=== PATIENT | female | born 1945 | race African-American/Black ===

== ENCOUNTER 2022-04-26 14:55 | Emergency (ER) | payer OTHER ==
--- OUTSIDE RECORDS SUMMARY | 2022-04-26 15:08 | XMS REPORT | Continuity of Care Document ---
:1945 Author Organization [facility] t Address [address] [place] [address] Care Team Providers Name Role Phone JOHAN RUDOLPH Primary Care Physician UnavailWILIAM Alcazar Attending Clinician Unavailable JANNET SANTIAGO Attending Clinician Unavailable ARAMIS JOSEPH Attending Clinician Unavailable ALEXSANDRA ROONEY Attending Clinician Unavailable LAB90 Attending Clinician Unavailable JENNIFER MCDONALD Attending Clinician Unavailable 1, OPTICAL COHERENCE TOMOGRAPHY Attending Clinician UnavailALEJO Meneses Attending Clinician Unavailable LAB47 Attending Clinician Unavailable TRED47 Attending Clinician Unavailable NIKO KOCH Attending Clinician Unavailable NEFTALY REA Attending Clinician Unavailable MD BITA Attending Clinician Unavailable BHUPENDRA JENKINS Attending Clinician Unavailable JOHAN RUDOLPH Attending Clinician Unavailable LAB53 Attending Clinician Unavailable MOHAN CHAN Attending Clinician Unavailable [id number] Attending Clinician Unavailable STACY PATEL Attending Clinician Unavailable DAYLIN TOTH Attending Clinician Unavailable ISABELLE ANDERSON Attending Clinician Unavailable AYDEN CHAVEZ Attending Clinician Unavailable COVID-PFIZER VACC, CLEAR GIMENEZ Attending Clinician Unavailnelida Rooney MD, Alexsandra Villafuerte Attending Clinician LAB39 Attending Clinician Unavailable Jannet Santiago OD Attending Clinician CAROL ANN DUKE Attending Clinician Unavailable Srikanth MAGAÑA, Carol Ann Pruett Attending Clinician [phone] Anderson_V Attending Clinician Unavailable JONNIE GARNER Attending Clinician Unavailable Fabi MAGAÑA, Jonnie Watson Attending Clinician [phone] HERNANDO LINARES Attending Clinician Unavailable Alejo Molina MD Attending Clinician Gregory MAGAÑA, Bhupendra Attending Clinician JOHNNY BACON Attending Clinician Unavailable COVID-PFIZER BOOSTER, CLEAR GIMENEZ Attending Clinician Unavail able [place], INJ Attending Clinician Unavailable LIVE MALIK Attending Clinician Unavailable VENKAT ADHIKARI Attending Clinician Unavailable WILIAM KAYE Attending Clinician Unavailable DEV LAYTON Attending Clinician Unavailable MICKIE MORENO Attending Clinician Unavailable KEVIN JACKSON Attending Clinician Unavailable GABBIE AMATO Attending Clinician Unavailable RHIANNON BELL Attending Clinician Unavailable MARLYN ORTIZ Attending Clinician Unavailable JEREMY BURNS Attending Clinician Unavailable HERNAN ANGELO Attending Clinician Unavailable WILIAM KAYE Admitting Clinician Unavailable Anderson_V Admitting Clinician Unavailable YESY SANDERSON Admitting Clinician Unavailable DARON BAEZA Admitting Clinician Unavailable LEFTY BEVERLY Admitting Clinician Unavailable Payers Payer Name Policy Type Policy Number Effective Date Expiration Date [place] DENGPLUS HMO ALL [id number] 2020 00:00:00 [place] H[place] 7 [id number] 2021 00:00:00 HUMANA [place] GOLD PLUS 7 [id number] 2022 42 OA 00:00:00 ZZZWELLCARE 15 [id number] 2021 MEDICARE HMO 00:00:00 WELLCARE TXP 7 [id number] 2021 CLASSIC NO PREMIUM 00:00:00 R2T KELSEYCARE MEDICARE [id number] 2021 ADV 00:00:00 Problems Condition Condition Condition Status Onset Resolution Last Treating Co mments Source Name Details Category Date Date Treatment Clinician Date Atheroscle Atheroscle Disease Active Martir phillips rosis of rosis of 6-14 [facility] aorta aorta 00:00: - 00 Externa l Arthritis Arthritis Disease Active [facility] Hypertensi Hypertensi Disease Active Martir phillips ve chronic ve chronic 5-10 [facility] kidney kidney 00:00: - disease disease 00 Externa l Arthritis Arthritis Disease Active [facility] left 2- [facility] Primary Primary Disease Active [facility] localized localized - [facility] osteoarthr osteoarthr 00:00: Hi dical osis, osis, 00 Center lower leg, lower leg, right right S/P knee S/P knee Disease [facility] replacemen replacemen -26 [facility] S/P knee S/P knee Disease [facility] replac[facility] replacemen 2-26 [facility] 00:00: Medical 00 [place] Stage 3a Stage 3a Disease Active Kelse y chronic chronic 2-19 [facility] kidney kidney 00:00: - disease disease 00 Externa l Severe Severe Disease Active [facility] obesity obesity 07-17ybold (BMI (BMI 00:00: - 35.0-39.9) 35.0-39.9) 00 Ex terna with with l comorbidit comorbidit y y CAD CAD Disease Active [facility] (coronary (coronary 07-17 Seyb old atheroscle atheroscle 00:00: - rotic rotic 00 Externa disease) disease) l Hypertensi Hypertensi Disease Active 2018-02 Martir phillips on on 04-06 [facility] 00:00: - 00 Externa l Left upper Left upper Disease Active 2018-[address] arm pain arm pain 02-21 [facility] Left arm Left arm Disease [facility] 2018-[facility] 02[facility] [place] Transamini Transamini Disease Active [facility] tis tis 9-16 [facility] 00:[facility] 00 [place] Abdominal Abdominal Disease Active [facility] pain pain 9-13 [facility] 00 [place] Precordial Precordial Disease Active [facility] chest pain chest pain 9-12 [facility] 00:00: Medical 00 [place] Chronic Chronic Disease Active [facility] venous venous - [facility] insufficie insufficie 00:00: - ncy ncy 00 Externa l History of History of Disease Active K elsey DVT of DVT of 10-21 [facility] lower lower 00:00: - extremity extremity 00 Exte rna l 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 [facility] myocardial myocardial 3-21 Se [facility] infarction infarction 00:00: - 00 Externa l Varicose Varicose Disease Active Kelse y veins of veins of 05-05 Seybol d both lower both lower 00:00: - extremitie extremitie 00 Ex terna s with s with l pain pain Moderate Moderate Disease [facility] dehydratio dehydratio 3-11 [facility] n n 00:00: Medical 00 [place] Abdominal Abdominal Disease Active [facility] cramping cramping 3-10 [facility] 00 [place] Acute Acute Disease Active [facility] infectious infectious 3-10 [facility] diarrhea diarrhea 00:00: Medica l 00 [place] Nausea Nausea Disease Active [facility] 3-10 [facility] 00 [place] Uncontroll Uncontroll Disease Active [facility] ed ed 3-10 [facility] hypertensi hypertensi 00:00: Me dical on on 00 [place] Chest Chest Disease Active [facility] pain, pain, 5-22 [facility] unspecifie unspecifie 00:00: Me dical d type d type 00 [place] Neuropathy Neuropathy Disease Active K elsey 4-27 [facility] 00:00: - 00 Externa l Acute pain Acute pain Disease Active [facility] of left of left 9-19 [facility] shoulder shoulder 00:00: Medica l 00 [place] History of History of Disease Active [facility] pulmonary pulmonary -19 [facility] embolism embolism 00:00: Medica l 00 [place] H/O H/O Disease Active [facility] protein C protein C 11-03 [facility] deficiency deficiency 00:00: Me dical 00 Center Coronary Coronary Disease [facility] artery artery 11-03[facility] disease disease 00:00: Medical involving involving 00 [facility] [place] coronary coronary artery of artery of [place] heart heart without without angina angina pectoris pectoris s/p PTCA s/p PTCA with PCI with PCI in 04/2016 in 04/2016 at [facility] Hypothyroi Hypothyroi Disease Active [facility] dism dism 11-03 [facility] History of History of Disease Active [facility] left left 11-03 [facility] rotator rotator 00:00: Medical cuff tear cuff tear 00 Cent er Essential Essential Disease Active [facility] hypertensi hypertensi 11-03 [facility] on on 00:00: Medical 00 Center Hyperlipid Hyperlipid Disease Active [facility] emia emia 11-03 [facility] CKD CKD Disease Active [facility] (chronic (chronic 11-03 [facility] kidney kidney 00:00: Medical disease) disease) 00 Center stage 2, stage 2, GFR 60-89 GFR 60-89 ml/min ml/min Hypertensi Hypertensi Disease Active [facility] ve urgency ve urgency 11-03 [facility] kes 00:00: Medical 00 Center Mixed Mixed Disease Active [facility]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 hyperlipid 04-21 Se [facility] emia emia 00:00: - 00 Externa l Prediabete Prediabete Disease Active K elsey s s 04-21 [facility] 00:00: - 00 Externa l Proteinuri Proteinuri Disease Active K elsey a a 3- [facility]bold 00:00: - 00 Externa l 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 [facility] depressive depressive 00:00: - disorder, disorder, 00 Exte rna in full in full l remission remission 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 3 [facility] filter filter 00:00: - 00 Externa l Cyst of Cyst of Disease Active [facility] left left 3- [facility] kidney kidney 00:00: - 00 Externa l Hydrosalpi Hydrosalpi Disease Active K alan nx nx 3-07 [facility] 00:00: - 00 Externa l Pelvic Pelvic Disease Active [facility] varices varices 3-07 [facility] 00:00: - 00 Externa l Chronic Chronic Disease Active [facility] daily daily 3-07 [facility] headache headache 00:00: - 00 Externa l Post-surgi Post-surgi Disease Active K alan nilda nilda 3-07 [facility] hypothyroi hypothyroi 00:00: - dism dism 00 Externa l Primary Primary Disease Active [facility] 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 Se [facility] glaucoma glaucoma 00:00: - of both of both 00 Externa eyes, eyes, l moderate moderate stage stage Lumbar Lumbar Disease Active [facility] degenerati degenerati 3-01 Se [facility] ve disc ve disc 00:00: - disease disease 00 Externa l Inflammato Inflammato Disease Active K alan ry ry 2-15 [facility] arthritis arthritis 00:00: - 00 Externa l Sacroiliit Sacroiliit Disease Active 2014-02 K kamalay is is 2-15 [facility]bold 00:00: - 00 Externa l 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 1-20 Se ybold 00:00: - 00 Externa l Allergies, Adverse Reactions, Alerts Allergy Allergy Status Severity Reaction(s) Onset Inactive Treating Comm ents Source Name Type Date Date Clinician tramadol DA Active [facility] 5[facility]03 Clear 00:00: Gimenez 00 [facility] meperidi DA Active [facility] ne 5-03 Clear 00:00: Gimenez 00 [facility] lactose DA Active [facility] 4-04 Clear 00:00: Gimenez 00 [facility] Lactose Drug Active Other (See GI issues [facility] Comments) 404 [facility] Center LACTOSE Allergy Active Med Other [facility] 4-04 00:00: 00 Lactose Drug Active Other GI issues [facility] Intolera 4-04 Seybold nce 00:00: - 00 Externa l codeine DA Active U 2017-0 [facility] 3-27 Clear 00:[facility] Meper[facility] Drug Active Shortness Of 2015-[address] [facility] Allergy Breath 03-15 [facility] MEPERIDI Allergy Active High Sob 2015-02 [facility] NE 03-15 00:00: 00 Demerol Propensi Active Shortness of 2015-02 K elsey ty to Breath 03-15 [facility] adverse 00:00: - reaction 00 Externa s l Pregabal Drug Active Nausea Only [facility] 03-12 [facility] 00:[facility] Medical 00 [place] PREGABAL Allergy Active Low Nausea [facility] IN 03-12 00:00: 00 Pregabal Drug Active Nausea Only Qasim sey in Intolera 03-12 [facility] nce 00:00: - 00 Externa l Lyrica Propensi Active Nausea Only Qasim sey ty to 03-12 [facility] adverse 00:00: - reaction 00 Externa s l Tramadol Propensi Active Nausea and Ke lsey ty to Vomiting 05-09 [facility] adverse 00:00: - reaction 00 Externa s l Tramadol Drug Active Nausea And [address] [facility] Vomiting, 04-27 [facility] Nausea Only 00:00: Medic al 00 Center TRAMADOL Allergy Active Med N\\T\\V [facility] 3-13 00:00: 00 Codeine Drug Active Nausea And Abdominal [facility] Allergy Vomiting, 1-20 pain [facility] Other (See 00:00: Medica l Comments) 00 Center CODEINE Allergy Active High N\\T\\V [facility] 1-20 00:00: 00 Codeine Propensi Active Other Dizziness Macrina ey ty to 1-20 , nausea, [facility]bold adverse 00:00: vomiting, - reaction 00 abdominal Exter na s to pain. l drug Codeine Propensi Active Other Dizziness Macrina ey ty to 1-20 , nausea, [facility]bold adverse 00:00: vomiting, - reaction 00 abdominal Exter na s to pain. l drug Social History Social Habit Start Date Stop Date Quantity Comments Source Exposure to Yes [facility]o cutler SARS-CoV-2 (event) Alcohol intake 2021-07-02 2021-07-[address] [facility] Tammy es 00:00:00 00:00:00 non-drinker of Medical Ce nter alcohol (finding) Tobacco use and 2014-04-27 2014-04-27 Never used [facility] exposure 00:00:00 00:00:00 [facility] Center Sex [birth year] At [birth year] [facility] 00:[facility] Smoking Status Start Date Stop Date Source Never smoked tobacco [facility]o Seyb old - External Medications Ordered Filled Start Stop Current Ordering Indication Dosage Frequency Signature Comments Components Source Medication Medication Date Date Medication? Clinician (SIG) Name Name Aspirin 81 2022-0 Yes 81mg Take 81 mg K elsey MG oral Tab 3-08 by mouth Seyb old 08:43: daily - 46 Externa l Acetaminoph 2022-0 Yes 650mg Q.[id number] Take 650 [facility]ielo en 650 MG 3-08 [id number] mg by Sey bold oral Tab CR 08:43: 3D mouth - 46 every 8 Externa hours as l needed for pain Amoxicillin 2022-0 202- Yes [id number] 1{tbl} Take 1 [facility] -Pot 3-08 03-16 tablet by Seybold Clavulanate 00:00: 04:59 mouth 2 - 500-125 MG 00 :00 times Externa oral Tablet daily for l 7 days Aspirin 81 2022-0 Yes 81mg Take 81 mg K elsey MG oral Tab 3-06 by mouth Seyb old 10:45: daily - 18 Externa l Acetaminoph 2022-0 Yes 650mg Q.[id number] Take 650 [facility]o en 650 MG 3-06 [id number] mg by Sey bold oral Tab CR 10:45: 3D mouth - 18 every 8 Externa hours as l needed for pain Timolol 2022-0 Yes [id number] 1 drop in [facility] Maleate 3-06 right eye Seybold (TIMOPTIC) 00:00: every - 0.5 % 00 morning Externa ophthalmic l Solution Timolol 2022-0 Yes [id number] 1 drop in [facility] Maleate 3-06 right eye Seybold (TIMOPTIC) 00:00: every - 0.5 % 00 morning Externa ophthalmic l Solution Rosuvastati 2022-0 Yes 40mg Take 1 Macrina ey n Calcium 3-02 tablet (40 Seyb old (Crestor) 00:00: mg total) - 40 MG oral 00 by mouth Exter na Tablet daily l Rosuvastati 2022-0 Yes 40mg Take 1 Macrina ey n Calcium 3-02 tablet (40 Seyb old (Crestor) 00:00: mg total) - 40 MG oral 00 by mouth Exter na Tablet daily l Aspirin 81 2022-0 Yes 81mg Take 81 mg K elsey MG oral Tab 2-01 by mouth Seyb old 11:03: daily - 52 Externa l Acetaminoph 2022-0 Yes 650mg Q.[id number] Take 650 [facility]ielo en 650 MG 2-01 [id number] mg by Sey bold oral Tab CR 11:03: 3D mouth - 52 every 8 Externa hours as l needed for pain Aspirin 81 2022-0 Yes 81mg Take 81 mg K elsey MG oral Tab 2-01 by mouth Seyb old 11:03: daily - 52 Externa l Acetaminoph 2022-0 Yes 650mg Q.[id number] Take 650 [facility]ielo en 650 MG 2-01 [id number] mg by Sey bold oral Tab CR 11:03: 3D mouth - 52 every 8 Externa hours as l needed for pain Sod 2022-0 Yes [id number] Instructio Ke lsey Picosulfate 2-01 ns Seybold -Mag Ox-Cit 00:00: provided - Acd 00 to Externa (Clenpiq) patient. l 10-3.5-12 Follow MG-GM instructio -GM/160ML ns oral provided Solution by provider. Methylpredn 2022- No [id number] 20mg [facility] isolone 03-17 [facility] Acetate 18:00: 17:58 - (Depo-Medro 00 :00 Externa l) 40 mg/ml l - Physician Administere d (J1030) Methylpredn 2022- No [id number] 20mg 20 mg, [facility] isolone 03-17 Physician Seybol d Acetate 18:00: 17:58 Administer - (Depo-Medro 00 :00 ed, ONCE, Ext malik l) 40 mg/ml 1 dose, On l - Physician Tue Administere 03/17/22 at d (J1030) 1200 Aspirin 81 2022-0 Yes 81mg Take 81 mg K elsey MG oral Tab 1-31 by mouth Seyb old 11:41: daily - 22 Externa l Acetaminoph 2022-0 Yes 650mg Q.[id number] Take 650 Cielo en 650 MG 1-31 [id number] mg by Sey bold oral Tab CR 11:41: 3D mouth - 22 every 8 Externa hours as l needed for pain Duloxetine 2022-0 Yes 20mg Take 1 Kelse y HCl 20 MG 1-15 capsule Seybold oral Cap DR 00:00: (20 mg - Particles 00 total) by Exter na mouth l daily NO DRIVING. NO ALCOHOL. NO OPERATING MACHINERY. Duloxetine 2022-0 Yes 20mg Take 1 Kelse y HCl 20 MG 1-15 capsule Seybold oral Cap DR 00:00: (20 mg - Particles 00 total) by Exter na mouth l daily NO DRIVING. NO ALCOHOL. NO OPERATING MACHINERY. Duloxetine 2022-0 Yes 20mg Take 1 Kelse y HCl 20 MG 1-15 capsule Seybold oral Cap DR 00:00: (20 mg - Particles 00 total) by Exter na mouth l daily NO DRIVING. NO ALCOHOL. NO OPERATING MACHINERY. Duloxetine 2022-0 Yes 20mg Take 1 Kelse y HCl 20 MG 1-15 capsule Seybold oral Cap DR 00:00: (20 mg - Particles 00 total) by Exter na mouth l daily NO DRIVING. NO ALCOHOL. NO OPERATING MACHINERY. Duloxetine 2022-0 Yes 20mg Take 1 Kelse y HCl 20 MG 1-15 capsule Seybold oral Cap DR 00:00: (20 mg - Particles 00 total) by Exter na mouth l daily NO DRIVING. NO ALCOHOL. NO OPERATING MACHINERY. 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 l Latanoprost 2023-0 Yes [id number] INSTILL 1 [facility] 0.005 % 1-13 DROP INTO Seybold ophthalmic 00:00: BOTH EYES - Solution 00 EVERY DAY 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 l Latanoprost 2022-0 Yes [id number] INSTILL 1 [facility] 0.005 % 1-13 DROP INTO Seybold ophthalmic 00:00: BOTH EYES - Solution 00 EVERY DAY 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 l Latanoprost 2022-0 Yes [id number] INSTILL 1 [facility] 0.005 % 1-13 DROP INTO Seybold ophthalmic 00:00: BOTH EYES - Solution 00 EVERY DAY 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 l Aspirin 81 2022-0 Yes 81mg Take 81 mg K elsey MG oral Tab 1-10 by mouth Seyb old 11:14: daily - 00 Externa l Acetaminoph 2022-0 Yes 650mg Q.[id number] Take 650 Cielo en 650 MG 1-10 [id number] mg by Sey bold oral Tab CR 11:14: 3D mouth - 00 every 8 Externa hours as l needed for pain Tramadol 2022-0 Yes [id number] 50mg Q.25D Take 1 K elsey HCl 50 MG 1-10 tablet (50 Seyb old oral Tablet 00:00: mg total) - 00 by mouth Externa every 6 l hours as needed for pain Tramadol 2022-0 Yes [id number] 50mg Q.25D Take 1 K elsey HCl 50 MG 1-10 tablet (50 Seyb old oral Tablet 00:00: mg total) - 00 by mouth Externa every 6 l hours as needed for pain Tramadol 2022-0 Yes [id number] 50mg Q.25D Take 1 K elsey HCl 50 MG 1-10 tablet (50 Seyb old oral Tablet 00:00: mg total) - 00 by mouth Externa every 6 l hours as needed for pain Tramadol 0 Yes [id number] 50mg Q.25D Take 1 K elsey HCl 50 MG 1-10 tablet (50 Seyb old oral Tablet 00:00: mg total) - 00 by mouth Externa every 6 l hours as needed for pain Tramadol 2022-0 Yes [id number] 50mg Q.25D Take 1 K elsey HCl 50 MG 1-10 tablet (50 Seyb old oral Tablet 00:00: mg total) - 00 by mouth Externa every 6 l hours as needed for pain Tramadol 0 Yes [id number] 50mg Q.25D Take 1 K elsey HCl 50 MG 1-10 tablet (50 Seyb old oral Tablet 00:00: mg total) - 00 by mouth Externa every 6 l hours as needed for pain Aspirin 81 2021-02 Yes 81mg Take 81 mg K elsey MG oral Tab 1-29 by mouth Seyb old 11:35: daily - 08 Externa l Acetaminoph 2021-02 Yes 650mg Q.[id number] Take 650 Cielo en 650 MG - [id number] mg by Sey bold oral Tab CR 11:35: 3D mouth - 08 every 8 Externa hours as l needed for pain Aspirin 81 2021-02 Yes 81mg Take 81 mg K elsey MG oral Tab 1-16 by mouth Seyb old 15:10: daily - 08 Externa l Acetaminoph 2021-02 Yes 650mg Q.[id number] Take 650 Cielo en 650 MG 16 [id number] mg by Sey bold oral Tab CR 15:10: 3D mouth - 08 every 8 Externa hours as l needed for pain Aspirin 2021-02 Yes 81mg Take 81 mg K elsey MG oral Tab 107 by mouth Seyb old 13:39: daily - 21 Externa l Acetaminoph 2021-02 Yes 650mg Q.[id number] Take 650 Cielo en 650 MG 07 [id number] mg by Sey bold oral Tab CR 13:39: 3D mouth - 21 every 8 Externa hours as l needed for pain Latanoprost 2021-02 Yes [id number] INSTILL 1 [facility] 0.005 % 0-04 DROP INTO Seybold ophthalmic 00:00: BOTH EYES - Solution 00 EVERY DAY 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 l Latanoprost 2021-02 Yes [id number] INSTILL 1 [facility]o 0.005 % 0-04 DROP INTO Seybold ophthalmic 00:00: BOTH EYES - Solution 00 EVERY DAY 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 l Latanoprost 2021-02 Yes [id number] INSTILL 1 [facility]o 0.005 % 0-04 DROP INTO Seybold ophthalmic 00:00: BOTH EYES - Solution 00 EVERY DAY 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 l Latanoprost 2021-02 Yes [id number] INSTILL 1 [facility] 0.005 % 0-04 DROP INTO Seybold ophthalmic 00:00: BOTH EYES - Solution 00 EVERY DAY 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 Atorvastati Yes TAKE 1 Macrina ey n Calcium 9-16 TABLET BY Seybo ld 40 MG oral 00:00: MOUTH - Tablet 00 EVERY DAY Externa l Atorvastati 0 Yes TAKE 1 Macrina ey n Calcium 9-16 TABLET BY Seybo ld 40 MG oral 00:00: MOUTH - Tablet 00 EVERY DAY Externa l Atorvastati 0 Yes TAKE 1 Macrina ey n Calcium 9-16 TABLET BY Seybo ld 40 MG oral 00:00: MOUTH - Tablet 00 EVERY DAY Externa l Atorvastati 2021-0 Yes TAKE 1 Macrina ey n Calcium 9-16 TABLET BY Seybo ld 40 MG oral 00:00: MOUTH - Tablet 00 EVERY DAY Externa l Atorvastati 2021-0 Yes TAKE 1 Macrina ey n Calcium 9-16 TABLET BY Seybo ld 40 MG oral 00:00: MOUTH - Tablet 00 EVERY DAY Externa l Atorvastati 0 Yes TAKE 1 Macrina ey n Calcium 9-16 TABLET BY Seybo ld 40 MG oral 00:00: MOUTH - Tablet 00 EVERY DAY Externa l Atorvastati 0 Yes TAKE 1 Macrina ey n Calcium 9-16 TABLET BY Seybo ld 40 MG oral 00:00: MOUTH - Tablet 00 EVERY DAY Externa l Atorvastati 2021-0 Yes TAKE 1 Macrina ey n Calcium 9-16 TABLET BY Seybo ld 40 MG oral 00:00: MOUTH - Tablet 00 EVERY DAY Externa l Duloxetine 0 Yes [facility]o HCl 20 MG 8-[address] 00:00: - Particles 00 Externa l Duloxetine 2021-0 Yes [facility] HCl 20 MG 8-24 Seybold oral Cap 00:00: - Particles 00 Externa l Duloxetine 2021-0 Yes [facility] HCl 20 MG 8-24 Seybold oral Cap 00:00: - Particles 00 Externa l Duloxetine 2021-0 Yes [facility] HCl 20 MG 8-24 Seybold oral Cap 00:00: - Particles 00 Externa l Duloxetine 2021-0 Yes [facility] HCl 20 MG 8-24 Seybold oral Cap 00:00: - Particles 00 Externa l Levothyroxi 2021-0 Yes TAKE 1 Macrina ey ne Sodium 7-28 TABLET BY Seybo ld 112 MCG 00:00: MOUTH - oral Tablet 00 EVERY DAY Ext malik l Levothyroxi 2021-0 Yes TAKE 1 Macrina ey ne Sodium 7-28 TABLET BY Seybo ld 112 MCG 00:00: MOUTH - oral Tablet 00 EVERY DAY Ext malik l Levothyroxi 2021-0 Yes TAKE 1 Macrina ey ne Sodium 7-28 TABLET BY Seybo ld 112 MCG 00:00: MOUTH - oral Tablet 00 EVERY DAY Ext malik l Levothyroxi 2021-0 Yes TAKE 1 Macrina ey ne Sodium 7-28 TABLET BY Seybo ld 112 MCG 00:00: MOUTH - oral Tablet 00 EVERY DAY Ext malik l Levothyroxi 2021-0 Yes TAKE 1 Macrina ey ne Sodium 7-28 TABLET BY Seybo ld 112 MCG 00:00: MOUTH - oral Tablet 00 EVERY DAY Ext malik l Levothyroxi 2021-0 Yes TAKE 1 Macrina ey ne Sodium 7-28 TABLET BY Seybo ld 112 MCG 00:00: MOUTH - oral Tablet 00 EVERY DAY Ext malik l Levothyroxi 2021-0 Yes TAKE 1 Macrina ey ne Sodium 7-28 TABLET BY Seybo ld 112 MCG 00:00: MOUTH - oral Tablet 00 EVERY DAY Ext malik l Levothyroxi 2021-0 Yes TAKE 1 Macrina ey ne Sodium 7-28 TABLET BY Seybo ld 112 MCG 00:00: MOUTH - oral Tablet 00 EVERY DAY Ext malik l Levothyroxi 2021-0 Yes TAKE 1 Macrina ey ne Sodium 7-28 TABLET BY Seybo ld 112 MCG 00:00: MOUTH - oral Tablet 00 EVERY DAY Ext malik l Levothyroxi Yes TAKE 1 Macrina ey ne Sodium 7-28 TABLET BY Seybo ld 112 MCG 00:00: MOUTH - oral Tablet 00 EVERY DAY Ext malik l Pseudoeph-B 2021- No [id number] 10mL Q.25D Take 10 mL Cielo romphen-DM 08-15 by mouth 4 Se ybold (Bromfed 00:00: 00:00 times - DM) 30-2-10 00 :00 daily as Exte rna MG/5ML oral needed l Syrup Methylpredn 2021- No [id number] 80mg Cielo isolone 07-22 9108 Seybold Acetate 17:30: 17:26 (Depo-Medro 00 :00 l) 80 mg/ml - Physician Administere d ([id number]) Methylpredn 2021- No [id number] 80mg 80 mg, Cieol isolone 07-22 9108 Physician Seybol d Acetate 17:30: 17:26 Administer (Depo-Medro 00 :00 ed, ONCE, l) 80 mg/ml On Tue - Physician 07/22/21 at Administere 1230, For d (J1040) 1 dose Aspirin 81 2021-0 Yes 81mg Take 81 mg K elsey MG oral Tab 607 by mouth Seyb old 10:28: daily 25 Acetaminoph 2021-0 Yes 650mg Q.[id number] Take 650 Cielo en 650 MG 6- [id number] mg by Sey bold oral Tab CR 10:28: 3D mouth 25 every 8 hours as needed for pain Gabapentin Yes 300mg Take 300 Ke lsey 300 MG oral 6-07 mg by Seybold Capsule 10:28: mouth in 25 the morning and 300 mg in the evening. Aspirin 81 2021-0 Yes 81mg Take 81 mg K elsey MG oral Tab 6-06 by mouth Seyb old 15:35: daily 39 Acetaminoph 2021-0 Yes 650mg [id number] Take 650 [place] en 650 MG 6-06 [id number] mg by Sey bold oral Tab CR 15:35: 3D mouth 39 every 8 hours as needed for pain Gabapentin 2021-0 Yes 300mg Take 300 Ke l[place] 300 MG oral 6-06 mg by Seybold Capsule 15:35: mouth in 39 the morning and 300 mg in the evening. Gabapentin Yes 300mg Take 300 Ke lsey 300 MG oral 6-02 mg by Seybold Capsule 11:33: mouth in 32 the morning and 300 mg in the evening. Aspirin 81 0 Yes 81mg Take 81 mg K elsey MG oral Tab 6-02 by mouth Seyb old 10:59: daily 36 Acetaminoph Yes 650mg Q.[id number] Take 650 [place] en 650 MG 6-02 [id number] mg by Sey bold oral Tab CR 10:59: 3D mouth 36 every 8 hours as needed for pain Furosemide Yes 40mg Take 1 K[facility] 40 MG oral 6-02 tablet (40 Sey bold Tablet 00:00: mg total) 00 by mouth daily Potassium Yes 20meq Take 1 [facility] Chloride 6-02 tablet (20 Seybo ld Maddison CR 20 00:00: mEq total) MEQ oral 00 by mouth Tab CR daily Furosemide Yes 40mg Take 1 Kelse y 40 MG oral 6-02 tablet (40 Sey bold Tablet 00:00: mg total) 00 by mouth daily Potassium Yes 20meq Take 1 [facility] Chloride 6-02 tablet (20 Seybo ld Maddison CR 20 00:00: mEq total) MEQ oral 00 by mouth Tab CR daily Furosemide Yes 40mg Take 1 Kelse y 40 MG oral 6-02 tablet (40 Sey bold Tablet 00:00: mg total) 00 by mouth daily Potassium 0 Yes 20meq Take 1 [facility] Chloride 6-02 tablet (20 Seybo ld Maddison CR 20 00:00: mEq total) MEQ oral 00 by mouth Tab CR daily Furosemide Yes 40mg Take 1 Kelse y 40 MG oral 6-02 tablet (40 Sey bold Tablet 00:00: mg total) - 00 by mouth Externa daily l Potassium Yes 20meq Take 1 [facility] Chloride 6-02 tablet (20 Seybo ld Maddison CR 20 00:00: mEq total) - MEQ oral 00 by mouth Externa Tab CR daily l Furosemide 2022-0 Yes 40mg Take 1 Kelse [facility] 40 MG oral 6-02 tablet (40 Sey bold Tablet 00:00: mg total) - 00 by mouth Externa daily l Potassium 2-0 Yes 20meq Take 1 [facility] Chloride 6-02 tablet (20 Seybo ld Maddison CR 20 00:00: mEq total) - MEQ oral 00 by mouth Externa Tab CR daily l Furosemide 2-0 Yes 40mg Take 1 Kelse [facility] 40 MG oral 6-02 tablet (40 Sey bold Tablet 00:00: mg total) - 00 by mouth Externa daily l Potassium 2-0 Yes 20meq Take 1 [facility] Chloride 6-02 tablet (20 Seybo ld [place] CR 20 00:00: mEq total) - MEQ oral 00 by mouth Externa Tab CR daily l Furosemide 2021-0 Yes 40mg Take 1 Kelse [facility] 40 MG oral 6-02 tablet (40 Sey bold Tablet 00:00: mg total) - 00 by mouth Externa daily l Potassium 2-0 Yes 20meq Take 1 [facility] Chloride 6-02 tablet (20 Seybo ld [place] CR 20 00:00: mEq total) - MEQ oral 00 by mouth Externa Tab CR daily l Furosemide 2-0 Yes 40mg Take 1 Kelse [facility] 40 MG oral 6-02 tablet (40 Sey bold Tablet 00:00: mg total) - 00 by mouth Externa daily l Potassium 2-0 Yes 20meq Take 1 [facility] Chloride 6-02 tablet (20 Seybo ld [place] CR 20 00:00: mEq total) - MEQ oral 00 by mouth Externa Tab CR daily l Furosemide 2-0 Yes 40mg Take 1 Kelse [facility] 40 MG oral 6-02 tablet (40 Sey bold Tablet 00:00: mg total) - 00 by mouth Externa daily l Potassium 2022-0 Yes 20meq Take 1 [facility] Chloride 6-02 tablet (20 Seybo ld [place] CR 20 00:00: mEq total) - MEQ oral 00 by mouth Externa Tab CR daily l Furosemide 2-0 Yes 40mg Take 1 Kelse [facility] 40 MG oral 6-02 tablet (40 Sey bold Tablet 00:00: mg total) - 00 by mouth Externa daily l Potassium 2022-0 Yes 20meq Take 1 [facility] Chloride 6-02 tablet (20 Seybo ld [place] CR 20 00:00: mEq total) - MEQ oral 00 by mouth Externa Tab CR daily l Furosemide 2021-0 Yes 40mg Take 1 K[facility] 40 MG oral 6-02 tablet (40 Sey bold Tablet 00:00: mg total) - 00 by mouth Externa daily l Potassium 2021-0 Yes 20meq Take 1 [facility] Chloride 6-02 tablet (20 Seybo ld [place] CR 20 00:00: mEq total) - MEQ oral 00 by mouth Externa Tab CR daily l Furosemide 2021-0 Yes 40mg Take 1 K[facility] 40 MG oral 6-02 tablet (40 Sey bold Tablet 00:00: mg total) - 00 by mouth Externa daily l Potassium 2021-0 Yes 20meq Take 1 [facility] Chloride 6-02 tablet (20 Seybo ld [place] CR 20 00:00: mEq total) - MEQ oral 00 by mouth Externa Tab CR daily l Furosemide 2021-0 Yes 40mg Take 1 Kelse [facility] 40 MG oral 6-02 tablet (40 Sey bold Tablet 00:00: mg total) - 00 by mouth Externa daily l Potassium 2021-0 Yes 20meq Take 1 [facility] Chloride 6-02 tablet (20 Seybo ld [place] CR 20 00:00: mEq total) - MEQ oral 00 by mouth Externa Tab CR daily l Lisinopril 2021-0 Yes [id number] TAKE 1 K elsey 40 MG oral 5-23 TABLET BY Seyb old Tablet 00:00: MOUTH 00 EVERY DAY Lisinopril 2022-0 Yes [id number] TAKE 1 K elsey 40 MG oral 5-23 TABLET BY Seyb old Tablet 00:00: MOUTH 00 EVERY DAY Lisinopril 2022-0 Yes [id number] TAKE 1 K elsey 40 MG oral 5-23 TABLET BY Seyb old Tablet 00:00: MOUTH 00 EVERY DAY Lisinopril 2-0 Yes [id number] TAKE 1 K elsey 40 MG oral 5-23 TABLET BY Seyb old Tablet 00:00: MOUTH - 00 EVERY DAY Externa l Lisinopril 2021-0 Yes [id number] TAKE 1 K elsey 40 MG oral 5-23 TABLET BY Seyb old Tablet 00:00: MOUTH - 00 EVERY DAY Externa l Lisinopril 2022-0 Yes [id number] TAKE 1 K elsey 40 MG oral 5-23 TABLET BY Seyb old Tablet 00:00: MOUTH - 00 EVERY DAY Externa l Lisinopril 0 Yes [id number] TAKE 1 K elsey 40 MG oral 5-23 TABLET BY Seyb old Tablet 00:00: MOUTH - 00 EVERY DAY Externa l Lisinopril 0 Yes [id number] TAKE 1 K elsey 40 MG oral 5-23 TABLET BY Seyb old Tablet 00:00: MOUTH - 00 EVERY DAY Externa l Lisinopril 0 Yes [id number] TAKE 1 K elsey 40 MG oral 5-23 TABLET BY Seyb old Tablet 00:00: MOUTH - 00 EVERY DAY Externa l Lisinopril 0 Yes [id number] TAKE 1 K elsey 40 MG oral 5-23 TABLET BY Seyb old Tablet 00:00: MOUTH - 00 EVERY DAY Externa l Lisinopril 0 Yes [id number] TAKE 1 K elsey 40 MG oral 5-23 TABLET BY Seyb old Tablet 00:00: MOUTH - 00 EVERY DAY Externa l Lisinopril 0 Yes [id number] TAKE 1 K elsey 40 MG oral 5-23 TABLET BY Seyb old Tablet 00:00: MOUTH - 00 EVERY DAY Externa l Lisinopril 0 Yes [id number] TAKE 1 K elsey 40 MG oral 5-23 TABLET BY Seyb old Tablet 00:00: MOUTH - 00 EVERY DAY Externa l aspirin 81 0 Yes 81mg QD Take [address] MG chewable 5-18 by mouth Luke s tablet 19:20: daily. Medical 27 [facility] atorvastati Yes 40mg QD Take [address] [facility] (LIPITOR) 5-18 by mouth Luke s 40 MG 19:20: daily. Medical tablet 27 Center carvediloL Yes 3.125mg Take 3.[address] [facility] (COREG) 5-18 mg [facility] 3.125 MG 19:20: mouth 2 Medica l tablet 27 (two) Center times daily with breakfast and dinner. clopidogreL Yes 75mg QD Take [address] [facility] (PLAVIX) 75 5-18 by mouth Luke s mg tablet 19:20: daily. Medica l 27 Center enoxaparin Yes QD Inject [facility] (Lovenox[facility] 5-18 subcutaneo Luke s 150 mg/mL 19:20: usly Medical injection 27 daily. Center gabapentin Yes 300mg Q.[id number] Take [address] [facility] (NEURONTIN) 5-18 [id number] mg by L ukes 300 MG 19:20: 3D mouth 3 Medical capsule 27 (three) Center times daily. HYDROcodone Yes 1{tbl} Take [address] [facility] [address] [facility] -acetaminop 5-18 tablet by Tammy barrios (NORCO 19:20: mouth Medica l 10-325) 27 every 6 Center 10-325 mg (six) per tablet hours as needed for Pain. latanoprost Yes 1[drp] QD [address] [facility] [address] [facility] (XALATAN) 5-18 nightly. [facility] 0.005 % 19:20: Medical ophthalmic 27 Center solution naloxone Yes Inject as [facility] 0.4 mg/0.4 5-18 directed. Luke s mL AtIn 19:20: Medical 27 Center potassium Yes 20meq QD Take [address] [facility] chloride 5-18 mEq by [facility] (KLOR-CON) 19:20: mouth Medica l 20 mEq 27 daily. Center packet timoloL Yes 1[drp] Q.5D [address] [facility] (BETIMOL) 5-18 (two) [facility] 0.5 % 19:20: times Medical ophthalmic 27 daily. Center solution ondansetron Yes 4mg Take [address] [facility] (ZOFRAN) 4 5-18 by mouth [facility] MG tablet 19:20: as needed Med ical 27 for Center Nausea. latanoprost Yes 1[drp] QD [address] [facility] [address] [facility] (XALATAN) 5-18 nightly. [facility] 0.005 % 19:20: Medical ophthalmic 27 Center solution naloxone Yes Inject as [facility] 0.4 mg/0.4 5-18 directed. Luke s mL AtIn 19:20: Medical 27 Center potassium 2021-0 Yes 20meq QD Take [address] [facility] chloride 5-18 mEq by [facility] (KLOR-CON) 19:20: mouth Medica l 20 mEq 27 daily. Center packet timoloL Yes 1[drp] Q.5D [address] [facility] (BETIMOL) 5-18 (two) [facility] 0.5 % 19:20: times Medical ophthalmic 27 daily. Center solution ondansetron Yes 4mg Take [address] (ZOFRAN) 4 5-18 by mouth [facility] MG tablet 19:20: as needed Med ical 27 for Center Nausea. aspirin 81 Yes 81mg QD Take [address] MG chewable 5-18 by mouth Luke s tablet 19:20: daily. Medical 27 Center atorvastati Yes 40mg QD Take [address] [facility] (LIPITOR) 5-18 by mouth Luke s 40 MG 19:20: daily. Medical tablet 27 Center carvediloL Yes 3.125mg Take 3.[address] [facility] (COREG) 5-18 mg by [facility] 3.125 MG 19:20: mouth 2 Medica l tablet 27 (two) Center times daily with breakfast and dinner. clopidogreL Yes 75mg QD Take [address] [facility] (PLAVIX) 75 5-18 by mouth Luke s mg tablet 19:20: daily. Medica l 27 Center enoxaparin Yes QD Inject [facility] (Lovenox[facility] 5-18 subcutaneo [facility] 150 mg/mL 19:20: usly Medical injection 27 daily. Center gabapentin Yes 300mg Q.[id number] Take [address] [facility] (NEURONTIN) 5-18 [id number] mg by L ukes 300 MG 19:20: 3D mouth 3 Medical capsule 27 (three) Center times daily. HYDROcodone Yes 1{tbl} Take [address] -acetaminop 5-18 tablet by Tammy barrios (NORCO 19:20: mouth Medica l 10-325) 27 every 6 Center 10-325 mg (six) per tablet hours as needed for Pain. latanoprost Yes 1[drp] QD [address] [facility] [address] [facility] (XALATAN) 5-18 nightly. [facility] 0.005 % 19:20: Medical ophthalmic 27 Center solution naloxone Yes Inject as [facility] 0.4 mg/0.4 5-18 directed. Luke s mL AtIn 19:20: Medical 27 Center potassium Yes 20meq QD Take [address] [facility] chloride 5-18 mEq by [facility] (KLOR-CON) 19:20: mouth Medica l 20 mEq 27 daily. [place] packet timoloL Yes 1[drp] Q.5D [address] [facility] (BETIMOL) 5-18 (two) [facility] 0.5 % 19:20: times Medical ophthalmic 27 daily. [place] solution ondansetron Yes 4mg Take [address] (ZOFRAN) 4 5-18 by mouth [facility] MG tablet 19:20: as needed Med ical 27 for Center Nausea. aspirin 81 Yes 81mg QD Take [address] MG chewable 5-18 by mouth Luke s tablet 19:20: daily. Medical 27 [place] atorvastati Yes 40mg QD Take [address] [facility] (LIPITOR) 5-18 by mouth Luke s 40 MG 19:20: daily. Medical tablet 27 [place] carvediloL Yes 3.125mg Take 3.[address] [facility] [address] (COREG) 5-18 mg by [facility] 3.125 MG 19:20: mouth 2 Medica l tablet 27 (two) Center times daily with breakfast and dinner. clopidogreL Yes 75mg QD Take [address] [facility] (PLAVIX) 75 5-18 by mouth Luke s mg tablet 19:20: daily. Medica l 27 [place] enoxaparin Yes QD Inject [facility] (Lovenox) 5-18 subcutaneo Luke s 150 mg/mL 19:20: usly Medical injection 27 daily. [place] gabapentin Yes 300mg Q.[id number] Take [address] [facility] [address] (NEURONTIN) 5-18 [id number] mg by L ukes 300 MG 19:20: 3D mouth 3 Medical capsule 27 (three) Center times daily. HYDROcodone Yes 1{tbl} Take [address] -acetaminop 5-18 tablet by Tammy barrios (NORCO 19:20: mouth Medica l 10-325) 27 every 6 Center 10-325 mg (six) per tablet hours as needed for Pain. ipratropium 2022- No 2{spray [address] [facility] (ATROVENT) 5-18 05-18 } by Nasal Luke s 21 mcg 00:00: 23:59 route Medical (0.03 %) 00 :00 every 12 Center 0.03% nasal (twelve) spray hours. albuterol 2022- No 2{puff} Inhale [address] [facility] HFA 5-18 05-18 puffs by [facility] (VENTOLIN 00:00: 23:59 mouth via Me dical HFA) 90 00 :00 inhaler Center mcg/actuati every 4 on inhaler (four) hours as needed for Wheezing. ipratropium 2022- No 2{spray [address] [facility] (ATROVENT) 5-18 05-18 } by Nasal Luke s 21 mcg 00:00: 23:59 route Medical (0.03 %) 00 :00 every 12 Center 0.03% nasal (twelve) spray hours. albuterol 2022- No 2{puff} Inhale [address] [facility] HFA 5-18 05-18 puffs by [facility] (VENTOLIN 00:00: 23:59 mouth via Me dical HFA) 90 00 :00 inhaler Center mcg/actuati every 4 on inhaler (four) hours as needed for Wheezing. ipratropium 2022- No 2{spray [address] [facility] (ATROVENT) 5-18 05-18 } by Nasal Luke s 21 mcg 00:00: 23:59 route Medical (0.03 %) 00 :00 every 12 Center 0.03% nasal (twelve) spray hours. albuterol 2022- No 2{puff} Inhale [address] [facility] HFA 5-18 05-18 puffs by [facility] (VENTOLIN 00:00: 23:59 mouth via Me dical HFA) 90 00 :00 inhaler Center mcg/actuati every 4 on inhaler (four) hours as needed for Wheezing. 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 benzonatate 2022-0 2022- No 100mg Take [address] [facility] [address] [facility] (TESSALON) 5-18 05-25 capsule [facility] 100 MG 00:00: 23:59 (100 mg Medical capsule 00 :00 total) by Center mouth 3 (three) times daily as needed for Cough for up to 7 days. benzonatate 2021-0 2022- No 100mg Take [address] [facility] [address] [facility] (TESSALON) 5-18 05-25 capsule [facility] 100 MG 00:00: 23:59 (100 mg Medical capsule 00 :00 total) by Center mouth 3 (three) times daily as needed for Cough for up to 7 days. baclofen 2021-0 2022- No 10mg Take [address] [facility] [address] [facility] (LIORESAL) 4-17 04-17 by mouth Luke s 20 MG 17:15: 00:00 as needed. Medic al tablet 59 :00 Center baclofen 2021-0 2021- No 10mg Take [address] [facility] [address] [facility] (LIORESAL) 4-17 04-17 by mouth Luke s 20 MG 17:15: 00:00 as needed. Medic al tablet 59 :00 Center baclofen 2-0 2022- No 10mg Take [address] [facility] [address] [facility] (LIORESAL) 4-17 04-17 by mouth Luke s 20 MG 17:15: 00:00 as needed. Medic al tablet 59 :00 Center baclofen 2-0 2022- No 10mg Q.[id number] Take [address] [facility] (LIORESAL) 4-17 -22 [id number] tablet (10 [facility] 10 MG 00:00: 23:59 3D mg total) Medica l tablet 00 :00 by mouth 3 Center (three) times daily for 5 days. baclofen 2-0 2022- No 10mg Q.[id number] Take [address] [facility] (LIORESAL) 4-17 04-22 [id number] tablet (10 [facility] 10 MG 00:00: 23:59 3D mg total) Medica l tablet 00 :00 by mouth 3 Center (three) times daily for 5 days. baclofen 2022-0 2022- No 10mg Q.[id number] Take [address] [facility] (LIORESAL) 4-17 - [id number] tablet (10 [facility] 10 MG 00:00: 23:59 3D mg total) Medica l tablet 00 :00 by mouth 3 Center (three) times daily for 5 days. Clopidogrel 2022-0 Yes 75mg Take 1 [facility] ey Bisulfate 4-13 tablet (75 Seyb old 75 MG oral 00:00: mg total) Tablet 00 by mouth daily Clopidogrel 2022-0 Yes 75mg Take 1 [facility] ey Bisulfate 4-13 tablet (75 Seyb old 75 MG oral 00:00: mg total) Tablet 00 by mouth daily Clopidogrel 2022-0 Yes 75mg Take 1 [facility] ey Bisulfate 4-13 tablet (75 Seyb old 75 MG oral 00:00: mg total) Tablet 00 by mouth daily Clopidogrel 2022-0 Yes 75mg Take 1 [facility] ey Bisulfate 4-13 tablet (75 Seyb old 75 MG oral 00:00: mg total) - Tablet 00 by mouth Externa daily l Clopidogrel 2022-0 Yes 75mg Take 1 [facility] ey Bisulfate 4-13 tablet (75 Seyb old 75 MG oral 00:00: mg total) - Tablet 00 by mouth Externa daily l Clopidogrel 2022-0 Yes 75mg Take 1 [facility]rina ey Bisulfate 4-13 tablet (75 Seyb old 75 MG oral 00:00: mg total) - Tablet 00 by mouth Externa daily l Clopidogrel 2022-0 Yes 75mg Take 1 [facility] ey Bisulfate 4-13 tablet (75 Seyb old 75 MG oral 00:00: mg total) - Tablet 00 by mouth Externa daily l Clopidogrel 2022-0 Yes 75mg Take 1 [facility]rina ey Bisulfate 4-13 tablet (75 Seyb old 75 MG oral 00:00: mg total) - Tablet 00 by mouth Externa daily l Clopidogrel 2022-0 Yes 75mg Take 1 [facility] ey Bisulfate 4-13 tablet (75 Seyb old 75 MG oral 00:00: mg total) - Tablet 00 by mouth Externa daily l Clopidogrel 2022-0 Yes 75mg Take 1 [facility] ey Bisulfate 4-13 tablet (75 Seyb old 75 MG oral 00:00: mg total) - Tablet 00 by mouth Externa daily l Clopidogrel 0 Yes 75mg Take 1 [facility] ey Bisulfate 4-13 tablet (75 Seyb old 75 MG oral 00:00: mg total) - Tablet 00 by mouth Externa daily l Clopidogrel 2021-0 Yes 75mg Take 1 [facility]rina ey Bisulfate 4-13 tablet (75 Seyb old 75 MG oral 00:00: mg total) - Tablet 00 by mouth Externa daily l Clopidogrel 0 Yes 75mg Take 1 [facility] ey Bisulfate 4-13 tablet (75 Seyb old 75 MG oral 00:00: mg total) - Tablet 00 by mouth Externa daily l DULoxetine Yes [facility]KE 1 [facility]CYMBALTA[facility] 3-31 CAPSULE [facility] 20 MG 00:00: (20 MG Medical capsule 00 TOTAL) BY Center MOUTH DAILY NO DRIVING. NO ALCOHOL. NO OPERATING MACHINERY. DULoxetine Yes TAKE 1 [facility] (CYMBALTA) 3-31 CAPSULE [facility] 20 MG 00:00: (20 MG Medical capsule 00 TOTAL) BY Center MOUTH DAILY NO DRIVING. NO ALCOHOL. NO OPERATING MACHINERY. DULoxetine Yes TAKE 1 [facility] (CYMBALTA) 3-31 CAPSULE [facility] 20 MG 00:00: (20 MG Medical capsule 00 TOTAL) BY Center MOUTH DAILY NO DRIVING. NO ALCOHOL. NO OPERATING MACHINERY. Latanoprost Yes [id number] 1[drp] Place 1 [place] 0.005 % 3-31 drop into [facility] ophthalmic 00:00: both eyes Solution 00 nightly Latanoprost Yes [id number] 1[drp] Place 1 [place] 0.005 % 3-31 drop into [facility] ophthalmic 00:00: both eyes Solution 00 nightly Latanoprost Yes [id number] 1[drp] Place 1 [place] 0.005 % 3-31 drop into Sey[facility] ophthalmic 00:00: both eyes Solution 00 nightly Latanoprost Yes [id number] 1[drp] Place 1 [place] 0.005 % 3-31 drop into Seybold ophthalmic 00:00: both eyes - Solution 00 nightly Externa l Aspirin 81 0 Yes 81mg Take 81 mg K elsey MG oral Tab 2-18 by mouth Seyb old 13:50: daily 24 Acetaminoph 2021-0 Yes 650mg Q8H Take 650 K elsey en (Tylenol 2-18 mg by Seybold 8 Hour 13:50: mouth Arthritis 24 every 8 Pain) 650 hours as MG oral Tab needed for CR pain Clopidogrel 0 Yes 75mg TAKE 1 [facility]rina ey Bisulfate 2-17 TABLET (75 Seyb old 75 MG oral 00:00: MG TOTAL) Tablet 00 BY MOUTH DAILY NEEDS APPOINTMEN T FOR ADDITIONAL REFILLS Duloxetine Yes 20mg Take 1 Kelse y HCl 2-01 capsule Seybold (Cymbalta) 00:00: (20 mg 20 MG oral 00 total) by Cap DR mouth Particles daily No driving. No alcohol. No operating machinery. Duloxetine 0 Yes 20mg Take 1 [facility] HCl 2-01 capsule Seybold (Cymbalta) 00:00: (20 mg 20 MG oral 00 total) by Cap DR mouth Particles daily No driving. No alcohol. No operating machinery. Duloxetine 2021-0 2021- No 20mg Take 1 Macrina ey HCl 2-01 06-02 capsule Seybold (Cymbalta) 00:00: 00:00 (20 mg 20 MG oral 00 :00 total) by Cap DR mouth Particles daily No driving. No alcohol. No operating machinery. Aspirin 81 2021-0 Yes 81mg Take 81 mg K elsey MG oral Tab 1-17 by mouth Seyb old 10:08: daily 50 Acetaminoph 2021-0 Yes 650mg Q8H Take 650 K elsey en (Tylenol 1-17 mg by Seybold 8 Hour 10:08: mouth Arthritis 50 every 8 Pain) 650 hours as MG oral Tab needed for CR pain Aspirin 81 2021-0 Yes 81mg Take 81 mg K elsey MG oral Tab 1-03 by mouth Seyb old 09:13: daily 02 Acetaminoph 2021-0 Yes 650mg Q8H Take 650 K elsey en (Tylenol 1-03 mg by Seybold 8 Hour 09:13: mouth Arthritis 02 every 8 Pain) 650 hours as MG oral Tab needed for CR pain Duloxetine 2021-0 Yes 20mg Take 1 K[facility] HCl 1-03 capsule Seybold (Cymbalta) 00:00: (20 mg 20 MG oral 00 total) by Cap DR mouth Particles daily No driving. No alcohol. No operating machinery. Duloxetine 2021- No 20mg Take 1 Macrina ey HCl -03 02-28 capsule Seybold (Cymbalta) 00:00: 00:00 (20 mg 20 MG oral 00 :00 total) by Cap DR mouth Particles daily No driving. No alcohol. No operating machinery. Topiramate 2020-02- No START 1 Qasim sey 25 MG oral 2-15 -03 TAB ORALLY Se ybold Tablet 00:00: 00:00 DAILY X 3 00 :00 DAYS,1 TAB EVERY 12 HOURS X 3 DAYS,THEN 2 TAB EVERY 12 HOURS Aspirin 81 2020-02 Yes 81mg Take 81 mg K elsey MG oral Tab 1-05 by mouth Seyb old 11:04: daily 35 Acetaminoph 2020-02 Yes 650mg Q8H Take 650 K elsey en (Tylenol 1-05 mg by Seybold 8 Hour 11:04: mouth Arthritis 35 every 8 Pain) 650 hours as MG oral Tab needed for CR pain Aspirin 81 2020-02 Yes 81mg Take 81 mg K elsey MG oral Tab 0-25 by mouth Seyb old 16:11: daily 08 Acetaminoph 2020-02 Yes 650mg Q8H Take 650 K elsey en (Tylenol 0-25 mg by Seybold 8 Hour 16:11: mouth Arthritis 08 every 8 Pain) 650 hours as MG oral Tab needed for CR pain Ciprofloxac 2020-02- No [id number] 250mg Take 1 [place] in HCl 250 0-25 12-17 tablet Seybol d MG oral 00:00: 04:59 (250 mg Tablet 00 :00 total) by mouth 2 times daily for 7 days Levothyroxi 2020-02 Yes TAKE 1 Macrina ey ne Sodium 0-24 TABLET BY Seybo ld 112 MCG 00:00: MOUTH oral Tablet 00 EVERY DAY Levothyroxi 2020-02 Yes TAKE 1 Macrina ey ne Sodium 0-24 TABLET BY Seybo ld 112 MCG 00:00: MOUTH oral Tablet 00 EVERY DAY Levothyroxi 2020-02 Yes TAKE 1 Macrina ey ne Sodium 0-24 TABLET BY Seybo ld 112 MCG 00:00: MOUTH oral Tablet 00 EVERY DAY Levothyroxi 2020-02 Yes TAKE 1 Macrina ey ne Sodium 0-24 TABLET BY Seybo ld 112 MCG 00:00: MOUTH oral Tablet 00 EVERY DAY Levothyroxi 2020-02 Yes TAKE 1 Macrina ey ne Sodium 0-24 TABLET BY Seybo ld 112 MCG 00:00: MOUTH oral Tablet 00 EVERY DAY Levothyroxi 2020-02 Yes TAKE 1 Macrina ey ne Sodium 0-24 TABLET BY Seybo ld 112 MCG 00:00: MOUTH oral Tablet 00 EVERY DAY Levothyroxi 2020-02 Yes TAKE 1 Macrina ey ne Sodium 0-24 TABLET BY Seybo ld 112 MCG 00:00: MOUTH oral Tablet 00 EVERY DAY Levothyroxi 2020-02 Yes TAKE 1 Macrina ey ne Sodium 0-24 TABLET BY Seybo ld 112 MCG 00:00: MOUTH oral Tablet 00 EVERY DAY Aspirin 81 2020-02 Yes 81mg Take 81 mg K elsey MG oral Tab 0-18 by mouth Seyb old 10:55: daily 25 Acetaminoph 2020-02 Yes 650mg Q8H Take 650 K elsey en (Tylenol 0-18 mg by Seybold 8 Hour 10:55: mouth Arthritis 25 every 8 Pain) 650 hours as MG oral Tab needed for CR pain Topiramate 2020-02 Yes START 1 Macrina ey 25 MG oral 0-13 TAB ORALLY Sey bold Tablet 00:00: DAILY X 3 00 DAYS,1 TAB EVERY 12 HRS X 3 DAYS,THEN 2 TAB EVERY 12 HOURS Topiramate 2020-02 Yes START 1 Macrina ey 25 MG oral 0-13 TAB ORALLY Sey bold Tablet 00:00: DAILY X 3 00 DAYS,1 TAB EVERY 12 HRS X 3 DAYS,THEN 2 TAB EVERY 12 HOURS Topiramate 2020-02 Yes START 1 Macrina ey 25 MG oral 0-13 TAB ORALLY Sey bold Tablet 00:00: DAILY X 3 00 DAYS,1 TAB EVERY 12 HRS X 3 DAYS,THEN 2 TAB EVERY 12 HOURS Levothyroxi Yes TAKE 1 Macrina ey ne Sodium 9-20 TABLET BY Seybo ld 112 MCG 00:00: MOUTH oral Tablet 00 EVERY DAY Enoxaparin Yes INJECT [facility] (LOVENOX) 9-20 135MG OUT Seybo ld 150 MG/ML 00:00: OF 150MG subcutaneou 00 INTO THE s Solution SKIN DAILY. DISCARD THE REMAINDER Atorvastati Yes TAKE 1 Macrina ey n Calcium 9-20 TABLET BY Seybo ld 40 MG oral 00:00: MOUTH Tablet 00 EVERY DAY Enoxaparin 0 Yes INJECT [facility] (LOVENOX) 9-20 135MG OUT Seybo ld 150 MG/ML 00:00: OF 150MG subcutaneou 00 INTO THE s Solution SKIN DAILY. DISCARD THE REMAINDER Atorvastati Yes TAKE 1 Macrina ey n Calcium 9-20 TABLET BY Seybo ld 40 MG oral 00:00: MOUTH Tablet 00 EVERY DAY Enoxaparin Yes INJECT [facility] (LOVENOX) 9-20 135MG OUT Seybo ld 150 MG/ML 00:00: OF 150MG subcutaneou 00 INTO THE s Solution SKIN DAILY. DISCARD THE REMAINDER Atorvastati Yes TAKE 1 Macrina ey n Calcium 9-20 TABLET BY Seybo ld 40 MG oral 00:00: MOUTH Tablet 00 EVERY DAY Enoxaparin 0 Yes INJECT [facility] (LOVENOX) 9-20 135MG OUT Seybo ld 150 MG/ML 00:00: OF 150MG subcutaneou 00 INTO THE s Solution SKIN DAILY. DISCARD THE REMAINDER Atorvastati Yes TAKE 1 Macrina ey n Calcium 9-20 TABLET BY Seybo ld 40 MG oral 00:00: MOUTH Tablet 00 EVERY DAY Enoxaparin 0 Yes INJECT [facility] (LOVENOX) 9-20 135MG OUT Seybo ld 150 MG/ML 00:00: OF 150MG subcutaneou 00 INTO THE s Solution SKIN DAILY. DISCARD THE REMAINDER Atorvastati Yes TAKE 1 Macrina ey n Calcium 9-20 TABLET BY Seybo ld 40 MG oral 00:00: MOUTH Tablet 00 EVERY DAY Enoxaparin 2020-0 Yes INJECT [facility] (LOVENOX) 9-20 135MG OUT Seybo ld 150 MG/ML 00:00: OF 150MG subcutaneou 00 INTO THE s Solution SKIN DAILY. DISCARD THE REMAINDER Atorvastati Yes TAKE 1 Macrina ey n Calcium 9-20 TABLET BY Seybo ld 40 MG oral 00:00: MOUTH Tablet 00 EVERY DAY Enoxaparin Yes INJECT [facility] (LOVENOX) 9-20 135MG OUT Seybo ld 150 MG/ML 00:00: OF 150MG subcutaneou 00 INTO THE s Solution SKIN DAILY. DISCARD THE REMAINDER Atorvastati Yes TAKE 1 Macrina ey n Calcium 9-20 TABLET BY Seybo ld 40 MG oral 00:00: MOUTH Tablet 00 EVERY DAY Enoxaparin Yes INJECT Kelse y (LOVENOX) 9-20 135MG OUT Seybo ld 150 MG/ML 00:00: OF 150MG subcutaneou 00 INTO THE s Solution SKIN DAILY. DISCARD THE REMAINDER Atorvastati Yes TAKE 1 Macrina ey n Calcium 9-20 TABLET BY Seybo ld 40 MG oral 00:00: MOUTH Tablet 00 EVERY DAY Enoxaparin Yes INJECT Kelse y (LOVENOX) 9-20 135MG OUT Seybo ld 150 MG/ML 00:00: OF 150MG subcutaneou 00 INTO THE s Solution SKIN DAILY. DISCARD THE REMAINDER Atorvastati Yes TAKE 1 Macrina ey n Calcium 9-20 TABLET BY Seybo ld 40 MG oral 00:00: MOUTH Tablet 00 EVERY DAY Enoxaparin Yes INJECT Kelse y (LOVENOX) 9-20 135MG OUT Seybo ld 150 MG/ML 00:00: OF 150MG - subcutaneou 00 INTO THE Exte rna s Solution SKIN l DAILY. DISCARD THE REMAINDER Enoxaparin Yes INJECT Kelse y (LOVENOX) 9-20 135MG OUT Seybo ld 150 MG/ML 00:00: OF 150MG - subcutaneou 00 INTO THE Exte rna s Solution SKIN l DAILY. DISCARD THE REMAINDER Enoxaparin Yes INJECT Kelse y (LOVENOX) 9-20 135MG OUT Seybo ld 150 MG/ML 00:00: OF 150MG - subcutaneou 00 INTO THE Exte rna s Solution SKIN l DAILY. DISCARD THE REMAINDER Enoxaparin Yes INJECT Kelse y (LOVENOX) 9-20 135MG OUT Seybo ld 150 MG/ML 00:00: OF 150MG - subcutaneou 00 INTO THE Exte rna s Solution SKIN l DAILY. DISCARD THE REMAINDER Enoxaparin Yes INJECT Kelse y (LOVENOX) 9-20 135MG OUT Seybo ld 150 MG/ML 00:00: OF 150MG - subcutaneou 00 INTO THE Exte rna s Solution SKIN l DAILY. DISCARD THE REMAINDER Enoxaparin Yes INJECT Kelse y (LOVENOX) 9-20 135MG OUT Seybo ld 150 MG/ML 00:00: OF 150MG - subcutaneou 00 INTO THE Exte rna s Solution SKIN l DAILY. DISCARD THE REMAINDER Enoxaparin Yes INJECT Kelse y (LOVENOX) 9-20 135MG OUT Seybo ld 150 MG/ML 00:00: OF 150MG - subcutaneou 00 INTO THE Exte rna s Solution SKIN l DAILY. DISCARD THE REMAINDER Enoxaparin Yes INJECT Kelse y (LOVENOX) 9-20 135MG OUT Seybo ld 150 MG/ML 00:00: OF 150MG - subcutaneou 00 INTO THE Exte rna s Solution SKIN l DAILY. DISCARD THE REMAINDER Enoxaparin Yes INJECT Kelse y (LOVENOX) 9-20 135MG OUT Seybo ld 150 MG/ML 00:00: OF 150MG - subcutaneou 00 INTO THE Exte rna s Solution SKIN l DAILY. DISCARD THE REMAINDER Enoxaparin Yes INJECT Kelse y (LOVENOX) 9-20 135MG OUT Seybo ld 150 MG/ML 00:00: OF 150MG - subcutaneou 00 INTO THE Exte rna s Solution SKIN l DAILY. DISCARD THE REMAINDER Ondansetron Yes 4mg Q8H Take 1 Macrina ey HCl 4 MG 9-15 tablet (4 Seybol d oral Tablet 00:00: mg total) 00 by mouth every 8 hours as needed for nausea Ondansetron Yes 4mg Q8H Take 1 Macrina ey HCl 4 MG 9-15 tablet (4 Seybol d oral Tablet 00:00: mg total) 00 by mouth every 8 hours as needed for nausea Ondansetron 2021-0 Yes 4mg Q8H Take 1 Macrina ey HCl 4 MG 9-15 tablet (4 Seybol d oral Tablet 00:00: mg total) 00 by mouth every 8 hours as needed for nausea Ondansetron 2021-0 Yes 4mg Q8H Take 1 Macrina ey HCl 4 MG 9-15 tablet (4 Seybol d oral Tablet 00:00: mg total) 00 by mouth every 8 hours as needed for nausea Ondansetron 2021-0 Yes 4mg Q8H Take 1 Macrina ey HCl 4 MG 9-15 tablet (4 Seybol d oral Tablet 00:00: mg total) 00 by mouth every 8 hours as needed for nausea Ondansetron 2021-0 Yes 4mg Q8H Take 1 Macrina ey HCl 4 MG 9-15 tablet (4 Seybol d oral Tablet 00:00: mg total) 00 by mouth every 8 hours as needed for nausea Ondansetron 2021-0 Yes 4mg [id number] Take 1 Cielo HCl 4 MG 9-15 [id number] tablet (4 Seybold oral Tablet 00:00: 3D mg total) 00 by mouth every 8 hours as needed for nausea Ondansetron 2021-0 Yes 4mg Q.[id number] Take 1 Cielo HCl 4 MG 9-15 [id number] tablet (4 Seybold oral Tablet 00:00: 3D mg total) 00 by mouth every 8 hours as needed for nausea Ondansetron 2021-0 Yes 4mg Q.[id number] Take 1 Cielo HCl 4 MG 9-15 [id number] tablet (4 Seybold oral Tablet 00:00: 3D mg total) 00 by mouth every 8 hours as needed for nausea Ondansetron 2021-0 Yes 4mg Q.[id number] Take 1 Cielo HCl 4 MG 9-15 [id number] tablet (4 Seybold oral Tablet 00:00: 3D mg total) - 00 by mouth Externa every 8 l hours as needed for nausea Ondansetron 2021-0 Yes 4mg Q.[id number] Take 1 Cielo HCl 4 MG 9-15 [id number] tablet (4 Seybold oral Tablet 00:00: 3D mg total) - 00 by mouth Externa every 8 l hours as needed for nausea Ondansetron 2021-0 Yes 4mg Q.[id number] Take 1 Cielo HCl 4 MG 9-15 [id number] tablet (4 Seybold oral Tablet 00:00: 3D mg total) - 00 by mouth Externa every 8 l hours as needed for nausea Ondansetron 0 Yes 4mg Q.[id number] Take 1 Cielo HCl 4 MG 9-15 [id number] tablet (4 Seybold oral Tablet 00:00: 3D mg total) - 00 by mouth Externa every 8 l hours as needed for nausea Ondansetron 0 Yes 4mg Q.[id number] Take 1 Cielo HCl 4 MG 9-15 [id number] tablet (4 Seybold oral Tablet 00:00: 3D mg total) - 00 by mouth Externa every 8 l hours as needed for nausea Ondansetron 0 Yes 4mg Q.[id number] Take 1 Cielo HCl 4 MG 9-15 [id number] tablet (4 Seybold oral Tablet 00:00: 3D mg total) - 00 by mouth Externa every 8 l hours as needed for nausea Ondansetron 0 Yes 4mg Q.[id number] Take 1 [facility]ielo HCl 4 MG 9-15 [id number] tablet (4 Seybold oral Tablet 00:00: 3D mg total) - 00 by mouth Externa every 8 l hours as needed for nausea Ondansetron 0 Yes 4mg Q.[id number] Take 1 [facility]o HCl 4 MG 9-15 [id number] tablet (4 Seybold oral Tablet 00:00: 3D mg total) - 00 by mouth Externa every 8 l hours as needed for nausea Ondansetron 0 Yes 4mg Q.[id number] Take 1 [facility] HCl 4 MG 9-15 [id number] tablet (4 Seybold oral Tablet 00:00: 3D mg total) - 00 by mouth Externa every 8 l hours as needed for nausea Ondansetron 0 Yes 4mg Q.[id number] Take 1 [facility]ielo HCl 4 MG 9-15 [id number] tablet (4 Seybold oral Tablet 00:00: 3D mg total) - 00 by mouth Externa every 8 l hours as needed for nausea Baclofen 20 Yes TAKE HALF K elsey MG oral 10-21 A TABLET Seybold Tablet 00:00: BY MOUTH 3 00 TIMES DAILY Baclofen 20 2020-0 Yes TAKE HALF K elsey MG oral - A TABLET Seybold Tablet 00:00: BY MOUTH 3 00 TIMES DAILY Baclofen 20 2020-0 Yes TAKE HALF K elsey MG oral 9- A TABLET Seybold Tablet 00:00: BY MOUTH 3 00 TIMES DAILY Baclofen 20 2020-0 Yes TAKE HALF K elsey MG oral 10-21 A TABLET Seybold Tablet 00:00: BY MOUTH 3 00 TIMES DAILY Baclofen 20 2020-0 2- No TAKE HALF Cielo MG oral 10-2117 A TABLET Seybold Tablet 00:00: 00:00 BY MOUTH 3 00 :00 TIMES DAILY Clopidogrel 2020-0 Yes 75mg Take 1 Macrina ey Bisulfate 8-19 tablet (75 Seyb old 75 MG oral 00:00: mg total) Tablet 00 by mouth daily NEEDS APPOINTMEN T FOR ADDITIONAL REFILLS Clopidogrel 2020-0 Yes 75mg Take 1 Macrina ey Bisulfate 8-19 tablet (75 Seyb old 75 MG oral 00:00: mg total) Tablet 00 by mouth daily NEEDS APPOINTMEN T FOR ADDITIONAL REFILLS Clopidogrel 2020-0 Yes 75mg Take 1 Macrina ey Bisulfate 8-19 tablet (75 Seyb old 75 MG oral 00:00: mg total) Tablet 00 by mouth daily NEEDS APPOINTMEN T FOR ADDITIONAL REFILLS Clopidogrel 2020-0 Yes 75mg Take 1 Macrina ey Bisulfate 8-19 tablet (75 Seyb old 75 MG oral 00:00: mg total) Tablet 00 by mouth daily NEEDS APPOINTMEN T FOR ADDITIONAL REFILLS Clopidogrel 2020-0 Yes 75mg Take 1 Macrina ey Bisulfate 8-19 tablet (75 Seyb old 75 MG oral 00:00: mg total) Tablet 00 by mouth daily NEEDS APPOINTMEN T FOR ADDITIONAL REFILLS Lisinopril 2020-0 Yes [id number] TAKE 1 K elsey 40 MG oral 8-09 TABLET BY Seyb old Tablet 00:00: MOUTH 00 EVERY DAY Lisinopril 2020-0 Yes [id number] TAKE 1 K elsey 40 MG oral 8-09 TABLET BY Seyb old Tablet 00:00: MOUTH 00 EVERY DAY Lisinopril 202-0 Yes [id number] TAKE 1 K elsey 40 MG oral 8-09 TABLET BY Seyb old Tablet 00:00: MOUTH 00 EVERY DAY Lisinopril 2020-0 Yes [id number] TAKE 1 K elsey 40 MG oral 8-09 TABLET BY Seyb old Tablet 00:00: MOUTH 00 EVERY DAY Lisinopril 2020-0 Yes [id number] TAKE 1 K elsey 40 MG oral 8-09 TABLET BY Seyb old Tablet 00:00: MOUTH 00 EVERY DAY Lisinopril 2020-0 Yes [id number] TAKE 1 K elsey 40 MG oral 8-09 TABLET BY Seyb old Tablet 00:00: MOUTH 00 EVERY DAY Timolol 2020-[id number] 1 Qasim sey Maleate 7-30 (ONE) DROP Seybol d (TIMOPTIC) 00:00: INTO THE 0.5 % 00 RIGHT EYE ophthalmic EVERY Solution MORNING Latanoprost 2020-0 Yes [id number] INSTILL 1 [facility] 0.005 % 7-30 DROP INTO Seybold ophthalmic 00:00: BOTH EYES Solution 00 EVERY DAY AT NIGHT Timolol 2020-[id number] 1 Qasim sey Maleate 7-30 (ONE) DROP Seybol d (TIMOPTIC) 00:00: INTO THE 0.5 % 00 RIGHT EYE ophthalmic EVERY Solution MORNING Latanoprost 2020-0 Yes [id number] INSTILL 1 [facility] 0.005 % 7-30 DROP INTO Seybold ophthalmic 00:00: BOTH EYES Solution 00 EVERY DAY AT NIGHT Timolol 2020-[id number] 1 Qasim sey Maleate 7-30 (ONE) DROP Seybol d (TIMOPTIC) 00:00: INTO THE 0.5 % 00 RIGHT EYE ophthalmic EVERY Solution MORNING Latanoprost 2020-0 Yes [id number] INSTILL 1 [facility] 0.005 % 7-30 DROP INTO Seybold ophthalmic 00:00: BOTH EYES Solution 00 EVERY DAY AT NIGHT Timolol 2020-[id number] 1 Qasim sey Maleate 7-30 (ONE) DROP Seybol d (TIMOPTIC) 00:00: INTO THE 0.5 % 00 RIGHT EYE ophthalmic EVERY Solution MORNING Latanoprost 2020-0 Yes [id number] INSTILL 1 [facility] 0.005 % 7-30 DROP INTO Seybold ophthalmic 00:00: BOTH EYES Solution 00 EVERY DAY AT NIGHT Timolol 2020-[id number] 1 Qasim sey Maleate 7-30 (ONE) DROP Seybol d (TIMOPTIC) 00:00: INTO THE 0.5 % 00 RIGHT EYE ophthalmic EVERY Solution MORNING Latanoprost 0 Yes [id number] INSTILL 1 Cielo 0.005 % 7-30 DROP INTO Seybold ophthalmic 00:00: BOTH EYES Solution 00 EVERY DAY AT NIGHT Timolol 2020-[id number] 1 Qasim sey Maleate 7-30 (ONE) DROP Seybol d (TIMOPTIC) 00:00: INTO THE 0.5 % 00 RIGHT EYE ophthalmic EVERY Solution MORNING Timolol 2020-[id number] 1 Qasim sey Maleate 7-30 (ONE) DROP Seybol d (TIMOPTIC) 00:00: INTO THE 0.5 % 00 RIGHT EYE ophthalmic EVERY Solution MORNING Timolol 2020-[id number] 1 Qasim sey Maleate 7-30 (ONE) DROP Seybol d (TIMOPTIC) 00:00: INTO THE 0.5 % 00 RIGHT EYE ophthalmic EVERY Solution MORNING Timolol 2020-[id number] 1 Qasim sey Maleate 7-30 (ONE) DROP Seybol d (TIMOPTIC) 00:00: INTO THE - 0.5 % 00 RIGHT EYE Externa ophthalmic EVERY l Solution MORNING Timolol 2020-[id number] 1 Qasim sey Maleate 7-30 (ONE) DROP Seybol d (TIMOPTIC) 00:00: INTO THE - 0.5 % 00 RIGHT EYE Externa ophthalmic EVERY l Solution MORNING Timolol 2020-[id number] 1 Qasim sey Maleate 7-30 (ONE) DROP Seybol d (TIMOPTIC) 00:00: INTO THE - 0.5 % 00 RIGHT EYE Externa ophthalmic EVERY l Solution MORNING Timolol 2020-[id number] 1 Qasim sey Maleate 7-30 (ONE) DROP Seybol d (TIMOPTIC) 00:00: INTO THE - 0.5 % 00 RIGHT EYE Externa ophthalmic EVERY l Solution MORNING Timolol 2020-[id number] 1 Qasim sey Maleate 7-30 (ONE) DROP Seybol d (TIMOPTIC) 00:00: INTO THE - 0.5 % 00 RIGHT EYE Externa ophthalmic EVERY l Solution MORNING Timolol 2020-[id number] 1 Qasim sey Maleate 7-30 (ONE) DROP Seybol d (TIMOPTIC) 00:00: INTO THE - 0.5 % 00 RIGHT EYE Externa ophthalmic EVERY l Solution MORNING Timolol 2020-[id number] 1 Qasim sey Maleate 7-30 (ONE) DROP Seybol d (TIMOPTIC) 00:00: INTO THE - 0.5 % 00 RIGHT EYE Externa ophthalmic EVERY l Solution MORNING Timolol 2020-[id number] 1 Qasim sey Maleate 7-30 (ONE) DROP Seybol d (TIMOPTIC) 00:00: INTO THE - 0.5 % 00 RIGHT EYE Externa ophthalmic EVERY l Solution MORNING Timolol 2020-[id number] 1 Qasim sey Maleate 7-30 (ONE) DROP Seybol d (TIMOPTIC) 00:00: INTO THE 0.5 % 00 RIGHT EYE ophthalmic EVERY Solution MORNING Latanoprost 0 Yes [id number] INSTILL 1 Cielo 0.005 % 7-30 DROP INTO Seybold ophthalmic 00:00: BOTH EYES Solution 00 EVERY DAY AT NIGHT Timolol 2020-0 2023- No [id number] PLACE 1 Ke lsey Maleate 7-30 03-06 (ONE) DROP Seybo ld (TIMOPTIC) 00:00: 00:00 INTO THE - 0.5 % 00 :00 RIGHT EYE Externa ophthalmic EVERY l Solution MORNING HYDROcodone 0 Yes 1{tbl} Q8H Take 1 Ke lsey -Acetaminop 7-28 tablet by Janell barrios (Appear) 00:00: mouth 10-325 MG 00 every 8 oral Tablet hours as needed Driving Precaution s / No alcohol / No operating machinery HYDROcodone 2020-0 Yes 1{tbl} Q8H Take 1 Ke lsey -Acetaminop 7-28 tablet by Janell barrios (Appear) 00:00: mouth 10-325 MG 00 every 8 oral Tablet hours as needed Driving Precaution s / No alcohol / No operating machinery HYDROcodone 2020-0 Yes 1{tbl} Q8H Take 1 Ke lsey -Acetaminop 7-28 tablet by Janell barrios (Appear) 00:00: mouth 10-325 MG 00 every 8 oral Tablet hours as needed Driving Precaution s / No alcohol / No operating machinery HYDROcodone 0 Yes 1{tbl} Q8H Take 1 Ke lsey -Acetaminop 7-28 tablet by deny barrios (Appear) 00:00: mouth 10-325 MG 00 every 8 oral Tablet hours as needed Driving Precaution s / No alcohol / No operating machinery HYDROcodone 2020-0 2- No 1{tbl} Q8H Take 1 K elsey -Acetaminop 7-28 01-17 tablet by Se rollins sophie (Appear) 00:00: 00:00 mouth 10-325 MG 00 :00 every 8 oral Tablet hours as needed Driving Precaution s / No alcohol / No operating machinery furosemide Yes 40mg Take [address] (LASIX) 40 5-14 [facility] tablet 09:36: as needed. Hi dical 09 [place] levothyroxi Yes 112ug Take [address] ne 5-14 mcg by [facility] (SYNTHROID, 09:36: mouth Medic al LEVOTHROID) 09 [facility] 112 MCG morning on tablet an empty stomach. lisinopriL Yes 40mg QD Take [address] (PRINIVIL,Z 5-14 by mouth [facility] ESTRIL) 40 09:36: daily. Medic al MG tablet 09 Center levothyroxi Yes 112ug Take [address] ne 5-14 mcg [facility] (SYNTHROID, 09:36: mouth Medic al LEVOTHROID) 09 Every Center 112 MCG morning on tablet an empty stomach. lisinopriL Yes 40mg QD Take [address] (PRINIVIL,Z 5-14 by mouth [facility] ESTRIL) 40 09:36: daily. Medic al MG tablet 09 Center furosemide Yes 40mg Take [address] (LASIX) 40 5-14 [facility] tablet 09:36: as needed. Me dical 09 [facility] levothyroxi Yes 112ug Take [address] ne 5-14 mcg by [facility] (SYNTHROID, 09:36: mouth Medic al LEVOTHROID) 09 Every Center 112 MCG morning on tablet an empty stomach. lisinopriL Yes 40mg QD Take [address] (PRINIVIL,Z 5-14 by mouth [facility] ESTRIL) 40 09:36: daily. Medic al MG tablet 09 [place] furosemide 2020-0 Yes 40mg Take [address] (LASIX) 40 5-14 [facility] tablet 09:36: as needed. Me dical 09 [place] Gabapentin 2020-0 Yes [id number] 300mg Take 1 Cielo 300 MG oral 2-09 capsule Seybo ld Cap 00:00: (300 mg 00 total) by mouth 3 times daily Gabapentin 2020-0 Yes [id number] 300mg Take 1 C[facility] 300 MG oral 2-09 capsule Seybo ld Cap 00:00: (300 mg 00 total) by mouth 3 times daily Gabapentin 2020-0 Yes [id number] 300mg Take 1 Cielo 300 MG oral 2-09 capsule Seybo ld Cap 00:00: (300 mg 00 total) by mouth 3 times daily Gabapentin 2020-0 Yes [id number] 300mg Take 1 Cielo 300 MG oral 2-09 capsule Seybo ld Cap 00:00: (300 mg 00 total) by mouth 3 times daily Gabapentin 2020-0 2022- No [id number] 300mg Take 1 Cielo 300 MG oral 2-09 -17 capsule Seyb old Cap 00:00: 00:00 (300 mg 00 :00 total) by mouth 3 times daily Carvedilol 2020-0 Yes 3.125mg TAKE 1 Ke lsey 3.125 MG 8-12 (ONE) Seybold oral Tab 00:00: TABLET BY 00 MOUTH 2 TIMES DAILY (WITH MEALS) Carvedilol 2020-0 Yes 3.125mg TAKE 1 Ke lsey 3.125 MG 8-12 (ONE) Seybold oral Tab 00:00: TABLET BY 00 MOUTH 2 TIMES DAILY (WITH MEALS) Carvedilol 2020-0 Yes 3.125mg TAKE 1 Ke lsey 3.125 MG 8-12 (ONE) Seybold oral Tab 00:00: TABLET BY 00 MOUTH 2 TIMES DAILY (WITH MEALS) Carvedilol 2020-0 Yes 3.125mg TAKE 1 Ke lsey 3.125 MG 8-12 (ONE) Seybold oral Tab 00:00: TABLET BY 00 MOUTH 2 TIMES DAILY (WITH MEALS) Carvedilol 2020-0 Yes 3.125mg TAKE 1 Ke lsey 3.125 MG 8-12 (ONE) Seybold oral Tab 00:00: TABLET BY 00 MOUTH 2 TIMES DAILY (WITH MEALS) Carvedilol 2020-0 Yes 3.125mg TAKE 1 Ke lsey 3.125 MG 8-12 (ONE) Seybold oral Tab 00:00: TABLET BY 00 MOUTH 2 TIMES DAILY (WITH MEALS) Carvedilol 2020-0 Yes 3.125mg TAKE 1 Ke lsey 3.125 MG 8-12 (ONE) Seybold oral Tab 00:00: TABLET BY 00 MOUTH 2 TIMES DAILY (WITH MEALS) Carvedilol 2020-0 Yes 3.125mg TAKE 1 Ke lsey 3.125 MG 8-12 (ONE) Seybold oral Tab 00:00: TABLET BY 00 MOUTH 2 TIMES DAILY (WITH MEALS) Carvedilol 2020-0 Yes 3.125mg TAKE 1 Ke lsey 3.125 MG 8-12 (ONE) Seybold oral Tab 00:00: TABLET BY - 00 MOUTH 2 Externa TIMES l DAILY (WITH MEALS) Carvedilol 2020-0 Yes 3.125mg TAKE 1 Ke lsey 3.125 MG 8-12 (ONE) Seybold oral Tab 00:00: TABLET BY - 00 MOUTH 2 Externa TIMES l DAILY (WITH MEALS) Carvedilol 2020-0 Yes 3.125mg TAKE 1 Ke lsey 3.125 MG 8-12 (ONE) Seybold oral Tab 00:00: TABLET BY - 00 MOUTH 2 Externa TIMES l DAILY (WITH MEALS) Carvedilol 2020-0 Yes 3.125mg TAKE 1 Ke lsey 3.125 MG 8-12 (ONE) Seybold oral Tab 00:00: TABLET BY - 00 MOUTH 2 Externa TIMES l DAILY (WITH MEALS) Carvedilol 2020-0 Yes 3.125mg TAKE 1 Ke lsey 3.125 MG 8-12 (ONE) Seybold oral Tab 00:00: TABLET BY - 00 MOUTH 2 Externa TIMES l DAILY (WITH MEALS) Carvedilol 2020-0 Yes 3.125mg TAKE 1 Ke lsey 3.125 MG 8-12 (ONE) Seybold oral Tab 00:00: TABLET BY - 00 MOUTH 2 Externa TIMES l DAILY (WITH MEALS) Carvedilol 2020-0 Yes 3.125mg TAKE 1 Ke lsey 3.125 MG 8-12 (ONE) Seybold oral Tab 00:00: TABLET BY - 00 MOUTH 2 Externa TIMES l DAILY (WITH MEALS) Carvedilol 2020-0 Yes 3.125mg TAKE 1 Ke lsey 3.125 MG 8-12 (ONE) Seybold oral Tab 00:00: TABLET BY - 00 MOUTH 2 Externa TIMES l DAILY (WITH MEALS) Carvedilol 2020-0 Yes 3.125mg TAKE 1 Ke lsey 3.125 MG 8-12 (ONE) Seybold oral Tab 00:00: TABLET BY - 00 MOUTH 2 Externa TIMES l DAILY (WITH MEALS) Carvedilol 2020-0 Yes 3.125mg TAKE 1 Ke lsey 3.125 MG 8-12 (ONE) Seybold oral Tab 00:00: TABLET BY 00 MOUTH 2 TIMES DAILY (WITH MEALS) Carvedilol 2020-0 Yes 3.125mg TAKE 1 Ke lsey 3.125 MG 8-12 (ONE) Seybold oral Tab 00:00: TABLET BY - 00 MOUTH 2 Externa TIMES l DAILY (WITH MEALS) Naloxone 2020-0 Yes 1{appli Inject 1 Ke lsey HCl 2 7-27 cator} applicator Seybol d MG/0.4ML 00:00: as injection 00 directed Solution as needed Auto-inject or Naloxone 2020-0 Yes 1{appli Inject 1 Ke lsey HCl 2 7-27 cator} applicator Seybol d MG/0.4ML 00:00: as injection 00 directed Solution as needed Auto-inject or Naloxone 2020-0 Yes 1{appli Inject 1 Ke lsey HCl 2 7-27 cator} applicator Seybol d MG/0.4ML 00:00: as injection 00 directed Solution as needed Auto-inject or Naloxone 2020-0 Yes 1{appli Inject 1 Ke lsey HCl 2 7-27 cator} applicator Seybol d MG/0.4ML 00:00: as injection 00 directed Solution as needed Auto-inject or Naloxone 2020-0 Yes 1{appli Inject 1 Ke lsey HCl 2 7-27 cator} applicator Seybol d MG/0.4ML 00:00: as injection 00 directed Solution as needed Auto-inject or Naloxone 2020-0 Yes 1{appli Inject 1 Ke lsey HCl 2 7-27 cator} applicator Seybol d MG/0.4ML 00:00: as injection 00 directed Solution as needed Auto-inject or Naloxone 2020-0 Yes 1{appli Inject 1 Ke lsey HCl 2 7-27 cator} applicator Seybol d MG/0.4ML 00:00: as injection 00 directed Solution as needed Auto-inject or Naloxone 2020-0 Yes 1{appli Inject 1 Ke lsey HCl 2 7-27 cator} applicator Seybol d MG/0.4ML 00:00: as injection 00 directed Solution as needed Auto-inject or Naloxone 2019-0 Yes 1{appli Inject 1 Ke lsey HCl 2 7-27 cator} applicator Seybol d MG/0.4ML 00:00: as injection 00 directed Solution as needed Auto-inject or Naloxone 2019-0 2021- No 1{appli Inject 1 K elsey HCl 2 7-27 09-23 cator} applicator Seybo ld MG/0.4ML 00:00: 00:00 as - injection 00 :00 directed 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 l Auto-inject or Furosemide Yes TAKE 1 Kelse y 40 MG oral 4-27 TABLET BY Seyb old Tab 00:00: MOUTH 00 EVERY DAY Furosemide 2020-0 Yes TAKE 1 Kelse y 40 MG oral 4-27 TABLET BY Seyb old Tab 00:00: MOUTH 00 EVERY DAY Furosemide 2020-0 Yes TAKE 1 Kelse y 40 MG oral 4-27 TABLET BY Seyb old Tab 00:00: MOUTH 00 EVERY DAY Furosemide 2020-0 Yes TAKE 1 Kelse y 40 MG oral 4-27 TABLET BY Seyb old Tab 00:00: MOUTH 00 EVERY DAY Furosemide 2020-0 Yes TAKE 1 Kelse y 40 MG oral 4-27 TABLET BY Seyb old Tab 00:00: MOUTH 00 EVERY DAY Furosemide 2020-0 Yes TAKE 1 Kelse y 40 MG oral 4-27 TABLET BY Seyb old Tab 00:00: MOUTH 00 EVERY DAY Furosemide 2019-0 2021- No TAKE 1 Macrina ey 40 MG oral 4-27 06- TABLET BY Janell garg Tab 00:00: 00:00 MOUTH 00 :00 EVERY DAY Potassium 2018- Yes TAKE 1 [facility] Chloride 8-28 TABLET Damian Gustafsons CR 20 00:00: EVERY DAY MEQ oral 00 Tab CR Potassium 2018- Yes TAKE 1 [facility] Chloride 8-28 TABLET Seybold Maddison CR 20 00:00: EVERY DAY MEQ oral 00 Tab CR Potassium 2019-0 Yes TAKE 1 [facility] Chloride 8-28 TABLET Seybold Maddison CR 20 00:00: EVERY DAY MEQ oral 00 Tab CR Potassium 2019-0 Yes TAKE 1 [facility] Chloride 8-28 TABLET Seybold Maddison CR 20 00:00: EVERY DAY MEQ oral 00 Tab CR Potassium 2019-0 Yes TAKE 1 [facility] Chloride 8-28 TABLET Seybold Maddison CR 20 00:00: EVERY DAY MEQ oral 00 Tab CR Potassium 2019-0 Yes TAKE 1 [facility] Chloride 8-28 TABLET Seybold Maddison CR 20 00:00: EVERY DAY MEQ oral 00 Tab CR Potassium 2018-2021- No TAKE 1 Kelse y Chloride 8-28 06-02 TABLET Seybold Maddison CR 20 00:00: 00:00 EVERY DAY MEQ oral 00 :00 Tab CR Immunizations Ordered Immunization Filled Immunization Date Status Commen ts Source Name Name Influenza Virus 2022-01-02 Completed [facility] Se [facility]bold Vaccine, 00:00:00 - External Quadrivalent, High Dose, Age 65 And Up Influenza Virus 2022-01-02 Completed [facility] Se [facility]bold Vaccine, 00:00:00 - External Quadrivalent, High Dose, Age 65 And Up Influenza Virus 2022-01-02 Completed [facility] Se [facility]bold Vaccine, 00:00:00 - External Quadrivalent, High Dose, Age 65 And Up Influenza Virus 2022-01-02 Completed [facility] Se ybold Vaccine, 00:00:00 - External Quadrivalent, High Dose, Age 65 And Up Influenza Virus 2022-01-02 Completed [facility] Se ybold Vaccine, 00:00:00 - External Quadrivalent, High Dose, Age 65 And Up Influenza Virus 2022-01-02 Completed [facility] Se [facility]bold Vaccine, 00:00:00 - External Quadrivalent, High Dose, Age 65 And Up Influenza Virus 2022-01-02 Completed [facility] Se [facility]bold Vaccine, 00:00:00 - External Quadrivalent, High Dose, Age 65 And Up COVID-19 VACCINE 2021-09-15 Completed Cielo S [facility] [employer] 12+ ([place] cap) 00:00:00 - E xternal COVID-19 VACCINE 2021-09-15 Completed Cielo S [employer] [employer] 12+ ([place] cap) 00:00:00 - E xternal COVID-19 VACCINE 2021-09-15 Completed Cielo S eybold PFIZER 12+ ([place] cap) 00:00:00 - E xternal COVID-19 VACCINE 2021-09-15 Completed C[facility] S eybold PFIZER 12+ ([place] cap) 00:00:00 - E xternal COVID-19 VACCINE 2021-09-15 Completed [facility] S eybold PFIZER 12+ ([place] cap) 00:00:00 - E xternal COVID-19 VACCINE 2021-09-15 Completed Cielo S eybold PFIZER 12+ ([place] cap) 00:00:00 - E xternal COVID-19 VACCINE 2021-09-15 Completed C[facility]o S eybold PFIZER 12+ ([place] cap) 00:00:00 - E xternal COVID-19 VACCINE 2021-09-15 Completed C[facility]o S eybold PFIZER 12+ ([place] cap) 00:00:00 - E xternal COVID-19 VACCINE 2021-09-15 Completed C[facility]o S eybold PFIZER 12+ ([place] cap) 00:00:00 - E xternal COVID-19 VACCINE 2021-09-15 Completed C[facility] S eybold PFIZER 12+ ([place] cap) 00:00:00 - E xternal COMIRNATY TS COMIRNATY TS 2021-09-15 Completed 00:00:00 Covid-19 Vaccine 2021-01-15 Completed Cielo S eybold (Pf[employer]), Mrna-lnp, 00:00:00 Elie Protein, Pf, 30mcg/0.3ml,IM Covid-19 Vaccine 2021-01-15 Completed Cielo S eybold (Pf[employer]), Mrna-lnp, 00:00:00 Elie Protein, Pf, 30mcg/0.3ml,IM Covid-19 Vaccine 2021-01-15 Completed C[facility]o S eybold (Pf[employer]), Mrna-lnp, 00:00:00 Elie Protein, Pf, 30mcg/0.3ml,IM Covid-19 Vaccine 2021-01-15 Completed Cielo S eybold (Pf[employer]), Mrna-lnp, 00:00:00 Elie Protein, Pf, 30mcg/0.3ml,IM Covid-19 Vaccine 2021-01-15 Completed Cielo S eybold ([facility]), Mrna-lnp, 00:00:00 Elie Protein, Pf, 30mcg/0.3ml,IM Covid-19 Vaccine 2021-01-15 Completed Cielo S eybold ([facility]), Mrna-lnp, 00:00:00 Elie Protein, Pf, 30mcg/0.3ml,IM Covid-19 Vaccine 2021-01-15 Completed Cielo S eybold ([facility]), Mrna-lnp, 00:00:00 - Ext ernal Elie Protein, Pf, 30mcg/0.3ml,IM Covid-19 Vaccine 2021-01-15 Completed Cielo S eybold ([facility]), Mrna-lnp, 00:00:00 - Ext ernal Elie Protein, Pf, 30mcg/0.3ml,IM Covid-19 Vaccine 2021-01-15 Completed Cielo S eybold ([facility]), Mrna-lnp, 00:00:00 - Ext ernal Elie Protein, Pf, 30mcg/0.3ml,IM Covid-19 Vaccine 2021-01-15 Completed Cielo S eybold ([facility]), Mrna-lnp, 00:00:00 - Ext ernal Elie Protein, Pf, 30mcg/0.3ml,IM Covid-19 Vaccine 2021-01-15 Completed Cielo S eybold ([facility]), Mrna-lnp, 00:00:00 - Ext ernal Elie Protein, Pf, 30mcg/0.3ml,IM Covid-19 Vaccine 2021-01-15 Completed Cielo S eybold ([facility]), Mrna-lnp, 00:00:00 - Ext ernal Elie [employer], Pf, 30mcg/0.3ml,IM Covid-19 Vaccine 2021-01-15 Completed Cielo S eybold ([facility]), Mrna-lnp, 00:00:00 - Ext ernal Elie [employer], Pf, 30mcg/0.3ml,IM Covid-19 Vaccine 2021-01-15 Completed Cielo S eybold ([facility]), Mrna-lnp, 00:00:00 - Ext ernal Elie Protein, Pf, 30mcg/0.3ml,IM Covid-19 Vaccine 2021-01-15 Completed Cielo Palomo aracelybold ([facility]), Mrna-lnp, 00:00:00 - Ext ernal Elie Protein, Pf, 30mcg/0.3ml,IM Covid-19 Vaccine 2021-01-15 Completed Cielo Dewey jessicabold (ProQuo), Mrna-lnp, 00:00:00 - Ext ernal Elie Protein, Pf, 30mcg/0.3ml,IM Pfizer COVID-19 Pfizer COVID-19 2021-01-15 Completed Vaccine Vaccine 00:00:00 Influenza Virus 2020-12-18 Completed Cielo Se ybold Vaccine, 00:00:00 Quadrivalent, High Dose, Age 65 And Up Influenza Virus 2020-12-18 Completed Cielo Se ybold Vaccine, 00:00:00 Quadrivalent, High Dose, Age 65 And Up Influenza Virus 2020-12-18 Completed Cielo Se ybold Vaccine, 00:00:00 Quadrivalent, High Dose, Age 65 And Up Influenza Virus 2020-12-18 Completed Cielo Se ybold Vaccine, 00:00:00 Quadrivalent, High Dose, Age 65 And Up Influenza Virus 2020-12-18 Completed Cielo Se ybold Vaccine, 00:00:00 Quadrivalent, High Dose, Age 65 And Up Influenza Virus 2020-12-18 Completed Cielo Se ybold Vaccine, 00:00:00 Quadrivalent, High Dose, Age 65 And Up Influenza Virus 2020-12-18 Completed Cielo Se ybold Vaccine, 00:00:00 Quadrivalent, High Dose, Age 65 And Up Influenza Virus 2020-12-18 Completed Cielo Se ybold Vaccine, 00:00:00 - External Quadrivalent, High Dose, Age 65 And Up Influenza Virus 2020-12-18 Completed Cielo Se ybold Vaccine, 00:00:00 - External Quadrivalent, High Dose, Age 65 And Up Influenza Virus 2020-12-18 Completed Cielo Se ybold Vaccine, 00:00:00 - External Quadrivalent, High Dose, Age 65 And Up Influenza Virus 2020-12-18 Completed Cielo Se ybold Vaccine, 00:00:00 - External Quadrivalent, High Dose, Age 65 And Up Influenza Virus 2020-12-18 Completed Cielo Se ybold Vaccine, 00:00:00 - External Quadrivalent, High Dose, Age 65 And Up Influenza Virus 2020-12-18 Completed Cielo Se ybold Vaccine, 00:00:00 - External Quadrivalent, High Dose, Age 65 And Up Influenza Virus 2020-12-18 Completed Cielo Se ybold Vaccine, 00:00:00 - External Quadrivalent, High Dose, Age 65 And Up Influenza Virus 2020-12-18 Completed Cielo Se ybold Vaccine, 00:00:00 - External Quadrivalent, High Dose, Age 65 And Up Influenza Virus 2020-12-18 Completed Cielo Se ybold Vaccine, 00:00:00 - External Quadrivalent, High Dose, Age 65 And Up Influenza Virus 2020-12-18 Completed Cielo Se ybold Vaccine, 00:00:00 - External Quadrivalent, High Dose, Age 65 And Up Covid-19 Vaccine 2020-07-02 Completed Cielo S eybold (ProQuo), Mrna-lnp, 00:00:00 Elie Protein, Pf, 30mcg/0.3ml,IM Covid-19 Vaccine 2020-07-02 Completed Cielo S eybold (Pfizer), Mrna-lnp, 00:00:00 Elie Protein, Pf, 30mcg/0.3ml,IM Covid-19 Vaccine 2020-07-02 Completed Cielo S eybold (Pfizer), Mrna-lnp, 00:00:00 Elie Protein, Pf, 30mcg/0.3ml,IM Covid-19 Vaccine 2020-07-02 Completed Cielo S eybold (Pfizer), Mrna-lnp, 00:00:00 Elie Protein, Pf, 30mcg/0.3ml,IM Covid-19 Vaccine 2020-07-02 Completed Cielo S eybold (Pfizer), Mrna-lnp, 00:00:00 Elie Protein, Pf, 30mcg/0.3ml,IM Covid-19 Vaccine 2020-07-02 Completed Cielo S eybold (Pfizer), Mrna-lnp, 00:00:00 Elie Protein, Pf, 30mcg/0.3ml,IM Covid-19 Vaccine 2020-07-02 Completed Cielo S eybold (Pfizer), Mrna-lnp, 00:00:00 Elie Protein, Pf, 30mcg/0.3ml,IM Covid-19 Vaccine 2020-07-02 Completed Cielo Palomo eybold ([facility]), Mrna-lnp, 00:00:00 Elie Protein, Pf, 30mcg/0.3ml,IM Covid-19 Vaccine 2020-07-02 Completed Cielo S eybold ([facility]), Mrna-lnp, 00:00:00 Elie Protein, Pf, 30mcg/0.3ml,IM Covid-19 Vaccine 2020-07-02 Completed Cielo S eybold ([facility]), Mrna-lnp, 00:00:00 - Ext ernal Elie Protein, Pf, 30mcg/0.3ml,IM Covid-19 Vaccine 2020-07-02 Completed Cielo Palomo eybold ([facility]), Mrna-lnp, 00:00:00 - Ext ernal Elie Protein, Pf, 30mcg/0.3ml,IM Covid-19 Vaccine 2020-07-02 Completed Cielo S eybold ([facility]), Mrna-lnp, 00:00:00 - Ext ernal Elie Protein, Pf, 30mcg/0.3ml,IM Covid-19 Vaccine 2020-07-02 Completed Cielo S eybold ([facility]), Mrna-lnp, 00:00:00 - Ext ernal Elie Protein, Pf, 30mcg/0.3ml,IM Covid-19 Vaccine 2020-07-02 Completed Cielo S eybold ([facility]), Mrna-lnp, 00:00:00 - Ext ernal Elie Protein, Pf, 30mcg/0.3ml,IM Covid-19 Vaccine 2020-07-02 Completed Cielo S eybold ([facility]), Mrna-lnp, 00:00:00 - Ext ernal Elie Protein, Pf, 30mcg/0.3ml,IM Covid-19 Vaccine 2020-07-02 Completed Cielo S eybold ([facility]), Mrna-lnp, 00:00:00 - Ext ernal Elie Protein, Pf, 30mcg/0.3ml,IM Covid-19 Vaccine 2020-07-02 Completed Cielo S eybold ([facility]), Mrna-lnp, 00:00:00 - Ext ernal Elie Protein, Pf, 30mcg/0.3ml,IM Covid-19 Vaccine 2020-07-02 Completed Cielo S eybold (ProQuo), Mrna-lnp, 00:00:00 - Ext ernal Elie Protein, Pf, 30mcg/0.3ml,IM Covid-19 Vaccine 2020-07-02 Completed Cielo S eybold (Pfizer), Mrna-lnp, 00:00:00 - Ext ernal Elie Protein, Pf, 30mcg/0.3ml,IM Pfizer COVID-19 Pfizer COVID-19 2020-07-02 Completed Vaccine Vaccine 00:00:00 Covid-19 Vaccine 2020-06-06 Completed Cielo S eybold (ProQuo), Mrna-lnp, 00:00:00 Elie Protein, Pf, 30mcg/0.3ml,IM Covid-19 Vaccine 2020-06-06 Completed Cielo S eybold (ProQuo), Mrna-lnp, 00:00:00 Elie Protein, Pf, 30mcg/0.3ml,IM Covid-19 Vaccine 2020-06-06 Completed Cielo S eybold (ProQuo), Mrna-lnp, 00:00:00 Elie Protein, Pf, 30mcg/0.3ml,IM Covid-19 Vaccine 2020-06-06 Completed Cielo S eybold (Pfizer), Mrna-lnp, 00:00:00 Elie Protein, Pf, 30mcg/0.3ml,IM Covid-19 Vaccine 2020-06-06 Completed Cielo S eybold (Pfizer), Mrna-lnp, 00:00:00 Elie Protein, Pf, 30mcg/0.3ml,IM Covid-19 Vaccine 2020-06-06 Completed Cielo S eybold (Pfizer), Mrna-lnp, 00:00:00 Elie Protein, Pf, 30mcg/0.3ml,IM Covid-19 Vaccine 2020-06-06 Completed Cielo S eybold (Pfizer), Mrna-lnp, 00:00:00 Elie Protein, Pf, 30mcg/0.3ml,IM Covid-19 Vaccine 2020-06-06 Completed Cielo S eybold (Pfizer), Mrna-lnp, 00:00:00 Elie Protein, Pf, 30mcg/0.3ml,IM Covid-19 Vaccine 2020-06-06 Completed Cielo S eybold (Pfizer), Mrna-lnp, 00:00:00 Elie Protein, Pf, 30mcg/0.3ml,IM Covid-19 Vaccine 2020-06-06 Completed Cielo S eybold (Pfizer), Mrna-lnp, 00:00:00 - Ext ernal Elie Protein, Pf, 30mcg/0.3ml,IM Covid-19 Vaccine 2020-06-06 Completed Cielo S eybold (Pfizer), Mrna-lnp, 00:00:00 - Ext ernal Elie Protein, Pf, 30mcg/0.3ml,IM Covid-19 Vaccine 2020-06-06 Completed Cielo S eybold ([facility]), Mrna-lnp, 00:00:00 - Ext ernal Elie Protein, Pf, 30mcg/0.3ml,IM Covid-19 Vaccine 2020-06-06 Completed Cielo Palomo eybold ([facility]), Mrna-lnp, 00:00:00 - Ext ernal Elie Protein, Pf, 30mcg/0.3ml,IM Covid-19 Vaccine 2020-06-06 Completed Cielo S eybold ([facility]), Mrna-lnp, 00:00:00 - Ext ernal Elie Protein, Pf, 30mcg/0.3ml,IM Covid-19 Vaccine 2020-06-06 Completed Cielo S eybold ([facility]), Mrna-lnp, 00:00:00 - Ext ernal Elie Protein, Pf, 30mcg/0.3ml,IM Covid-19 Vaccine 2020-06-06 Completed Cielo S eybold ([facility]), Mrna-lnp, 00:00:00 - Ext ernal Elie Protein, Pf, 30mcg/0.3ml,IM Covid-19 Vaccine 2020-06-06 Completed Cielo S eybold ([facility]), Mrna-lnp, 00:00:00 - Ext ernal Elie Protein, Pf, 30mcg/0.3ml,IM Covid-19 Vaccine 2020-06-06 Completed Cielo S eybold (Pfizer), Mrna-lnp, 00:00:00 - Ext ernal Elie Protein, Pf, 30mcg/0.3ml,IM Covid-19 Vaccine 2020-06-06 Completed Cielo thomas (ProQuo), Mrna-lnp, 00:00:00 - Ext ernal Elie Protein, Pf, 30mcg/0.3ml,IM Pfizer COVID-19 Pfizer COVID-19 2020-06-06 Completed Vaccine Vaccine 00:00:00 Influenza Virus 2019-10-16 Completed Cielo Se ybold Vaccine, 00:00:00 Quadrivalent, High Dose, Age 65 And Up Influenza Virus 2019-10-16 Completed Cielo Se ybold Vaccine, 00:00:00 Quadrivalent, High Dose, Age 65 And Up Influenza Virus 2019-10-16 Completed Cielo Se ybold Vaccine, 00:00:00 Quadrivalent, High Dose, Age 65 And Up Influenza Virus 2019-10-16 Completed Cielo Se ybold Vaccine, 00:00:00 Quadrivalent, High Dose, Age 65 And Up Influenza Virus 2019-10-16 Completed Cielo Se ybold Vaccine, 00:00:00 Quadrivalent, High Dose, Age 65 And Up Influenza Virus 2019-10-16 Completed Cielo Se ybold Vaccine, 00:00:00 Quadrivalent, High Dose, Age 65 And Up Influenza Virus 2019-10-16 Completed Cielo Se ybold Vaccine, 00:00:00 Quadrivalent, High Dose, Age 65 And Up Influenza Virus 2019-10-16 Completed Cielo Se ybold Vaccine, 00:00:00 Quadrivalent, High Dose, Age 65 And Up Influenza Virus 2019-10-16 Completed Cielo Se ybold Vaccine, 00:00:00 Quadrivalent, High Dose, Age 65 And Up Influenza Virus 2019-10-16 Completed Cielo Se ybold Vaccine, 00:00:00 - External Quadrivalent, High Dose, Age 65 And Up Influenza Virus 2019-10-16 Completed Cielo Se ybold Vaccine, 00:00:00 - External Quadrivalent, High Dose, Age 65 And Up Influenza Virus 2019-10-16 Completed Cielo Se ybold Vaccine, 00:00:00 - External Quadrivalent, High Dose, Age 65 And Up Influenza Virus 2019-10-16 Completed Cielo Se ybold Vaccine, 00:00:00 - External Quadrivalent, High Dose, Age 65 And Up Influenza Virus 2019-10-16 Completed Cielo Se ybold Vaccine, 00:00:00 - External Quadrivalent, High Dose, Age 65 And Up Influenza Virus 2019-10-16 Completed Cielo Se ybold Vaccine, 00:00:00 - External Quadrivalent, High Dose, Age 65 And Up Influenza Virus 2019-10-16 Completed Cielo Se ybold Vaccine, 00:00:00 - External Quadrivalent, High Dose, Age 65 And Up Influenza Virus 2019-10-16 Completed Cielo Se ybold Vaccine, 00:00:00 - External Quadrivalent, High Dose, Age 65 And Up Influenza Virus 2019-10-16 Completed Cielo Se ybold Vaccine, 00:00:00 - External Quadrivalent, High Dose, Age 65 And Up Influenza Virus 2019-10-16 Completed Cielo Se ybold Vaccine, 00:00:00 - External Quadrivalent, High Dose, Age 65 And Up Influenza Virus 2018-12-06 Completed Cielo Se ybold Vaccine, High Dose, 00:00:00 Age 65 And Up Shingles IM 2018-12-06 Completed Cielo Seybol d (Shingrix) 00:00:00 Influenza Virus 2018-12-06 Completed Cielo Se ybold Vaccine, High Dose, 00:00:00 Age 65 And Up Shingles IM 2018-12-06 Completed Cielo Seybol d (Shingrix) 00:00:00 Influenza Virus 2018-12-06 Completed Cielo Se ybold Vaccine, High Dose, 00:00:00 Age 65 And Up Shingles IM 2018-12-06 Completed Cielo Seybol d (Shingrix) 00:00:00 Influenza Virus 2018-12-06 Completed Cielo Se ybold Vaccine, High Dose, 00:00:00 Age 65 And Up Shingles IM 2018-12-06 Completed Cielo Seybol d (Shingrix) 00:00:00 Influenza Virus 2018-12-06 Completed Cielo Se ybold Vaccine, High Dose, 00:00:00 Age 65 And Up Shingles IM 2018-12-06 Completed Cielo Seybol d (Shingrix) 00:00:00 Influenza Virus 2018-12-06 Completed Cielo Se ybold Vaccine, High Dose, 00:00:00 Age 65 And Up Shingles IM 2018-12-06 Completed Cielo Seybol d (Shingrix) 00:00:00 Influenza Virus 2018-12-06 Completed Cielo Se ybold Vaccine, High Dose, 00:00:00 Age 65 And Up Shingles IM 2018-12-06 Completed Cielo Seybol d (Shingrix) 00:00:00 Influenza Virus 2018-12-06 Completed Cielo Se ybold Vaccine, High Dose, 00:00:00 Age 65 And Up Shingles IM 2018-12-06 Completed Cielo Seybol d (Shingrix) 00:00:00 Influenza Virus 2018-12-06 Completed Cielo Se ybold Vaccine, High Dose, 00:00:00 Age 65 And Up Shingles IM 2018-12-06 Completed Cielo Seybol d (Shingrix) 00:00:00 Influenza Virus 2018-12-06 Completed Cielo Se ybold Vaccine, High Dose, 00:00:00 - Ext ernal Age 65 And Up Shingles IM 2018-12-06 Completed Cielo Seybol d (Shingrix) 00:00:00 - External Influenza Virus 2018-12-06 Completed Cielo Se ybold Vaccine, High Dose, 00:00:00 - Ext ernal Age 65 And Up Shingles IM 2018-12-06 Completed Cielo Seybol d (Shingrix) 00:00:00 - External Influenza Virus 2018-12-06 Completed Cielo Se ybold Vaccine, High Dose, 00:00:00 - Ext ernal Age 65 And Up Shingles IM 2018-12-06 Completed Cielo Seybol d (Shingrix) 00:00:00 - External Influenza Virus 2018-12-06 Completed Cielo Se ybold Vaccine, High Dose, 00:00:00 - Ext ernal Age 65 And Up Shingles IM 2018-12-06 Completed Cielo Seybol d (Shingrix) 00:00:00 - External Influenza Virus 2018-12-06 Completed Cielo Se ybold Vaccine, High Dose, 00:00:00 - Ext ernal Age 65 And Up Shingles IM 2018-12-06 Completed Cielo Seybol d (Shingrix) 00:00:00 - External Influenza Virus 2018-12-06 Completed Cielo Se ybold Vaccine, High Dose, 00:00:00 - Ext ernal Age 65 And Up Shingles IM 2018-12-06 Completed Cielo Seybol d (Shingrix) 00:00:00 - External Influenza Virus 2018-12-06 Completed Cielo ybold Vaccine, High Dose, 00:00:00 - Ext ernal Age 65 And Up Shingles IM 2018-12-06 Completed Cielo Seybol d (Shingrix) 00:00:00 - External Influenza Virus 2018-12-06 Completed Cielo Se ybold Vaccine, High Dose, 00:00:00 - Ext ernal Age 65 And Up Shingles IM 2018-12-06 Completed Cielo Seybol d (Shingrix) 00:00:00 - External Influenza Virus 2018-12-06 Completed Cielo ybold Vaccine, High Dose, 00:00:00 - Ext ernal Age 65 And Up Shingles IM 2018-12-06 Completed Cielo Seybol d (Shingrix) 00:00:00 - External Influenza Virus 2018-12-06 Completed Cielo Se ybold Vaccine, High Dose, 00:00:00 - Ext ernal Age 65 And Up Shingles IM 2018-12-06 Completed Cielo Seybol d (Shingrix) 00:00:00 - External Shingles IM 2018-08-02 Completed Cielo Seybol d (Shingrix) 00:00:00 Shingles IM 2018-08-02 Completed Cielo Seybol d (Shingrix) 00:00:00 Shingles IM 2018-08-02 Completed Cielo Seybol d (Shingrix) 00:00:00 Shingles IM 2018-08-02 Completed Cielo Seybol d (Shingrix) 00:00:00 Shingles IM 2018-08-02 Completed Cielo Seybol d (Shingrix) 00:00:00 Shingles IM 2018-08-02 Completed Cielo Seybol d (Shingrix) 00:00:00 Shingles IM 2018-08-02 Completed Cielo Seybol d (Shingrix) 00:00:00 Shingles IM 2018-08-02 Completed Cielo Seybol d (Shingrix) 00:00:00 Shingles IM 2018-08-02 Completed Cielo Seybol d (Shingrix) 00:00:00 Shingles IM 2018-08-02 Completed Cielo Seybol d (Shingrix) 00:00:00 - External Shingles IM 2018-08-02 Completed Cielo Seybol d (Shingrix) 00:00:00 - External Shingles IM 2018-08-02 Completed Cielo Seybol d (Shingrix) 00:00:00 - External Shingles IM 2018-08-02 Completed Cielo Seybol d (Shingrix) 00:00:00 - External Shingles IM 2018-08-02 Completed Cielo Seybol d (Shingrix) 00:00:00 - External Shingles IM 2018-08-02 Completed Cielo Seybol d (Shingrix) 00:00:00 - External Shingles IM 2018-08-02 Completed Cielo Seybol d (Shingrix) 00:00:00 - External Shingles IM 2018-08-02 Completed Cielo Seybol d (Shingrix) 00:00:00 - External Shingles IM 2018-08-02 Completed Cielo Seybol d (Shingrix) 00:00:00 - External Shingles IM 2018-08-02 Completed Cielo Seybol d (Shingrix) 00:00:00 - External Pneumococcal Vaccine, 2018-05-05 Completed Qasim sey Seybold Polysaccharide 00:00:00 Influenza Virus 2018-05-05 Completed Cielo Se ybold Vaccine, High Dose, 00:00:00 Age 65 And Up Pneumococcal Vaccine, 2018-05-05 Completed Qasim sey Seybold Polysaccharide 00:00:00 Influenza Virus 2018-05-05 Completed Cielo Se ybold Vaccine, High Dose, 00:00:00 Age 65 And Up Pneumococcal Vaccine, 2018-05-05 Completed Qasim sey Seybold Polysaccharide 00:00:00 Influenza Virus 2018-05-05 Completed Cielo Se ybold Vaccine, High Dose, 00:00:00 Age 65 And Up Pneumococcal Vaccine, 2018-05-05 Completed Qasim sey Seybold Polysaccharide 00:00:00 Influenza Virus 2018-05-05 Completed Cielo Se ybold Vaccine, High Dose, 00:00:00 Age 65 And Up Pneumococcal Vaccine, 2018-05-05 Completed Qasim sey Seybold Polysaccharide 00:00:00 Influenza Virus 2018-05-05 Completed Cielo Se ybold Vaccine, High Dose, 00:00:00 Age 65 And Up Pneumococcal Vaccine, 2018-05-05 Completed Qasim sey Seybold Polysaccharide 00:00:00 Influenza Virus 2018-05-05 Completed Cielo Se ybold Vaccine, High Dose, 00:00:00 Age 65 And Up Pneumococcal Vaccine, 2018-05-05 Completed Qasim sey Seybold Polysaccharide 00:00:00 Influenza Virus 2018-05-05 Completed Cielo Se ybold Vaccine, High Dose, 00:00:00 Age 65 And Up Pneumococcal Vaccine, 2018-05-05 Completed Qasim sey Seybold Polysaccharide 00:00:00 Influenza Virus 2018-05-05 Completed Cielo Se ybold Vaccine, High Dose, 00:00:00 Age 65 And Up Pneumococcal Vaccine, 2018-05-05 Completed Qasim sey Seybold Polysaccharide 00:00:00 Influenza Virus 2018-05-05 Completed Cielo Se ybold Vaccine, High Dose, 00:00:00 Age 65 And Up Pneumococcal Vaccine, 2018-05-05 Completed Qasim sey Seybold Polysaccharide 00:00:00 - External Influenza Virus 2018-05-05 Completed Cielo Se ybold Vaccine, High Dose, 00:00:00 - Ext ernal Age 65 And Up Pneumococcal Vaccine, 2018-05-05 Completed Qasim sey Seybold Polysaccharide 00:00:00 - External Influenza Virus 2018-05-05 Completed Cielo Se ybold Vaccine, High Dose, 00:00:00 - Ext ernal Age 65 And Up Pneumococcal Vaccine, 2018-05-05 Completed Qasim sey Seybold Polysaccharide 00:00:00 - External Influenza Virus 2018-05-05 Completed Cielo Se ybold Vaccine, High Dose, 00:00:00 - Ext ernal Age 65 And Up Pneumococcal Vaccine, 2018-05-05 Completed Qasim sey Seybold Polysaccharide 00:00:00 - External Influenza Virus 2018-05-05 Completed Cielo Se ybold Vaccine, High Dose, 00:00:00 - Ext ernal Age 65 And Up Pneumococcal Vaccine, 2018-05-05 Completed Qasim sey Seybold Polysaccharide 00:00:00 - External Influenza Virus 2018-05-05 Completed Cileo Se ybold Vaccine, High Dose, 00:00:00 - Ext ernal Age 65 And Up Pneumococcal Vaccine, 2018-05-05 Completed Qasim sey Seybold Polysaccharide 00:00:00 - External Influenza Virus 2018-05-05 Completed Cielo Se ybold Vaccine, High Dose, 00:00:00 - Ext ernal Age 65 And Up Pneumococcal Vaccine, 2018-05-05 Completed Qasim sey Seybold Polysaccharide 00:00:00 - External Influenza Virus 2018-05-05 Completed Cielo Se ybold Vaccine, High Dose, 00:00:00 - Ext ernal Age 65 And Up Pneumococcal Vaccine, 2018-05-05 Completed Qasim sey Seybold Polysaccharide 00:00:00 - External Influenza Virus 2018-05-05 Completed Cielo Se ybold Vaccine, High Dose, 00:00:00 - Ext ernal Age 65 And Up Pneumococcal Vaccine, 2018-05-05 Completed Qasim sey Seybold Polysaccharide 00:00:00 - External Influenza Virus 2018-05-05 Completed Cielo Se ybold Vaccine, High Dose, 00:00:00 - Ext ernal Age 65 And Up Pneumococcal Vaccine, 2018-05-05 Completed Qasim sey Seybold Polysaccharide 00:00:00 - External Influenza Virus 2018-05-05 Completed Cielo Se ybold Vaccine, High Dose, 00:00:00 - Ext ernal Age 65 And Up Td- Tetanus & 2015-11-19 Completed Cielo Seyb old Diphtheria Vaccine 00:00:00 (age 7+ years) Tdap- (Boostrix, 2015-11-19 Completed Cielo S eybold Adacel) 00:00:00 Td- Tetanus & 2015-11-19 Completed Cielo Seyb old Diphtheria Vaccine 00:00:00 (age 7+ years) Tdap- (Boostrix, 2015-11-19 Completed Cielo S eybold Adacel) 00:00:00 Td- Tetanus & 2015-11-19 Completed Cielo Seyb old Diphtheria Vaccine 00:00:00 (age 7+ years) Tdap- (Boostrix, 2015-11-19 Completed Cielo S eybold Adacel) 00:00:00 Td- Tetanus & 2015-11-19 Completed Cielo Seyb old Diphtheria Vaccine 00:00:00 (age 7+ years) Tdap- (Boostrix, 2015-11-19 Completed Cielo S eybold Adacel) 00:00:00 Td- Tetanus & 2015-11-19 Completed Cielo Seyb old Diphtheria Vaccine 00:00:00 (age 7+ years) Tdap- (Boostrix, 2015-11-19 Completed Cielo S eybold Adacel) 00:00:00 Td- Tetanus & 2015-11-19 Completed Cielo Seyb old Diphtheria Vaccine 00:00:00 (age 7+ years) Tdap- (Boostrix, 2015-11-19 Completed Cielo S eybold Adacel) 00:00:00 Td- Tetanus & 2015-11-19 Completed Cielo Seyb old Diphtheria Vaccine 00:00:00 (age 7+ years) Tdap- (Boostrix, 2015-11-19 Completed Cielo S eybold Adacel) 00:00:00 Td- Tetanus & 2015-11-19 Completed Cielo Seyb old Diphtheria Vaccine 00:00:00 (age 7+ years) Tdap- (Boostrix, 2015-11-19 Completed Cielo S eybold Adacel) 00:00:00 Td- Tetanus & 2015-11-19 Completed Cielo Seyb old Diphtheria Vaccine 00:00:00 (age 7+ years) Tdap- (Boostrix, 2015-11-19 Completed Cielo S eybold Adacel) 00:00:00 Td- Tetanus & 2015-11-19 Completed Cielo Herrera old Diphtheria Vaccine 00:00:00 - Exte rnal (age 7+ years) Tdap- (Boostrix, 2015-11-19 Completed Cielo S eybold Adacel) 00:00:00 - External Td- Tetanus & 2015-11-19 Completed Cielo Se old Diphtheria Vaccine 00:00:00 - Exte rnal (age 7+ years) Tdap- (Boostrix, 2015-11-19 Completed Cielo S eybold Adacel) 00:00:00 - External Td- Tetanus & 2015-11-19 Completed Cielo yb old Diphtheria Vaccine 00:00:00 - Exte rnal (age 7+ years) Tdap- (Boostrix, 2015-11-19 Completed Cielo S eybold Adacel) 00:00:00 - External Td- Tetanus & 2015-11-19 Completed Cielo Seyb old Diphtheria Vaccine 00:00:00 - Exte rnal (age 7+ years) Tdap- (Boostrix, 2015-11-19 Completed Cielo S eybold Adacel) 00:00:00 - External Td- Tetanus & 2015-11-19 Completed Cielo Seyb old Diphtheria Vaccine 00:00:00 - Exte rnal (age 7+ years) Tdap- (Boostrix, 2015-11-19 Completed Cielo Palomo eybold Adacel) 00:00:00 - External Td- Tetanus & 2015-11-19 Completed Cielo Seyb old Diphtheria Vaccine 00:00:00 - Exte rnal (age 7+ years) Tdap- (Boostrix, 2015-11-19 Completed Cielo Palomo eybold Adacel) 00:00:00 - External Td- Tetanus & 2015-11-19 Completed Cielo Seyb old Diphtheria Vaccine 00:00:00 - Exte rnal (age 7+ years) Tdap- (Boostrix, 2015-11-19 Completed Cielo Palomo eybold Adacel) 00:00:00 - External Td- Tetanus & 2015-11-19 Completed Cielo yb old Diphtheria Vaccine 00:00:00 - Exte rnal (age 7+ years) Tdap- (Boostrix, 2015-11-19 Completed Cielo Palomo eybold Adacel) 00:00:00 - External Td- Tetanus & 2015-11-19 Completed Cielo yb old Diphtheria Vaccine 00:00:00 - Exte rnal (age 7+ years) Tdap- (Boostrix, 2015-11-19 Completed Cielo Palomo eybold Adacel) 00:00:00 - External Td- Tetanus & 2015-11-19 Completed Cielo yb old Diphtheria Vaccine 00:00:00 - Exte rnal (age 7+ years) Tdap- (Boostrix, 2015-11-19 Completed Cielo Palomo eybold Adacel) 00:00:00 - External Tdap 2015-11-[address] [facility] 2015-11-[address] [facility] T[facility] 2015-11-[address] [facility] Pneumococcal Vaccine, 2015-04-03 Completed Qasim sey Seybold Conjugate 13 00:00:00 Pneumococcal Vaccine, 2015-04-03 Completed Qasim sey Seybold Conjugate 13 00:00:00 Pneumococcal Vaccine, 2015-04-03 Completed Qasim sey Seybold Conjugate 13 00:00:00 Pneumococcal Vaccine, 2015-04-03 Completed Qasim sey Seybold Conjugate 13 00:00:00 Pneumococcal Vaccine, 2015-04-03 Completed Qasim sey Seybold Conjugate 13 00:00:00 Pneumococcal Vaccine, 2015-04-03 Completed Qasim sey Seybold Conjugate 13 00:00:00 Pneumococcal Vaccine, 2015-04-03 Completed Qasim sey Seybold Conjugate 13 00:00:00 Pneumococcal Vaccine, 2015-04-03 Completed [facility] Conjug[facility] 13 00:00:00 Pneumococcal Vaccine, 2015-04-03 Completed [facility] Conjug[facility] 13 00:00:00 Pneumococcal Vaccine, 2015-04-03 Completed [facility] Conjug[facility] 13 00:00:00 - External Pneumococcal Vaccine, 2015-04-03 Completed [facility] Conjug[facility] 13 00:00:00 - External Pneumococcal Vaccine, 2015-04-03 Completed [facility]jug[facility] 13 00:00:00 - External Pneumococcal Vaccine, 2015-04-03 Completed [facility] 13 00:00:00 - External Pneumococcal Vaccine, 2015-04-03 Completed [facility]jug[facility] 13 00:00:00 - External Pneumococcal Vaccine, 2015-04-03 Completed [facility] Conjug[facility] 13 00:00:00 - External Pneumococcal Vaccine, 2015-04-03 Completed [facility] 13 00:00:00 - External Pneumococcal Vaccine, 2015-04-03 Completed [facility] 13 00:00:00 - External Pneumococcal Vaccine, 2015-04-03 Completed [facility] 13 00:00:00 - External Pneumococcal Vaccine, 2015-04-03 Completed [facility]jug[facility] 13 00:00:00 - External Pneumococcal 2015-04-[address] [facility] Pneumococcal 2015-04-[address] [facility]jugate (Prevnar) 00:[facility] Pneumococcal 2015-04-[address] [facility]jugate (Prevnar) 00:[facility] Influenza Virus 2014-11-22 Completed [facility] Vacc[facility], High Dose, 00:00:00 Age 65 And Up Influenza Virus 2014-11-22 Completed [facility] Vacc[facility], High Dose, 00:00:00 Age 65 And Up Influenza Virus 2014-11-22 Completed [facility] Vacc[facility], High Dose, 00:00:00 Age 65 And Up Influenza Virus 2014-11-22 Completed [facility] Vacc[facility], High Dose, 00:00:00 Age 65 And Up Influenza Virus 2014-11-22 Completed [facility] Vacc[facility], High Dose, 00:00:00 Age 65 And Up Influenza Virus 2014-11-22 Completed [facility] Vacc[facility], High Dose, 00:00:00 Age 65 And Up Influenza Virus 2014-11-22 Completed [facility] Vacc[facility], High Dose, 00:00:00 Age 65 And Up Influenza Virus 2014-11-22 Completed [facility] Vacc[facility], High Dose, 00:00:00 Age 65 And Up Influenza Virus 2014-11-22 Completed Cielo Se ybold Vaccine, High Dose, 00:00:00 Age 65 And Up Influenza Virus 2014-11-22 Completed Cielo Se ybold Vaccine, High Dose, 00:00:00 - Ext ernal Age 65 And Up Influenza Virus 2014-11-22 Completed Cielo Se ybold Vaccine, High Dose, 00:00:00 - Ext ernal Age 65 And Up Influenza Virus 2014-11-22 Completed Cielo Se ybold Vaccine, High Dose, 00:00:00 - Ext ernal Age 65 And Up Influenza Virus 2014-11-22 Completed Cielo Se ybold Vaccine, High Dose, 00:00:00 - Ext ernal Age 65 And Up Influenza Virus 2014-11-22 Completed Cielo Se ybold Vaccine, High Dose, 00:00:00 - Ext ernal Age 65 And Up Influenza Virus 2014-11-22 Completed Cielo Se ybold Vaccine, High Dose, 00:00:00 - Ext ernal Age 65 And Up Influenza Virus 2014-11-22 Completed Cielo Se ybold Vaccine, High Dose, 00:00:00 - Ext ernal Age 65 And Up Influenza Virus 2014-11-22 Completed Cielo Se ybold Vaccine, High Dose, 00:00:00 - Ext ernal Age 65 And Up Influenza Virus 2014-11-22 Completed Cielo Se ybold Vaccine, High Dose, 00:00:00 - Ext ernal Age 65 And Up Influenza Virus 2014-11-22 Completed Cielo Se ybold Vaccine, High Dose, 00:00:00 - Ext ernal Age 65 And Up Influenza Virus 2013-11-15 Completed Cielo Se ybold Vaccine, High Dose, 00:00:00 Age 65 And Up Influenza Virus 2013-11-15 Completed Cielo Se ybold Vaccine, High Dose, 00:00:00 Age 65 And Up Influenza Virus 2013-11-15 Completed Cielo Se ybold Vaccine, High Dose, 00:00:00 Age 65 And Up Influenza Virus 2013-11-15 Completed Cielo Se ybold Vaccine, High Dose, 00:00:00 Age 65 And Up Influenza Virus 2013-11-15 Completed Cielo Se ybold Vaccine, High Dose, 00:00:00 Age 65 And Up Influenza Virus 2013-11-15 Completed Cielo Se ybold Vaccine, High Dose, 00:00:00 Age 65 And Up Influenza Virus 2013-11-15 Completed Cielo Se ybold Vaccine, High Dose, 00:00:00 Age 65 And Up Influenza Virus 2013-11-15 Completed Cielo Se ybold Vaccine, High Dose, 00:00:00 Age 65 And Up Influenza Virus 2013-11-15 Completed Cielo Se ybold Vaccine, High Dose, 00:00:00 Age 65 And Up Influenza Virus 2013-11-15 Completed Cielo Se ybold Vaccine, High Dose, 00:00:00 - Ext ernal Age 65 And Up Influenza Virus 2013-11-15 Completed Cielo Se ybold Vaccine, High Dose, 00:00:00 - Ext ernal Age 65 And Up Influenza Virus 2013-11-15 Completed Cielo Se ybold Vaccine, High Dose, 00:00:00 - Ext ernal Age 65 And Up Influenza Virus 2013-11-15 Completed Cielo Se ybold Vaccine, High Dose, 00:00:00 - Ext ernal Age 65 And Up Influenza Virus 2013-11-15 Completed Cielo Se ybold Vaccine, High Dose, 00:00:00 - Ext ernal Age 65 And Up Influenza Virus 2013-11-15 Completed Cielo Se ybold Vaccine, High Dose, 00:00:00 - Ext ernal Age 65 And Up Influenza Virus 2013-11-15 Completed Cielo Se ybold Vaccine, High Dose, 00:00:00 - Ext ernal Age 65 And Up Influenza Virus 2013-11-15 Completed Cielo Se ybold Vaccine, High Dose, 00:00:00 - Ext ernal Age 65 And Up Influenza Virus 2013-11-15 Completed Cielo Se ybold Vaccine, High Dose, 00:00:00 - Ext ernal Age 65 And Up Influenza Virus 2013-11-15 Completed Cielo Se ybold Vaccine, High Dose, 00:00:00 - Ext ernal Age 65 And Up Pneumococcal Vaccine, 2012-11-15 Completed Qasim sey Seybold Polysaccharide 00:00:00 Shingles SQ 2012-11-15 Completed Cielo Seybol d (Zostavax) 00:00:00 Pneumococcal Vaccine, 2012-11-15 Completed Qasim sey Seybold Polysaccharide 00:00:00 Shingles SQ 2012-11-15 Completed Cielo Seybol d (Zostavax) 00:00:00 Pneumococcal Vaccine, 2012-11-15 Completed Qasim sey Seybold Polysaccharide 00:00:00 Shingles SQ 2012-11-15 Completed Cielo Seybol d (Zostavax) 00:00:00 Pneumococcal Vaccine, 2012-11-15 Completed Qasim sey Seybold Polysaccharide 00:00:00 Shingles SQ 2012-11-15 Completed Cielo Seybol d (Zostavax) 00:00:00 Pneumococcal Vaccine, 2012-11-15 Completed Qasim sey Seybold Polysaccharide 00:00:00 Shingles SQ 2012-11-15 Completed Cielo Seybol d (Zostavax) 00:00:00 Pneumococcal Vaccine, 2012-11-15 Completed Qasim sey Seybold Polysaccharide 00:00:00 Shingles SQ 2012-11-15 Completed Cielo Seybol d (Zostavax) 00:00:00 Pneumococcal Vaccine, 2012-11-15 Completed Qasim sey Seybold Polysaccharide 00:00:00 Shingles SQ 2012-11-15 Completed Cielo Seybol d (Zostavax) 00:00:00 Pneumococcal Vaccine, 2012-11-15 Completed Qasim sey Seybold Polysaccharide 00:00:00 Shingles SQ 2012-11-15 Completed Cielo Seybol d (Zostavax) 00:00:00 Pneumococcal Vaccine, 2012-11-15 Completed Qasim sey Seybold Polysaccharide 00:00:00 Shingles SQ 2012-11-15 Completed Cielo Seybol d (Zostavax) 00:00:00 Pneumococcal Vaccine, 2012-11-15 Completed Qasim sey Seybold Polysaccharide 00:00:00 - External Shingles SQ 2012-11-15 Completed Cielo Seybol d (Zostavax) 00:00:00 - External Pneumococcal Vaccine, 2012-11-15 Completed Qasim sey Seybold Polysaccharide 00:00:00 - External Shingles SQ 2012-11-15 Completed Cielo Seybol d (Zostavax) 00:00:00 - External Pneumococcal Vaccine, 2012-11-15 Completed Qasim sey Seybold Polysaccharide 00:00:00 - External Shingles SQ 2012-11-15 Completed Cielo Seybol d (Zostavax) 00:00:00 - External Pneumococcal Vaccine, 2012-11-15 Completed Qasim sey Seybold Polysaccharide 00:00:00 - External Shingles SQ 2012-11-15 Completed Cielo Seybol d (Zostavax) 00:00:00 - External Pneumococcal Vaccine, 2012-11-15 Completed Qasim sey Seybold Polysaccharide 00:00:00 - External Shingles SQ 2012-11-15 Completed Cielo Seybol d (Zostavax) 00:00:00 - External Pneumococcal Vaccine, 2012-11-15 Completed Qasim sey Seybold Polysaccharide 00:00:00 - External Shingles SQ 2012-11-15 Completed Cielo Seybol d (Zostavax) 00:00:00 - External Pneumococcal Vaccine, 2012-11-15 Completed Qasim sey Seybold Polysaccharide 00:00:00 - External Shingles SQ 2012-11-15 Completed Cielo Seybol d (Zostavax) 00:00:00 - External Pneumococcal Vaccine, 2012-11-15 Completed Qasim sey Seybold Polysaccharide 00:00:00 - External Shingles SQ 2012-11-15 Completed Cielo Seybol d (Zostavax) 00:00:00 - External Pneumococcal Vaccine, 2012-11-15 Completed Qasim sey Seybold Polysaccharide 00:00:00 - External Shingles SQ 2012-11-15 Completed Cielo Seybol d (Zostavax) 00:00:00 - External Pneumococcal Vaccine, 2012-11-15 Completed Qasim sey Seybold Polysaccharide 00:00:00 - External Shingles SQ 2012-11-15 Completed Cielo Seybol d (Zostavax) 00:00:00 - External Pneumococcal 2012-11-[address] [facility] Polysaccharide 00:00:00 Medical Ce nter (Pneumovax) SHINGLES VARICELLA 2012-11-[address] [facility] (ZOSTAVAX) ZOSTER 00:00:00 [facility] Pneumococcal 2012-11-[address] [facility] Polysaccharide 00:00:00 Medical Ce nter (Pneumovax) SHINGLES VARICELLA 2012-11-[address] [facility] (ZOSTAVAX) ZOSTER 00:00:00 [facility] Pneumococcal 2012-11-[address] [facility] Polysaccharide 00:00:00 Medical Ce nter (Pneumovax) SHINGLES VARICELLA 2012-11-[address] [facility] (ZOSTAVAX) ZOSTER 00:00:00 [facility] Vital Signs Vital Name Observation Time Observation Value Comments Source HEIGHT 2020-06-28 06:40:00 152.4 cm WEIGHT 2020-06-28 06:40:00 89.2 kg HEIGHT 2020-06-25 12:11:00 152.4 cm WEIGHT 2020-06-25 12:11:00 83.915 kg HEIGHT 2020-04-12 06:50:00 152.4 cm WEIGHT 2020-04-12 06:50:00 91.2 kg HEIGHT 2020-04-11 08:19:00 152.4 cm WEIGHT 2020-04-11 08:19:00 88.451 kg Systolic blood 2022-04-22 14:45:00 138 mm[Hg] Cielo Salgado - pressure External Diastolic blood 2022-04-22 14:45:00 76 mm[Hg] Chance Salgado - pressure External Body weight 2022-04-22 14:40:00 88.905 kg Cielo thomas - External BMI 2022-04-22 14:40:00 38.28 kg/m2 Cielo thomas - External Heart rate 2022-04-22 14:40:00 78 /min Cielo thomas - External Body temperature 2022-04-22 14:40:00 35.78 Caitie Macrina Salgado - External Respiratory rate 2022-04-22 14:40:00 15 /min Macrina ey Seybold - External Body height 2022-04-22 14:40:00 152.4 cm Cielo S eybold - External Systolic blood 2022-03-18 16:59:00 191 mm[Hg] Cielo Seybold - pressure External Diastolic blood 2022-03-18 16:59:00 63 mm[Hg] Kelse y Seybold - pressure External Heart rate 2022-03-18 16:59:00 70 /min Cielo S eybold - External Body temperature 2022-03-18 16:59:00 36.56 Caitie Macrina ey Seybold - External Respiratory rate 2022-03-18 16:59:00 16 /min Macrina ey Seybold - External Body height 2022-03-18 16:59:00 152.4 cm Cielo S eybold - External Body weight 2022-03-18 16:59:00 87.091 kg Cielo S eybold - External BMI 2022-03-18 16:59:00 37.50 kg/m2 Cielo S eybold - External Body weight 2022-03-17 17:40:00 87.091 kg Cielo S eybold - External BMI 2022-03-17 17:40:00 35.12 kg/m2 Cielo S eybold - External Systolic blood 2022-02-24 17:12:00 165 mm[Hg] Cielo Seybold - pressure External Diastolic blood 2022-02-24 17:12:00 97 mm[Hg] Chance y Seybold - pressure External Heart rate 2022-02-24 17:12:00 71 /min Cielo S eybold - External Body temperature 2022-02-24 17:12:00 36.89 Caitie Macrina ey Seybold - External Respiratory rate 2022-02-24 17:12:00 17 /min Macrina ey Seybold - External Body height 2022-02-24 17:12:00 157.5 cm Cielo S eybold - External Body weight 2022-02-24 17:12:00 87.091 kg Cielo S eybold - External BMI 2022-02-24 17:12:00 35.12 kg/m2 Cielo S eybold - External Oxygen saturation in 2022-02-24 17:12:00 98 /min Cielo Seybold - Arterial blood by External Pulse oximetry Systolic blood 2022-01-13 17:37:00 163 mm[Hg] Cielo Seybold - pressure External Diastolic blood 2022-01-13 17:37:00 96 mm[Hg] Qasimse y Seybold - pressure External Heart rate 2022-01-13 17:37:00 68 /min Cielo S eybold - External Body temperature 2022-01-13 17:36:00 37.06 Caitie Macrina ey Seybold - External Respiratory rate 2022-01-13 17:36:00 16 /min Macrina ey Seybold - External Body height 2022-01-13 17:36:00 157.5 cm Cielo S eybold - External Body weight 2022-01-13 17:36:00 86.183 kg Cielo S eybold - External BMI 2022-01-13 17:36:00 34.75 kg/m2 Cielo S eybold - External Oxygen saturation in 2022-01-13 17:36:00 97 /min Cielo Narcisotami - Arterial blood by External Pulse oximetry Body height 2021-12-31 21:09:00 157.5 cm Cielo S eybold - External Body weight 2021-12-31 21:09:00 86.546 kg Cielo S eybold - External BMI 2021-12-31 21:09:00 34.90 kg/m2 Cielo S eybold - External Body height 2021-12-22 19:36:00 157.5 cm Cielo S eybold - External Body weight 2021-12-22 19:36:00 87.091 kg Cielo S eybold - External BMI 2021-12-22 19:36:00 35.12 kg/m2 Cielo S eybold - External Systolic blood 2021-11-07 18:15:00 142 mm[Hg] Cielo Seybold - pressure External Diastolic blood 2021-11-07 18:15:00 70 mm[Hg] Qasimse y Seybold - pressure External Heart rate 2021-11-07 18:15:00 76 /min Cielo S eybold - External Respiratory rate 2021-11-07 18:15:00 18 /min Macrina ey Seybold - External Body height 2021-11-07 18:15:00 152.4 cm Cielo Palomo eybold - External Body weight 2021-11-07 18:15:00 87.091 kg Cielo S eybold - External BMI 2021-11-07 18:15:00 37.50 kg/m2 Cielo S eybold - External Body height 2021-07-22 15:27:00 152.4 cm Cielo S eybold Body weight 2021-07-22 15:27:00 87.091 kg Cielo S eybold BMI 2021-07-22 15:27:00 37.50 kg/m2 Cielo S eybold Systolic blood 2021-07-17 15:54:00 146 mm[Hg] Cielo Seybold pressure Diastolic blood 2021-07-17 15:54:00 77 mm[Hg] Kelse y Seybold pressure Heart rate 2021-07-17 15:54:00 76 /min Cielo S eybold Body temperature 2021-07-17 15:54:00 37 Caitie Macrina ey Seybold Respiratory rate 2021-07-17 15:54:00 17 /min Macrina ey Seybold Body height 2021-07-17 15:54:00 152.4 cm Cielo S eybold Body weight 2021-07-17 15:54:00 87.091 kg Cileo Palomo eybold BMI 2021-07-17 15:54:00 37.50 kg/m2 Cielo Palomo eybold WEIGHT 2021-07-02 19:14:00 86.183 kg WEIGHT 2021-07-02 19:14:00 86.183 kg WEIGHT 2021-07-02 19:14:00 86.183 kg WEIGHT 2021-06-01 14:07:00 83.915 kg WEIGHT 2021-06-01 14:07:00 83.915 kg WEIGHT 2021-06-01 14:07:00 83.915 kg Systolic blood 2021-04-04 19:49:00 158 mm[Hg] Cielo Seybold pressure Diastolic blood 2021-04-04 19:49:00 86 mm[Hg] Kelse y Seybold pressure Heart rate 2021-04-04 19:49:00 76 /min Cielo S eybold Body temperature 2021-04-04 19:49:00 36.44 Caitie Macrina ey Seybold Respiratory rate 2021-04-04 19:49:00 16 /min Macrina ey Seybold Body height 2021-04-04 19:49:00 154.9 cm Cielo Palomo eybold Systolic blood 2020-12-09 21:07:00 164 mm[Hg] Cielo Seybold pressure Diastolic blood 2020-12-09 21:07:00 70 mm[Hg] Kelse y Seybold pressure Heart rate 2020-12-09 21:07:00 84 /min Cielo Palomo eybold Body temperature 2020-12-09 21:07:00 36.33 Caitie Macrina ey Seybold Respiratory rate 2020-12-09 21:07:00 24 /min Macrina jessica Seybold Body height 2020-12-09 21:07:00 152.4 cm Cielo Palomo eybold Body weight 2020-12-09 21:07:00 87.091 kg Cielo jessicabold BMI 2020-12-09 21:07:00 37.50 kg/m2 Cielo Palomo eybold HEIGHT 2020-04-12 06:50:00 152.4 cm WEIGHT 2020-04-12 06:50:00 91.2 kg HEIGHT 2020-04-11 08:19:00 152.4 cm WEIGHT 2020-04-11 08:19:00 88.451 kg HEIGHT 2020-03-21 19:39:00 152.4 cm WEIGHT 2020-03-21 19:32:00 90.493 kg HEIGHT 2019-11-10 00:00:00 152.4 cm WEIGHT 2019-11-10 00:00:00 86.183 kg HEIGHT 2019-07-12 00:00:00 152.4 cm WEIGHT 2019-07-12 00:00:00 86.183 kg HEIGHT 2019-07-12 00:00:00 152.4 cm WEIGHT 2019-07-12 00:00:00 86.183 kg Systolic blood 2021-07-02 21:00:00 158 mm[Hg] [facility] Diastolic blood 2021-07-02 21:00:00 86 mm[Hg] [facility] Heart rate 2021-07-02 21:00:00 90 /min [facility] Respiratory rate 2021-07-02 21:00:00 19 /min [facility] Oxygen saturation in 2021-07-02 21:00:00 99 /min [facility] Arterial blood by Medical Ce nter Pulse oximetry Body temperature 2021-07-02 19:14:00 37.22 Caitie [facility] Body weight 2021-07-02 19:14:00 86.183 kg [facility] BMI 2021-07-02 19:14:00 37.11 kg/m2 [facility] Procedures Procedure Date / Time Performed Performing Clinician Sourc e URINALYSIS NONAUTO W/O 2022-04-22 14:55:17 Jennifer Mcdonald i Cielo Salgado - SCOPE External FOOT RIGHT 2022-03-17 20:17:36 Neftaly Rea - External SARS-COV2/RT-PCR ([facility] 2021-07-02 21:05:00 [facility] REF LAB[facility]) [facility] XR CHEST 2 VIEWS 2021-07-02 20:14:00 [facility] RAPID INFLUENZA A&B 2021-07-02 20:04:00 [facility] SCREEN [facility] CT BRAIN WITHOUT IV 2021-06-01 15:17:00 Jonnie Garner [facility] CONTRAST Center CT SPINE CERVICAL 2021-06-01 15:17:00 Jonnie Garner [facility] WITHOUT IV CONTRAST Center Plan of Care Planned Activity Planned Date Details Comments Source Future Scheduled 2025-11-18 DTAP/TDAP/TD VACCINES [facility] Test 00:00:00 (2 - Td or Tdap) [code Medic al Center = DTAP/TDAP/TD VACCINES (2 - Td or Tdap)] Future Scheduled 2025-11-18 DTAP/TDAP/TD VACCINES [facility] Test 00:00:00 (2 - Td or Tdap) [code Medic al Center = DTAP/TDAP/TD VACCINES (2 - Td or Tdap)] Future Scheduled 2025-11-18 DTAP/TDAP/TD VACCINES [facility] Test 00:00:00 (2 - Td or Tdap) [code Medic al Center = DTAP/TDAP/TD VACCINES (2 - Td or Tdap)] Future Scheduled 2024-05-25 Screening for malignant [facility] Test 00:00:00 neoplasm of colon Medical Ce nter (procedure) [code = 326549611] Future Scheduled 2024-05-25 Screening for malignant [facility] Test 00:00:00 neoplasm of colon Medical Ce nter (procedure) [code = 046029550] Future Scheduled 2024-05-25 Screening for malignant [facility] Test 00:00:00 neoplasm of colon Medical Ce nter (procedure) [code = 232135541] Future Scheduled 2024-05-25 Screening for malignant [facility] Test 00:00:00 neoplasm of colon Medical Ce nter (procedure) [code = 924667106] Future Scheduled 2024-05-25 Screening for malignant [facility] Test 00:00:00 neoplasm of colon Medical Ce nter (procedure) [code = 296627413] Future Scheduled 2024-05-25 Screening for malignant [facility] Test 00:00:00 neoplasm of colon Medical Ce nter (procedure) [code = 754112617] Future Scheduled 2022-07-[address] [facility] Test 00:00:00 Counseling and Medical Cente r Screening (12+) [code = Tobacco Cessation Counseling and Screening (12+)] Future Scheduled 2022-02-[address] [facility] Test 00:00:00 (12+) [code = Medical Center DEPRESSION SCREENING (12+)] Future Scheduled 2022-02-15 FALLS RISK SCREENING [facility] Test 00:00:00 [code = FALLS RISK Medical C enter SCREENING] Future Scheduled 2021-10-16 INFLUENZA VACCINE (#1) [facility] Test 00:00:00 [code = INFLUENZA Medical Ce nter VACCINE (#1)] Future Scheduled 2021-10-16 INFLUENZA VACCINE (#1) [facility] Test 00:00:00 [code = INFLUENZA Medical Ce nter VACCINE (#1)] Future Scheduled 2021-10-16 INFLUENZA VACCINE (#1) [facility] Test 00:00:00 [code = INFLUENZA Medical Ce nter VACCINE (#1)] Future Scheduled 2021-05-16 COVID-19 VACCINE (4 - [facility] Test 00:00:00 Booster for Pfizer Medical C enter series) [code = COVID-19 VACCINE (4 - Booster for Pfizer series)] Future Scheduled 2021-05-16 COVID-19 VACCINE (4 - [facility] Test 00:00:00 Booster for Pfizer Medical C enter series) [code = COVID-19 VACCINE (4 - Booster for Pfizer series)] Future Scheduled 2021-05-16 COVID-19 VACCINE (4 - [facility] Test 00:00:00 Booster for Pfizer Medical C enter series) [code = COVID-19 VACCINE (4 - Booster for Pfizer series)] Future Scheduled 2021-02-[address] [facility] Test 00:00:00 WELLNESS (YEAR 2 or Medical Center FIRST YEAR if no IPPE) [code = MEDICARE ANNUAL WELLNESS (YEAR 2 or FIRST YEAR if no IPPE)] Future Scheduled 2021-02-[address] [facility] Test 00:00:00 WELLNESS (YEAR 2 or Medical Center FIRST YEAR if no IPPE) [code = MEDICARE ANNUAL WELLNESS (YEAR 2 or FIRST YEAR if no IPPE)] Future Scheduled 2021-02-[address] [facility] 00:00:00 WELLNESS (YEAR 2 or Medical Center FIRST YEAR if no IPPE) [code = MEDICARE ANNUAL WELLNESS (YEAR 2 or FIRST YEAR if no IPPE)] Future Scheduled 2021-02-[address] [facility] Test 00:00:00 (12+) [code = Medical Center DEPRESSION SCREENING (12+)] Future Scheduled 2021-02-15 FALLS RISK SCREENING [facility] Test 00:00:00 [code = FALLS RISK Medical C enter SCREENING] Future Scheduled 2021-02-[address] [facility] Test 00:00:00 (12+) [code = Medical Center DEPRESSION SCREENING (12+)] Future Scheduled 2021-02-15 FALLS RISK SCREENING [facility] Test 00:00:00 [code = FALLS RISK Medical C enter SCREENING] Future Scheduled 2020-07-06 Screening for malignant [facility] Test 00:00:00 neoplasm of breast Medical C enter (procedure) [code = 104162277] Future Scheduled 2020-07-06 Screening for malignant [facility] Test 00:00:00 neoplasm of breast Medical C enter (procedure) [code = 285770228] Future Scheduled 2020-07-06 Screening for malignant [facility] Test 00:00:00 neoplasm of breast Medical C enter (procedure) [code = 743882560] Future Scheduled 2013-01-10 SHINGLES VACCINES ([address] [facility] Test 00:00[facility]00 [facility] Future Scheduled 2013-01-10 SHINGLES VACCINES ([address] [facility] Test 00:00:00 3) [facility] Future Scheduled 2013-01-10 SHINGLES VACCINES ([address] [facility] Test 00:00:00 3) [facility] Future Scheduled 1965-12-01 HEPATITIS C SCREENING [facility] 00:00:00 [code = HEPATITIS C Medical Center SCREENING] Future Scheduled 1965-12-01 HEPATITIS C SCREENING [facility] 00:00:00 [code = HEPATITIS C Medical Center SCREENING] Future Scheduled 1965-12-01 HEPATITIS C SCREENING [facility] 00:00:00 [code = HEPATITIS C Medical Center SCREENING] Future Scheduled 1947 CT Colonography (combo) [facility] Test 00:00:00 [code = CT Colonography [facility] (combo)] Future Scheduled 1947 DXA SCAN [code = DXA [facility] Test 00:00:00 SCAN] [facility] Future Scheduled 1947 Screening for malignant [facility] Test 00:00:00 neoplasm of colon Medical Ce nter (procedure) [code = 132337544] Future Scheduled 1947 Screening for malignant [facility] Test 00:00:00 neoplasm of colon Medical Ce nter (procedure) [code = 829954185] Future Scheduled 1947 Sigmoidoscopy [code = [facility] 00:[facility] Sigmoidoscopy] [facility] Future Scheduled 1947 CT Colonography (combo) [facility] Test 00:00:00 [code = CT Colonography [facility] (combo)] Future Scheduled 1947 DXA SCAN [code = DXA [facility] Test 00:00:00 SCAN] [facility] Future Scheduled 1947 Screening for malignant [facility] Test 00:00:00 neoplasm of colon Medical Ce nter (procedure) [code = 151116629] Future Scheduled 1947 Screening for malignant [facility] Test 00:00:00 neoplasm of colon Medical Ce nter (procedure) [code = 131026765] Future Scheduled 1947 Sigmoidoscopy [code = [facility] 00:[facility] Sigmoidoscopy] Medical Cente r Future Scheduled 1947 CT Colonography (combo) [facility] Test 00:00:00 [code = CT Colonography [facility] (combo)] Future Scheduled 1947 DXA SCAN [code = DXA [facility] Test 00:00:00 SCAN] [facility] Future Scheduled 1947 Screening for malignant [facility] Test 00:00:00 neoplasm of colon Medical Ce nter (procedure) [code = 330583598] Future Scheduled 1947 Screening for malignant [facility] Test 00:00:00 neoplasm of colon Medical Ce nter (procedure) [code = 337844629] Future Scheduled 1947 Sigmoidoscopy [code = [facility] S[facility]oscopy] [facility] Encounters Start End Encounter Admission Attending Care Care Encounter Source Date/Time Date/Time Type Type Clinicians Facility Department ID 2020-11-23 Outpatient MEHEUX, [facility] Surgery [id number] SLE 19:03:22 [place] 2020-11-23 Outpatient METESFAYEUX, [facility] Surgery [id number] SLE 01:18:08 [place] 2022-10-21 2022-10-21 Outpatient CIELO SANTIAGO [id number] Cielo 11:40:00 11:40:00 JANNET cutler 2022-09-22 2022-09-22 Outpatient CIELO JOSEPH [id number] C[place]o 13:30:00 13:30:00 ARAMIS cutler 2022-04-27 2022-04-27 Outpatient QUKATELYN CIELO MCCORD [id number] Cielo 13:45:00 13:45:00 FIRAS Seybol d 2022-04-22 2022-04-22 Outpatient LAB90 CIELO MCCORD [id number] Cielo 09:25:00 09:25:00 Seybol d 2022-04-22 2022-04-22 Outpatient CIELO MCDONALD [id number] Cielo 08:30:00 08:30:00 JENNIFER Seybol d 2022-04-20 2022-04-20 Outpatient CIELO MCDONALD [id number] Cielo 13:45:00 13:45:00 JENNIFER Seybol d 2022-04-20 2022-04-20 Outpatient 1, OPTICAL CIELO MCCORD [id number] Cielo 11:35:00 11:35:00 Seybol d 2022-04-20 2022-04-20 Outpatient CIELO SANTIAGO [id number] Cielo 11:00:00 11:00:00 JANNET Seybol d 2022-04-15 2022-04-15 Outpatient JAKECIELO ROBERTSON [id number] Cielo 00:00:00 00:00:00 ARAMIS Seybol d 2022-04-15 2022-04-15 Outpatient CIELO MCCORD [id number] Cielo 00:00:00 00:00:00 Seybol d 2022-04-14 2022-04-14 Outpatient CIELO VIRGEN [id number] Cielo 00:00:00 00:00:00 ALEJO Seybol d 2022-04-09 2022-04-09 Outpatient LAB47 CIELO MCCORD [id number] Cielo 15:25:00 15:25:00 Seybol d 2022-04-08 2022-04-08 Outpatient TRED47 CIELO MCCORD [id number] Cielo 15:00:00 15:00:00 Seybol d 2022-04-08 2022-04-08 Outpatient CIELO VIRGEN [id number] [place] 13:25:00 13:25:00 ALEJO Seybol d 2022-04-07 2022-04-07 Outpatient CIELO VIRGEN [id number] [place] 00:00:00 00:00:00 ALEJO Seybol d 2022-03-25 2022-03-25 Outpatient GYENING, CIELO MCCORD [id number] [place] 13:45:00 13:45:00 NIKO Seybo ld 2022-03-18 2022-03-18 Outpatient JAKECIELO [id number] [place] 11:45:00 11:45:00 ARAMIS Seybol d 2022-03-18 2022-03-18 Outpatient SUMA, CIELO MCCORD [id number] [place] 00:00:00 00:00:00 NEFTALY Seybol d 2022-03-18 2022-03-18 Outpatient JAKECIELO [id number] [place] 00:00:00 00:00:00 ARAMIS Seybol d 2022-03-17 2022-03-17 Outpatient CIELO MCCORD [id number] [place] 13:45:00 13:45:00 Seybol d 2022-03-17 2022-03-17 Outpatient SUMA, CIELO MCCORD [id number] [place] 11:00:00 11:00:00 NEFTALY Seybol d 2022-03-17 2022-03-17 Outpatient SUMA, CIELO MCCORD [id number] [place] 10:10:00 10:10:00 NEFTALY Seybol d 2022-03-06 2022-03-06 Outpatient GYENING, CIELO MCCORD [id number] [place] 09:00:00 09:00:00 NIKO Seybo ld 2022-03-05 2022-03-05 Outpatient MYKELSEYONL CIELO MCCORD [id number] [place] 00:00:00 00:00:00 MD OLE Seybol d 2022-03-04 2022-03-04 Outpatient JAKECIELO [id number] [place] 11:30:00 11:30:00 ARAMIS Seybol d 2022-03-04 2022-03-04 Outpatient CIELO MCCORD [id number] [place] 00:00:00 00:00:00 Seybol d 2022-03-01 2022-03-01 Outpatient CIELO JENKINS [id number] [place] 00:00:00 00:00:00 AHMED Seybol d 2022-02-27 2022-02-27 Outpatient CIELO SANTIAGO [id number] [place] 14:40:00 14:40:00 JANNET Seybol d 2022-02-27 2022-02-27 Outpatient CIELO RUDOLPH [id number] [place] 00:00:00 00:00:00 JOHAN Seyb old 2022-02-24 2022-02-24 Outpatient LAB53 CIELO MCCORD [id number] [place] 11:50:00 11:50:00 Seybol d 2022-02-24 2022-02-24 Outpatient QUCIELO ZEPEDA [id number] [place] 11:00:00 11:00:00 FIRAS Seybol d 2022-02-19 2022-02-19 Outpatient CHANCIELO RICH [id number] [place] 14:00:00 14:00:00 CHRISTOPHJENNIFER Herrera ybold 2022-02-18 2022-02-18 Outpatient QUDDCIELO RICH [id number] [place] 13:30:00 13:30:00 FIRAS Seybol d 2022-02-18 2022-02-18 Outpatient QUCIELO ZEPEDA [id number] [place] 11:15:00 11:15:00 FIRAS Seybol d 2022-02-12 2022-02-12 Outpatient QUCIELO ZEPEDA [id number] [place] 00:00:00 00:00:00 FIRAS Seybol d 2022-02-04 2022-02-04 Outpatient CIELO SANTIAGO [id number] [place] 13:40:00 13:40:00 JANNET Seybol d 2022-01-13 2022-01-13 Outpatient RHX17-VCT CIELO MCCORD [id number] [place] 12:00:00 12:00:00 Seybol d 2022-01-13 2022-01-13 Outpatient QUCIELO ZEPEDA [id number] [place] 11:30:00 11:30:00 FIRAS Seybol d 2022-01-05 2022-01-05 Outpatient CIELO MCCORD [id number] [place] 11:00:00 11:00:00 Seybol d 2022-01-02 2022-01-02 Outpatient STACY PATEL CIELO MCCORD [id number] [place] 11:15:00 11:15:00 Seybol d 2021-12-31 2021-12-31 Outpatient CIELO TOTH [id number] [place] 15:10:00 15:10:00 BALAGURU Seybo ld 2021-12-22 2021-12-22 Outpatient CIELO ANDERSON [id number] [place] 13:30:00 13:30:00 ISABELLE Seybol d 2021-12-22 2021-12-22 Outpatient CIELO SANTIAGO [id number] [place] 13:00:00 13:00:00 JANNET Seybol d 2021-12-19 2021-12-19 Outpatient CIELO ANDERSON [id number] [place] 13:30:00 13:30:00 ISABELLE Seybol d 2021-12-16 2021-12-16 Outpatient CIELO MCCORD [id number] [place] 16:15:00 16:15:00 Seybol d 2021-12-16 2021-12-16 Outpatient CIELO TOTH [id number] [place] 16:10:00 16:10:00 BALAGURU Seybo ld 2021-12-16 2021-12-16 Outpatient CIELO MCCORD [id number] [place] 16:10:00 16:10:00 Seybol d 2021-12-16 2021-12-16 Outpatient CIELO TOTH [id number] [place] 15:10:00 15:10:00 BALAGURU Seybo ld 2021-12-16 2021-12-16 Outpatient ZAK MCCORD [id number] [place] 00:00:00 00:00:00 MD OLE Seybol d 2021-12-16 2021-12-16 Outpatient CIELO TOTH [id number] [place] 00:00:00 00:00:00 BALAGURU Seybo ld 2021-11-27 2021-11-27 Outpatient GYENING, CIELO MCCORD [id number] [place] 11:45:00 11:45:00 NIKOANDREINA Stuarto ld 2021-11-07 2021-11-07 Outpatient MONICA CIELO MCCORD [id number] [place] 11:00:00 11:00:00 ISABELLE Seybol d 2021-10-31 2021-10-31 Outpatient CIELO CHAVEZ [id number] [place] 14:00:00 14:00:00 AYDEN Seybol d 2021-10-28 2021-10-28 Outpatient CIELO CHAVEZ [id number] [place] 00:00:00 00:00:00 AYDEN Seybol d 2021-09-18 2021-09-18 Outpatient CIELO VIRGEN [id number] [place] 13:40:00 13:40:00 ALEJO Seybol d 2021-09-15 2021-09-15 Outpatient COVID-PFIZE CIELO MCCORD [id number] [place] 14:45:00 14:45:00 R VACC, Seybol d CLEAR 2021-09-15 2021-09-15 Outpatient COVID-PFIZE CIELO MCCORD [id number] [place] 10:45:00 10:45:00 R VACC, Seybol d CLEAR 2021-09-15 2021-09-15 Outpatient GCCOVIDV GCCOVIDV [id number] GCCOVID 00:00:00 00:00:00 V 2021-08-27 2021-08-27 Outpatient GREGORYCIELO [id number] [place] 09:30:00 09:30:00 AHMED Seybol d 2021-08-15 2021-08-15 Office MANJINDER Rooney [id number] [place] 15:45:00 16:00:00 Visit Alexsandra GIMENEZ 350.1.13.13 Seybold 1.2.7.2.686 [id number] 2021-08-15 2021-08-15 Outpatient COVID-PFIZE CIELO MCCORD [id number] [place] 10:45:00 10:45:00 R VACC, Seybol d CLEAR 2021-08-07 2021-08-07 Outpatient PARAM CIELO MCCORD [id number] [place] 10:25:00 10:25:00 ALEJO Seybol d 2021-07-22 2021-07-22 Office MANJINDER REA 1.2.840.114 [id number] [place] 09:50:00 09:50:00 Visit NEFTALY GIMENEZ 350.1.13.13 Se ybold 1.2.7.2.686 [id number] 2021-07-22 2021-07-22 Outpatient CIELO MCCORD [id number] [place] 09:30:00 09:30:00 Seybol d 2021-07-21 2021-07-21 Outpatient LAB39 CIELO MCCORD [id number] [place] 16:10:00 16:10:00 Seybol d 2021-07-21 2021-07-21 Office DAMIÁN Santiago 1.2.840.114 [id number] [place] 15:20:00 15:40:00 Visit [facility] 350.1.13.13 Se ybold 1.2.7.2.686 [id number] 2021-07-21 2021-07-21 Outpatient CIELO REA [id number] [place] 00:00:00 00:00:00 NEFTALY Seybol d 2021-07-17 2021-07-17 Outpatient LAB47 CIELO MCCORD [id number] [place] 11:50:00 11:50:00 Seybol d 2021-07-17 2021-07-17 Office AUBRIE Rooney 1.2.840.114 [id number] [place] 10:45:00 11:30:00 Visit Alexsandra Villafuerte 350.1.13.13 Seybold 1.2.7.2.686 [id number] 2021-07-17 2021-07-17 Outpatient CIELO RUDOLPH [id number] [place] 10:15:00 10:15:00 JOHAN Seyb old 2021-07-17 2021-07-17 Outpatient CIELO RUDOLPH [id number] [place] 10:15:00 10:15:00 JOHAN Seyb old 2021-07-02 2021-07-02 Emergency ER SRIKANTH, [facility] [id number] [facility] 19:12:00 21:07:00 CAROL ANN 2021-07-02 2021-07-02 Emergency Srikanth, [facility] [id number] [facility] 19:12:00 21:07:00 [facility] 2021-07-02 2021-07-02 Emergency ER Srikanth, [facility] [id number] [facility] 19:12:00 21:07:00 [facility] 2021-07-02 2021-07-02 Travel [facility] [id number] [facility] 00:[facility] 00:00:00 [facility] 2021-07-02 2021-07-02 Travel [facility] [id number] [facility] 00:[facility] 00:00:00 [facility] 2021-06-25 2021-06-25 Outpatient Anderson_V VFP VFP [id number] [place] 12:46:00 12:46:00 [id number] Family Pract[facility] e 2021-06-20 2021-06-20 Outpatient CIELO SANTIAGO [id number] [place] 14:00:00 14:00:00 JANNET Seybol d 2021-06-02 2021-06-02 Outpatient CIELO MCCORD [id number] [place] 15:45:00 15:45:00 Seybol d 2021-06-02 2021-06-02 Outpatient CIELO MCCORD [id number] [place] 14:45:00 14:45:00 Seybol d 2021-06-02 2021-06-02 Outpatient CIELO MCCORD [id number] [place] 14:15:00 14:15:00 Seybol d 2021-06-02 2021-06-02 Outpatient CIELO MCCORD [id number] [place] 13:15:00 13:15:00 Seybol d 2021-06-01 2021-06-01 Emergency ER PATERNINA, [facility] [id number] [facility] 14:00:00 17:15:00 JONNIE 2021-06-01 2021-06-01 [facility] [id number] [facility] 14:00:00 17:15:00 [facility] 2021-06-01 2021-06-01 [facility] [id number] [facility] 14:00:00 17:15:00 [facility] 2021-06-01 2021-06-01 Travel [facility] [id number] [facility] 00:[facility] 00:00:00 [facility] 2021-06-01 2021-06-01 Travel [facility] [id number] [facility] 00:[facility]:00 [facility] 2021-05-28 2021-05-28 Outpatient CIELO ROONEY [id number] [place] 15:00:00 15:00:00 FIRAS Seybol d 2021-05-20 2021-05-20 Outpatient CIELO MCCORD [id number] [place] 13:00:00 13:00:00 Seybol d 2021-05-08 2021-05-08 Outpatient VASU7 CIELO MCCORD [id number] [place] 15:45:00 15:45:00 Seybol d 2021-05-08 2021-05-08 Outpatient CIELO VIRGEN [id number] [place] 13:55:00 13:55:00 ALEJO Seybol d 2021-05-08 2021-05-08 Outpatient CIELO RUDOLPH [id number] [place] 00:00:00 00:00:00 JOHAN Seyb old 2021-04-27 2021-04-27 Outpatient CIELO LINARES [id number] [place] 00:00:00 00:00:00 HERNANDO Seybol d 2021-04-04 2021-04-04 Office AUBRIE Molina [id number] [place] 13:30:00 13:45:00 Visit Alejo 350.1.13.13 Se ybold 1.2.7.2.686 [id number] 2021-04-03 2021-04-03 Outpatient CIELO VIRGEN [id number] [place] 00:00:00 00:00:00 ALEJO Seybol d 2021-04-02 2021-04-02 Outpatient MILAGROS CIELO MCCORD [id number] [place] 00:00:00 00:00:00 HERNANDO Seybol d 2021-03-03 2021-03-03 Office DAMIÁN Jenkins [id number] [id number] [place] 09:30:00 09:45:00 Visit [facility] 350.1.13.13 Se ybold 1.2.7.2.686 [id number] 2021-02-18 2021-02-18 Outpatient JONAHSPENSERMICHA CIELO MCCORD [id number] [place] 00:00:00 00:00:00 AHMED Seybol d 2021-02-17 2021-02-17 Office DAMIÁN JENKINS [id number] [place] 09:00:00 09:00:00 Visit [facility] 350.1.13.13 Se ybold 1.2.7.2.686 [id number] 2021-02-10 2021-02-10 Outpatient CIELO JENKINS [id number] [place] 00:00:00 00:00:00 AHMED Seybol d 2021-01-30 2021-01-30 Outpatient CIELO JENKINS [id number] [place] 10:00:00 10:00:00 AHMED Seybol d 2021-01-30 2021-01-30 Outpatient CIELO MCCORD [id number] [place] 08:35:00 08:35:00 Seybol d 2021-01-30 2021-01-30 Outpatient CIELO BACON [id number] [place] 00:00:00 00:00:00 LOWANNA Seybol d 2021-01-29 2021-01-29 Outpatient CIELO JENKINS [id number] [place] 00:00:00 00:00:00 AHMED Seybol d 2021-01-29 2021-01-29 Outpatient CIELO JENKINS [id number] [place] 00:00:00 00:00:00 AHMED Seybol d 2021-01-15 2021-01-15 Outpatient COVID-PFIZE CIELO MCCORD [id number] [place] 10:30:00 10:30:00 R BOOSTER, Sey bold CLEAR 2021-01-15 2021-01-15 Outpatient GCCOVIDV GCCOVIDV [id number] [facility] 00:00:00 00:00:00 V 2021-01-08 2021-01-08 Outpatient COVID-PFIZE CIELO MCCORD [id number] [place] 11:30:00 11:30:00 R BOOSTER, Sey bold CLEAR 2021-01-03 2021-01-03 Outpatient COVID-PFIZE CIELO MCCORD [id number] [place] 11:30:00 11:30:00 R BOOSTER, Sey bold CLEAR 2021-01-03 2021-01-03 Outpatient CIELO JENKINS [id number] [place] 00:00:00 00:00:00 AHMED Seybol d 2021-01-03 2021-01-03 Outpatient CIELO MCCORD [id number] [place] 00:00:00 00:00:00 Seybol d 2020-12-31 2020-12-31 Outpatient CIELO RUDOLPH [id number] [place] 00:00:00 00:00:00 JOHAN Seyb old 2020-12-30 2020-12-30 Outpatient CIELO JENKINS [id number] [place] 00:00:00 00:00:00 AHMED Seybol d 2020-12-26 2020-12-26 Outpatient LAB53 CIELO MCCORD [id number] [place] 15:20:00 15:20:00 Seybol d 2020-12-26 2020-12-26 Outpatient CIELO RUDOLPH [id number] [place] 00:00:00 00:00:00 JOHAN Seyb old 2020-12-24 2020-12-24 Outpatient CIELO ROONEY [id number] [place] 00:00:00 00:00:00 FIRAS Seybol d 2020-12-23 2020-12-23 Outpatient CIELO ROONEY [id number] [place] 00:00:00 00:00:00 FIRAS Seybol d 2020-12-20 2020-12-20 Outpatient 1, OPTICAL CIELO MCCORD [id number] [place] 11:45:00 11:45:00 Seybol d 2020-12-20 2020-12-20 Office DAMIÁN Santiago [id number] [id number] [place] 10:56:03 11:16:03 Visit [facility] 350.1.13.13 [facility] 1.2.7.2.686 [id number] 2020-12-18 2020-12-18 Outpatient CIELO PEÑA [id number] [place] 12:30:00 12:30:00 INJ Seybol d 2020-12-18 2020-12-18 Outpatient CIELO MCCORD [id number] [place] 10:15:00 10:15:00 Seybol d 2020-12-18 2020-12-18 Outpatient CIELO PEÑA [id number] [place] 08:00:00 08:00:00 INJ Seybol d 2020-12-16 2020-12-16 Outpatient COVID-PFIZE CIELO MCCORD [id number] [place] 11:00:00 11:00:00 R BOOSTER, Sey bold CLEAR 2020-12-14 2020-12-14 Outpatient LAB53 CIELO MCCORD [id number] [place] 13:40:00 13:40:00 Seybol d 2020-12-12 2020-12-12 Outpatient CIELO ROONEY [id number] [place] 00:00:00 00:00:00 FIRAS Seybol d 2020-12-10 2020-12-10 Outpatient COVID-PFIZE CIELO MCCORD [id number] [place] 10:40:00 10:40:00 R BOOSTER, Sey bold CLEAR 2020-12-09 2020-12-09 Outpatient LAB47 CIELO MCCORD [id number] [place] 16:45:00 16:45:00 Seybol d 2020-12-09 2020-12-09 Office AUBRIE Rooney 1.2.840.114 [id number] [place] 16:00:53 16:15:53 Visit [facility] 350.1.13.13 Seybold 1.2.7.2.686 [id number] 2020-12-09 2020-12-09 Outpatient NEVINCIELO [id number] [place] 15:30:00 15:30:00 FIRAS Seybol d 2020-12-06 2020-12-06 Outpatient CIELO JENKINS [id number] [place] 00:00:00 00:00:00 AHMED Seybol d 2020 2020 Office Eufemiamicha DAMIÁN 1.2.902.000 [id number] [place] 10:42:45 10:57:45 Visit [facility] 350.1.13.13 Se ybold 1.2.7.2.686 [id number] 2020-11-22 2020-11-22 Outpatient CIELO JENKINS [id number] [place] 00:00:00 00:00:00 AHMED Seybol d 2020-11-21 2020-11-21 Outpatient CIELO RUDOLPH [id number] [place] 00:00:00 00:00:00 JOHAN Seyb old 2020-11-11 2020-11-11 Outpatient CIELO RUDOLPH [id number] [place] 00:00:00 00:00:00 JOHAN Seyb old 2020-10-29 2020-10-29 Outpatient CIELO LINARES [id number] [place] 00:00:00 00:00:00 HERNANDO Seybol d 2020-10-14 2020-10-14 Outpatient CIELO MCCORD [id number] [place] 11:35:00 11:35:00 Seybol d 2020-10-14 2020-10-14 Outpatient CIELO JENKINS [id number] [place] 11:00:00 11:00:00 AHMED Seybol d 2020-10-11 2020-10-11 Outpatient CIEOL JENKINS [id number] [place] 00:00:00 00:00:00 AHMED Seybol d 2020-10-10 2020-10-10 Outpatient CIELO MCCORD [id number] [place] 14:40:00 14:40:00 Seybol d 2020-10-10 2020-10-10 Outpatient LAB53 CIELO MCCORD [id number] [place] 14:05:00 14:05:00 Seybol d 2020-10-08 2020-10-08 Outpatient CIELO RUDOLPH [id number] [place] 14:30:00 14:30:00 JOHAN Seyb old 2020-10-08 2020-10-08 Outpatient CIELO JENKINS [id number] [place] 10:30:00 10:30:00 AHMED Seybol d 2020-10-04 2020-10-04 Outpatient CIELO MALIK [id number] [place] 00:00:00 00:00:00 LIVE Seyb old 2020-10-01 2020-10-01 Outpatient CIELO MCCORD [id number] [place] 13:30:00 13:30:00 Seybol d 2020-09-30 2020-09-30 Outpatient LAB39 CIELO MCCORD [id number] [place] 14:55:00 14:55:00 Seybol d 2020-09-30 2020-09-30 Outpatient CIELO MCCORD [id number] [place] 14:05:00 14:05:00 Seybol d 2020-09-30 2020-09-30 Outpatient CIELO MALIK [id number] [place] 13:00:00 13:00:00 LIVE Seyb old 2020-09-20 2020-09-20 Outpatient VENKAT ADHIKARI [id number] [place] 11:30:00 11:30:00 Seybol d 2020-09-19 2020-09-19 Outpatient CIELO RUDOLPH [id number] [place] 00:00:00 00:00:00 JOHAN Seyb old 2020-09-18 2020-09-18 Outpatient CIELO RUDOLPH [id number] [place] 00:00:00 00:00:00 JOHAN Seyb old 2020-09-18 2020-09-18 Outpatient CIELO URDOLPH [id number] [place] 00:00:00 00:00:00 JOHAN Seyb old 2020-09-18 2020-09-18 Outpatient RONNI CIELO MCCORD [id number] [place] 00:00:00 00:00:00 JOHAN Seyb old 2020-09-12 2020-09-12 Outpatient CIELO MCCORD [id number] [place] 13:25:00 13:25:00 Seybol d 2020-09-12 2020-09-12 Outpatient CIELO KAYE [id number] [place] 13:20:00 13:20:00 WILIAM Seybol d 2020-09-11 2020-09-11 Outpatient CIELO RUDOLPH [id number] [place] 00:00:00 00:00:00 JOHAN Seyb old 2020-09-11 2020-09-11 Outpatient CIELO KAYE [id number] [place] 00:00:00 00:00:00 WILIAM Seybol d 2020-09-10 2020-09-10 Outpatient LAB39 CIELO MCCORD [id number] [place] 13:00:00 13:00:00 Seybol d 2020-09-10 2020-09-10 Outpatient CIELO JENKINS [id number] [place] 10:30:00 10:30:00 AHMED Seybol d 2020-08-22 2020-08-22 Outpatient CIELO KAYE [id number] [place] 00:00:00 00:00:00 WILIAM Seybol d 2020-08-22 2020-08-22 Outpatient CIELO KAYE [id number] [place] 00:00:00 00:00:00 WILIAM Seybol d 2020-07-02 2020-07-02 Outpatient GCCOVIDV GCCOVIDV [id number] [facility] 00:00:00 00:00:00 V 2020-06-25 2020-06-25 Outpatient EL [facility] [id number] [facility] 00:00:00 00:00:00 2020-06-06 2020-06-06 Outpatient GCCOVIDV GCCOVIDV [id number] [facility] 00:00:00 00:00:00 V 2020-04-11 2020-04-11 Outpatient EL [facility] [id number] [facility] 00:00:00 00:00:00 2020-04-11 2020-04-11 Outpatient [facility] [id number] [facility] 00:00:00 00:00:00 2020-03-21 2020-03-21 Emergency ER [facility] Emergency [id number] SLE 19:28:00 19:28:00 2019-11-10 2019-11-10 Emergency ER [facility] Emergency [id number] SLE 13:18:00 13:18:00 2019-07-12 2019-07-12 Emergency ER [facility] Emergency [id number] SLE 23:11:00 23:11:00 Results Test Description Test Time Test Comments Results Result Comments Source URINALYSIS NONAUTO W/O SCOPE 2022-04-22 14:56:00 Test Item Value Reference Range Interpretation Comme nts UD KETONES (test code = NEG 5-160 430407) UD GLUCOSE (test code = NEG 100-2000 645448) UD PROTEIN (test code = 2000 mg/dL Trace - 2,000 477602) UD LEUKOCYTES (test code = NEG Trace - Large @ 2 636606) min. UD NITRITE (test code = NEG Neg. - Pos. @ 60 708801) sec. UD UROBILINOGEN (test code = 0.2 mg/dL 0.2-8 374261) UD PH (test code = 981570) 5.0 See_Comment [Automated message] The system which ge nerated this result tra nsmitted reference range : 5.0 - 8.5 @ 60 sec.. The reference range was not used to interpr et this result as normal/abnormal . UD BLOOD (test code = MODERATE Neg. - Large @ 60 004939) sec. UD SPECIFIC GRAVITY (test 1.010 See_Comment [ Automated message] The code = 235485) system which generated this result tra nsmitted reference range : 1.000 - 1.030 @ 45 sec. . The reference range was not used to interpr et this result as normal/abnormal . UD BILIRUBIN (test code = NEG Neg. - Large @ 45 940865) sec. Lab Interpretation (test Abnormal code = 49300-0) [facility] Agrawal-CoV2/RT-PCR (Symptomatic ONLY)2021-07-03 00:34:25 Test Item Value Reference Interpretation Comments Range SARS-COV2/RT-PCR Negative Negative The SARS-Co V-2 (test code = target nucleic 25938-5) acids are not detected in thi s specimen. Negat jeferson results do not preclude SARS-C oV-2 infection and should not be u sed as the sole bas is for patient management decisions. Nega tive results must be combined with clinical observations, patient history , and epidemiolog ical information. A false negative result may occu r if a specimen is improperly collected, transported or handled. This S ARS CoV-2 test is a rapid, real-brooks e RT-PCR test intended for th e qualitative detection of nucleic acid fr om SARS-CoV-2 in a nasopharyngeal swab specimen collec alfredo from individual s suspected of COVID-19 by the ir healthcare provider. MATHEUS (test code = This test has been MATHEUS) authorized by FDA under an EUA for use by authorized laboratories. This test is only authorized for the duration of the declaration that circumstances exist justifying the authorization of emergency use of in vitro diagnostic tests for detection and/or diagnosis of COVID-19 under Section 564(b)(1) of the Federal Food, Drug and Cosmetic Act, 21 U.S.C. 360bbb-3(b)(1), unless the authorization is terminated or revoked sooner. Fact Sheet for Healthcare Providers: https://www.[employer]/Documents/Xp ert%20Xpress%20SAR S%20CoV-2/Fact%20S heets/302-3802%20S ARS-COV-2%20HEALTH CARE%20PROVIDERS%2 0FACT%20SHEET.pdf Fact Sheet for Healthcare Patients: https://www.[employer]/Documents/Xp ert%20Xpress%20SAR S%20CoV-2/Fact%20S heets/302-3801%20S ARS-COV-2%20PATIEN T%20FACT%20SHEET.p df Lab Interpretation Normal (test code = 52547-8) [facility]21-[facility]03 00:34:25 Test Item Value Reference Interpretation Comments Range SARS-COV2/RT-PCR Negative Negative The SARS-Co V-2 (test code = target nucleic 61491-0) acids are not detected in thi s specimen. Negat jeferson results do not preclude SARS-C oV-2 infection and should not be u sed as the sole bas is for patient management decisions. Nega tive results must be combined with clinical observations, patient history , and epidemiolog ical information. A false negative result may occu r if a specimen is improperly collected, transported or handled. This S ARS CoV-2 test is a rapid, real-brooks e RT-PCR test intended for e qualitative detection of nucleic acid fr om SARS-CoV-2 in a nasopharyngeal swab specimen colle alfredo from individual s suspected of COVID-19 by the ir healthcare provider. MATHEUS (test code = This test has been MATHEUS) authorized by FDA under an EUA for use by authorized laboratories. This test is only authorized for the duration of the declaration that circumstances exist justifying the authorization of emergency use of in vitro diagnostic tests for detection and/or diagnosis of COVID-19 under Section 564(b)(1) of the Federal Food, Drug and Cosmetic Act, 21 U.S.C. 360bbb-3(b)(1), unless the authorization is terminated or revoked sooner. Fact Sheet for Healthcare Providers: https://www.[employer]/Documents/Xp ert%20Xpress%20SAR S%20CoV-2/Fact%20S heets/302-3802%20S ARS-COV-2%20HEALTH CARE%20PROVIDERS%2 0FACT%20SHEET.pdf Fact Sheet for Healthcare Patients: https://www.[employer]/Documents/Xp ert%20Xpress%20SAR S%20CoV-2/Fact%20S heets/302-3801%20S ARS-COV-2%20PATIEN T%20FACT%20SHEET.p df Lab Interpretation Normal (test code = 13780-9) [facility]2021-07-03 00:34:25 Test Item Value Reference Interpretation Comments Range SARS-COV2/RT-PCR Negative Negative The SARS-Co V-2 (test code = target nucleic 56973-7) acids are not detected in thi s specimen. Negat jeferson results do not preclude SARS-C oV-2 infection and should not be u sed as the sole bas is for patient management decisions. Nega tive results must be combined with clinical observations, patient history , and epidemiolog ical information. A false negative result may occu r if a specimen is improperly collected, transported or handled. This S ARS CoV-2 test is a rapid, real-brooks e RT-PCR test intended for th e qualitative detection of nucleic acid fr om SARS-CoV-2 in a nasopharyngeal swab specimen colle alfredo from individual s suspected of COVID-19 by the ir healthcare provider. MATHEUS (test code = This test has been MATHEUS) authorized by FDA under an EUA for use by authorized laboratories. This test is only authorized for the duration of the declaration that circumstances exist justifying the authorization of emergency use of in vitro diagnostic tests for detection and/or diagnosis of COVID-19 under Section 564(b)(1) of the Federal Food, Drug and Cosmetic Act, 21 U.S.C. 360bbb-3(b)(1), unless the authorization is terminated or revoked sooner. Fact Sheet for Healthcare Providers: https://www.[employer]/Documents/Xp ert%20Xpress%20SAR S%20CoV-2/Fact%20S heets/302-3802%20S ARS-COV-2%20HEALTH CARE%20PROVIDERS%2 0FACT%20SHEET.pdf Fact Sheet for Healthcare Patients: https://www.[employer]/Documents/Xp ert%20Xpress%20SAR S%20CoV-2/Fact%20S heets/302-3801%20S ARS-COV-2%20PATIEN T%20FACT%20SHEET.p df Lab Interpretation Normal (test code = 13286-3) [facility]2021-07-03 00:34:25 Test Item Value Reference Range Interpretation Comments SARS-COV2/RT-PCR Negative Negative The SARS-Co V-2 target (test code = nucleic acids a re not [id number]) detected in thi s specimen. Negative result s do not preclude SARS-C oV-2 infection and s hould not be used as the noa e basis for patient managem ent decisions. Nega tive results must be combine d with clinical observ ations, patient history , and epidemiological information. A false negativ e result may occur if a spec imen is improperly mahogany ected, transported or handled. This SARS CoV-2 test is a rapid, real-time RT-PC R test intended for th e qualitative detection of nu cleic acid from SARS-CoV-2 in a nasopharyngeal swab specimen collected from individuals suspected of CO VID-19 by their healthcar e provider. This test has been authorized by FDA under an EUA for use by authorized laboratories. This test is only authorized for the duration of the declaration that circumstances exist justifying the authorization of emergency use of in vitro diagnostic tests for detection and/or diagnosis of COVID-19 under Section 564(b)(1) of the Federal Food, Drug and Cosmetic Act, 21 U.S.C. 360bbb-3(b)(1), unless the authorization is terminated or revoked sooner. Fact Sheet for Healthcare Providers: https://www.[employer] m/Documents/Xpert%20Xpress%20SARS%20CoV-2/Fact%20Sheets/302-3802%98OLEC-LCA-5%20 HEALTHCARE%20PROVIDERS%20FACT%20SHEET.pdf Fact Sheet for Healthcare Patients: https://www.[employer]/Documents/Xpert%20Xp ress%20SARS%20CoV-2/Fact%20Sheets/302-3801%00QFOB-CXW-0%20PATIENT%20FACT%20SHEET .pdfRapid Influenza A&B [id number] 20:40:13 Test Item Value Reference Range Interpretation Comments Rapid Influenza A Negative Negative, \\DENISSE PATRIA DEL Antigen (test code = Inconclusive [id number] CPL-3\\ 77325-8) Rapid influenza B Negative Negative, Antigen (test code = Inconclusive 65431-2) Lab Interpretation Normal (test code = 49908-0) [facility] [facility] Influenza A&B [id number] 20:40:13 Test Item Value Reference Range Interpretation Comments Rapid Influenza A Negative Negative, \\DENISSE PATRIA DEL Antigen (test code = Inconclusive [id number] CPL-3\\ 78098-3) Rapid influenza B Negative Negative, Antigen (test code = Inconclusive 11509-6) Lab Interpretation Normal (test code = 73157-1) [place] [facility] Influenza A&B [id number] 20:40:13 Test Item Value Reference Range Interpretation Comments Rapid Influenza A Negative Negative, \\DENISSE PATRIA DEL Antigen (test code = Inconclusive VB02254 CPL-3\\ 94149-8) Rapid influenza B Negative Negative, Antigen (test code = Inconclusive 34052-1) Lab Interpretation Normal (test code = 80148-6) [facility] INFLUENZA A&B [id number] 20:40:13 Test Item Value Reference Range Interpretation Comments RAPID INFLUENZA A AG Negative Negative, Inconclusive \\DENISSE QUIDEL (BEAKER) (test code RD29866 CPL-3\\ = 1622) RAPID INFLUENZA B AG Negative Negative, Inconclusive (BEAKER) (test code = 1623) RAD, CHEST, 2 [id number] 20:14:00Reason for exam:->URIwith feverReason for exam:->Cough and feverShould this be performed at the bedside?->No [facility] : 1945 Sex: FFINAL REPORT EXAM: RAD, CHEST, 2 VIEWS INDICATION: Upper respiratory infection, cough and fever. COMPARISON: Prior x-rays of the chest including most recent on March 21, 2020. FINDINGS: TUBES and LINES: None. LUNGS: Lungs are well inflated. No pulmonary edema. No pneumonia. PLEURA: No pneumothorax. No pleural effusion. HEART AND MEDIASTINUM: Cardiomediastinal silhouette is unr emarkable. Atherosclerotic calcifications of the aortic arch. BONES AND SOFT TISSUES: No acute osseous lesion. Soft tissues are unremarkable. IMPRESSION: No acute thoracic abnormality. Signed: Ryley Agee MDReport Verified Date/Time: 07/02/2021 20:14:38 Reading Location: [address] Consult ReadingRoom CT, SPINE, CERVICAL, WO [id number] 15:26:00CT pain for 3 days. Radiated to rt arm, tingling fingers. Elevated BP; on Lovenox.Unlisted Reason for Exam - Click Yes and Enter Reason Below->YesUnlisted Reason for Exam->Neck pain for 3 days. Radiated to rt arm, tingling fingers. Elevated BP; on Lovenox [facility] SERNA : 1945 Sex: FFINAL REPORT CT Cervical spine CLINICAL HISTORY: Unlisted Reason for ExamNeckpain for 3 days. Radiated to rt arm, tingling fingers. Elevated BP; on Lovenox TECHNIQUE: Contiguousaxial images of the cervical spine with coronal and sagittal reformations to assess the alignment. This exam was performed according to the departmental dose optimization program which includes automated exposure control, adjustment of the mA and/or kV according to the patient size, and/or use of an iterative reconstruction technique. COMPARISON: None FINDINGS: The vertebral body heights are preserved without fracture or dislocation. There is no prevertebral soft tissue swelling. There is straightening of the cervical curvature with grade 1 anterolisthesis of C3-C4 and C4-C5. Allowing for the lack of intrathecal contrast, there is no critical appearing central canal stenosis. There is a 3.3 cm lipomatous lesion in the right neck abutting the parotid tail at the angle of the mandible. There are scattered subcentimeter lymph nodes in the neck. The visualized lung apices are clear. IMPRESSION: No cervical fracture or dislocation. Signed: Victor Hugo Mayen MDReport Verified Date/Time: 06/01/2021 15:26:31 , BRAIN, WITHOUT [id number] 15:23:00Unlisted Reason for Exam - Click Yes and Enter Reason Below->No [facility] SERNA : 1945 Sex: FFINAL REPORT CT Head without contrast CLINICAL HISTORY: Headache, acute, normal neuro exam TECHNIQUE: Contiguous axial CT images through the head without contrast. This exam was performed according to the departmental dose optimization program which includes automated exposure control, adjustment of the mA and/or kV according to the patient size, and/or use of an iterative recon struction technique. COMPARISON: 12/20/2018 FINDINGS: There is no CT evidence of acute infarct or intracranial hemorrhage. 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 There is mild periventricular and subcortical white matter hypodensity which is nonspecific but compatible with chronic microvascular ischemic disease. There is mild atherosclerotic calcification of the intracranial circulation. There is mild generalized sulcal prominence without hydrocephalus, midline shift, or apparent mass effect. There are no extra-axial fluid collections. The skull is intact. The visualized paranasal sinuses are well-aerated. IMPRESSION: No CT evidence of acute infarct, hemorrhage, or hydrocephalus. 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 Signed: Victor Hugo Mayen MDReport Verified Date/Time: 06/01/2021 15:23:22 BASI METABOLIC [id number] 05:40:00 Test Item Value Reference Range Interpretation Comments SODIUM (BEAKER) 136 meq/L 136-145 (test code = 381) POTASSIUM (BEAKER) 4.2 meq/L 3.5-5.1 (test code = 379) CHLORIDE (BEAKER) 105 meq/L 98-107 (test code = 382) CO2 (BEAKER) (test 25 meq/L 22-29 code = 355) BLOOD UREA NITROGEN 24 mg/dL 7-21 H (BEAKER) (test code = 354) CREATININE (BEAKER) 1.42 mg/dL 0.57-1.25 H (test code = 358) GLUCOSE RANDOM 123 mg/dL 70-105 H (BEAKER) (test code = 652) CALCIUM (BEAKER) 8.2 mg/dL 8.4-10.2 L (test code = 697) EGFR (BEAKER) (test 44 mL/min/1.73 ESTIMA ALFREDO GFR IS code = 1092) sq m NOT ACCURATE CREATININE CLEARANCE IN PREDICTING GLOMERULAR FILTRATION RATE . ESTIMATED GFR I S NOT APPLICABLE FOR DIALYSIS PATIEN TS. HEMOGLOBIN AND [id number] 05:11:00 Test Item Value Reference Range Interpretation Comments HEMOGLOBIN (BEAKER) (test code = 12.2 GM/DL 11.2-15.7 410) HEMATOCRIT (BEAKER) (test code = 38.1 % 34.1-44.9 411) RAD, KNEE, 1 OR 2 VIEWS, [id number] 11:12:00AP and LateralReason for exam:- >post opC[facility]: [facility]ERT[facility] SERNA : 1945 Sex: FFINAL REPORT EXAMINATION: RAD, KNEE, 1 OR 2 VIEWS, RIGHT INDICATION: Postop evaluation COMPARISON: None DISCUSSION: Status post total knee arthroplasty without evidence of acute hardware failure. Associated postsurgical changes in the surrounding soft tissues including joint effusion with intra- articular air. No fracture or acute osseous abnormality. No joint malalignment or dislocation.Scattered vascular calcifications IMPRESSION: Status post total knee arthroplasty without evidence of acute hardware complication. Associated postsurgical changes in the surrounding soft tissues. Signed: Khanh Colon MDReport Verified Date/Time: 04/12/2020 11:12:15 Reading Location: [facility] Reading Room [address] [place] [address] RAD, CHEST, 1 VIEW, NON [id number] 20:41:00Reason for exam:->SHOULDER PAINReason for exam:->NECK PAINShould this be performed at the bedside?->Yes [facility] SERNA : 1945 Sex: FFINAL REPORT History: Shoulder pain, neck pain. Comparison: 07/13/2019 Findings: A single view of the chest is submitted. The cardiac silhouette is within normal limits for size. There is atherosclerotic calcification of the aorta. There is no focal consolidation, pneumothorax, large pleural effusion or evidence of overt pulmonary edema. There is no acute bony abnormality. Impres ivette: No acute abnormality. Signed: Colton Fuller Verified Date/Time: 03/21/2020 20:41:21 CT, CHEST WITH IV CONTRAST- PE TEST [id number] 07:46:00FINAL REPORT TECHNIQUE: CT scan of the chest WITH intravenous contrast. Dose modulation, iterative reconstruction, and/or weight-based adjustment of the mA/kV was utilized to reduce the radiation dose to as low as reasonably achievable. INDICATION: PE suspected, high pretest prob.COMPARISON: None. FINDINGS: LINES/TUBES: None. PULMONARY ARTERIES: Proximal to the bifurcation of the main pulmonary artery, the main pulmonary artery is 3 cm in diameter. 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 LUNGS AND AIRWAYS: The lungs and airways are normal without focal abnormality. PLEURA: The pleural spaces are clear. HEART AND MEDIASTINUM: Prior thyroidectomy. No significant mediastinal, hilar, or axillary lymphadenopathy. The heart and pericardium are within normal limits. There is likely a stent inthe left anterior setting coronary artery. Mild coronary arterial calcification. SOFT TISSUES AND BONES: Moderately due to disc changes of the lower thoracic and partially visualized lumbar spine. There is an old, healed sternal body fracture. UPPER ABDOMEN: Small, sliding hernia. IMPRESSION: 1.No acute pulmonary embolism. 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 2.No acute intrathoracic abnormality. Signed: Carolina Engel MDRanjaliort Verified Date/Time: 07/13/2019 07:46:25 Reading Location: [facility] Diagnostic Imaging Reading Room - [place] [address] TROPONIN [id number] 06:20:00 Test Item Value Reference Range Interpretation Comments TROPONIN I (BEAKER) (test code = 397) < ng/mL 0.00-0.03 Troponin I (TnI) levels must be interpreted in the context of the presenting symptoms and the clinical findings. Elevated TnI levels indicate myocardial damage, but are not specific for ischemic heart disease. Elevated TnI levels are seen in patients with other cardiac conditions (including myocarditis and congestive heart failure), and slight TnI elevations occur in patients with other conditions, including sepsis, renal failure, acidosis, acute neurological disease, and persistent tachyarrhythmia.Agric[employer] C[employer] Manager ID - VALENTIN MB-TYPE NATRIURETIC FACTOR (BNP)2019-07-13 02:36:00 Test Item Value Reference Range Interpretation Comments B-TYPE NATRIURETIC PEPTIDE (BEAKER) < pg/mL 0-100 (test code = 700) Agricultural C[employer] Farm Manager ID - VALENTIN MTROPONIN [id number] 02:30:00 Test Item Value Reference Range Interpretation Comments TROPONIN I (BEAKER) (test code = 397) < ng/mL 0.00-0.03 Troponin I (TnI) levels must be interpreted in the context of the presenting symptoms and the clinical findings. Elevated TnI levels indicate myocardial damage, but are not specific for ischemic heart disease. Elevated TnI levels are seen in patients with other cardiac conditions (including myocarditis and congestive heart failure), and slight TnI elevations occur in patients with other conditions, including sepsis, renal failure, acidosis, acute neurological disease, and persistent tachyarrhythmia.Agricultural Crop Farm Manager ID - VALENTIN MPT/[id number] 02:26:00 Test Item Value Reference Range Interpretation Comments PROTIME (BEAKER) (test code = 13.9 seconds 11.9-14.2 759) INR (BEAKER) (test code = 370) 1.1 <=5.9 PARTIAL THROMBOPLASTIN TIME 38.3 seconds 22.5-36.0 H (BEAKER) (test code = 760) Effective 07/13/2018: PT Reference Range ChangeNew: 11.9-14.2 Previous: 11.7- 14.7RECOMMENDED COUMADIN/WARFARIN INR THERAPY RANGESSTANDARD DOSE: 2.0-3.0 Includes: PROPHYLAXIS for venous thrombosis, systemic embolization; TREATMENT for venous thrombosis and/or pulmonary embolus.HIGH RISK: Target INR is 2.5-3.5 for patients wiht mechanical heart valves.BASIC METABOLIC [id number] 02:22:00 Test Item Value Reference Range Interpretation Comments SODIUM (BEAKER) 141 meq/L 136-145 (test code = 381) POTASSIUM (BEAKER) 4.1 meq/L 3.5-5.1 Specimen slightly (test code = 379) hemolyzed CHLORIDE (BEAKER) 109 meq/L 98-107 H (test code = 382) CO2 (BEAKER) (test 24 meq/L 22-29 code = 355) BLOOD UREA NITROGEN 28 mg/dL 7-21 H (BEAKER) (test code = 354) CREATININE (BEAKER) 1.03 mg/dL 0.57-1.25 Specimen slightly (test code = 358) hemolyzed GLUCOSE RANDOM 129 mg/dL 70-105 H (BEAKER) (test code = 652) CALCIUM (BEAKER) 9.4 mg/dL 8.4-10.2 (test code = 697) EGFR (BEAKER) (test 64 mL/min/1.73 ESTIMA ALFREDO GFR IS code = 1092) sq m NOT ACCURATE CREATININE CLEARANCE IN PREDICTING GLOMERULAR FILTRATION RATE . ESTIMATED GFR I S NOT APPLICABLE FOR DIALYSIS PATIEN TS. Agricultural Crop Farm Manager ID - VALENTIN MCBC W/PLT COUNT & AUTO [id number] 02:07:00 Test Item Value Reference Range Interpretation Comments WHITE BLOOD CELL COUNT (BEAKER) 9.2 K/ L 3.5-10.5 (test code = 775) RED BLOOD CELL COUNT (BEAKER) 4.10 M/ L 3.93-5.22 (test code = 761) HEMOGLOBIN (BEAKER) (test code = 12.8 GM/DL 11.2-15.7 410) HEMATOCRIT (BEAKER) (test code = 39.9 % 34.1-44.9 411) MEAN CORPUSCULAR VOLUME (BEAKER) 97.3 fL 79.4-94.8 H (test code = 753) MEAN CORPUSCULAR HEMOGLOBIN 31.2 pg 25.6-32.2 (BEAKER) (test code = 751) MEAN CORPUSCULAR HEMOGLOBIN CONC 32.1 GM/DL 32.2-35.5 L (BEAKER) (test code = 752) RED CELL DISTRIBUTION WIDTH 14.6 % 11.7-14.4 H (BEAKER) (test code = 412) PLATELET COUNT (BEAKER) (test 350 K/CU MM 150-450 code = 756) MEAN PLATELET VOLUME (BEAKER) 9.7 fL 9.4-12.3 (test code = 754) NUCLEATED RED BLOOD CELLS 0 /100 WBC 0-0 (BEAKER) (test code = 413) NEUTROPHILS RELATIVE PERCENT 52 % (BEAKER) (test code = 429) LYMPHOCYTES RELATIVE PERCENT 39 % (BEAKER) (test code = 430) MONOCYTES RELATIVE PERCENT 7 % (BEAKER) (test code = 431) EOSINOPHILS RELATIVE PERCENT 2 % (BEAKER) (test code = 432) BASOPHILS RELATIVE PERCENT 1 % (BEAKER) (test code = 437) NEUTROPHILS ABSOLUTE COUNT 4.73 K/ L 1.56-6.13 (BEAKER) (test code = 670) LYMPHOCYTES ABSOLUTE COUNT 3.57 K/ L 1.18-3.74 (BEAKER) (test code = 414) MONOCYTES ABSOLUTE COUNT (BEAKER) 0.66 K/ L 0.24-0.36 H (test code = 415) EOSINOPHILS ABSOLUTE COUNT 0.14 K/ L 0.04-0.36 (BEAKER) (test code = 416) BASOPHILS ABSOLUTE COUNT (BEAKER) 0.05 K/ L 0.01-0.08 (test code = 417) IMMATURE GRANULOCYTES-RELATIVE 1 % 0-1 PERCENT (BEAKER) (test code = 2801) RAD, CHEST, 2 [id number] 01:06:00Reason for exam:->CHEST PAINFINAL REPORT Exam: Chest x-ray, PA and lateral views Clinical History: Chest pain. Comparison: Chest radiograph 10/27/2018. Technique: Frontal and lateral views of the chest were obtained. Findings: The heart is normal size. The aorta is tortuous and atherosclerotic. There is no focal pulmonary consolidation, pleural effusion or pneumothorax. There is no pulmonary edema. There is a mild thoracic scoliosis. There are degenerative changes of the visualized spine. There is an infrarenal IVC filter. Impression: No focal pulmonary consolidation or pneumothorax. Signed: Nella Fry MDReport Verified Date/Time: 07/13/2019 01:06:27 PROTHROMBIN TIME/[id number] 20:07:00 Test Item Value Reference Range Interpretation Comments PROTIME (BEAKER) (test code = 10.4 seconds 9.8-12.0 759) INR (BEAKER) (test code = 370) 0.9 <=5.9 RECOMMENDED COUMADIN/WARFARIN INR THERAPY RANGESSTANDARD DOSE: 2.0 - 3.0 Includes: PROPHYLAXIS for venous thrombosis, systemic embolization; TREATMENT for venous thrombosis and/or pulmonary embolus.HIGH RISK: Target INR is 2.5-3.5 for patients with mechanical heart valves.CBC W/PLT COUNT & AUTO [id number] 19:58:00 Test Item Value Reference Range Interpretation Comments WHITE BLOOD CELL COUNT (BEAKER) 11.1 K/ L 4.0-10.0 H (test code = 775) RED BLOOD CELL COUNT (BEAKER) 4.02 M/ L 4.00-5.00 (test code = 761) HEMOGLOBIN (BEAKER) (test code = 12.9 GM/DL 12.0-15.0 410) HEMATOCRIT (BEAKER) (test code = 38.4 % 36.0-45.0 411) MEAN CORPUSCULAR VOLUME (BEAKER) 95.6 fL 82.0-99.0 (test code = 753) MEAN CORPUSCULAR HEMOGLOBIN 32.1 pg 27.0-33.0 (BEAKER) (test code = 751) MEAN CORPUSCULAR HEMOGLOBIN CONC 33.6 GM/DL 32.0-36.0 (BEAKER) (test code = 752) RED CELL DISTRIBUTION WIDTH 13.9 % 10.3-14.2 (BEAKER) (test code = 412) PLATELET COUNT (BEAKER) (test 304 K/CU MM 150-430 code = 756) MEAN PLATELET VOLUME (BEAKER) 7.6 fL 6.5-10.5 (test code = 754) NEUTROPHILS RELATIVE PERCENT 67 % (BEAKER) (test code = 429) LYMPHOCYTES RELATIVE PERCENT 25 % (BEAKER) (test code = 430) MONOCYTES RELATIVE PERCENT 5 % (BEAKER) (test code = 431) EOSINOPHILS RELATIVE PERCENT 2 % (BEAKER) (test code = 432) BASOPHILS RELATIVE PERCENT 1 % (BEAKER) (test code = 437) NEUTROPHILS ABSOLUTE COUNT 7.42 K/ L 1.80-8.00 (BEAKER) (test code = 670) LYMPHOCYTES ABSOLUTE COUNT 2.78 K/ L 1.48-4.50 (BEAKER) (test code = 414) MONOCYTES ABSOLUTE COUNT (BEAKER) 0.58 K/ L 0.00-1.30 (test code = 415) EOSINOPHILS ABSOLUTE COUNT 0.22 K/ L 0.00-0.50 (BEAKER) (test code = 416) BASOPHILS ABSOLUTE COUNT (BEAKER) 0.07 K/ L 0.00-0.20 (test code = 417) CT, BRAIN, WITHOUT [id number] 17:59:00FINAL REPORT CT, BRAIN, WITHOUT CONTRAST CLINICAL INDICATION: Headache, acute, normal neuro exam COMPARISON: July 17, 2015 TECHNIQUE: Noncontrast axial CT imaging of the brain and skull. DOSE REDUCTION: Dose modulation, iterative reconstruction, and/or weight-based adjustment of the mA/kV was utilized to reduce the radiation dose to as low as reasonably achievable. FINDINGS:No intracranial hemorrhage, midline shift or mass effect. Midline structures are normally developed. Mild c hronic microvascular ischemic changes of the periventricular and subcortical white matter are present. No hydrocephalus. Orbits are within normal limits. No obstructive paranasal sinus disease. IMPRESSION: No acute intracranial findings If there is persistent clinical concern for intracranial pathology, MR examination is recommended for further characterization. 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 PYLORI BY WARTHIN-STARRY STAINSigning Pathologist Direct Phone Line: [phone] signed by Patrick Lawson MD on 11/04/2018 at 5:34 [id number], [id number]: upper endoscopy, FNA with ultrasound, EGD, EUS with FNA, upper endoscopy, biopsyPre and postop diagnosis: colon, abnormal imaging, elevated LFTsBiopsy, gastric, gastric bx The specimen is received in formalin labeled with the patient's name, accession number and "bi opsy, gastric, gastric bx" and consists of two pieces of españa-brown, irregular, mucosal-covered tissue measuring 0.6 x 0.2 x 0.1 cm and 0.3 x 0.2 x 0.2 cm and 0.3 x 0.2 x 0.2 cm. The specimen is submitted in toto following filtration in cassette A1. SS/plPerformed.The interpretation of this case included the use of immunohistochemistry or special stains.warthin-starryControl Slides Examined: In-house known positive controls were evaluated along with the test tissue. These control slides run alongsideof the patients sample show appropriate staining. Internal positive and negative controls when available are evaluated Immunohistochemistry technical testing was performed at [facility], Pathology Laboratory where it was developed and its performance characteristics were determined. It has not been cleared or approved by the U.S. Food and Drug Administration. The FDA has determined that such clearance or approval is not necessary. The test is used for clinical purposes. It should not be regarded as investigational or for research. This laboratory is certified under the Clinical Laboratory Improvement Amendments of 1988 (CLIA-88) as qualified to perform high complexity clinical laboratory testing.HEPATIC FUNCTION [id number] 05:22:00 Test Item Value Reference Range Interpretation Comments TOTAL PROTEIN (BEAKER) (test code = 5.6 gm/dL 6.0-8.3 L 770) ALBUMIN (BEAKER) (test code = 1145) 3.4 g/dL 3.5-5.0 L BILIRUBIN TOTAL (BEAKER) (test code 0.2 mg/dL 0.2-1.2 = 377) BILIRUBIN DIRECT (BEAKER) (test 0.1 mg/dL 0.1-0.5 code = 706) ALKALINE PHOSPHATASE (BEAKER) (test 73 U/L 40-150 code = 346) AST (SGOT) (BEAKER) (test code = 29 U/L 5-34 353) ALT (SGPT) (BEAKER) (test code = 65 U/L 6-55 H 347) HEPATIC FUNCTION [id number] 06:16:00 Test Item Value Reference Range Interpretation Comments TOTAL PROTEIN (BEAKER) (test code = 5.4 gm/dL 6.0-8.3 L 770) ALBUMIN (BEAKER) (test code = 1145) 3.5 g/dL 3.5-5.0 BILIRUBIN TOTAL (BEAKER) (test code 0.3 mg/dL 0.2-1.2 = 377) BILIRUBIN DIRECT (BEAKER) (test 0.1 mg/dL 0.1-0.5 code = 706) ALKALINE PHOSPHATASE (BEAKER) (test 70 U/L 40-150 code = 346) AST (SGOT) (BEAKER) (test code = 18 U/L 5-34 353) ALT (SGPT) (BEAKER) (test code = 58 U/L 6-55 H 347) [id number] 10:33:00 Test Item Value Reference Range Interpretation Comments LIPASE (BEAKER) (test code = 749) 240 U/L 8-78 H BASIC METABOLIC [id number] 10:33:00 Test Item Value Reference Range Interpretation Comments SODIUM (BEAKER) 139 meq/L 136-145 (test code = 381) POTASSIUM (BEAKER) 4.3 meq/L 3.5-5.1 (test code = 379) CHLORIDE (BEAKER) 109 meq/L 98-107 H (test code = 382) CO2 (BEAKER) (test 24 meq/L 22-29 code = 355) BLOOD UREA NITROGEN 11 mg/dL 7-21 (BEAKER) (test code = 354) CREATININE (BEAKER) 1.04 mg/dL 0.57-1.25 (test code = 358) GLUCOSE RANDOM 104 mg/dL 70-105 (BEAKER) (test code = 652) CALCIUM (BEAKER) 8.6 mg/dL 8.4-10.2 (test code = 697) EGFR (BEAKER) (test 63 mL/min/1.73 ESTIMA ALFREDO GFR IS code = 1092) sq m NOT ACCURATE CREATININE CLEARANCE IN PREDICTING GLOMERULAR FILTRATION RATE . ESTIMATED GFR I S NOT APPLICABLE FOR DIALYSIS PATIEN TS. HEPATIC FUNCTION [id number] 10:33:00 Test Item Value Reference Range Interpretation Comments TOTAL PROTEIN (BEAKER) (test code = 5.8 gm/dL 6.0-8.3 L 770) ALBUMIN (BEAKER) (test code = 1145) 3.7 g/dL 3.5-5.0 BILIRUBIN TOTAL (BEAKER) (test code 0.4 mg/dL 0.2-1.2 = 377) BILIRUBIN DIRECT (BEAKER) (test 0.2 mg/dL 0.1-0.5 code = 706) ALKALINE PHOSPHATASE (BEAKER) (test 78 U/L 40-150 code = 346) AST (SGOT) (BEAKER) (test code = 18 U/L 5-34 353) ALT (SGPT) (BEAKER) (test code = 76 U/L 6-55 H 347) HEPATIC FUNCTION [id number] 05:49:00 Test Item Value Reference Range Interpretation Comments TOTAL PROTEIN (BEAKER) (test code = 5.4 gm/dL 6.0-8.3 L 770) ALBUMIN (BEAKER) (test code = 1145) 3.5 g/dL 3.5-5.0 BILIRUBIN TOTAL (BEAKER) (test code 0.5 mg/dL 0.2-1.2 = 377) BILIRUBIN DIRECT (BEAKER) (test 0.2 mg/dL 0.1-0.5 code = 706) ALKALINE PHOSPHATASE (BEAKER) (test 81 U/L 40-150 code = 346) AST (SGOT) (BEAKER) (test code = 48 U/L 5-34 H 353) ALT (SGPT) (BEAKER) (test code = 119 U/L 6-55 H 347) [id number] 17:11:00 Test Item Value Reference Range Interpretation Comments AMYLASE (BEAKER) (test code = 349) 83 U/L 25-125 LIPID [id number] 09:55:00 Test Item Value Reference Range Interpretation Comments TRIGLYCERIDES (BEAKER) (test code = 154 mg/dL 540) CHOLESTEROL (BEAKER) (test code = 147 mg/dL 631) HDL CHOLESTEROL (BEAKER) (test code 42 mg/dL = 976) LDL CHOLESTEROL CALCULATED (BEAKER) 74 mg/dL (test code = 633) Triglyceride Reference Range: Low Risk <150 Borderline 150-199 High Risk 200- 499 Very High Risk >=500Cholesterol Reference Range: Low Risk <200 Borderline 200-239 High Risk >240HDL Cholesterol Reference Range: Low Risk >=60 High Risk <40LDL Cholesterol Reference Range: Optimal <100 Near Optimal 100-129 Borderline 130-159 High 160-189 Very High >=190LIPASE 2018-10-30 07:35:00 Test Item Value Reference Range Interpretation Comments LIPASE (BEAKER) (test code = 749) 253 U/L 8-78 H COMPREHENSIVE METABOLIC [id number] 07:35:00 Test Item Value Reference Range Interpretation Comments TOTAL PROTEIN 5.9 gm/dL 6.0-8.3 L (BEAKER) (test code = 770) ALBUMIN (BEAKER) 3.8 g/dL 3.5-5.0 (test code = 1145) ALKALINE PHOSPHATASE 78 U/L 40-150 (BEAKER) (test code = 346) BILIRUBIN TOTAL 0.4 mg/dL 0.2-1.2 (BEAKER) (test code = 377) SODIUM (BEAKER) (test 135 meq/L 136-145 L code = 381) POTASSIUM (BEAKER) 4.3 meq/L 3.5-5.1 (test code = 379) CHLORIDE (BEAKER) 104 meq/L 98-107 (test code = 382) CO2 (BEAKER) (test 23 meq/L 22-29 code = 355) BLOOD UREA NITROGEN 16 mg/dL 7-21 (BEAKER) (test code = 354) CREATININE (BEAKER) 1.05 mg/dL 0.57-1.25 (test code = 358) GLUCOSE RANDOM 98 mg/dL 70-105 (BEAKER) (test code = 652) CALCIUM (BEAKER) 8.4 mg/dL 8.4-10.2 (test code = 697) AST (SGOT) (BEAKER) 51 U/L 5-34 H (test code = 353) ALT (SGPT) (BEAKER) 116 U/L 6-55 H (test code = 347) EGFR (BEAKER) (test 63 mL/min/1.73 ESTIMA ALFREDO GFR IS code = 1092) sq m NOT ACCURATE CREATININE CLEARANCE IN PREDICTING GLOMERULAR FILTRATION RATE . ESTIMATED GFR I S NOT APPLICABLE FOR DIALYSIS PATIEN TS. HEPATIC FUNCTION [id number] 07:35:00 Test Item Value Reference Range Interpretation Comments TOTAL PROTEIN (BEAKER) (test code = 5.9 gm/dL 6.0-8.3 L 770) ALBUMIN (BEAKER) (test code = 1145) 3.8 g/dL 3.5-5.0 BILIRUBIN TOTAL (BEAKER) (test code 0.4 mg/dL 0.2-1.2 = 377) BILIRUBIN DIRECT (BEAKER) (test 0.2 mg/dL 0.1-0.5 code = 706) ALKALINE PHOSPHATASE (BEAKER) (test 78 U/L 40-150 code = 346) AST (SGOT) (BEAKER) (test code = 51 U/L 5-34 H 353) ALT (SGPT) (BEAKER) (test code = 116 U/L 6-55 H 347) CBC W/PLT COUNT & AUTO [id number] 06:01:00 Test Item Value Reference Range Interpretation Comments WHITE BLOOD CELL COUNT (BEAKER) 6.6 K/ L 3.5-10.5 (test code = 775) RED BLOOD CELL COUNT (BEAKER) 3.90 M/ L 3.93-5.22 L (test code = 761) HEMOGLOBIN (BEAKER) (test code = 12.1 GM/DL 11.2-15.7 410) HEMATOCRIT (BEAKER) (test code = 37.8 % 34.1-44.9 411) MEAN CORPUSCULAR VOLUME (BEAKER) 96.9 fL 79.4-94.8 H (test code = 753) MEAN CORPUSCULAR HEMOGLOBIN 31.0 pg 25.6-32.2 (BEAKER) (test code = 751) MEAN CORPUSCULAR HEMOGLOBIN CONC 32.0 GM/DL 32.2-35.5 L (BEAKER) (test code = 752) RED CELL DISTRIBUTION WIDTH 13.5 % 11.7-14.4 (BEAKER) (test code = 412) PLATELET COUNT (BEAKER) (test 224 K/CU MM 150-450 code = 756) MEAN PLATELET VOLUME (BEAKER) 10.8 fL 9.4-12.3 (test code = 754) NUCLEATED RED BLOOD CELLS 0 /100 WBC 0-0 (BEAKER) (test code = 413) NEUTROPHILS RELATIVE PERCENT 34 % (BEAKER) (test code = 429) LYMPHOCYTES RELATIVE PERCENT 56 % (BEAKER) (test code = 430) MONOCYTES RELATIVE PERCENT 7 % (BEAKER) (test code = 431) EOSINOPHILS RELATIVE PERCENT 2 % (BEAKER) (test code = 432) BASOPHILS RELATIVE PERCENT 1 % (BEAKER) (test code = 437) NEUTROPHILS ABSOLUTE COUNT 2.28 K/ L 1.56-6.13 (BEAKER) (test code = 670) LYMPHOCYTES ABSOLUTE COUNT 3.67 K/ L 1.18-3.74 (BEAKER) (test code = 414) MONOCYTES ABSOLUTE COUNT (BEAKER) 0.45 K/ L 0.24-0.36 H (test code = 415) EOSINOPHILS ABSOLUTE COUNT 0.15 K/ L 0.04-0.36 (BEAKER) (test code = 416) BASOPHILS ABSOLUTE COUNT (BEAKER) 0.05 K/ L 0.01-0.08 (test code = 417) IMMATURE GRANULOCYTES-RELATIVE 0 % 0-1 PERCENT (BEAKER) (test code = 2801) HEPATIC FUNCTION [id number] 05:07:00 Test Item Value Reference Range Interpretation Comments TOTAL PROTEIN (BEAKER) (test code = 5.9 gm/dL 6.0-8.3 L 770) ALBUMIN (BEAKER) (test code = 1145) 3.7 g/dL 3.5-5.0 BILIRUBIN TOTAL (BEAKER) (test code 0.3 mg/dL 0.2-1.2 = 377) BILIRUBIN DIRECT (BEAKER) (test 0.2 mg/dL 0.1-0.5 code = 706) ALKALINE PHOSPHATASE (BEAKER) (test 81 U/L 40-150 code = 346) AST (SGOT) (BEAKER) (test code = 60 U/L 5-34 H 353) ALT (SGPT) (BEAKER) (test code = 113 U/L 6-55 H 347) MR, ABDOMEN, [id number] 17:01:00FINAL REPORT TECHNIQUE: Abdomen MR and MRCP WITHOUT intravenous contrast. 3-D volume reconstructions were obtained to evaluate the biliary ductal system. INDICATION: Biliary obstruc tion suspected. COMPARISON: CT abdomen and pelvis from 10/27/2018, 09/21/2017. FINDINGS: ABSENCE OF INTRAVENOUS CONTRAST DECREASES SENSITIVITY FOR DETECTION OF FOCAL LESIONS AND VASCULAR PATHOLOGY. LOWER THORAX: Bibasilar atelectasis. LIVER: No hepatic signal abnormality. No focal hepatic lesions. BILIARY: The gallbladder is absent. Mild anterior and extrahepatic biliary ductal dilatation. The the common bile duct measures 1.2 cm. The common bile duct does taper normally without focal stricture, filling defects or obstructive mass lesion. SPLEEN: No splenomegaly. PANCREAS: No focal masses or ductal dilatation. ADRENALS: No adrenal nodules. KIDNEYS/URETERS: No hydronephrosis or solid mass lesions. A few T2 hyperintense lesion along the peripheral of the kidneys likely represent simple cysts. PERITONEUM/RETROPERITONEUM: No free fluid. LYMPH NODES: No lymphadenopathy. VESSELS: Circumaortic left renal vein. An IVC filter below the renal veins. GI TRACT: No distention or wall thickening. BONES AND SOFT TISSUES: Unremarkable. IMPRESSION:Mild intra and extrahepatic bile duct dilatation without focal stricture, obstructive mass lesion or filling defects. Findings represent reservoir effect from cholecystectomy. Signed: Diallo Tejada MDReport Verified Date/Time: 10/28/2018 17:01:33 [facility] [address] [facility] [id number] 13:05:00 Test Item Value Reference Range Interpretation Comments LIPASE (BEAKER) (test code = 749) > U/L 8-78 H HEPATIC FUNCTION [id number] 13:00:00 Test Item Value Reference Range Interpretation Comments TOTAL PROTEIN (BEAKER) (test code = 6.3 gm/dL 6.0-8.3 770) ALBUMIN (BEAKER) (test code = 1145) 4.0 g/dL 3.5-5.0 BILIRUBIN TOTAL (BEAKER) (test code 0.4 mg/dL 0.2-1.2 = 377) BILIRUBIN DIRECT (BEAKER) (test 0.2 mg/dL 0.1-0.5 code = 706) ALKALINE PHOSPHATASE (BEAKER) (test 87 U/L 40-150 code = 346) AST (SGOT) (BEAKER) (test code = 210 U/L 5-34 H 353) ALT (SGPT) (BEAKER) (test code = 148 U/L 6-55 H 347) COMPREHENSIVE METABOLIC [id number] 06:39:00 Test Item Value Reference Range Interpretation Comments TOTAL PROTEIN 6.2 gm/dL 6.0-8.3 (BEAKER) (test code = 770) ALBUMIN (BEAKER) 3.9 g/dL 3.5-5.0 (test code = 1145) ALKALINE PHOSPHATASE 91 U/L 40-150 (BEAKER) (test code = 346) BILIRUBIN TOTAL 0.4 mg/dL 0.2-1.2 (BEAKER) (test code = 377) SODIUM (BEAKER) (test 141 meq/L 136-145 code = 381) POTASSIUM (BEAKER) 4.7 meq/L 3.5-5.1 (test code = 379) CHLORIDE (BEAKER) 107 meq/L 98-107 (test code = 382) CO2 (BEAKER) (test 25 meq/L 22-29 code = 355) BLOOD UREA NITROGEN 32 mg/dL 7-21 H (BEAKER) (test code = 354) CREATININE (BEAKER) 1.28 mg/dL 0.57-1.25 H (test code = 358) GLUCOSE RANDOM 173 mg/dL 70-105 H (BEAKER) (test code = 652) CALCIUM (BEAKER) 9.1 mg/dL 8.4-10.2 (test code = 697) AST (SGOT) (BEAKER) 225 U/L 5-34 H (test code = 353) ALT (SGPT) (BEAKER) 156 U/L 6-55 H (test code = 347) EGFR (BEAKER) (test 50 mL/min/1.73 ESTIMA ALFREDO GFR IS code = 1092) sq m NOT ACCURATE CREATININE CLEARANCE IN PREDICTING GLOMERULAR FILTRATION RATE . ESTIMATED GFR I S NOT APPLICABLE FOR DIALYSIS PATIEN TS. TROPONIN [id number] 06:26:00 Test Item Value Reference Range Interpretation Comments TROPONIN I (BEAKER) (test code = 397) < ng/mL 0.00-0.03 Troponin I (TnI) levels must be interpreted in the context of the presenting symptoms and the clinical findings. Elevated TnI levels indicate myocardial damage, but are not specific for ischemic heart disease. Elevated TnI levels are seen in patients with other cardiac conditions (including myocarditis and congestive heart failure), and slight TnI elevations occur in patients with other conditions, including sepsis, renal failure, acidosis, acute neurological disease, and persistent tachyarrhythmia.CBC W/PLT COUNT & AUTO DIFFERENTIAL 2018-10-28 06:02:00 Test Item Value Reference Range Interpretation Comments WHITE BLOOD CELL COUNT (BEAKER) 9.8 K/ L 3.5-10.5 (test code = 775) RED BLOOD CELL COUNT (BEAKER) 4.11 M/ L 3.93-5.22 (test code = 761) HEMOGLOBIN (BEAKER) (test code = 12.8 GM/DL 11.2-15.7 410) HEMATOCRIT (BEAKER) (test code = 39.9 % 34.1-44.9 411) MEAN CORPUSCULAR VOLUME (BEAKER) 97.1 fL 79.4-94.8 H (test code = 753) MEAN CORPUSCULAR HEMOGLOBIN 31.1 pg 25.6-32.2 (BEAKER) (test code = 751) MEAN CORPUSCULAR HEMOGLOBIN CONC 32.1 GM/DL 32.2-35.5 L (BEAKER) (test code = 752) RED CELL DISTRIBUTION WIDTH 13.6 % 11.7-14.4 (BEAKER) (test code = 412) PLATELET COUNT (BEAKER) (test 256 K/CU MM 150-450 code = 756) MEAN PLATELET VOLUME (BEAKER) 10.0 fL 9.4-12.3 (test code = 754) NUCLEATED RED BLOOD CELLS 0 /100 WBC 0-0 (BEAKER) (test code = 413) NEUTROPHILS RELATIVE PERCENT 75 % (BEAKER) (test code = 429) LYMPHOCYTES RELATIVE PERCENT 20 % (BEAKER) (test code = 430) MONOCYTES RELATIVE PERCENT 4 % (BEAKER) (test code = 431) EOSINOPHILS RELATIVE PERCENT 0 % (BEAKER) (test code = 432) BASOPHILS RELATIVE PERCENT 0 % (BEAKER) (test code = 437) NEUTROPHILS ABSOLUTE COUNT 7.38 K/ L 1.56-6.13 H (BEAKER) (test code = 670) LYMPHOCYTES ABSOLUTE COUNT 1.95 K/ L 1.18-3.74 (BEAKER) (test code = 414) MONOCYTES ABSOLUTE COUNT (BEAKER) 0.38 K/ L 0.24-0.36 H (test code = 415) EOSINOPHILS ABSOLUTE COUNT 0.04 K/ L 0.04-0.36 (BEAKER) (test code = 416) BASOPHILS ABSOLUTE COUNT (BEAKER) 0.04 K/ L 0.01-0.08 (test code = 417) IMMATURE GRANULOCYTES-RELATIVE 0 % 0-1 PERCENT (BEAKER) (test code = 2801) TROPONIN [id number] 01:14:00 Test Item Value Reference Range Interpretation Comments TROPONIN I SAILAJA) (test code = 397) < ng/mL 0.00-0.03 Troponin I (TnI) levels must be interpreted in the context of the presenting symptoms and the clinical findings. Elevated TnI levels indicate myocardial damage, but are not specific for ischemic heart disease. Elevated TnI levels are seen in patients with other cardiac conditions (including myocarditis and congestive heart failure), and slight TnI elevations occur in patients with other conditions, including sepsis, renal failure, acidosis, acute neurological disease, and persistent tachyarrhythmia.CT, [id number] 20:50:00FINAL REPORT TECHNIQUE: CT of the abdomen and pelvis WITH intravenous contrast and WITHOUT oral contrast. Dose modulation, iterative reconstruction, and/or weight-based adjustment of the mA/kV was utilized to reduce the radiation dose to as low as reasonably achievable. INDICATION: Abdominal distensionNausea/vomitingAbdominal pain, acute, nonlocalized. COMPARISON: CT from 04/24/2018. FINDINGS: LOWER THORAX: Mild left basilar subsegmental atelectasis. HEPATOBILIARY: No focal hepatic lesions. Prior cholecystectomy. Mild intrahepatic ductal dilation.SPLEEN: No splenomegaly.PANCREAS: No focal masses or ductal dilatation. ADRENALS: No adrenal nodules.KIDNEYS/URETERS: No hydronephrosis, stones, or masses. Bilateral renal scarring.PELVIC ORGANS/BLADDER: Prior hysterectomy. PERITONEUM/ RETROPERITONEUM: No free air or fluid.LYMPH NODES: No lymphadenopathy.VESSELS: Inferior vena cava filter has its tip at the entrance of the superior renal veins. Retroaortic left renal vein. Prominent collateral vasculature over the pelvis. A left ovarian cyst measures 3.6 cm GI TRACT: No distention or wall thickening. There is more fluid in the distal small bowel and usually expected. BONES AND SOFTTISSUES: Degenerative changes of both sacral iliac joints. Exaggerated lumbar lordosis. Mild degenerative disc changes of the lumbar spine. Moderate degenerative disc changes of the lower thoracic spine. IMPRESSION: 1.There is more fluid in the distal small bowel vein usually expected. This is most consistent with a diarrheal illness such as gastroenteritis. 2.The mild intrahepatic hepatic ductal dilation is likely due to reservoir phenomenon from a prior cholecystectomy. If the patient does not have an obstructive pattern of liver function test, no further imaging is necessary. 3.A left ovarian cyst measures 3.6 cm. Since this patient is postmenopausal, a prompt follow-up ultrasound is recommended. Signed: Carolina Engel Verified Date/Time: 10/27/2018 20:50:09 Reading Location: [facility] [id number] Reading Room RAD, CHEST, 2 [id number] 20:32:00Reason for exam:->BACK PAINFINAL REPORT INDICATION: BACK PAIN COMPARISON: November 18, 2017 TECHNIQUE: Frontal and lateral views of the chest. FINDINGS: Lungs and pleura: Clear lungs. No effusion.Heart and mediastinum: Normal heart size. Unremarkable mediastinal contours.Osseous structures: No acute abnormality.Additional findings: None. IMPRESSION: Diffuse osteopenia limits evaluation of the thoracic spine.Within these limitations, no obvious displaced fracture is identified. If there is significant concern for recent thoracic trauma recommend dedicated CT thoracic spine. Signed: Mickie Allen MDReportVerified Date/Time: 10/27/2018 20:32:00 Reading Location: [facility] [id number] Neuro Reading Room URINALYSIS W/ REFLEX URINE [id number] 20:13:00 Test Item Value Reference Range Interpretation Comments COLOR (BEAKER) (test code = Yellow 470) CLARITY (BEAKER) (test code = Slightly Hazy 469) SPECIFIC GRAVITY UA (BEAKER) 1.020 1.001-1.035 (test code = 468) PH UA (BEAKER) (test code = 5.5 5.0-8.0 467) PROTEIN UA (BEAKER) (test code 100 mg/dL Negative A = 464) GLUCOSE UA (BEAKER) (test code Negative Negative = 365) KETONES UA (BEAKER) (test code Negative Negative = 371) BILIRUBIN UA (BEAKER) (test Negative Negative code = 462) BLOOD UA (BEAKER) (test code = Negative Negative 461) NITRITE UA (BEAKER) (test code Negative Negative = 465) LEUKOCYTE ESTERASE UA (BEAKER) Negative Negative (test code = 466) UROBILINOGEN UA (BEAKER) (test 0.2 mg/dL 0.2-1.0 code = 463) BACTERIA (BEAKER) (test code = Occasional 517) MUCUS (BEAKER) (test code = Occasional 1574) RBC UA-MANUAL (BEAKER) (test <5 /HPF code = 1659) WBC UA-MANUAL (BEAKER) (test <5 /HPF code = 1661) SQUAMOUS EPITHELIAL MANUAL <5 /HPF (BEAKER) (test code = 1663) SOURCE(BEAKER) (test code = 2795) RAPID TROPONIN [id number] 19:46:00 Test Item Value Reference Range Interpretation Comments RAPID TROPONIN I (BEAKER) (test code < ng/mL <0.05 = 1483) BASIC METABOLIC [id number] 19:45:00 Test Item Value Reference Range Interpretation Comments SODIUM (BEAKER) 138 meq/L 135-148 (test code = 381) POTASSIUM (BEAKER) 4.5 meq/L 3.6-5.5 (test code = 379) CHLORIDE (BEAKER) 105 meq/L 98-106 (test code = 382) CO2 (BEAKER) (test 29 meq/L 24-32 code = 355) BLOOD UREA NITROGEN 30 mg/dL 10-26 H (BEAKER) (test code = 354) CREATININE (BEAKER) 1.23 mg/dL 0.50-1.20 H (test code = 358) GLUCOSE RANDOM 92 mg/dL 70-110 (BEAKER) (test code = 652) CALCIUM (BEAKER) 9.4 mg/dL 8.5-10.5 (test code = 697) EGFR (BEAKER) (test 52 mL/min/1.73 ESTIMA ALFREDO GFR IS code = 1092) sq m NOT ACCURATE CREATININE CLEARANCE IN PREDICTING GLOMERULAR FILTRATION RATE . ESTIMATED GFR I S NOT APPLICABLE FOR DIALYSIS PATIEN TS. HEPATIC FUNCTION [id number] 19:45:00 Test Item Value Reference Range Interpretation Comments TOTAL PROTEIN (BEAKER) (test code = 6.6 gm/dL 6.0-8.5 770) ALBUMIN (BEAKER) (test code = 1145) 4.2 g/dL 3.5-5.0 BILIRUBIN TOTAL (BEAKER) (test code 0.3 mg/dL 0.1-1.2 = 377) BILIRUBIN DIRECT (BEAKER) (test 0.0 mg/dL 0.0-0.4 code = 706) ALKALINE PHOSPHATASE (BEAKER) (test 62 U/L 30-115 code = 346) AST (SGOT) (BEAKER) (test code = 24 U/L 5-40 353) ALT (SGPT) (BEAKER) (test code = 35 U/L 5-50 347) [id number] 19:45:00 Test Item Value Reference Range Interpretation Comments LIPASE (BEAKER) (test code = 749) 382 U/L 40-240 H LACTIC ACID, [id number] 19:45:00 Test Item Value Reference Range Interpretation Comments LACTATE BLOOD VENOUS (2) (BEAKER) 1.2 mmol/L 0.5-2.2 (test code = 2872) BLOOD GAS, [id number] 19:37:00 Test Item Value Reference Range Interpretation Comments PH VENOUS (BEAKER) (test code = 7.33 7.32-7.42 701) PCO2 VENOUS (BEAKER) (test code = 60 mm Hg 41-51 H 755) PO2 VENOUS (BEAKER) (test code = 28 mm Hg 25-40 702) O2 SATURATION VENOUS (BEAKER) 47.6 % 40.0-70.0 (test code = 703) HCO3 VENOUS (BEAKER) (test code = 31 mmol/L 21-29 H 705) BASE EXCESS VENOUS (BEAKER) (test 3.2 mmol/L -2.0-3.0 H code = 704) PATIENT TEMPERATURE (BEAKER) (test 37.0 code = 1818) FIO2 (BEAKER) (test code = 1819) 21 CBC W/PLT COUNT & AUTO [id number] 19:30:00 Test Item Value Reference Range Interpretation Comments WHITE BLOOD CELL COUNT (BEAKER) 7.8 K/ L 4.0-10.0 (test code = 775) RED BLOOD CELL COUNT (BEAKER) 4.47 M/ L 4.00-5.00 (test code = 761) HEMOGLOBIN (BEAKER) (test code = 14.0 GM/DL 12.0-15.0 410) HEMATOCRIT (BEAKER) (test code = 42.8 % 36.0-45.0 411) MEAN CORPUSCULAR VOLUME (BEAKER) 95.6 fL 82.0-99.0 (test code = 753) MEAN CORPUSCULAR HEMOGLOBIN 31.4 pg 27.0-33.0 (BEAKER) (test code = 751) MEAN CORPUSCULAR HEMOGLOBIN CONC 32.8 GM/DL 32.0-36.0 (BEAKER) (test code = 752) RED CELL DISTRIBUTION WIDTH 14.3 % 10.3-14.2 H (BEAKER) (test code = 412) PLATELET COUNT (BEAKER) (test 293 K/CU MM 150-430 code = 756) MEAN PLATELET VOLUME (BEAKER) 7.6 fL 6.5-10.5 (test code = 754) NEUTROPHILS RELATIVE PERCENT 50 % (BEAKER) (test code = 429) LYMPHOCYTES RELATIVE PERCENT 41 % (BEAKER) (test code = 430) MONOCYTES RELATIVE PERCENT 6 % (BEAKER) (test code = 431) EOSINOPHILS RELATIVE PERCENT 3 % (BEAKER) (test code = 432) BASOPHILS RELATIVE PERCENT 1 % (BEAKER) (test code = 437) NEUTROPHILS ABSOLUTE COUNT 3.88 K/ L 1.80-8.00 (BEAKER) (test code = 670) LYMPHOCYTES ABSOLUTE COUNT 3.23 K/ L 1.48-4.50 (BEAKER) (test code = 414) MONOCYTES ABSOLUTE COUNT (BEAKER) 0.44 K/ L 0.00-1.30 (test code = 415) EOSINOPHILS ABSOLUTE COUNT 0.23 K/ L 0.00-0.50 (BEAKER) (test code = 416) BASOPHILS ABSOLUTE COUNT (BEAKER) 0.05 K/ L 0.00-0.20 (test code = 417) - DUP VEIN [id number] 10:14:00 Name: KAREEMJUAN ALBERTO MARK [facility] : 1945 Age/S: 72 / F [address] [place] [address] Unit #: [id number] Loc: [facility] [place] [address] Phys: Jaki Muir MD Acct: [id number] Dis Date: S tatus: ADM IN PHONE #: [phone] Exam Date: 06/19/2018 0949 FAX #: [phone] Reason: elevated d dimer hx of DVT EXAMS: CPT CODE: [id number] DUP VEIN TANMAY [id number] PROCEDURE: BILATERAL LOWER EXTREMITY VENOUS ULTRASOUND INDICATION: Chest pain and shortness of breath COMPARISON: 05/27/2016 TECHNIQUE: Sonographic evaluation of the bilateral lower extremity veins was performed using high resolution B-mode, pulse and color Doppler imaging. FINDINGS: RIGHT: There is incomplete compression of the right femoral and popliteal veins. Right common femoral vein shows normal compression. Right posterior tibial vein is patent. The saphenofemoral junction is unremarkable. LEFT: There is incomplete compression of the left femoral and popliteal veins. The left common femoral vein shows normal compression. Left posterior tibial vein is patent. The saphenofemoral junction is unremarkable. IMPRESSION: 1. No acute deep venous thrombosis. 2. 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 SL: [id number] at 1014 Reported and signed by:Jesse Smith M.D. CC: Jaki Muir MD Technologist: Melany Asif RDMS(A)(OB) Trnnvb Date/Time: 06/19/2018 (1014) [email or web address] Orig Print D/T: S: 06/19/2018 (1017) Probe: PAGE 1 Signed ReportBASIC METABOLIC [id number] 08:12:00 Test Item Value Reference Range Interpretation Comments SODIUM (test code = NA) 141 mEq/L 134-147 N POTASSIUM (test code = 4.5 mEq/L 3.4-5.0 N K) CHLORIDE (test code = 109 mEq/L 100-108 H CL) CARBON DIOXIDE (test 22 mEq/L 21-33 N code = CO2) ANION GAP (test code = 15 0-20 N GAP) GLUCOSE (test code = 178 mg/dL 70-110 H GLU) BLOOD UREA NITROGEN 26 mg/dL 7-18 H (test code = BUN) GLOMERULAR FILTRATION 59.4 70-80 L Units of measure = RATE (test code = GFR) ml/mi n/1.73 m2 CREATININE (test code = 1.1 mg/dL 0.6-1.3 N CREAT) CALCIUM (test code = 8.7 mg/dL 8.0-10.5 N CA) CBC W/AUTO [id number] 07:05:00 Test Item Value Reference Range Interpretation Comments WHITE BLOOD CELL (test code = 14.23 x10 3/uL 4.5-11.0 H WBC) RED BLOOD CELL (test code = 4.12 x10 6/uL 3.54-5.02 N RBC) HEMOGLOBIN (test code = HGB) 12.7 g/dL 11.0-15.0 N HEMATOCRIT (test code = HCT) 40.1 % 33.0-45.0 N MEAN CELL VOLUME (test code = 97.3 fL 81.0-99.0 N MCV) MEAN CELL HGB (test code = 30.8 pg 27.0-33.0 N MCH) MEAN CELL HGB CONCETRATION 31.7 g/dL 33.0-37.0 L (test code = MCHC) RED CELL DISTRIBUTION WIDTH CV 14.4 % 11.5-14.5 N (test code = RDW) RED CELL DISTRIBUTION WIDTH SD 51.8 fL 37.0-54.0 N (test code = RDW-SD) PLATELET COUNT (test code = 337 x10 3/uL 150-400 N PLT) MEAN PLATELET VOLUME (test 10.5 fL 7.0-9.0 H code = MPV) NEUTROPHIL % (test code = NT%) 76.3 % 56.0-77.0 N IMMATURE GRANULOCYTE % (test 2.3 % 0.0-2.0 H code = IG%) LYMPHOCYTE % (test code = LY%) 16.1 % 14.0-32.0 N MONOCYTE % (test code = MO%) 4.9 % 4.8-9.0 N EOSINOPHIL % (test code = EO%) 0.0 % 0.3-3.7 L BASOPHIL % (test code = BA%) 0.4 % 0.0-2.0 N NUCLEATED RBC % (test code = 0.0 % 0-0 N NRBC%) NEUTROPHIL # (test code = NT#) 10.86 x10 3/uL 2.0-7.6 H IMMATURE GRANULOCYTE # (test 0.33 x10 3/uL 0.00-0.03 H code = IG#) LYMPHOCYTE # (test code = LY#) 2.29 x10 3/uL 1.0-3.8 N MONOCYTE # (test code = MO#) 0.70 x10 3/uL 0.1-0.8 N EOSINOPHIL # (test code = EO#) 0.00 x10 3/uL 0.0-0.2 N BASOPHIL # (test code = BA#) 0.05 x10 3/uL 0.0-0.2 N NUCLEATED RBC # (test code = 0.00 x10 3/uL 0.0-0.1 N NRBC#) MANUAL DIFF REQUIRED (test NO code = MDIFF) COMPREHENSIVE METABOLIC [id number] 09:43:00 Test Item Value Reference Range Interpretation Comments SODIUM (test code = NA) 139 mEq/L 134-147 N POTASSIUM (test code = 4.2 mEq/L 3.4-5.0 N K) CHLORIDE (test code = 105 mEq/L 100-108 N CL) CARBON DIOXIDE (test 21 mEq/L 21-33 N code = CO2) ANION GAP (test code = 17 0-20 N GAP) GLUCOSE (test code = 234 mg/dL 70-110 H GLU) BLOOD UREA NITROGEN 15 mg/dL 7-18 N (test code = BUN) GLOMERULAR FILTRATION 53.7 70-80 L Units of measure = RATE (test code = GFR) ml/mi n/1.73 m2 CREATININE (test code = 1.2 mg/dL 0.6-1.3 N CREAT) TOTAL PROTEIN (test 6.8 g/dL 6.4-8.2 N code = PROT) ALBUMIN (test code = 3.20 g/dL 3.4-5.0 L ALB) CALCIUM (test code = 8.4 mg/dL 8.0-10.5 N CA) BILIRUBIN TOTAL (test 0.30 mg/dL 0.0-1.0 N code = BILT) SGOT/AST (test code = 12 IUnit/L 15-37 L AST) SGPT/ALT (test code = 33 IUnit/L 15-65 N ALT) ALKALINE PHOSPHATASE 93 IUnit/L 20-125 N TOTAL (test code = ALKP) [id number] 09:43:00 Test Item Value Reference Range Interpretation Comments LIPASE (test code = LIP) 110 IUnit/L 73-393 CBC W/AUTO [id number] 09:19:00 Test Item Value Reference Range Interpretation Comments WHITE BLOOD CELL (test code = 11.61 x10 3/uL 4.5-11.0 H WBC) RED BLOOD CELL (test code = 4.27 x10 6/uL 3.54-5.02 N RBC) HEMOGLOBIN (test code = HGB) 13.1 g/dL 11.0-15.0 N HEMATOCRIT (test code = HCT) 40.8 % 33.0-45.0 N MEAN CELL VOLUME (test code = 95.6 fL 81.0-99.0 N MCV) MEAN CELL HGB (test code = 30.7 pg 27.0-33.0 N MCH) MEAN CELL HGB CONCETRATION 32.1 g/dL 33.0-37.0 L (test code = MCHC) RED CELL DISTRIBUTION WIDTH CV 14.3 % 11.5-14.5 N (test code = RDW) RED CELL DISTRIBUTION WIDTH SD 50.0 fL 37.0-54.0 N (test code = RDW-SD) PLATELET COUNT (test code = 314 x10 3/uL 150-400 N PLT) MEAN PLATELET VOLUME (test 10.0 fL 7.0-9.0 H code = MPV) NEUTROPHIL % (test code = NT%) 77.9 % 56.0-77.0 H IMMATURE GRANULOCYTE % (test 1.5 % 0.0-2.0 N code = IG%) LYMPHOCYTE % (test code = LY%) 18.7 % 14.0-32.0 N MONOCYTE % (test code = MO%) 1.6 % 4.8-9.0 L EOSINOPHIL % (test code = EO%) 0.0 % 0.3-3.7 L BASOPHIL % (test code = BA%) 0.3 % 0.0-2.0 N NUCLEATED RBC % (test code = 0.0 % 0-0 N NRBC%) NEUTROPHIL # (test code = NT#) 9.05 x10 3/uL 2.0-7.6 H IMMATURE GRANULOCYTE # (test 0.17 x10 3/uL 0.00-0.03 H code = IG#) LYMPHOCYTE # (test code = LY#) 2.17 x10 3/uL 1.0-3.8 N MONOCYTE # (test code = MO#) 0.19 x10 3/uL 0.1-0.8 N EOSINOPHIL # (test code = EO#) 0.00 x10 3/uL 0.0-0.2 N BASOPHIL # (test code = BA#) 0.03 x10 3/uL 0.0-0.2 N NUCLEATED RBC # (test code = 0.00 x10 3/uL 0.0-0.1 N NRBC#) MANUAL DIFF REQUIRED (test NO code = MDIFF) [id number] 20:26:00 Test Item Value Reference Range Interpretation Comments TROPONIN-I < 0.015 ng/mL 0.000-0.045 N Negative: <= 0 .045 Positive: (test code = >= 0.046 Correl ation with TROPI) serial results, other cardiac markers andclinical findings is nec essary to determine the clinicalsignifi cance of this result. Results using different metho dologies should not be c omparedto one another as hernan titative results may alex y by method. - PULM VENT PERF [id number] 15:51:00 FAX: [place] Tim DO [phone] [place]: St: ADM Name: JUAN ALBERTO SERNA [facility] : 1945 Age/S: 72/F [address] [place] [address] Unit #: [id number] Loc: [place] [address] Phys: Chapincito Castillo DO Acct: [id number] Dis Date: Status: ADM IN PHONE #: [phone] Exam Date: 06/17/2018 1531 FAX #: [phone] Reason: elevated d-dimer hypoxia EXAMS: CPT CODE: [id number] PULM VENT PERF IMAG [id number] MEDICINE V/Q SCAN 06/17/2018 AT 1459 HOURS. CLINICAL HISTORY: Hypoxia. Elevated d-dimer. Coughfor 2 weeks. Chest pain. RADIOPHARMACEUTICAL: 10 mCi of 133 Xenon gas for ventilation and 5 mCi of 99 M Technetium MAA intravenously for perfusion. No reported injection complication. COMPARISON STUDIES: Chest one view from earlier today at 0643 hours. FINDINGS: Ventilation images reveal essentially homogeneous distribution of radiotracer throughout the lung parenchyma in the initial breath-hold andequilibrium phases. Delayed washout images reveal homogeneous washout without areas of radiotracer trapping. The patient was unable to elevate the arms resulting in superimposition in the lateral planar views. Perfusion images otherwise reveal no evidence of matched or mismatched ventilation / perfusion defects. IMPRESSION: 1. Normal V/Q scan. SL: TRChristopherH at 1551 Reported and signed by: Karsten Reyes M.D. CC: Chapincito Castillo DO Technologist: Anna Marie Branch [facility]; ... Trnscrd Date/Time/By: 06/17/2018 (9074) : By: [email or web address] Orig Print D/T: S: 06/17/2018 (8044) PAGE 1 Signed ReportB-TYPE NATRIURETIC [id number] 13:07:00 Test Item Value Reference Range Interpretation Comments B-TYPE NATRIURETIC PEPTIDE (test 80.2 PG/ML 0-100 N code = BNP) [id number] 12:59:00 Test Item Value Reference Range Interpretation Comments D-DIMER (test 972 ng/mlFEU <=500 HH THROMBOSIS AN D/OR PULMONARY code = EMBOLISM AND TH E CLINICAL DDIMER) CUT- OFF VALUE FOR EXCLUSION (500 ng/mL FEU) OF THESE CONDITIONSIS VA LIDATED BY THE MANUFACTURE R OF THE METHOD. A NEGAT JEFERSON D-DIMER RESULT WHEN COM BINED WITH A CLINICALASSESSM ENT OF LOW PRETEST PROBABI LITY HAS BEEN SHOWN TO HAVEA HIGH NEGATIVE PREDICTIVE VALU E OF DVT OR PE. D-DIMER EMANUEL UES >500 ng/mL FEU ARE N OT DIAGNOSTIC FOR DVT, PEor D IC WITHOUT OTHER CONFIRMAT ORY TESTS AND APPROPRIATECLIN ICAL EUALUATIONS. - CT ABD PELVIS W/O [id number] 09:07:00 Name: JUAN ALBERTO SERNA [facility] : 1945 Age/S: 72 / F [address] [place] [address] Unit #: [id number] Loc: MONSE Burris [address] Phys: Chapincito Castillo DO Acct: [id number] Dis Date: Status: REG ER PHONE #: [phone] Exam Date: 06/17/2018841 FAX #: [phone] Reason: vomiting lipase over 2K EXAMS: CPT CODE: [id number] CT ABD PELVIS W/O CONT 45191 PROCEDURE: CT ABDOMEN AND PELVIS WITHOUT CONTRAST INDICATION: Vomiting. Elevated lipase. COMPARISON: Portions of CTA chest December 2015 TECHNIQUE: Helical imaging was performed diaphragm through the symphysis with multiplanar reconstructions. IV CONTRAST: None. GI CONTRAST: None CT imaging performed at this location utilizes radiation dose optimization techniques which include one or more of the following: -Automated exposure control -Adjustment of the mA and/or kV according to patient size -Use of iterative reconstruction technique CT Radiation Dose DLP 624.69 mGy-cm LIMITATIONS: Evaluation of abdominal viscera and vascular structures may be limited by the lack of intravenous contrast. FINDINGS: LOWER CHEST: The lung bases are clear. Coronary arterial calcifications. LIVER: Normal. GALLBLADDER: Not visualized. No biliary dilatation. SPLEEN: Normal. PANCREAS: Unremarkable within limitations of this noncontrast exam. No peripancreatic edema or fluid collection. ADRENALS: Normal. KIDNEYS: Focal cortical scarring lower pole left k idney. The kidneys are otherwise unremarkable. No urinary calculi or hydronephrosis. BOWEL: Small sliding-type hiatal hernia. Stomach is otherwise unremarkable. The unopacified small bowel and colon are unremarkable. Moderate volume of fecal material throughout the colon. No CT evidence for appendicitis. PERITONEUM: No free intraperitoneal fluid or air. PAGE 1 Signed Report (CONTINUED) Name: JUAN ALBERTO SERNA [facility] : 1945 Age/S: 72 / F [address] [place] [address] Unit #: [id number] Loc: MONSE Burris [address] Phys: Chapincito Castillo DO Acct: [id number] Dis Date: Status: REG ER PHONE #: [phone] Exam Date: 06/17/2018841 FAX #: [phone] Reason: vomiting lipase over 2K EXAMS:CPT CODE: [id number] CT ABD PELVIS W/O CONT 58601 (Continued) RETROPERITONEUM: No adenopathy. Atherosclerosis abdominal aorta and branch vessels. No aneurysm. IVC filter. PELVIS: No pelvic mass. The urinary bladder is normal. MUSCULOSKELETAL: Degenerative changes lumbar spine. No acute skeletal abnormality. IMPRESSION: 1. No acute abnormality demonstrated to account for the patient's symptoms. Negative for bowel obstruction. 2. Atherosclerosis. Coronary arterial calcifications. SL: [id number] El ectronically Signed by Chelsea Garcia on 06/17/2018 at 0907 Reported and signed by: Ritesh Garcia M.D. CC: Chapincito Castillo DO Technologist:Miri Gasca RT(R)(CT) CTDI: DLP: Trnscb Date/Time: 06/17/2018 (906) Darlene Orig Print D/T: S: 06/17/2018 (909) CTDI: DLP: PAGE 2 Signed [id number] 08:33:00 Test Item Value Reference Range Interpretation Comments ALCOHOL (test code < 0.003 G/dL <0.003 Ethyl Alc ohol = ALC) Interpretation: 0.100 gm/dL - Legally Intoxicated 0.300-0.400 gm/ dL - Severely Intoxi cated >0.400 gm/dL - Potentially LethalResults a re for Medical purpose s only, and not for Leg al orEmployment ev aluation purposes. ADD ONCBC W/AUTO [id number] 08:20:00 Test Item Value Reference Range Interpretation Comments WHITE BLOOD CELL (test code = 12.09 x10 3/uL 4.5-11.0 H WBC) RED BLOOD CELL (test code = 4.22 x10 6/uL 3.54-5.02 N RBC) HEMOGLOBIN (test code = HGB) 12.9 g/dL 11.0-15.0 N HEMATOCRIT (test code = HCT) 39.9 % 33.0-45.0 N MEAN CELL VOLUME (test code = 94.5 fL 81.0-99.0 N MCV) MEAN CELL HGB (test code = 30.6 pg 27.0-33.0 N MCH) MEAN CELL HGB CONCETRATION 32.3 g/dL 33.0-37.0 L (test code = MCHC) RED CELL DISTRIBUTION WIDTH CV 13.8 % 11.5-14.5 N (test code = RDW) RED CELL DISTRIBUTION WIDTH SD 48.8 fL 37.0-54.0 N (test code = RDW-SD) PLATELET COUNT (test code = 323 x10 3/uL 150-400 N PLT) MEAN PLATELET VOLUME (test 10.5 fL 7.0-9.0 H code = MPV) NEUTROPHIL % (test code = NT%) 55.0 % 56.0-77.0 L IMMATURE GRANULOCYTE % (test 0.6 % 0.0-2.0 N code = IG%) LYMPHOCYTE % (test code = LY%) 32.5 % 14.0-32.0 H MONOCYTE % (test code = MO%) 10.0 % 4.8-9.0 H EOSINOPHIL % (test code = EO%) 1.5 % 0.3-3.7 N BASOPHIL % (test code = BA%) 0.4 % 0.0-2.0 N NUCLEATED RBC % (test code = 0.0 % 0-0 N NRBC%) NEUTROPHIL # (test code = NT#) 6.65 x10 3/uL 2.0-7.6 N IMMATURE GRANULOCYTE # (test 0.07 x10 3/uL 0.00-0.03 H code = IG#) LYMPHOCYTE # (test code = LY#) 3.93 x10 3/uL 1.0-3.8 H MONOCYTE # (test code = MO#) 1.21 x10 3/uL 0.1-0.8 H EOSINOPHIL # (test code = EO#) 0.18 x10 3/uL 0.0-0.2 N BASOPHIL # (test code = BA#) 0.05 x10 3/uL 0.0-0.2 N NUCLEATED RBC # (test code = 0.00 x10 3/uL 0.0-0.1 N NRBC#) MANUAL DIFF REQUIRED (test NO code = MDIFF) URINALYSIS [id number] 08:06:00 Test Item Value Reference Range Interpretation Comments UA COLOR (test code = COLU) STRAW YEL/STRAW UA APPEARANCE (test code = CLEAR CLEAR APPU) UA GLUCOSE DIPSTICK (test code NEGATIVE NEGATIVE = DGLUU) UA BILIRUBIN DIPSTICK (test NEGATIVE NEGATIVE code = BILU) UA KETONE DIPSTICK (test code NEGATIVE NEGATIVE = KETU) UA SPECIFIC GRAVITY (test code 1.008 1.005-1.030 N = SGU) UA BLOOD DIPSTICK (test code = NEGATIVE NEGATIVE MARQUIS) UA PH DIPSTICK (test code = 6.0 5.0-7.0 N LEO) UA PROTEIN DIPSTICK (test code 2+ NEGATIVE A = PROU) UA UROBILINIOGEN DIPSTICK 0.2 mg/dL 0.2-1.0 (test code = URO) UA NITRITE DIPSTICK (test code NEGATIVE NEGATIVE = MAYCOL) UA LEUKOCYTE ESTERASE DIPSTICK NEGATIVE NEGATIVE (test code = LEUU) UA WBC (test code = WBCU) 0-3 WBC/HPF 0-3 UA RBC (test code = RBCU) 0-3 RBC/HPF 0-3 UA BACTERIA (test code = BACU) NONE SEEN /HPF NONE SEEN UA SQUAMOUS CELLS (test code = 0-5 /HPF NONE SEEN SQU) COMPREHENSIVE METABOLIC [id number] 08:05:00 Test Item Value Reference Range Interpretation Comments SODIUM (test code = NA) 143 mEq/L 134-147 N POTASSIUM (test code = 4.0 mEq/L 3.4-5.0 N K) CHLORIDE (test code = 110 mEq/L 100-108 H CL) CARBON DIOXIDE (test 25 mEq/L 21-33 N code = CO2) ANION GAP (test code = 12 0-20 N GAP) GLUCOSE (test code = 106 mg/dL 70-110 N GLU) BLOOD UREA NITROGEN 20 mg/dL 7-18 H (test code = BUN) GLOMERULAR FILTRATION 53.7 70-80 L Units of measure = RATE (test code = GFR) ml/mi n/1.73 m2 CREATININE (test code = 1.2 mg/dL 0.6-1.3 N CREAT) TOTAL PROTEIN (test 6.7 g/dL 6.4-8.2 N code = PROT) ALBUMIN (test code = 3.40 g/dL 3.4-5.0 N ALB) CALCIUM (test code = 8.8 mg/dL 8.0-10.5 N CA) BILIRUBIN TOTAL (test 0.30 mg/dL 0.0-1.0 N code = BILT) SGOT/AST (test code = 12 IUnit/L 15-37 L AST) SGPT/ALT (test code = 38 IUnit/L 15-65 N ALT) ALKALINE PHOSPHATASE 85 IUnit/L 20-125 N TOTAL (test code = ALKP) [id number] 08:05:00 Test Item Value Reference Range Interpretation Comments LIPASE (test code = LIP) 2595 IUnit/L 73-393 H [id number] 08:05:00 Test Item Value Reference Range Interpretation Comments TROPONIN-I < 0.015 ng/mL 0.000-0.045 N Negative: <= 0 .045 Positive: (test code = >= 0.046 Correl ation with TROPI) serial results, other cardiac markers andclinical findings is nec essary to determine the clinicalsignifi cance of this result. Results using different metho dologies should not be c omparedto one another as hernan titative results may alex y by method. - XR CHEST 1 [id number] 06:53:00 FAX: Chapincito Tim DO [phone] [place]: St: REG Name: JUAN ALBERTO SERNA [facility] : 1945 Age/S: 72/F [address] [place] [address] Unit #: [id number] Loc: [place] [address] Phys: Chapincito Castillo DOAcct: [id number] Dis Date: Status: REG ER PHONE #: [phone] Exam Date: 06/17/2018 0651 FAX #: [phone] Reason: fever EXAMS: CPT CODE: [id number] XR CHEST 1 V 98702 Chest, single view dated 06/17/2018. HISTORY: Fever. Flulike symptoms. Comparison is made to a prior study dated 05/22/2016. The heart is normal in size. The cardiomediastinal shadow is stable. The lungs appear clear. The pulmonaryvasculature is normal in caliber. No acute pleural space abnormalities are detected. IMPRESSION: 1. No radiographic evidence of acute cardiopulmonary disease. SL: 131 at 0653 Reported and signed by: Rory Hamilton M.D. CC: Chapincito Castillo DO Technologist: RT Nazario(Enrique) Trnscrd Date/Time/By: 06/17/2018 (652) : By: ReneeDMVipul Orig Print D/T: S: 06/17/2018 (0656) PAGE 1 Signed ReportCT, ABDOMEN 2018-04-24 18:26:00FINAL REPORT CT of the abdomen and pelvis, with contrast. History: Abdominal pain. Comparison: 11/18/2017. Technique: Multidetector CT scanning of the abdomen and pelvis was performed from the level of the lung bases to the inferior pubic ramus with intravenous non-ionic contrast media and oral contrast media. This examination was performed in accordance with a departmental dose optimization program which includes automated exposure control, adjustment of the mA and/or kV according to patient size, and use of iterative reconstruction techniques. Discussion: Imaged lung bases areunremarkable. Solid abdominal unremarkable. Gallbladder contracted or absent. Mild prominence of thecommon duct without intrahepatic biliary ductal dilatation. Abdominal aorta normal caliber. Portal vein patent. IVC filter present. Large and small bowel unremarkable. Appendix not visualized but thereis no ancillary evidence for appendicitis. Urinary bladder unremarkable. No adnexal lesions. Uterus absent. No adenopathy. No ascites. No worrisome skeletal findings. IMPRESSION:No acute findings. Signed: Eliana Rodriguez MDReport Verified Date/Time: 04/24/2018 18:26:34 Reading Location: [facility] [address] [place] [address] Reading Room URINALYSIS W/ REFLEX URINE [id number] 18:10:00 Test Item Value Reference Range Interpretation Comments COLOR (BEAKER) (test Yellow code = 470) CLARITY (BEAKER) (test Slightly Cloudy code = 469) SPECIFIC GRAVITY UA 1.023 1.001-1.035 REFRACTO METER. (BEAKER) (test code = 468) PH UA (BEAKER) (test 5.5 5.0-8.0 code = 467) PROTEIN UA (BEAKER) 100 mg/dL Negative A (test code = 464) GLUCOSE UA (BEAKER) Negative Negative (test code = 365) KETONES UA (BEAKER) Negative Negative (test code = 371) BILIRUBIN UA (BEAKER) Negative Negative (test code = 462) BLOOD UA (BEAKER) (test Trace Negative A code = 461) NITRITE UA (BEAKER) Negative Negative (test code = 465) LEUKOCYTE ESTERASE UA Negative Negative (BEAKER) (test code = 466) UROBILINOGEN UA 0.2 mg/dL 0.2-1.0 (BEAKER) (test code = 463) BACTERIA (BEAKER) (test Moderate code = 517) RBC UA-MANUAL (BEAKER) 5-10 /HPF (test code = 1659) WBC UA-MANUAL (BEAKER) <5 /HPF (test code = 1661) SQUAMOUS EPITHELIAL 5-10 /HPF MANUAL (BEAKER) (test code = 1663) SOURCE(BEAKER) (test code = 2795) BASIC METABOLIC [id number] 17:55:00 Test Item Value Reference Range Interpretation Comments SODIUM (BEAKER) 140 meq/L 135-148 (test code = 381) POTASSIUM (BEAKER) 5.2 meq/L 3.6-5.5 SLIGHTLY HEMOLYZED (test code = 379) SPECIMEN. CHLORIDE (BEAKER) 110 meq/L 98-106 H (test code = 382) CO2 (BEAKER) (test 23 meq/L 24-32 L code = 355) BLOOD UREA NITROGEN 31 mg/dL 10-26 H (BEAKER) (test code = 354) CREATININE (BEAKER) 0.97 mg/dL 0.50-1.20 (test code = 358) GLUCOSE RANDOM 140 mg/dL 70-110 H (BEAKER) (test code = 652) CALCIUM (BEAKER) 8.9 mg/dL 8.5-10.5 (test code = 697) EGFR (BEAKER) (test 69 mL/min/1.73 ESTIMA ALFREDO GFR IS code = 1092) sq m NOT ACCURATE CREATININE CLEARANCE IN PREDICTING GLOMERULAR FILTRATION RATE . ESTIMATED GFR I S NOT APPLICABLE FOR DIALYSIS PATIEN TS. HEPATIC FUNCTION [id number] 17:50:00 Test Item Value Reference Range Interpretation Comments TOTAL PROTEIN (BEAKER) (test code = 6.8 gm/dL 6.0-8.5 770) ALBUMIN (BEAKER) (test code = 1145) 4.4 g/dL 3.5-5.0 BILIRUBIN TOTAL (BEAKER) (test code 0.4 mg/dL 0.1-1.2 = 377) BILIRUBIN DIRECT (BEAKER) (test 0.1 mg/dL 0.0-0.4 code = 706) ALKALINE PHOSPHATASE (BEAKER) (test 51 U/L 30-115 code = 346) AST (SGOT) (BEAKER) (test code = 27 U/L 5-40 353) ALT (SGPT) (BEAKER) (test code = 44 U/L 5-50 347) [id number] 17:50:00 Test Item Value Reference Range Interpretation Comments LIPASE (BEAKER) (test code = 749) 200 U/L 40-240 CBC W/PLT COUNT & AUTO [id number] 17:44:00 Test Item Value Reference Range Interpretation Comments WHITE BLOOD CELL COUNT (BEAKER) 11.5 K/ L 4.0-10.0 H (test code = 775) RED BLOOD CELL COUNT (BEAKER) 4.31 M/ L 4.00-5.00 (test code = 761) HEMOGLOBIN (BEAKER) (test code = 13.3 GM/DL 12.0-15.0 410) HEMATOCRIT (BEAKER) (test code = 40.1 % 36.0-45.0 411) MEAN CORPUSCULAR VOLUME (BEAKER) 93.0 fL 82.0-99.0 (test code = 753) MEAN CORPUSCULAR HEMOGLOBIN 30.8 pg 27.0-33.0 (BEAKER) (test code = 751) MEAN CORPUSCULAR HEMOGLOBIN CONC 33.1 GM/DL 32.0-36.0 (BEAKER) (test code = 752) RED CELL DISTRIBUTION WIDTH 12.8 % 10.3-14.2 (BEAKER) (test code = 412) PLATELET COUNT (BEAKER) (test 322 K/CU MM 150-430 code = 756) MEAN PLATELET VOLUME (BEAKER) 8.1 fL 6.5-10.5 (test code = 754) NEUTROPHILS RELATIVE PERCENT 70 % (BEAKER) (test code = 429) LYMPHOCYTES RELATIVE PERCENT 22 % (BEAKER) (test code = 430) MONOCYTES RELATIVE PERCENT 7 % (BEAKER) (test code = 431) EOSINOPHILS RELATIVE PERCENT 1 % (BEAKER) (test code = 432) BASOPHILS RELATIVE PERCENT 1 % (BEAKER) (test code = 437) NEUTROPHILS ABSOLUTE COUNT 8.01 K/ L 1.80-8.00 H (BEAKER) (test code = 670) LYMPHOCYTES ABSOLUTE COUNT 2.55 K/ L 1.48-4.50 (BEAKER) (test code = 414) MONOCYTES ABSOLUTE COUNT (BEAKER) 0.76 K/ L 0.00-1.30 (test code = 415) EOSINOPHILS ABSOLUTE COUNT 0.10 K/ L 0.00-0.50 (BEAKER) (test code = 416) BASOPHILS ABSOLUTE COUNT (BEAKER) 0.08 K/ L 0.00-0.20 (test code = 417) CT, [id number] 19:18:00FINAL REPORT CT, ABDOMEN \\T\\ PELVIS, WITHOUT IV CONTRAST INDICATION: Abdominal pain, unspecified COMPARISON: September 21, 2017 TECHNIQUE: CT of the abdomen and pelvis WITHOUT intravenous contrast. DOSE REDUCTION: Dose modulation, iterative reconstruction, and/or weight-based adjustment of the mA/kV was utilized to reduce the radiation dose to as low as reasonably achievable. FINDINGS:NOTE: Absence of intravenous contrast decreases sensitivity for focal lesions and vascular pathology. Lower thorax: Unremarkable Liver: No parenchymal abnormality.Gallbladder and biliary tree: No ductal dilation or stones.Pancreas: No acute findings.Spleen: No acute findingsAdrenal Glands: No acute findings.Kidneys and ureters: No hydronephrosis or nephrolithiasis.Bladder and reproductive organs: Unremarkable urinary bladder. Prior hysterectomy. Stomach and Duodenum: No significant findings.Small and large intestine: Normal calibers.Appendix: The appendix is not identified. No pericecal inflammatory changes are present. Major vascular structures: Normal aortic caliber. Stable positioning of IVC filter.Peritoneum and retroperitoneum: No free air, fluid or adenopathy. Skeleton: No acute bony abnormality.Additional findings: Superficial soft tissue edema and subcutaneous gas over the abdomen suggesting recent injection. IMPRESSION: Limited noncontrast evaluation revealing no acute abnormality in the abdomen or pelvis to explain abdominal pain. Signed: JR Gonzalez Robert MDReport Verified Date/Time: 11/18/2017 19:18:36 Reading Location: [address] Reading Room RAD, CHEST, 1 VIEW, NON [id number] 17:49:00Reason for exam:->ABDOMINAL PAINShould this be performed at the bedside?->YesFINAL REPORT Chest one view. Clinical history: ABDOMINAL PAIN Comparison: July 06, 2017 Discussion: A frontal chest is provided. Cardiomediastinal contours are unchanged. There is no cristina pulmonary edema, consolidation, pneumothorax, or significant pleural effusion. No acute bony abnormality. Signed: Paul Amaya Verified Date/Time: 11/18/2017 17:49:19 Reading Location: [address] Consult Reading Room RAD, ABDOMEN/KUB, 1 VIEW [id number] 17:47:00Reason for exam:->ABDOMINAL PAINReason for exam:->abdominal distensionReason for exam:->BACK PAINShould this be performed at the bedside?->YesFINAL REPORT Abdomen one view Comparison: None. Reason for exam: ABDOMINAL PAINa bdominal distensionBACK PAIN Findings: Moderate amount of fecal content is noted in the colon, correlate clinically for constipation. Bowel gas pattern is nonobstructive, nonspecific. No clear evidenceof free air on this single frontal projection. An IVC filter is present. Osseous structures demonstrate degenerative changes. Signed: Paul Amaya Verified Date/Time: 11/18/2017 17:47:51 Reading Location: [facility] C013 Consult Reading Room LACTIC ACID, VENOUS, WHOLE [id number] 17:21:00 Test Item Value Reference Range Interpretation Comments LACTATE BLOOD VENOUS (2) (BEAKER) 1.3 mmol/L 0.5-2.2 (test code = 2872) Effective 06/19/2015: Units/Reference Range ChangeNew: 0.5-2.2 mmol/L Previous: 5- 18 mg/dLHEPATIC FUNCTION [id number] 16:16:00 Test Item Value Reference Range Interpretation Comments TOTAL PROTEIN (BEAKER) (test code = 6.8 gm/dL 6.0-8.5 770) ALBUMIN (BEAKER) (test code = 1145) 3.9 g/dL 3.5-5.0 BILIRUBIN TOTAL (BEAKER) (test code 0.1 mg/dL 0.1-1.2 = 377) BILIRUBIN DIRECT (BEAKER) (test 0.0 mg/dL 0.0-0.4 code = 706) ALKALINE PHOSPHATASE (BEAKER) (test 88 U/L 30-115 code = 346) AST (SGOT) (BEAKER) (test code = 26 U/L 5-40 353) ALT (SGPT) (BEAKER) (test code = 44 U/L 5-50 347) BASIC METABOLIC [id number] 16:15:00 Test Item Value Reference Range Interpretation Comments SODIUM (BEAKER) 143 meq/L 135-148 (test code = 381) POTASSIUM (BEAKER) 4.3 meq/L 3.6-5.5 (test code = 379) CHLORIDE (BEAKER) 105 meq/L 98-106 (test code = 382) CO2 (BEAKER) (test 26 meq/L 24-32 code = 355) BLOOD UREA NITROGEN 27 mg/dL 10-26 H (BEAKER) (test code = 354) CREATININE (BEAKER) 1.05 mg/dL 0.50-1.20 (test code = 358) GLUCOSE RANDOM 148 mg/dL 70-110 H (BEAKER) (test code = 652) CALCIUM (BEAKER) 9.7 mg/dL 8.5-10.5 (test code = 697) EGFR (BEAKER) (test 63 mL/min/1.73 ESTIMA ALFREDO GFR IS code = 1092) sq m NOT ACCURATE CREATININE CLEARANCE IN PREDICTING GLOMERULAR FILTRATION RATE . ESTIMATED GFR I S NOT APPLICABLE FOR DIALYSIS PATIEN TS. CBC W/PLT COUNT & AUTO [id number] 16:09:00 Test Item Value Reference Range Interpretation Comments WHITE BLOOD CELL COUNT (BEAKER) 8.8 K/ L 4.0-10.0 (test code = 775) RED BLOOD CELL COUNT (BEAKER) 4.22 M/ L 4.00-5.00 (test code = 761) HEMOGLOBIN (BEAKER) (test code = 13.0 GM/DL 12.0-15.0 410) HEMATOCRIT (BEAKER) (test code = 39.7 % 36.0-45.0 411) MEAN CORPUSCULAR VOLUME (BEAKER) 94.0 fL 82.0-99.0 (test code = 753) MEAN CORPUSCULAR HEMOGLOBIN 30.9 pg 27.0-33.0 (BEAKER) (test code = 751) MEAN CORPUSCULAR HEMOGLOBIN CONC 32.8 GM/DL 32.0-36.0 (BEAKER) (test code = 752) RED CELL DISTRIBUTION WIDTH 13.2 % 10.3-14.2 (BEAKER) (test code = 412) PLATELET COUNT (BEAKER) (test 314 K/CU MM 150-430 code = 756) MEAN PLATELET VOLUME (BEAKER) 7.4 fL 6.5-10.5 (test code = 754) NEUTROPHILS RELATIVE PERCENT 54 % (BEAKER) (test code = 429) LYMPHOCYTES RELATIVE PERCENT 34 % (BEAKER) (test code = 430) MONOCYTES RELATIVE PERCENT 8 % (BEAKER) (test code = 431) EOSINOPHILS RELATIVE PERCENT 2 % (BEAKER) (test code = 432) BASOPHILS RELATIVE PERCENT 1 % (BEAKER) (test code = 437) NEUTROPHILS ABSOLUTE COUNT 4.73 K/ L 1.80-8.00 (BEAKER) (test code = 670) LYMPHOCYTES ABSOLUTE COUNT 3.02 K/ L 1.48-4.50 (BEAKER) (test code = 414) MONOCYTES ABSOLUTE COUNT (BEAKER) 0.73 K/ L 0.00-1.30 (test code = 415) EOSINOPHILS ABSOLUTE COUNT 0.21 K/ L 0.00-0.50 (BEAKER) (test code = 416) BASOPHILS ABSOLUTE COUNT (BEAKER) 0.10 K/ L 0.00-0.20 (test code = 417) URINALYSIS W/ REFLEX URINE [id number] 16:01:00 Test Item Value Reference Range Interpretation Comments COLOR (BEAKER) (test code = Yellow 470) CLARITY (BEAKER) (test code = Clear 469) SPECIFIC GRAVITY UA (BEAKER) 1.015 1.001-1.035 (test code = 468) PH UA (BEAKER) (test code = 7.0 5.0-8.0 467) PROTEIN UA (BEAKER) (test code 100 mg/dL Negative A = 464) GLUCOSE UA (BEAKER) (test code Negative Negative = 365) KETONES UA (BEAKER) (test code Negative Negative = 371) BILIRUBIN UA (BEAKER) (test Negative Negative code = 462) BLOOD UA (BEAKER) (test code = Negative Negative 461) NITRITE UA (BEAKER) (test code Negative Negative = 465) LEUKOCYTE ESTERASE UA (BEAKER) Negative Negative (test code = 466) UROBILINOGEN UA (BEAKER) (test 0.2 mg/dL 0.2-1.0 code = 463) BACTERIA (BEAKER) (test code = Few 517) RBC UA-MANUAL (BEAKER) (test <5 /HPF code = 1659) WBC UA-MANUAL (BEAKER) (test None Seen /HPF code = 1661) SQUAMOUS EPITHELIAL MANUAL <5 /HPF (BEAKER) (test code = 1663) SOURCE(BEAKER) (test code = 2795) CT, [id number] 00:16:00FINAL REPORT CT, ABDOMEN \\T\\ PELVIS, WITHOUT IV CONTRAST INDICATION: "bilateralflank pain" COMPARISON: None TECHNIQUE: Post contrast axially oriented images were obtained from the diaphragms through the pelvis. Coronal and sagittal reformats were provided. DOSE REDUCTION: Dose modulation, iterative reconstruction, and/or weight-based adjustment of the mA/kV was utilized to reduce the radiation dose to as low as reasonably achievable. FINDINGS: Lung bases are grossly clear. No acute abnormality of the solid abdominal viscera.No nephrolithiasis or hydronephrosis. No acute abnormality of the hollow abdominal viscera.Appendix not definitively visualized although there is no significant right lower quadrant inflammatory change. Fused SI joints. Mineralization of the disc annulus.Findings likely reflect ankylosing spondylitis. IMPRESSION:No acute abnormality in the abdomen or pelvis. Signed: Crista Lara MDReport Verified Date/Time: 09/22/2017 00:16:30 Reading Location: [facility] C0[facility] Transitional Reading Room URINALYSIS W/ REFLEX URINE [id number] 23:33:00 Test Item Value Reference Range Interpretation Comments COLOR (BEAKER) (test code = Yellow 470) CLARITY (BEAKER) (test code = Slightly Hazy 469) SPECIFIC GRAVITY UA (BEAKER) 1.020 1.001-1.035 (test code = 468) PH UA (BEAKER) (test code = 5.5 5.0-8.0 467) PROTEIN UA (BEAKER) (test code 100 mg/dL Negative A = 464) GLUCOSE UA (BEAKER) (test code Negative Negative = 365) KETONES UA (BEAKER) (test code Negative Negative = 371) BILIRUBIN UA (BEAKER) (test Negative Negative code = 462) BLOOD UA (BEAKER) (test code = Negative Negative 461) NITRITE UA (BEAKER) (test code Negative Negative = 465) LEUKOCYTE ESTERASE UA (BEAKER) Negative Negative (test code = 466) UROBILINOGEN UA (BEAKER) (test 0.2 mg/dL 0.2-1.0 code = 463) BACTERIA (BEAKER) (test code = Occasional 517) MUCUS (BEAKER) (test code = Few 1574) RBC UA-MANUAL (BEAKER) (test <5 /HPF code = 1659) WBC UA-MANUAL (BEAKER) (test <5 /HPF code = 1661) SQUAMOUS EPITHELIAL MANUAL 5-10 /HPF (BEAKER) (test code = 1663) GRANULAR CASTS MANUAL (BEAKER) 0-5 /LPF (test code = 1669) SOURCE(BEAKER) (test code = 7600) PET, CARDIAC PERFUSION MULTIPLE STUDIES, REST AND [id number] 15:31:00 Reason for exam:->Atypcial chest pain, history of LAD stent 2017FINAL REPORT PROCEDURE: Rest/Stress MYOCARDIAL PERFUSION PET with regadenoson\\XA9\\ CPT CODE: 28460 INDICATION: Atypical chest pain, history of prior stent, evaluate acute chest pain/discomfort HISTORY: Cardiac risk factors: Hypertension, hyperlipidemia. Other cardiovascular history: coronary artery disease with LAD stent in 2017. Recent cardiac symptoms: Chest pain. Current cardiovascular-related medications: Aspirin, atorvastatin, carvedilol, Plavix, lisinopril, Coumadin, Lasix. PROTOCOL: Limited low-dose CT imaging was performed for attenuation correction. 35.9 mCi of Rb-82 chloride was injected iv at rest, and gated PET (positron emission tomography) images were obtained. Subsequently, 35.7 mCi of Rb-82 chloride was injected iv at expected peak pharmacologic effect, and gated PET images were obtained. PRELIMINARY STRESS TEST DATA FROM NONINVASIVE CARDIOLOGY: Pharmacologicstress was by 10-second iv infusion of 0.4 mg of regadenoson. Radiotracer was injected 30 seconds after start of stress. Heart rate was 57 beats/min at rest and 88 beats/min (58% of MPHR) at tracer injection. BP was 126/54 mmHg at rest and 132/46 mmHg at tracer injection. Stress was stopped for predetermined endpoint. The patient experienced headache, dyspnea; treatment was not required. Preliminary ECG evaluation revealed sinus bradycardia at rest and less than [address] segment depression with stress. (Final ECG interpretation and other stress and monitoring data are reported separately by Cardiology.) IMAGING FINDINGS: Study quality is good. Images obtained after rest and stress injections show normal LV activity. LV and RV volumes appear normal. Gated images obtained at rest and with stress show normal LV wall motion and thickening. LVEF at rest is greater than 70%. LVEF at stress is greater than 70%. IMPRESSION: 1. Normal cardiac study. 2. Appropriate pharmacologic stress. 3. Normal myocardial perfusion. 4. Normal resting LV function. No deterioration of function is noted with pharmacologicstress. 5. Normal extracardiac tracer distribution. There are bilateral isolated, small breast calcifications seen of undetermined clinical significance. 6. No previous [facility] study for comparison. NONINVASIVE RISK STRATIFICATION: The above findings are considered low risk (<1% annual mortality rate) based on the following criterion:- Normal or small myocardial perfusion defect at rest or with stress(JACC. 2012;59(9):857- 81.) Signed: Luiz Orozcoepmary Verified Date/Time: 07/08/2017 15:31:46 Re ading Location: [id number] Reading Room [id number] 03:38:00 Test Item Value Reference Range Interpretation Comments PARTIAL THROMBOPLASTIN TIME 92.0 seconds 22.5-36.0 H (BEAKER) (test code = 760) [id number] 02:13:00 Test Item Value Reference Range Interpretation Comments PHOSPHORUS (BEAKER) (test code = 4.0 mg/dL 2.3-4.7 604) [id number] 02:13:00 Test Item Value Reference Range Interpretation Comments MAGNESIUM (BEAKER) (test code = 1.8 mg/dL 1.6-2.6 627) BASIC METABOLIC [id number] 02:13:00 Test Item Value Reference Range Interpretation Comments SODIUM (BEAKER) 142 meq/L 136-145 (test code = 381) POTASSIUM (BEAKER) 4.0 meq/L 3.5-5.1 (test code = 379) CHLORIDE (BEAKER) 108 meq/L 98-107 H (test code = 382) CO2 (BEAKER) (test 24 meq/L 22-29 code = 355) BLOOD UREA NITROGEN 28 mg/dL 7-21 H (BEAKER) (test code = 354) CREATININE (BEAKER) 1.04 mg/dL 0.57-1.25 (test code = 358) GLUCOSE RANDOM 121 mg/dL 70-105 H (BEAKER) (test code = 652) CALCIUM (BEAKER) 8.8 mg/dL 8.4-10.2 (test code = 697) EGFR (BEAKER) (test 64 mL/min/1.73 ESTIMA ALFREDO GFR IS code = 1092) sq m NOT ACCURATE CREATININE CLEARANCE IN PREDICTING GLOMERULAR FILTRATION RATE . ESTIMATED GFR I S NOT APPLICABLE FOR DIALYSIS PATIEN TS. [id number] 01:53:00 Test Item Value Reference Range Interpretation Comments PARTIAL THROMBOPLASTIN TIME 159.5 seconds 22.5-36.0 HH (BEAKER) (test code = 760) PROTHROMBIN [id number] 01:36:00 Test Item Value Reference Range Interpretation Comments PROTIME (BEAKER) (test code = 22.2 seconds 11.7-14.7 H 759) INR (BEAKER) (test code = 370) 2.0 <=5.9 RECOMMENDED COUMADIN/WARFARIN INR THERAPY RANGESSTANDARD DOSE: 2.0 - 3.0 Includes: PROPHYLAXIS for venous thrombosis, systemic embolization; TREATMENT for venous thrombosis and/or pulmonary embolus.HIGH RISK: Target INR is 2.5-3.5 for patients with mechanical heart valves.CBC W/PLT COUNT & AUTO [id number] 01:09:00 Test Item Value Reference Range Interpretation Comments WHITE BLOOD CELL COUNT (BEAKER) 8.1 K/ L 3.5-10.5 (test code = 775) RED BLOOD CELL COUNT (BEAKER) 3.54 M/ L 3.93-5.22 L (test code = 761) HEMOGLOBIN (BEAKER) (test code = 10.9 GM/DL 11.2-15.7 L 410) HEMATOCRIT (BEAKER) (test code = 33.2 % 34.1-44.9 L 411) MEAN CORPUSCULAR VOLUME (BEAKER) 93.8 fL 79.4-94.8 (test code = 753) MEAN CORPUSCULAR HEMOGLOBIN 30.8 pg 25.6-32.2 (BEAKER) (test code = 751) MEAN CORPUSCULAR HEMOGLOBIN CONC 32.8 GM/DL 32.2-35.5 (BEAKER) (test code = 752) RED CELL DISTRIBUTION WIDTH 14.7 % 11.7-14.4 H (BEAKER) (test code = 412) PLATELET COUNT (BEAKER) (test 247 K/CU MM 150-450 code = 756) MEAN PLATELET VOLUME (BEAKER) 9.7 fL 9.4-12.3 (test code = 754) NUCLEATED RED BLOOD CELLS 0 /100 WBC 0-0 (BEAKER) (test code = 413) NEUTROPHILS RELATIVE PERCENT 53 % (BEAKER) (test code = 429) LYMPHOCYTES RELATIVE PERCENT 37 % (BEAKER) (test code = 430) MONOCYTES RELATIVE PERCENT 6 % (BEAKER) (test code = 431) EOSINOPHILS RELATIVE PERCENT 3 % (BEAKER) (test code = 432) BASOPHILS RELATIVE PERCENT 1 % (BEAKER) (test code = 437) NEUTROPHILS ABSOLUTE COUNT 4.25 K/ L 1.56-6.13 (BEAKER) (test code = 670) LYMPHOCYTES ABSOLUTE COUNT 3.01 K/ L 1.18-3.74 (BEAKER) (test code = 414) MONOCYTES ABSOLUTE COUNT (BEAKER) 0.52 K/ L 0.24-0.36 H (test code = 415) EOSINOPHILS ABSOLUTE COUNT 0.22 K/ L 0.04-0.36 (BEAKER) (test code = 416) BASOPHILS ABSOLUTE COUNT (BEAKER) 0.04 K/ L 0.01-0.08 (test code = 417) IMMATURE GRANULOCYTES-RELATIVE 0 % 0-1 PERCENT (BEAKER) (test code = 2801) [id number] 18:27:00 Test Item Value Reference Range Interpretation Comments PARTIAL THROMBOPLASTIN TIME 88.5 seconds 22.5-36.0 H (BEAKER) (test code = 760) [id number] 11:14:00 Test Item Value Reference Range Interpretation Comments PARTIAL THROMBOPLASTIN TIME 39.4 seconds 22.5-36.0 H (BEAKER) (test code = 760) [id number] 09:06:00 Test Item Value Reference Range Interpretation Comments PARTIAL THROMBOPLASTIN TIME 142.4 seconds 22.5-36.0 H (BEAKER) (test code = 760) [id number] 02:29:00 Test Item Value Reference Range Interpretation Comments PARTIAL THROMBOPLASTIN TIME 102.4 seconds 22.5-36.0 H (BEAKER) (test code = 760) [id number] 01:31:00 Test Item Value Reference Range Interpretation Comments PARTIAL THROMBOPLASTIN TIME 190.5 seconds 22.5-36.0 HH (BEAKER) (test code = 760) TROPONIN [id number] 01:30:00 Test Item Value Reference Range Interpretation Comments TROPONIN I (BEAKER) (test code = 397) < ng/mL 0.00-0.03 Troponin I (TnI) levels must be interpreted in the context of the presenting symptoms and the clinical findings. Elevated TnI levels indicate myocardial damage, but are not specific for ischemic heart disease. Elevated TnI levels are seen in patients with other cardiac conditions (including myocarditis and congestive heart failure), and slight TnI elevations occur in patients with other conditions, including sepsis, renal failure, acidosis, acute neurological disease, and persistent tachyarrhythmia.[id number] 01:28:00 Test Item Value Reference Range Interpretation Comments PHOSPHORUS (BEAKER) (test code = 4.1 mg/dL 2.3-4.7 604) [id number] 01:28:00 Test Item Value Reference Range Interpretation Comments MAGNESIUM (BEAKER) (test code = 2.0 mg/dL 1.6-2.6 627) BASIC METABOLIC [id number] 01:28:00 Test Item Value Reference Range Interpretation Comments SODIUM (BEAKER) 141 meq/L 136-145 (test code = 381) POTASSIUM (BEAKER) 3.3 meq/L 3.5-5.1 L (test code = 379) CHLORIDE (BEAKER) 106 meq/L 98-107 (test code = 382) CO2 (BEAKER) (test 26 meq/L 22-29 code = 355) BLOOD UREA NITROGEN 29 mg/dL 7-21 H (BEAKER) (test code = 354) CREATININE (BEAKER) 1.42 mg/dL 0.57-1.25 H (test code = 358) GLUCOSE RANDOM 117 mg/dL 70-105 H (BEAKER) (test code = 652) CALCIUM (BEAKER) 9.1 mg/dL 8.4-10.2 (test code = 697) EGFR (BEAKER) (test 44 mL/min/1.73 ESTIMA ALFREDO GFR IS code = 1092) sq m NOT ACCURATE CREATININE CLEARANCE IN PREDICTING GLOMERULAR FILTRATION RATE . ESTIMATED GFR I S NOT APPLICABLE FOR DIALYSIS PATIEN TS. PROTHROMBIN [id number] 01:04:00 Test Item Value Reference Range Interpretation Comments PROTIME (BEAKER) (test code = 21.3 seconds 11.7-14.7 H 759) INR (BEAKER) (test code = 370) 1.8 <=5.9 RECOMMENDED COUMADIN/WARFARIN INR THERAPY RANGESSTANDARD DOSE: 2.0 - 3.0 Includes: PROPHYLAXIS for venous thrombosis, systemic embolization; TREATMENT for venous thrombosis and/or pulmonary embolus.HIGH RISK: Target INR is 2.5-3.5 for patients with mechanical heart valves.CBC W/PLT COUNT & AUTO [id number] 00:58:00 Test Item Value Reference Range Interpretation Comments WHITE BLOOD CELL COUNT (BEAKER) 8.9 K/ L 3.5-10.5 (test code = 775) RED BLOOD CELL COUNT (BEAKER) 3.73 M/ L 3.93-5.22 L (test code = 761) HEMOGLOBIN (BEAKER) (test code = 11.4 GM/DL 11.2-15.7 410) HEMATOCRIT (BEAKER) (test code = 34.3 % 34.1-44.9 411) MEAN CORPUSCULAR VOLUME (BEAKER) 92.0 fL 79.4-94.8 (test code = 753) MEAN CORPUSCULAR HEMOGLOBIN 30.6 pg 25.6-32.2 (BEAKER) (test code = 751) MEAN CORPUSCULAR HEMOGLOBIN CONC 33.2 GM/DL 32.2-35.5 (BEAKER) (test code = 752) RED CELL DISTRIBUTION WIDTH 14.6 % 11.7-14.4 H (BEAKER) (test code = 412) PLATELET COUNT (BEAKER) (test 265 K/CU MM 150-450 code = 756) MEAN PLATELET VOLUME (BEAKER) 10.1 fL 9.4-12.3 (test code = 754) NUCLEATED RED BLOOD CELLS 0 /100 WBC 0-0 (BEAKER) (test code = 413) NEUTROPHILS RELATIVE PERCENT 52 % (BEAKER) (test code = 429) LYMPHOCYTES RELATIVE PERCENT 36 % (BEAKER) (test code = 430) MONOCYTES RELATIVE PERCENT 8 % (BEAKER) (test code = 431) EOSINOPHILS RELATIVE PERCENT 3 % (BEAKER) (test code = 432) BASOPHILS RELATIVE PERCENT 0 % (BEAKER) (test code = 437) NEUTROPHILS ABSOLUTE COUNT 4.65 K/ L 1.56-6.13 (BEAKER) (test code = 670) LYMPHOCYTES ABSOLUTE COUNT 3.24 K/ L 1.18-3.74 (BEAKER) (test code = 414) MONOCYTES ABSOLUTE COUNT (BEAKER) 0.71 K/ L 0.24-0.36 H (test code = 415) EOSINOPHILS ABSOLUTE COUNT 0.23 K/ L 0.04-0.36 (BEAKER) (test code = 416) BASOPHILS ABSOLUTE COUNT (BEAKER) 0.04 K/ L 0.01-0.08 (test code = 417) IMMATURE GRANULOCYTES-RELATIVE 0 % 0-1 PERCENT (BEAKER) (test code = 2801) [id number] 23:46:00 Test Item Value Reference Range Interpretation Comments PARTIAL THROMBOPLASTIN TIME > seconds 22.5-36.0 HH (BEAKER) (test code = 760) [id number] 21:55:00 Test Item Value Reference Range Interpretation Comments PARTIAL THROMBOPLASTIN TIME > seconds 22.5-36.0 HH (KUSUM) (test code = 760) TROPONIN [id number] 18:55:00 Test Item Value Reference Range Interpretation Comments TROPONIN I (KUSUM) (test code = 397) < ng/mL 0.00-0.03 Troponin I (TnI) levels must be interpreted in the context of the presenting symptoms and the clinical findings. Elevated TnI levels indicate myocardial damage, but are not specific for ischemic heart disease. Elevated TnI levels are seen in patients with other cardiac conditions (including myocarditis and congestive heart failure), and slight TnI elevations occur in patients with other conditions, including sepsis, renal failure, acidosis, acute neurological disease, and persistent tachyarrhythmia.[id number] 14:58:00 Test Item Value Reference Range Interpretation Comments PARTIAL THROMBOPLASTIN TIME 25.6 seconds 25.8-34.5 L (KUSUM) (test code = 760) CT, CHEST WITH IV CONTRAST- PE TEST [id number] 14:37:00FINAL REPORT INDICATION: 71-year-old female with acute chest pain and shortnessof breath. COMPARISON:Chest radiograph July 06, 2017Chest CT PE protocol July 13, 2012 TECHNIQUE: Chest CT exam WITH intravenous contrast, PE protocol. The exam was performed according to our department dose-optimization protocol, which includes automated exposure control, adjustments of mA and kV according to patient size. Iterative reconstructions are also sometimes employed. FINDINGS:No pulmonary embolism is demonstrated. Evaluation of the pulmonary arteries is adequate to the segmental level. Mainpulmonary artery is normal in caliber. No dissection of the thoracic aorta is demonstrated. The ascending thoracic aorta is not well evaluated because of cardiac motion artifact. Mild calcified plaque of the aortic arch and descending thoracic aorta noted. Heart is normal in size and there is no pericardial effusion. No pneumonia, pulmonary edema, pneumothorax, or pleural effusion is demonstrated. Central airways are clear. No mediastinal or hilar lymphadenopathy. Small hiatal hernia noted. Esophagus otherwise unremarkable. No suspicious osseous lesion demonstrated. IMPRESSION: No pulmonary embolism or other explanation for the patient's acute chest pain and shortness of breath. Signed: Diallo Tejada MDReport Verified Date/Time: 07/06/2017 14:37:03 Reading Location: [address] Body Reading Room D TROPONIN [id number] 12:21:00 Test Item Value Reference Range Interpretation Comments RAPID TROPONIN I (BEAKER) (test code < ng/mL <0.05 = 1483) RAPID [id number] 12:21:00 Test Item Value Reference Range Interpretation Comments RAPID CKMB (BEAKER) (test code = 1.1 ng/mL 0.0-4.3 1482) B-TYPE NATRIURETIC FACTOR (BNP)2017-07-06 12:21:00 Test Item Value Reference Range Interpretation Comments B-TYPE NATRIURETIC PEPTIDE (BEAKER) 26 pg/mL 0-100 (test code = 700) RAD, CHEST, 2 [id number] 12:14:00Reason for exam:->CHEST PAINShould this be performed at the bedside?->NoFINAL REPORT Chest two views INDICATION: Chest pain COMPARISON: 01/12/2017 IMPRESSION: There are coarsened interstitial markings. There is no focal consolidation, vascular congestion, pleural effusion, or pneumothorax. Heart size is at the upper limit of normal. The aorta remains mildly ectatic/tortuous. Mild spine curvature, degenerative spine changes, and an IVC filter are present. Signed: Vasquez Koenig [facility] Verified Date/Time: 07/06/2017 12:14:05 Reading Location: [facility] Radiology Reading Room COMPREHENSIVE METABOLIC [id number] 12:12:00 Test Item Value Reference Range Interpretation Comments TOTAL PROTEIN 6.5 gm/dL 6.0-8.5 (BEAKER) (test code = 770) ALBUMIN (BEAKER) 3.9 g/dL 3.5-5.0 (test code = 1145) ALKALINE PHOSPHATASE 69 U/L 30-115 (BEAKER) (test code = 346) BILIRUBIN TOTAL 0.5 mg/dL 0.1-1.2 (BEAKER) (test code = 377) SODIUM (BEAKER) (test 141 meq/L 135-148 code = 381) POTASSIUM (BEAKER) 4.1 meq/L 3.6-5.5 (test code = 379) CHLORIDE (BEAKER) 105 meq/L 98-106 (test code = 382) CO2 (BEAKER) (test 25 meq/L 24-32 code = 355) BLOOD UREA NITROGEN 29 mg/dL 10-26 H (BEAKER) (test code = 354) CREATININE (BEAKER) 1.17 mg/dL 0.50-1.20 (test code = 358) GLUCOSE RANDOM 99 mg/dL 70-110 (BEAKER) (test code = 652) CALCIUM (BEAKER) 9.1 mg/dL 8.5-10.5 (test code = 697) AST (SGOT) (BEAKER) 21 U/L 5-40 (test code = 353) ALT (SGPT) (BEAKER) 35 U/L 5-50 (test code = 347) EGFR (BEAKER) (test 56 mL/min/1.73 ESTIMA ALFREDO GFR IS code = 1092) sq m NOT ACCURATE CREATININE CLEARANCE IN PREDICTING GLOMERULAR FILTRATION RATE . ESTIMATED GFR I S NOT APPLICABLE FOR DIALYSIS PATIEN TS. PROTHROMBIN [id number] 12:11:00 Test Item Value Reference Range Interpretation Comments PROTIME (BEAKER) (test code = 17.8 seconds 9.8-12.0 H 759) INR (BEAKER) (test code = 370) 1.6 <=5.9 RECOMMENDED COUMADIN/WARFARIN INR THERAPY RANGESSTANDARD DOSE: 2.0 - 3.0 Includes: PROPHYLAXIS for venous thrombosis, systemic embolization; TREATMENT for venous thrombosis and/or pulmonary embolus.HIGH RISK: Target INR is 2.5-3.5 for patients with mechanical heart valves.CBC W/PLT COUNT & AUTO [id number] 12:06:00 Test Item Value Reference Range Interpretation Comments WHITE BLOOD CELL COUNT 8.1 10e3/i? L 4.0-10.0 (BEAKER) (test code = 775) RED BLOOD CELL COUNT (BEAKER) 4.06 10e6/i? L 4.00-5.00 (test code = 761) HEMOGLOBIN (BEAKER) (test code 12.5 g/dL 12.0-15.0 = 410) HEMATOCRIT (BEAKER) (test code 38.0 % 36.0-45.0 = 411) MEAN CORPUSCULAR VOLUME 93.8 fL 82.0-99.0 (BEAKER) (test code = 753) MEAN CORPUSCULAR HEMOGLOBIN 30.7 pg 27.0-33.0 (BEAKER) (test code = 751) MEAN CORPUSCULAR HEMOGLOBIN 32.7 g/dL 32.0-36.0 CONC (BEAKER) (test code = 752) RED CELL DISTRIBUTION WIDTH 13.3 % 10.3-14.2 (BEAKER) (test code = 412) PLATELET COUNT (BEAKER) (test 300 10e3/i? L 150-430 code = 756) MEAN PLATELET VOLUME (BEAKER) 7.6 fL 6.5-10.5 (test code = 754) NEUTROPHILS RELATIVE PERCENT 59 % (BEAKER) (test code = 429) LYMPHOCYTES RELATIVE PERCENT 31 % (BEAKER) (test code = 430) MONOCYTES RELATIVE PERCENT 7 % (BEAKER) (test code = 431) EOSINOPHILS RELATIVE PERCENT 3 % (BEAKER) (test code = 432) BASOPHILS RELATIVE PERCENT 1 % (BEAKER) (test code = 437) NEUTROPHILS ABSOLUTE COUNT 4.79 10e3/i? L 1.80-8.00 (BEAKER) (test code = 670) LYMPHOCYTES ABSOLUTE COUNT 2.50 10e3/i? L 1.48-4.50 (BEAKER) (test code = 414) MONOCYTES ABSOLUTE COUNT 0.56 10e3/i? L 0.00-1.30 (BEAKER) (test code = 415) EOSINOPHILS ABSOLUTE COUNT 0.22 10e3/i? L 0.00-0.50 (BEAKER) (test code = 416) BASOPHILS ABSOLUTE COUNT 0.07 10e3/i? L 0.00-0.20 (BEAKER) (test code = 417) BASIC METABOLIC [id number] 09:01:00 Test Item Value Reference Range Interpretation Comments SODIUM (BEAKER) 139 meq/L 136-145 (test code = 381) POTASSIUM (BEAKER) 3.8 meq/L 3.5-5.1 Specimen slightly (test code = 379) hemolyzed CHLORIDE (BEAKER) 106 meq/L 98-107 (test code = 382) CO2 (BEAKER) (test 19 meq/L 22-29 L code = 355) BLOOD UREA NITROGEN 28 mg/dL 7-21 H (BEAKER) (test code = 354) CREATININE (BEAKER) 0.99 mg/dL 0.57-1.25 Specimen slightly (test code = 358) hemolyzed GLUCOSE RANDOM 111 mg/dL 70-105 H (BEAKER) (test code = 652) CALCIUM (BEAKER) 9.6 mg/dL 8.4-10.2 (test code = 697) EGFR (BEAKER) (test 67 mL/min/1.73 ESTIMA ALFREDO GFR IS code = 1092) sq m NOT ACCURATE CREATININE CLEARANCE IN PREDICTING GLOMERULAR FILTRATION RATE . ESTIMATED GFR I S NOT APPLICABLE FOR DIALYSIS PATIEN TS. [id number] 07:12:00 Test Item Value Reference Range Interpretation Comments PROTIME (BEAKER) (test code = 28.1 seconds 11.7-14.7 H 759) INR (BEAKER) (test code = 370) 2.6 <=5.9 PARTIAL THROMBOPLASTIN TIME 33.3 seconds 22.5-36.0 (BEAKER) (test code = 760) RECOMMENDED COUMADIN/WARFARIN INR THERAPY RANGESSTANDARD DOSE: 2.0 - 3.0 Includes: PROPHYLAXIS for venous thrombosis, systemic embolization; TREATMENT for venous thrombosis and/or pulmonary embolus.HIGH RISK: Target INR is 2.5-3.5 for patients with mechanical heart valves.CBC W/PLT COUNT & AUTO [id number] 07:06:00 Test Item Value Reference Range Interpretation Comments WHITE BLOOD CELL COUNT (BEAKER) 7.5 K/ L 3.5-10.5 (test code = 775) RED BLOOD CELL COUNT (BEAKER) 4.24 M/ L 3.93-5.22 (test code = 761) HEMOGLOBIN (BEAKER) (test code = 12.9 GM/DL 11.2-15.7 410) HEMATOCRIT (BEAKER) (test code = 39.5 % 34.1-44.9 411) MEAN CORPUSCULAR VOLUME (BEAKER) 93.2 fL 79.4-94.8 (test code = 753) MEAN CORPUSCULAR HEMOGLOBIN 30.4 pg 25.6-32.2 (BEAKER) (test code = 751) MEAN CORPUSCULAR HEMOGLOBIN CONC 32.7 GM/DL 32.2-35.5 (BEAKER) (test code = 752) RED CELL DISTRIBUTION WIDTH 14.3 % 11.7-14.4 (BEAKER) (test code = 412) PLATELET COUNT (BEAKER) (test 278 K/CU MM 150-450 code = 756) MEAN PLATELET VOLUME (BEAKER) 10.1 fL 9.4-12.3 (test code = 754) NUCLEATED RED BLOOD CELLS 0 /100 WBC 0-0 (BEAKER) (test code = 413) NEUTROPHILS RELATIVE PERCENT 57 % (BEAKER) (test code = 429) LYMPHOCYTES RELATIVE PERCENT 32 % (BEAKER) (test code = 430) MONOCYTES RELATIVE PERCENT 8 % (BEAKER) (test code = 431) EOSINOPHILS RELATIVE PERCENT 2 % (BEAKER) (test code = 432) BASOPHILS RELATIVE PERCENT 1 % (BEAKER) (test code = 437) NEUTROPHILS ABSOLUTE COUNT 4.27 K/ L 1.56-6.13 (BEAKER) (test code = 670) LYMPHOCYTES ABSOLUTE COUNT 2.42 K/ L 1.18-3.74 (BEAKER) (test code = 414) MONOCYTES ABSOLUTE COUNT (BEAKER) 0.59 K/ L 0.24-0.36 H (test code = 415) EOSINOPHILS ABSOLUTE COUNT 0.15 K/ L 0.04-0.36 (BEAKER) (test code = 416) BASOPHILS ABSOLUTE COUNT (BEAKER) 0.04 K/ L 0.01-0.08 (test code = 417) IMMATURE GRANULOCYTES-RELATIVE 0 % 0-1 PERCENT (BEAKER) (test code = 2801) PROTHROMBIN [id number] 16:19:00 Test Item Value Reference Range Interpretation Comments PROTIME (BEAKER) (test code = 49.0 seconds 9.8-12.0 H 759) INR (BEAKER) (test code = 370) 4.4 <=5.9 RECOMMENDED COUMADIN/WARFARIN INR THERAPY RANGESSTANDARD DOSE: 2.0 - 3.0 Includes: PROPHYLAXIS for venous thrombosis, systemic embolization; TREATMENT for venous thrombosis and/or pulmonary embolus.HIGH RISK: Target INR is 2.5-3.5 for patients with mechanical heart valves.CBC W/PLT COUNT & AUTO [id number] 15:52:00 Test Item Value Reference Range Interpretation Comments WHITE BLOOD CELL COUNT (BEAKER) 9.1 10e3/ L 4.0-10.0 (test code = 775) RED BLOOD CELL COUNT (BEAKER) 4.41 10e6/ L 4.00-5.00 (test code = 761) HEMOGLOBIN (BEAKER) (test code = 13.1 g/dL 12.0-15.0 410) HEMATOCRIT (BEAKER) (test code = 39.7 % 36.0-45.0 411) MEAN CORPUSCULAR VOLUME (BEAKER) 90.0 fL 82.0-99.0 (test code = 753) MEAN CORPUSCULAR HEMOGLOBIN 29.8 pg 27.0-33.0 (BEAKER) (test code = 751) MEAN CORPUSCULAR HEMOGLOBIN CONC 33.1 g/dL 32.0-36.0 (BEAKER) (test code = 752) RED CELL DISTRIBUTION WIDTH 13.3 % 10.3-14.2 (BEAKER) (test code = 412) PLATELET COUNT (BEAKER) (test 389 10e3/ L 150-430 code = 756) MEAN PLATELET VOLUME (BEAKER) 7.3 fL 6.5-10.5 (test code = 754) NEUTROPHILS RELATIVE PERCENT 61 % (BEAKER) (test code = 429) LYMPHOCYTES RELATIVE PERCENT 29 % (BEAKER) (test code = 430) MONOCYTES RELATIVE PERCENT 8 % (BEAKER) (test code = 431) EOSINOPHILS RELATIVE PERCENT 2 % (BEAKER) (test code = 432) BASOPHILS RELATIVE PERCENT 1 % (BEAKER) (test code = 437) NEUTROPHILS ABSOLUTE COUNT 5.53 10e3/ L 1.80-8.00 (BEAKER) (test code = 670) LYMPHOCYTES ABSOLUTE COUNT 2.61 10e3/ L 1.48-4.50 (BEAKER) (test code = 414) MONOCYTES ABSOLUTE COUNT 0.77 10e3/ L 0.00-1.30 (BEAKER) (test code = 415) EOSINOPHILS ABSOLUTE COUNT 0.17 10e3/ L 0.00-0.50 (BEAKER) (test code = 416) BASOPHILS ABSOLUTE COUNT 0.05 10e3/ L 0.00-0.20 (BEAKER) (test code = 417) RAD, CHEST, 2 [id number] 15:37:00Reason for exam:->COUGHShould this be performed at the bedside?->NoFINAL REPORT TECHNIQUE: Frontal and lateral chest radiographs dated 01/12/2017.CLINICAL HISTORY: Cough COMPARISON STUDY: Chest radiograph dated 01/04/2017 FINDINGS: Lungs are clear. No pleural effusion or pneumothorax. Cardiomediastinal silhouette is normal in size. No pulmonary edema. Degenerative changes are seen in the spine. No fracture. IMPRESSION: Clear lungs. Signed: Kishan Duque MDReport Verified Date/Time: 01/12/2017 15:37:24 Reading Location: [facility] Radiology Reading Room RAD, CHEST, 2 [id number] 12:59:00Reason for exam:->COUGHShould this be performed at the bedside?->NoFINAL REPORT Chest 3 views 01/04/2017 12:59 PM CLINICAL HISTORY: COUGH COMPARISON: 11/02/2016 FINDINGS: The lungs are clear. Cardiomediastinal contours are within normal limits. Thecentral pulmonary vasculature is not engorged. The visualized skeleton is intact. IMPRESSION: No acute radiographic abnormalities. Signed: Stefan Lorenz MDReport Verified Date/Time: 01/04/2017 12:59:56 Reading Location: [address] Consult Reading Room CT, EXTREMITY, UPPER, WITHOUT CONTRAST, [id number] 14:57:00FINAL REPORT CT of the left shoulder History: Bone pain, shoulder Comparisons: None Technique: CT of the left shoulder was performed without contrast. Axial images were generated as were multiplanar reformatted images in the coronal and sagittal planes. This exam was performed according to our departmental dose optimization program which includes automated exposure control, adjustment of the mA and/or kV according to patient size and/or use of iterative reconstructive technique.Findings: There is no fracture or traumatic malalignment of the left shoulder. There is mild glenohumeral and acromioclavicular joint osteoarthritis with marginal osteophytes. There is no bony erosion or osteonecrosis. No full-thickness rotator cuff tendon tear is detected. There is no tendon retraction or muscle atrophy. There is no fluid collection or hematoma. There is no significant joint effusion. Limited visualization of the left lung demonstrate mild atelectasis. IMPRESSION:1. No fracture or subluxation visualized in the left shoulder.2. 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 Signed: Jorge Saunders Verified Date/Time: 11/03/2016 14:57:06 Reading Location: [address] Ortho Consult Reading Room TROPONIN [id number] 11:21:00 Test Item Value Reference Range Interpretation Comments TROPONIN I (BEAKER) (test code = 397) < ng/mL 0.00-0.03 Troponin I (TnI) levels must be interpreted in the context of the presenting symptoms and the clinical findings. Elevated TnI levels indicate myocardial damage, but are not specific for ischemic heart disease. Elevated TnI levels are seen in patients with other cardiac conditions (including myocarditis and congestive heart failure), and slight TnI elevations occur in patients with other conditions, including sepsis, renal failure, acidosis, acute neurological disease, and persistent tachyarrhythmia.CREATINE KINASE (CK), TOTAL AND MB 2016-11-03 11:19:00 Test Item Value Reference Range Interpretation Comments CREATINE KINASE TOTAL (BEAKER) 65 U/L 29-200 (test code = 380) CREATINE KINASE-MB (BEAKER) (test 0.6 ng/mL 0.0-6.6 code = 750) CREATINE KINASE-MB INDEX (BEAKER) 0.9 % (test code = 395) CK-MB Reference Range:<6.7 Normal6.7-10.0 Borderline>10.0 AbnormalTROPONIN [id number] 11:19:00 Test Item Value Reference Range Interpretation Comments TROPONIN I (BEAKER) (test code = 397) < ng/mL 0.00-0.03 Troponin I (TnI) levels must be interpreted in the context of the presenting symptoms and the clinical findings. Elevated TnI levels indicate myocardial damage, but are not specific for ischemic heart disease. Elevated TnI levels are seen in patients with other cardiac conditions (including myocarditis and congestive heart failure), and slight TnI elevations occur in patients with other conditions, including sepsis, renal failure, acidosis, acute neurological disease, and persistent tachyarrhythmia.PROTHROMBIN [id number] 11:02:00 Test Item Value Reference Range Interpretation Comments PROTIME (KUSUM) (test code = 23.8 seconds 11.7-14.7 H 759) INR (BEAKER) (test code = 370) 2.1 <=5.9 RECOMMENDED COUMADIN/WARFARIN INR THERAPY RANGESSTANDARD DOSE: 2.0 - 3.0 Includes: PROPHYLAXIS for venous thrombosis, systemic embolization; TREATMENT for venous thrombosis and/or pulmonary embolus.HIGH RISK: Target INR is 2.5-3.5 for patients with mechanical heart valves.TROPONIN [id number] 00:49:00 Test Item Value Reference Range Interpretation Comments TROPONIN I (KUSUM) (test code = 397) < ng/mL 0.00-0.03 Troponin I (TnI) levels must be interpreted in the context of the presenting symptoms and the clinical findings. Elevated TnI levels indicate myocardial damage, but are not specific for ischemic heart disease. Elevated TnI levels are seen in patients with other cardiac conditions (including myocarditis and congestive heart failure), and slight TnI elevations occur in patients with other conditions, including sepsis, renal failure, acidosis, acute neurological disease, and persistent tachyarrhythmia.LIPID [id number] 00:43:00 Test Item Value Reference Range Interpretation Comments TRIGLYCERIDES (BEAKER) 142 mg/dL Speci men slightly (test code = 540) hemolyzed CHOLESTEROL (BEAKER) 154 mg/dL Specime n slightly (test code = 631) hemolyzed HDL CHOLESTEROL (BEAKER) 43 mg/dL (test code = 976) LDL CHOLESTEROL 83 mg/dL CALCULATED (Brand NetworksAKER) (test code = 633) Triglyceride Reference Range: Low Risk <150 Borderline 150-199 High Risk 200- 499 Very High Risk >=500Cholesterol Reference Range: Low Risk <200 Borderline 200-239 High Risk >240HDL Cholesterol Reference Range: Low Risk >=60 High Risk <40LDL Cholesterol Reference Range: Optimal <100 Near Optimal 100-129 Borderline 130-159 High 160-189 Very High >=190PROTHROMBIN [id number] 18:30:00 Test Item Value Reference Range Interpretation Comments PROTIME (BEROMA) (test code = 32.0 seconds 9.8-12.0 H 759) INR (BEAKER) (test code = 370) 3.1 <=5.9 RECOMMENDED COUMADIN/WARFARIN INR THERAPY RANGESSTANDARD DOSE: 2.0 - 3.0 Includes: PROPHYLAXIS for venous thrombosis, systemic embolization; TREATMENT for venous thrombosis and/or pulmonary embolus.HIGH RISK: Target INR is 2.5-3.5 for patients with mechanical heart valves.RAD, CHEST, PA OR AP, 1 [id number] 17:02:00Reason for exam:->ARM PAINFINAL REPORT INDICATION: ARM PAIN COMPARISON: July 17, 2015 TECHNIQUE: Chest radiograph, single view, portable technique. FINDINGS / IMPRESSION: There is no evidence of pneumonia orpulmonary edema. Cardiac and mediastinal contours are unremarkable. No pleural effusion or pneumothorax is demonstrated. Osseous structures are unremarkable. In summary, no evidence of acute pulmonary or cardiac abnormality. Signed: Diallo Tejada MDReport Verified Date/Time: 11/02/2016 17:02:16 Read ing Location: [facility] C013W Consult Reading Room RAPID TROPONIN [id number] 15:43:00 Test Item Value Reference Range Interpretation Comments RAPID TROPONIN I (BEAKER) (test code < ng/mL <0.05 = 1483) RAPID [id number] 15:42:00 Test Item Value Reference Range Interpretation Comments RAPID CKMB (BEAKER) (test code = < ng/mL 0.0-4.3 1482) BASIC METABOLIC [id number] 15:26:00 Test Item Value Reference Range Interpretation Comments SODIUM (BEAKER) 143 meq/L 135-148 (test code = 381) POTASSIUM (BEAKER) 4.1 meq/L 3.6-5.5 (test code = 379) CHLORIDE (BEAKER) 109 meq/L 98-106 H (test code = 382) CO2 (BEAKER) (test 27 meq/L 24-32 code = 355) BLOOD UREA NITROGEN 15 mg/dL 10-26 (BEAKER) (test code = 354) CREATININE (BEAKER) 0.71 mg/dL 0.50-1.20 (test code = 358) GLUCOSE RANDOM 83 mg/dL 70-110 (BEAKER) (test code = 652) CALCIUM (BEAKER) 8.9 mg/dL 8.5-10.5 (test code = 697) EGFR (BEAKER) (test 99 mL/min/1.73 ESTIMA ALFREDO GFR IS code = 1092) sq m NOT ACCURATE CREATININE CLEARANCE IN PREDICTING GLOMERULAR FILTRATION RATE . ESTIMATED GFR I S NOT APPLICABLE FOR DIALYSIS PATIEN TS. CBC W/PLT COUNT & AUTO [id number] 15:15:00 Test Item Value Reference Range Interpretation Comments WHITE BLOOD CELL COUNT (BEAKER) 6.8 10e3/ L 4.0-10.0 (test code = 775) RED BLOOD CELL COUNT (BEAKER) 4.51 10e6/ L 4.00-5.00 (test code = 761) HEMOGLOBIN (BEAKER) (test code = 12.9 g/dL 12.0-15.0 410) HEMATOCRIT (BEAKER) (test code = 40.9 % 36.0-45.0 411) MEAN CORPUSCULAR VOLUME (BEAKER) 90.6 fL 82.0-99.0 (test code = 753) MEAN CORPUSCULAR HEMOGLOBIN 28.7 pg 27.0-33.0 (BEAKER) (test code = 751) MEAN CORPUSCULAR HEMOGLOBIN CONC 31.6 g/dL 32.0-36.0 L (BEAKER) (test code = 752) RED CELL DISTRIBUTION WIDTH 14.2 % 10.3-14.2 (BEAKER) (test code = 412) PLATELET COUNT (BEAKER) (test 291 10e3/ L 150-430 code = 756) MEAN PLATELET VOLUME (BEAKER) 7.4 fL 6.5-10.5 (test code = 754) NEUTROPHILS RELATIVE PERCENT 58 % (BEAKER) (test code = 429) LYMPHOCYTES RELATIVE PERCENT 32 % (BEAKER) (test code = 430) MONOCYTES RELATIVE PERCENT 8 % (BEAKER) (test code = 431) EOSINOPHILS RELATIVE PERCENT 2 % (BEAKER) (test code = 432) BASOPHILS RELATIVE PERCENT 0 % (BEAKER) (test code = 437) NEUTROPHILS ABSOLUTE COUNT 3.91 10e3/ L 1.80-8.00 (BEAKER) (test code = 670) LYMPHOCYTES ABSOLUTE COUNT 2.17 10e3/ L 1.48-4.50 (BEAKER) (test code = 414) MONOCYTES ABSOLUTE COUNT 0.55 10e3/ L 0.00-1.30 (BEAKER) (test code = 415) EOSINOPHILS ABSOLUTE COUNT 0.12 10e3/ L 0.00-0.50 (BEAKER) (test code = 416) BASOPHILS ABSOLUTE COUNT 0.03 10e3/ L 0.00-0.20 (BEAKER) (test code = 417) [id number] 14:10:00 Test Item Value Reference Range Interpretation Comments PROTIME (BEAKER) (test code = 25.9 seconds 9.8-12.0 H 759) INR (BEAKER) (test code = 370) 2.5 <=5.9 PARTIAL THROMBOPLASTIN TIME 28.8 seconds 25.8-34.5 (BEAKER) (test code = 760) RECOMMENDED COUMADIN/WARFARIN INR THERAPY RANGESSTANDARD DOSE: 2.0 - 3.0 Includes: PROPHYLAXIS for venous thrombosis, systemic embolization; TREATMENT for venous thrombosis and/or pulmonary embolus.HIGH RISK: Target INR is 2.5-3.5 for patients with mechanical heart valves.
[2022-04-26] MEDS ORDERED: TRAMADOL HCL 50 MG TAB ONE (15:54)
[2022-04-26 16:02] LABS: Urine Blood Negative (Negative); Urine Glucose Negative (Negative); Urine Protein 3+ (Negative); Urine Specific Gravity 1.025 (1.005-1.030); Urine pH 5.5 (5.0-7.0)
[2022-04-26 16:10] LABS: Urine Bacteria <20 /HPF (<20); Urine Mucus Slight /HPF (None Seen); Urine RBC <5 /HPF (None Seen)
--- NOTE | 2022-04-26 16:10 | RAD REPORT ---
EXAM DESCRIPTION: CT - Stone Protocol - 04/26/2022 4:03 pm CLINICAL HISTORY: Flank pain. FLANK PAIN COMPARISON: No comparisons TECHNIQUE: Axial images were obtained without oral or IV contrast. Lack of contrast limits solid org an and vascular assessment. The [id number] spans the entirety of the system partially obscuring uppermost abdomen and lung bases. Coronal reformatted images were obtained and reviewed. All CT scans are performed using dose optimization technique as appropriate and may include automated exposure control or mA/KV adjustment according to patient size. FINDINGS: The lower lung guidry are clear. Small hiatal hernia. IVC filter. Imaged portions of the liver and spleen show no suspicious findings on non-contrast imaging. The panc reas and adrenal glands are normal. No pathologic lymphadenopathy in the abdomen or pelvis. No urinary tract stones or obstructive uropathy. No bowel obstruction, free air, free fluid or abscess. Nonvisualized appendix. Moderate lumbar degenerative changes. IMPRESSION: No urinary tract stones or obstructive uropathy.
[2022-04-26] MEDS ORDERED: KETOROLAC 30 MG/ML INJ ONE (17:36)
[2022-04-26] MEDS ORDERED: PHENAZOPYRIDINE 100MG TAB PO ONE (17:36)
[2022-04-26] MEDS ORDERED: NA CHLORIDE 0.9% 0 ML ONE (17:37)
[2022-04-26 18:20] LABS: Absolute Lymphocytes (CBC) 3.2 K/uL (0.7-4.9); Lymphocytes % 32.3 % (15.3-44.8)
[2022-04-26 18:24] LABS: Potassium 4.5 mmol/L (3.5-5.1)
[2022-04-26 18:27] LABS: Hematocrit 36.4 % (36.0-45.0); MCV 95.7 fL (80-100); MPV 9.1 fL (7.6-11.3)
[2022-04-26] MEDS ORDERED: ONDANSETRON 4 MG (ODT) TAB ONE (18:37)
[2022-04-26] MEDS ORDERED: DICYCLOMINE HCL 10 MG CAP ONE (18:45)
[2022-04-26 19:12] LABS: Blood Morphology Comment NOT SEEN (NOT SEEN); Platelet Estimate ADEQ
[2022-04-26] MEDS ORDERED: HYDROCODONE/APAP 7.5/325 MG TAB ONE (19:20)
[2022-04-26 20:15] VITALS: TEMP 97.8
[2022-04-26 20:19] VITALS: BP 167/66; O2SAT 100
--- NOTE | 2022-05-08 16:55 | ER ---
Nurse's Notes [facility] Name: Dixie Robertson Age: 76 yrs Sex: Female : 1945 Arrival Date: 04/26/2022 Time: 14:56 Bed 5 Private MD: Diagnosis: Low back pain;Bladder spasm Presentation: 04/26 15:21 Chief complaint: Patient states: My upper back near my kidney area on the right side is kr3 hurting. I was seen in the [facility] and they did a UA. I was given antibiotics Amoxicillin and told to follow up with nephrology. I have an appointment with them on the 21 of May but I am in so much pain I cannot wait that long. Coronavirus screen: Vaccine status: Patient reports receiving the 2nd dose of the covid vaccine. Ebola Screen: Patient denies travel to an Ebola-affected area in the 21 days before illness onset. Initial Sepsis Screen: Does the patient meet any 2 criteria? No. Patient's initial sepsis screen is negative. Does the patient have a suspected source of infection? No. Patient's initial sepsis screen is negative. Risk Assessment: Do you want to hurt yourself or someone else? Patient reports no desire to harm self or others. Onset of symptoms was April 19, 2022. 15:21 Method Of Arrival: Ambulatory kr3 15:21 Acuity: LEIDA 3 kr3 Triage Assessment: 15:33 General: Appears in no apparent distress. uncomfortable, Behavior is calm, cooperative, kr3 appropriate for age. Pain: Complains of pain in left mid back and right mid back. EENT: No deficits noted. Neuro: Level of Consciousness is awake, alert, obeys commands, Oriented to person, place, time, situation. Cardiovascular: Patient's skin is warm and dry. Respiratory: Airway is patent Respiratory effort is even, unlabored, Respiratory pattern is regular, symmetrical. GI: No signs and/or symptoms were reported involving the gastrointestinal system. : Reports urinary frequency. Derm: No deficits noted. Musculoskeletal: Swelling present in lateral aspect of right calf, right ankle, lateral aspect of right foot, right calf, right Achilles, right heel, medial aspect of right calf, medial aspect of right foot, right cash, anterior aspect of right ankle, dorsum of right foot and left leg. Historical: - Allergies: 15:26 Codeine; kr3 15:26 Demerol; kr3 - PMHx: 15:26 Hypertensive disorder; DVT; kr3 - PSHx: 15:31 Stented artery; kr3 - Immunization history:: Adult Immunizations up to date. - Social history:: Smoking status: Patient denies any tobacco usage or history of. Screenin:10 Abuse screen: Denies threats or abuse. Denies injuries from another. Nutritional nj1 screening: No deficits noted. Tuberculosis screening: No symptoms or risk factors identified. 19:00 [facility] ED Fall Risk Assessment (Adult) History of falling in the last 3 months, ko1 including since admission No falls in past 3 months (0 pts) Confusion or Disorientation No (0 pts) Intoxicated or Sedated No (0 pts) Impaired Gait Yes (1 pt) Mobility Assist Device Used Yes (1 pt) Altered Elimination Yes (1 pt) Score/Fall Risk Level 0 - 2 = Low Risk Oriented to surroundings, Maintained a safe environment, Educated pt \T\ family on fall prevention, incl call for assistance when getting out of bed. Assessment: 15:57 Reassessment: Pt out of restroom, taken to CT via wheelchair by radiology assistant. nj1 16:10 General: Appears in no apparent distress. uncomfortable, Behavior is calm, cooperative, nj1 appropriate for age. Neuro: No deficits noted. Level of Consciousness is awake, alert, obeys commands, Oriented to person, place, time, situation. Cardiovascular: No deficits noted. Patient's skin is warm and dry. Respiratory: No deficits noted. Airway is patent Respiratory effort is even, unlabored, Respiratory pattern is regular. Musculoskeletal: Reports pain in mid/lower back, right side. 16:22 Reassessment: Patient appears in no apparent distress at this time. Patient and/or nj1 family updated on plan of care and expected duration. Pain level reassessed. Patient is alert, oriented x 3, equal unlabored respirations, skin warm/dry/pink. Pain assessed, pain med administered as ordered, see MAR. 18:00 Reassessment: Patient appears in no apparent distress at this time. Patient and/or nj1 family updated on plan of care and expected duration. Pain level reassessed. Patient is alert, oriented x 3, equal unlabored respirations, skin warm/dry/pink. Unsuccessful attempt to establish IV access x2. 19:26 Reassessment: Patient and/or family updated on plan of care and expected duration. Pain ko1 level reassessed. Patient is alert, oriented x 3, equal unlabored respirations, skin warm/dry/pink. Patient states feeling better. Patient states symptoms have improved. Vital Signs: 15:21 BP 173 / 70; Pulse 64; Resp 18; Temp 97.8; Pulse Ox 98% on R/A; Weight 88.9 kg; Height kr3 5 ft. 0 in. ; Pain 10/10; 16:10 BP 177 / 70; Pulse 57; Resp 18; Pulse Ox 98% on R/A; Pain 10/10; nj1 17:00 BP 163 / 65; Pulse 54; Pulse Ox 95% on R/A; nj1 18:00 BP 167 / 66; Pulse 61; Resp 18; Pulse Ox 100% on R/A; nj1 15:21 Body Mass Index 38.28 (88.90 kg, 152.4 cm) kr3 15:21 Pain Scale: Adult kr3 16:10 Pain Scale: Adult nj1 ED Course: 14:56 Patient arrived in ED. am2 14:56 Fabienne Poe FNP-C is PHCP. snw 14:56 Mark Stinson MD is Attending Physician. snw 15:26 Triage completed. kr3 15:34 Arm band placed on right wrist. kr3 15:38 Sheila Izaguirre, ROCIO is Primary Nurse. ko1 15:57 Patient moved to NV via wheelchair. nj1 16:05 CT Stone Protocol In Process Unspecified. EDMS 16:07 Urine Culture Sent. nj1 16:07 Urine Microscopic Only Sent. nj1 16:09 Patient moved back from NV. nj1 16:10 Bed in low position. Call light in reach. Side rails up X 1. nj1 19:25 No provider procedures requiring assistance completed. Patient did not have IV access ko1 during this emergency room visit. Administered Medications: 16:10 Drug: traMADol PO 50 mg Route: PO; nj1 19:25 Follow up: Response: No adverse reaction; Pain is decreased ko1 18:00 Drug: Phenazopyridine PO 200 mg Route: PO; nj1 19:25 Follow up: Response: No adverse reaction; Marked relief of symptoms ko1 18:34 Drug: Ondansetron PO 4 mg Route: PO; nj1 19:24 Follow up: Response: No adverse reaction; Medication administered at discharge. ko1 18:37 CANCELLED (Inappropriate at this time): Ketorolac IVP 15 mg IVP once snw 18:44 Drug: Dicyclomine PO 20 mg Route: PO; ko1 19:23 Follow up: Response: No adverse reaction; Medication administered at discharge. ko1 19:00 CANCELLED (Physician Discretion): NS 0.9% IV 500 ml IV at bolus once ko1 19:23 Drug: Hydrocodone-Acetaminophen PO (7.5 mg-325 mg) 1 tabs Route: PO; ko1 19:23 Follow up: Response: Medication administered at discharge. ko1 Medication: 19:26 VIS not applicable for this client. ko1 Outcome: 19:05 Discharge ordered by . snw 19:25 Discharged to home ambulatory, with significant other. ko1 19:25 Condition: good 19:25 Discharge instructions given to patient, Instructed on discharge instructions, follow up and referral plans. medication usage, Demonstrated understanding of instructions, follow-up care, medications, Prescriptions given X 1. 19:26 Patient left the ED. ko1 Signatures: Dispatcher [employer] EDMS Fabienne Poe, LABELING SPECIALIST-C LABELING SPECIALIST-Csnw Katie Nguyễn Kelley, RN RN kr3 Sheila Izaguirre, RN RN ko1 Brianna Mcneil RN RN nj1
--- NOTE | 2022-05-08 16:55 | EDPHYS ---
Physician Documentation [facility] Name: Dixie Robertson Age: 76 yrs Sex: Female : 1945 Arrival Date: 04/26/2022 Time: 14:56 Bed 5 Private MD: ED Physician Mark Stinson HPI: 04/26 17:31 This 76 yrs old Black Female presents to ER via Ambulatory with complaints of Back snw Pain, Pain With Urination. 17:31 The patient presents with pain that is acute, with no known mechanism of injury. The snw symptoms are located in the low back. Onset: The symptoms/episode began/occurred acutely. The pain does not radiate. Associated signs and symptoms: Pertinent positives: sharp bladder pain with hx of seeing PCP, +UTI, pt taking Augmentin. The problem was sustained without known cause. Severity of symptoms: At their worst the symptoms were moderate. The patient has experienced similar episodes in the past. The patient has been recently seen by a physician: the patient's primary care provider, with similar presenting complaints, and apparently given a diagnosis of UTI, was given a prescription for antibiotics. Historical: - Allergies: 15:26 Codeine; kr3 15:26 Demerol; kr3 - PMHx: 15:26 Hypertensive disorder; DVT; kr3 - PSHx: 15:31 Stented artery; kr3 - Immunization history:: Adult Immunizations up to date. - Social history:: Smoking status: Patient denies any tobacco usage or history of. ROS: 17:30 Constitutional: Negative for fever, chills, and weight loss, Eyes: Negative for injury, snw pain, redness, and discharge, ENT: Negative for injury, pain, and discharge, Neck: Negative for injury, pain, and swelling, Cardiovascular: Negative for chest pain, palpitations, and edema, Respiratory: Negative for shortness of breath, cough, wheezing, and pleuritic chest pain, : Negative for injury, bleeding, discharge, and swelling, MS/Extremity: Negative for injury and deformity, Skin: Negative for injury, rash, and discoloration, Neuro: Negative for headache, weakness, numbness, tingling, and seizure. 17:30 Abdomen/GI: Positive for bladder spasm, sharp pains. 17:30 Back: Positive for pain at rest, of the low back area and mid back area. Exam: 17:30 Constitutional: This is a well developed, well nourished patient who is awake, alert, snw and in no acute distress. Head/Face: Normocephalic, atraumatic. Eyes: Pupils equal round and reactive to light, extra-ocular motions intact. Lids and lashes normal. Conjunctiva and sclera are non-icteric and not injected. Cornea within normal limits. Periorbital areas with no swelling, redness, or edema. ENT: Nares patent. No nasal discharge, no septal abnormalities noted. Tympanic membranes are normal and external auditory canals are clear. Oropharynx with no redness, swelling, or masses, exudates, or evidence of obstruction, uvula midline. Mucous membranes moist. Neck: Trachea midline, no thyromegaly or masses palpated, and no cervical lymphadenopathy. Supple, full range of motion without nuchal rigidity, or vertebral point tenderness. No Meningismus. Chest/axilla: Normal chest wall appearance and motion. Nontender with no deformity. No lesions are appreciated. Cardiovascular: Regular rate and rhythm with a normal S1 and S2. No gallops, murmurs, or rubs. Normal PMI, no JVD. No pulse deficits. Respiratory: Lungs have equal breath sounds bilaterally, clear to auscultation and percussion. No rales, rhonchi or wheezes noted. No increased work of breathing, no retractions or nasal flaring. Abdomen/GI: Soft, non-tender, with normal bowel sounds. No distension or tympany. No guarding or rebound. No evidence of tenderness throughout. Back: No spinal tenderness. No costovertebral tenderness. Full range of motion. Skin: Warm, dry with normal turgor. Normal color with no rashes, no lesions, and no evidence of cellulitis. MS/ Extremity: Pulses equal, no cyanosis. Neurovascular intact. Full, normal range of motion. Neuro: Awake and alert, GCS 15, oriented to person, place, time, and situation. Cranial nerves II-XII grossly intact. Motor strength 5/5 in all extremities. Sensory grossly intact. Cerebellar exam normal. Normal gait. Psych: Awake, alert, with orientation to person, place and time. Behavior, mood, and affect are within normal limits. Vital Signs: 15:21 BP 173 / 70; Pulse 64; Resp 18; Temp 97.8; Pulse Ox 98% on R/A; Weight 88.9 kg; Height kr3 5 ft. 0 in. ; Pain 10/10; 16:10 BP 177 / 70; Pulse 57; Resp 18; Pulse Ox 98% on R/A; Pain 10/10; nj1 17:00 BP 163 / 65; Pulse 54; Pulse Ox 95% on R/A; nj1 18:00 BP 167 / 66; Pulse 61; Resp 18; Pulse Ox 100% on R/A; nj1 15:21 Body Mass Index 38.28 (88.90 kg, 152.4 cm) kr3 15:21 Pain Scale: Adult kr3 16:10 Pain Scale: Adult nj1 MDM: 15:01 Patient medically screened. snw 19:08 Differential diagnosis: arthritis, chronic back pain, Fracture Pyelonephritis snw Ureterolithiasis UTI. Data reviewed: vital signs, nurses notes, lab test result(s), radiologic studies. I considered the following discharge prescriptions or medication management in the emergency department Medications were administered in the Emergency Department. See MAR. Counseling: I had a detailed discussion with the patient and/or guardian regarding: the historical points, exam findings, and any diagnostic results supporting the discharge/admit diagnosis, the presence of at least one elevated blood pressure reading (>120/80) during this emergency department visit, lab results, radiology results, the need for outpatient follow up, to return to the emergency department if symptoms worsen or persist or if there are any questions or concerns that arise at home. Special discussion: Based on the patient's Hx, exam, and Dx evaluation, there is no indication for emergent surgery or inpatient Tx. It is understood by the patient/guardian that if the Sx's persist or worsen they need to return immediately for re-evaluation. I have referred the patient to see his PCP for further evaluation of high blood pressure. Based on the history and exam findings, there is no indication for further emergent testing or inpatient evaluation. I discussed with the patient/guardian the need to see the primary care provider for further evaluation of the symptoms. 04/26 15:01 Order name: Urine Culture [facility] 04/26 15:01 Order name: Urine Microscopic Only; Complete Time: 16:27 [facility] 04/26 16:02 Order name: Urine Dipstick-Ancillary; Complete Time: 16:05 EDMS 04/26 17:17 Order name: CBC with Diff; Complete Time: 19:13 snw 04/26 17:17 Order name: Chem 7; Complete Time: 18:33 snw 04/26 19:12 Order name: Manual Differential; Complete Time: 19:13 EDMS 04/26 15:31 Order name: CT Stone Protocol; Complete Time: 16:27 snw 04/26 15:01 Order name: Urine Dipstick-Ancillary (obtain specimen); Complete Time: 16:07 snw Administered Medications: 16:10 Drug: traMADol PO 50 mg Route: PO; nj1 19:25 Follow up: Response: No adverse reaction; Pain is decreased ko1 18:00 Drug: Phenazopyridine PO 200 mg Route: PO; nj1 19:25 Follow up: Response: No adverse reaction; Marked relief of symptoms ko1 18:34 Drug: Ondansetron PO 4 mg Route: PO; nj1 19:24 Follow up: Response: No adverse reaction; Medication administered at discharge. ko1 18:37 CANCELLED (Inappropriate at this time): Ketorolac IVP 15 mg IVP once snw 18:44 Drug: Dicyclomine PO 20 mg Route: PO; ko1 19:23 Follow up: Response: No adverse reaction; Medication administered at discharge. ko1 19:00 CANCELLED (Physician Discretion): NS 0.9% IV 500 ml IV at bolus once ko1 19:23 Drug: Hydrocodone-Acetaminophen PO (7.5 mg-325 mg) 1 tabs Route: PO; ko1 19:23 Follow up: Response: Medication administered at discharge. ko1 Disposition: 19:07 Co-signature as Attending Physician, Mark Stinson MD I reviewed the patient's care rt provided by the Advanced Practice Provider and agree with the diagnosis and treatment plan. Disposition Summary: 04/26/22 19:05 Discharge Ordered Location: Home snw Condition: Stable snw Diagnosis - Low back pain snw - Bladder spasm snw Followup: snw - With: Emergency Department - When: As needed - Reason: Worsening of condition Followup: snw - With: Private Physician - When: 2 - 3 days - Reason: Recheck today's complaints, Continuance of care, Re-evaluation by your physician Discharge Instructions: - Discharge Summary Sheet snw - Acute Back Pain, Adult snw - Chronic Back Pain snw - Urine Protein Test snw - Heat Therapy snw Forms: - Medication Reconciliation Form snw - Thank You Letter snw - Antibiotic Education snw - Prescription Opioid Use snw Prescriptions: - dicyclomine 20 mg Oral Tablet - take 1 tablet by ORAL route 3 times per day; 21 tablet; Refills: 0, Product snw Selection Permitted Signatures: Dispatcher [employer] EDMS Fabienne Poe, HOME SALES CONSULTANT-C HOME SALES CONSULTANT-Csnw Marilee Mcdonald, ROCIO RN kr3 Sheila Izaguirre RN RN ko1 Mark Stinson MD MD rt Brianna Mcneil RN RN nj1 Corrections: (The following items were deleted from the chart) 18:37 17:17 Ketorolac IVP 15 mg IVP once ordered. snw snw 19:00 17:17 NS 0.9% IV 500 ml IV at bolus once ordered. snw ko1
== END 2022-04-26 19:26 | disposition home or self-care (01) ==
LOC: ER 14:55
DX: N32.89 Other specified disorders of bladder (principal); Z88.5 Allergy status to narcotic agent
CPT/HCPCS: 87088; 85025; 87086; 80048; 36415; 76377; 74176; 99284; Q0162; 81003; 81015; J7040

== ENCOUNTER 2022-08-08 13:49 | Emergency (ER) | payer OTHER ==
[2022-08-08 16:37] LABS: Specific Gravity 1.013 (1.005-1.030); Urine Bacteria <20 /HPF (<20); Urine Bilirubin NEGATIVE (Negative); Urine Blood Trace (Negative); Urine Clarity Clear (Clear); Urine Color Light-Yellow (Yellow); Urine Glucose NEGATIVE (Negative); Urine Mucus Slight /HPF (None Seen); Urine Protein 3+ (Negative); Urine RBC <5 /HPF (None Seen); Urine Urobilinogen Normal (Normal)
[2022-08-08] MEDS ORDERED: MORPHINE 4 MG/ML SYR ONE ×2 (17:22→18:09)
[2022-08-08] MEDS ORDERED: ONDANSETRON 4 MG/2 ML VIAL ONE (17:22)
[2022-08-08 17:42] LABS: Absolute Lymphocytes (CBC) 2.5 K/uL (0.7-4.9); Hematocrit 40.7 % (36.0-45.0); Lymphocytes % 29.2 % (15.3-44.8); MCV 94.2 fL (80-100); RBC Red Blood Cell Count 4.32 M/uL (3.86-4.86)
[2022-08-08 17:57] LABS: Albumin 3.5 g/dL (3.4-5.0); Bilirubin Total 0.2 mg/dL (0.2-1.0); Protein, Total 7.7 g/dL (6.4-8.2)
--- NOTE | 2022-08-08 18:46 | RAD REPORT ---
EXAM DESCRIPTION: CT - Stone Protocol - 08/08/2022 6:20 pm CLINICAL HISTORY: Abdominal pain. Right flank pain COMPARISON: April 2022 TECHNIQUE: Computed axial tomography of the abdomen pelvis was obtained without oral or IV contrast. Lack of IV and oral contrast limits evaluation of solid organs, appendix, bowel, and vessels. Kuo l reformatted images were obtained and reviewed. All CT scans are performed using dose optimization technique as appropriate and may include automated exposure control or mA/KV adjustment according to patient size. FINDINGS: Mild dilatation of right extrarenal pelvis. Renal/ureteral/bladder calculus is not seen. N o left hydronephrosis. 7 millimeter proteinaceous cyst right kidney The liver, spleen, pancreas and adrenals appear grossly normal Filter within the IVC. No evidence of diverticulitis. A small umbilical hernia. Small hiatal hernia Partial fusion of the sacroiliac joints may indicate ankylosing spondylitis No adnexal mass IMPRESSION: Mild dilatation of a right extrarenal pelvis without visualization a renal/ureteral calc ulus
[2022-08-08] MEDS ORDERED: DIAZEPAM 10 MG/2 ML INJ SYRINGE ONE (19:25)
[2022-08-08] MEDS ORDERED: LIDOCAINE 4% PATCH ONE (19:26)
[2022-08-08] MEDS ORDERED: dexAMETHasone 10 MG/ML VIAL ONE (19:26)
--- NOTE | 2022-08-08 20:02 | ER ---
Nurse's Notes [facility] Name: Dixie Robertson Age: 76 yrs Sex: Female : 1945 Arrival Date: 08/08/2022 Time: 13:49 Bed 19 Private MD: Diagnosis: Lumbago with sciatica, right side;Hypertensive heart and 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, with stage 1 through stage 4 chronic kidney disease, or unspecified chronic kidney disease Presentation: 08/08 14:31 Chief complaint: Patient states: lower back pain and right side pain down into right iw leg X 4 days , denies injury or picking up anything heavy, had hx of sciatica pain years ago. Coronavirus screen: At this time, the client does not indicate any symptoms associated with coronavirus-19. Ebola Screen: Patient negative for fever greater than or equal to 101.5 degrees Fahrenheit, and additional compatible Ebola Virus Disease symptoms Patient denies exposure to infectious person. Patient denies travel to an Ebola-affected area in the 21 days before illness onset. No symptoms or risks identified at this time. Initial Sepsis Screen: Does the patient meet any 2 criteria? No. Patient's initial sepsis screen is negative. Does the patient have a suspected source of infection? No. Patient's initial sepsis screen is negative. Risk Assessment: Do you want to hurt yourself or someone else? Patient reports no desire to harm self or others. Onset of symptoms was August 04, 2022. 14:31 Method Of Arrival: Wheelchair iw 14:31 Acuity: LEIDA 4 iw 16:08 Acuity: LEIDA 3 aa5 Historical: - Allergies: 14:32 Codeine; iw - PMHx: 14:32 DVT; Hypertensive disorder; iw - PSHx: 14:32 Stented artery; iw - Immunization history:: Adult Immunizations up to date, Client reports receiving the 2nd dose of the Covid vaccine. - Social history:: Smoking status: Patient denies any tobacco usage or history of. Patient/guardian denies using alcohol. Screenin:16 [facility] ED Fall Risk Assessment (Adult) History of falling in the last 3 months, ld1 including since admission No falls in past 3 months (0 pts). Abuse screen: Denies threats or abuse. Denies injuries from another. Nutritional screening: No deficits noted. Tuberculosis screening: No symptoms or risk factors identified. Assessment: 17:16 General: Appears in no apparent distress. comfortable, Behavior is calm, cooperative, ld1 appropriate for age. Pain: Complains of pain in back Pain radiates to right leg Pain currently is 10 out of 10 on a pain scale. Quality of pain is described as throbbing. Neuro: Level of Consciousness is awake, alert, obeys commands, Oriented to person, place, time, situation. Cardiovascular: Capillary refill < 3 seconds Patient's skin is warm and dry. Respiratory: Airway is patent Respiratory effort is even, unlabored. GI: Abdomen is round non-distended. GI: Reports nausea. : No signs and/or symptoms were reported regarding the genitourinary system. EENT: No signs and/or symptoms were reported regarding the EENT system. Derm: No signs and/or symptoms reported regarding the dermatologic system. Musculoskeletal: No signs and/or symptoms reported regarding the musculoskeletal system. 19:00 Reassessment: Patient appears in no apparent distress at this time. Patient and/or jb4 family updated on plan of care and expected duration. Pain level reassessed. Patient is alert, oriented x 3, equal unlabored respirations, skin warm/dry/pink. 20:00 Reassessment: Patient appears in no apparent distress at this time. Patient and/or jb4 family updated on plan of care and expected duration. Pain level reassessed. Patient is alert, oriented x 3, equal unlabored respirations, skin warm/dry/pink. Patient states feeling better. Vital Signs: 14:33 BP 165 / 65; Pulse 67; Resp 16; Temp 98.3; Pulse Ox 99% on R/A; Weight 83.91 kg; Height iw 5 ft. 0 in. ; Pain 10/10; 18:08 BP 190 / 85; Pulse 65; Resp 18; Pulse Ox 100% on R/A; Pain 8/10; ld1 19:00 BP 180 / 73; Pulse 68; Resp 16; Pulse Ox 99% on R/A; jb4 20:00 BP 184 / 101; Pulse 73; Resp 16; Pulse Ox 100% on R/A; jb4 14:33 Body Mass Index 36.13 (83.91 kg, 152.4 cm) iw 14:33 Pain Scale: Adult iw 18:08 Pain Scale: Adult ld1 ED Course: 13:52 Patient arrived in ED. am2 14:32 Triage completed. iw 14:33 Arm band placed on. iw 15:40 Cal Kaye PA is PHCP. cp 15:40 Cal Mayes MD is Attending Physician. cp 16:24 Urine collected: clean catch specimen, clear. tm3 16:49 Lizbet Oliva, RN is Primary Nurse. ld1 17:15 Radiology exam delayed due to lab results not completed at this time. (BUN/Creatinine). bq 17:16 Patient has correct armband on for positive identification. Placed in gown. Bed in low ld1 position. Call light in reach. Side rails up X2. hospital monitor on. Pulse ox on. NIBP on. Door closed. Noise minimized. Warm blanket given. 17:16 No provider procedures requiring assistance completed. Missed attempt(s): 20 gauge in ld1 right antecubital area. 17:16 Missed attempt(s): 20 gauge in left forearm. ld1 18:22 CT Stone Protocol In Process Unspecified. EDMS 20:23 IV discontinued, intact, bleeding controlled, No redness/swelling at site. Pressure jb4 dressing applied. Administered Medications: 17:33 Drug: Ondansetron IVP 4 mg Route: IVP; Site: right upper arm; ld1 18:08 Follow up: Response: No adverse reaction ld1 17:33 Drug: morphine IVP or IV 4 mg Route: IVP; Infused Over: 4 mins; Site: right upper arm; ld1 18:08 Follow up: Response: No adverse reaction ld1 18:07 Drug: morphine IVP or IV 4 mg Route: IVP; Infused Over: 4 mins; Site: right upper arm; ld1 19:25 Drug: Diazepam IVP 5 mg Route: IVP; Site: right upper arm; jb4 19:26 Drug: Decadron - Dexamethasone IVP 10 mg Route: IVP; Site: right upper arm; jb4 19:26 Drug: Lidoderm Topical Patch 5 % (700 mg/patch) 1 patches Route: Topical; Site: jb4 affected area; Medication: 17:16 VIS not applicable for this client. ld1 Outcome: 20:01 Discharge ordered by . cp 20:23 Discharged to home via wheelchair, with family. jb4 20:23 Condition: stable 20:23 Discharge instructions given to patient, Instructed on discharge instructions, follow up and referral plans. medication usage, Demonstrated understanding of instructions, follow-up care, medications, Prescriptions given X 2. 20:23 Patient left the ED. jb4 Signatures: Dispatcher [employer] EDBert Servin tm3 uGerda Oro Irene, RN RN iw Madison Boyce RN RN aa5 Cal Kaye PA PA cp Bryson, James RN RN jb4 Katie Nguyễn Lauren RN RN ld1 Corrections: (The following items were deleted from the chart) 14:33 14:32 Allergies: Demerol; iw iw 14:33 14:33 Pulse 67bpm; Resp 16bpm; Pulse Ox 99% RA; Temp 98.3F; 83.91 kg; Height 5 ft. 0 iw in.; BMI: 36.1; Pain 11/24, Adult; iw
--- NOTE | 2022-08-08 20:02 | EDPHYS ---
Physician Documentation [facility] Name: Dixie Robertson Age: 76 yrs Sex: Female : 1945 Arrival Date: 08/08/2022 Time: 13:49 Bed 19 Private MD: ED Physician Cal Mayes HPI: 08/08 16:00 This 76 yrs old Black Female presents to ER via Wheelchair with complaints of Back Pain.cp 16:00 The patient presents with pain that is acute, with no known mechanism of injury. The cp symptoms are located in the low back, right side of low back with worse pain. Onset: The symptoms/episode began/occurred 4 day(s) ago. The pain radiates to the right leg and right hip and right lower abdomen. Associated signs and symptoms: Pertinent negatives: constipation, dysuria, fever, incontinence, numbness, weakness. The problem was sustained from unknown cause. Modifying factors: the patient symptoms are aggravated by movement, standing, walking. Severity of symptoms: in the emergency department the symptoms are unchanged, despite home interventions. Historical: - Allergies: 14:32 Codeine; iw - PMHx: 14:32 DVT; Hypertensive disorder; iw - PSHx: 14:32 Stented artery; iw - Immunization history:: Adult Immunizations up to date, Client reports receiving the 2nd dose of the Covid vaccine. - Social history:: Smoking status: Patient denies any tobacco usage or history of. Patient/guardian denies using alcohol. ROS: 16:05 Constitutional: Negative for body aches, chills, fever, poor PO intake. cp 16:05 Eyes: Negative for injury, pain, redness, and discharge. cp 16:05 ENT: Negative for drainage from ear(s), ear pain, sore throat, difficulty swallowing, difficulty handling secretions. 16:05 Cardiovascular: Negative for chest pain, edema, palpitations. 16:05 Respiratory: Negative for cough, shortness of breath, wheezing. 16:05 Abdomen/GI: Positive for abdominal pain, Negative for vomiting, diarrhea, constipation, anorexia, bowel incontinence. 16:05 Back: Positive for pain at rest, pain with movement, of the low back with right side worse than left. 16:05 : Negative for urinary symptoms, bladder incontinence. 16:05 Neuro: Negative for dizziness, headache, numbness, tingling, weakness. 16:05 All other systems are negative. Exam: 16:10 Constitutional: The patient appears in no acute distress, alert, awake, cp non-diaphoretic, non-toxic, well developed, well nourished, uncomfortable. 16:10 Head/Face: Normocephalic, atraumatic. cp 16:10 Eyes: Periorbital structures: appear normal, Conjunctiva: normal, no exudate, no injection, Sclera: no appreciated abnormality, Lids and lashes: appear normal, bilaterally. 16:10 ENT: External ear(s): are unremarkable, Nose: is normal, Mouth: Lips: moist, Oral mucosa: pink and intact, moist, Posterior pharynx: is normal, airway is patent, no erythema, no exudate. 16:10 Neck: ROM/movement: is normal, is supple, without pain, no range of motions limitations. 16:10 Chest/axilla: Inspection: normal. 16:10 Cardiovascular: Rate: normal, Rhythm: regular. 16:10 Respiratory: the patient does not display signs of respiratory distress, Respirations: normal, no use of accessory muscles, no retractions, labored breathing, is not present, Breath sounds: are clear throughout, no decreased breath sounds, no stridor, no wheezing. 16:10 Abdomen/GI: Inspection: abdomen appears normal, Bowel sounds: active, all quadrants, Palpation: soft, in all quadrants, mild abdominal tenderness, in the posterior aspect of right lateral abdomen, anterior aspect of right lateral abdomen and right lower quadrant, rebound tenderness, is not appreciated, involuntary guarding, is not appreciated. 16:10 Back: pain, that is moderate, of the right low back, ROM is painful, with all movement. 16:10 Neuro: Motor: moves all fours, strength is normal, Sensation: is normal. Vital Signs: 14:33 BP 165 / 65; Pulse 67; Resp 16; Temp 98.3; Pulse Ox 99% on R/A; Weight 83.91 kg; Height iw 5 ft. 0 in. ; Pain 10/10; 18:08 BP 190 / 85; Pulse 65; Resp 18; Pulse Ox 100% on R/A; Pain 8/10; ld1 19:00 BP 180 / 73; Pulse 68; Resp 16; Pulse Ox 99% on R/A; jb4 20:00 BP 184 / 101; Pulse 73; Resp 16; Pulse Ox 100% on R/A; jb4 14:33 Body Mass Index 36.13 (83.91 kg, 152.4 cm) iw 14:33 Pain Scale: Adult iw 18:08 Pain Scale: Adult ld1 MDM: 15:40 Patient medically screened. cp 16:00 Differential diagnosis: ruptured disc, Ureterolithiasis sciatica, cauda equina, spinal cp stenosis. 20:00 Data reviewed: vital signs, nurses notes, lab test result(s), radiologic studies, CT cp scan. 20:00 Consideration of Admission/Observation Escalation of care including cp admission/observation considered. Care significantly affected by the following chronic conditions: Hypertension. Counseling: I had a detailed discussion with the patient and/or guardian regarding: the historical points, exam findings, and any diagnostic results supporting the discharge/admit diagnosis, lab results, radiology results, the need for outpatient follow up, an radio intelligence operator, to return to the emergency department if symptoms worsen or persist or if there are any questions or concerns that arise at home. Response to treatment: the patient's symptoms have markedly improved after treatment, and as a result, I will discharge patient. 06 15:49 Order name: CBC with Diff; Complete Time: 17:59 cp 08/08 15:49 Order name: CMP; Complete Time: 17:59 cp 08/08 15:49 Order name: Lipase; Complete Time: 17:59 cp 08/08 15:49 Order name: Urinalysis w/ reflexes; Complete Time: 17:15 cp 08/08 17:15 Interpretation: Normal except: UBLD Trace; UPROT 3+. cp 08/08 18:00 Order name: CT Stone Protocol; Complete Time: 19:02 cp 08/08 15:49 Order name: IV Saline Lock; Complete Time: 17:33 cp 08/08 15:49 Order name: Labs collected and sent; Complete Time: 17:33 cp Administered Medications: 17:33 Drug: Ondansetron IVP 4 mg Route: IVP; Site: right upper arm; ld1 18:08 Follow up: Response: No adverse reaction ld1 17:33 Drug: morphine IVP or IV 4 mg Route: IVP; Infused Over: 4 mins; Site: right upper arm; ld1 18:08 Follow up: Response: No adverse reaction ld1 18:07 Drug: morphine IVP or IV 4 mg Route: IVP; Infused Over: 4 mins; Site: right upper arm; ld1 19:25 Drug: Diazepam IVP 5 mg Route: IVP; Site: right upper arm; jb4 19:26 Drug: Decadron - Dexamethasone IVP 10 mg Route: IVP; Site: right upper arm; jb4 19:26 Drug: Lidoderm Topical Patch 5 % (700 mg/patch) 1 patches Route: Topical; Site: jb4 affected area; Disposition Summary: 08/08/22 20:01 Discharge Ordered Location: Home cp Problem: new cp Symptoms: have improved cp Condition: Stable cp Diagnosis - Lumbago with sciatica, right side cp - Hypertensive heart and 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, with stage 1 cp through stage 4 chronic kidney disease, or unspecified chronic kidney disease Followup: cp - With: Private Physician - When: 2 - 3 days - Reason: Recheck today's complaints Discharge Instructions: - Discharge Summary Sheet cp - Hypertension, Adult cp - Sciatica cp - Food Basics for Chronic Kidney Disease cp - Back Exercises cp Forms: - Medication Reconciliation Form cp - Thank You Letter cp - Antibiotic Education cp - Prescription Opioid Use cp Prescriptions: - Medrol (Negro) 4 mg Oral Tablets, Dose Pack - take 1 tablet by ORAL route as directed - follow package instructions; 1 cp packet; Refills: 0, Product Selection Permitted - methocarbamol 750 mg Oral Tablet - take 1 tablet by ORAL route 3 times per day; 30 tablet; Refills: 0, Product cp Selection Permitted Signatures: Dispatcher [employer] Micki Stinson RN RN iw Cal Kaye PA PA cp Camacho Fletcher, RN RN jb4 Lizbet Oliva RN RN ld1 Corrections: (The following items were deleted from the chart) 14:33 14:32 Allergies: Demerol; iw iw 18:03 15:50 Abdomen Pelvis W Con+CT.RAD.BRZ ordered. EDMS EDMS 18:19 18:03 Abdomen ordered. EDMS EDMS
[2022-08-08 20:51] VITALS: TEMP 98.3
[2022-08-08 20:57] VITALS: BP 184/101; O2SAT 100
== END 2022-08-08 20:23 | disposition home or self-care (01) ==
LOC: ER 13:49
DX: M54.41 Lumbago with sciatica, right side (principal); I12.9 Hypertensive chronic kidney disease with stage 1 through stage 4 chronic kidney disease, or unspecified chronic kidney disease; N18.4 Chronic kidney disease, stage 4 (severe); Z88.5 Allergy status to narcotic agent
CPT/HCPCS: 85025; 81001; 36415; 83690; 80053; 76377; 74176; 96375; 96374; 99285; J2001; J3360; J1100; J2405

== ENCOUNTER 2023-10-22 14:43 | Emergency (ER) | payer MEDICAID, OTHER ==
[2023-10-22 16:28] LABS: Absolute Eosinophils 0.1 K/uL (0-0.5); Absolute Lymphocytes (CBC) 1.2 K/uL (0.7-4.9); Absolute Monocytes 0.7 K/uL (0.1-1.3); Absolute Neutrophil 5.9 K/uL (1.8-8.0); Basophils % 0.4 % (0-1.3); Eosinophils % 1.5 % (0-4.4); Lymphocytes % 15.2 % (15.3-44.8); MCH 31.7 pg (27.0-35.0); MCHC 33.3 g/dL (32.0-36.0); MCV 95.2 fL (80-100); MPV 8.4 fL (7.6-11.3); Monocytes % 8.5 % (3.3-12.3); Neutrophils % 74.4 % (41.7-73.7); Nucleated Red Blood Cells % 0.1 % (0-0); Platelets 238 thou/uL (152-406); RBC Red Blood Cell Count 3.78 M/uL (3.86-4.86); Red Cell Distribution Width 14.1 % (12.1-15.2)
--- NOTE | 2023-10-22 16:33 | RAD REPORT ---
EXAM DESCRIPTION: Sonjat Single View10/22/2023 3:49 pm CLINICAL HISTORY: neck pain COMPARISON: Stone Protocol dated 08/08/2022 TECHNIQUE: Portable AP view of the chest. FINDINGS: The lungs are clear. No pneumothorax or effusion. The cardiomediastinal contours are unre markable. Surgical clips present along the left lower chest wall. IMPRESSION: No acute cardiopulmonary process.
[2023-10-22 16:41] LABS: Anion Gap 8.8 mEq/L (5.0-15.0); Potassium 3.8 mEq/L (3.5-5.1)
--- NOTE | 2023-10-22 17:47 | RAD REPORT ---
EXAM DESCRIPTION: CT - Head Brain Wo Cont - 10/22/2023 5:28 pm CLINICAL HISTORY: HEADACHE COMPARISON: Head angio dated 10/22/2023 TECHNIQUE: Noncontrast head CT images were obtained without IV contrast. Multiplanar reformats were generated and reviewed. All CT scans are performed using dose optimization technique as appropriate and may include automated exposure control or mA/KV adjustment according to patient size. FINDINGS: No intracranial hemorrhage, mass, or edema. Midline structures are unremarkable. Normal ventricular caliber for age. Burleson-white matter differentiation is preserved, without evidence of acute infarct. No abnormal extra- axial fluid collections. Mastoid air cells and visualized portions of the paranasal sinuses are clear. No acute bony findings. IMPRESSION: No evidence of an acute intracranial process.
--- NOTE | 2023-10-22 17:52 | RAD REPORT ---
EXAM DESCRIPTION: CT - Neck Angio - 10/22/2023 5:28 pm CLINICAL HISTORY: neck pain, headache COMPARISON: No comparisons TECHNIQUE: Axial CT angiography images of the neck was performed with multiplanar and maximum intens ity projection reconstructions. Images performed following intravenous administration of 70mL Isovue 370. All CT scans are performed using dose optimization technique as appropriate and may include automated exposure control or mA/KV adjustment according to patient size. Quantification of carotid stenosis, if any, is performed according to NASCET criteria. FINDINGS: A left aortic arch is identified with normal three vessel configuration of the great vesse ls. No significant flow abnormality is seen of the common carotid bilaterally. Mild atherosclerotic calci fications at the carotid bulbs. No significant stenosis is identified involving the cervical segments of both internal carotid arteri es. Normal flow is seen within both vertebral arteries. Left upper lobe pleural-based 9 mm nodule, incompletely imaged, but favored to be benign. Correlation with prior chest imaging if available is recommended. Otherwise the scan be further evaluated by ded icated chest CT on outpatient basis. IMPRESSION: No significant flow abnormality of the neck vessels is identified. CAROTID STENOSIS REFERENCE USING NASCET CRITERIA: % ICA stenosis = (1 - narrowest ICA diameter/diameter of distal cervical ICA) x 100. Mild - <50% stenosis. Moderate - 50-69% stenosis. Severe - 70-94% stenosis. Near occlusion - 95-99% stenosis. Occluded - 100% stenosis.
[2023-10-22] MEDS ORDERED: DIAZEPAM 5 MG TABLET ONE (17:54)
[2023-10-22] MEDS ORDERED: NA CHLORIDE 0.9% 500 ML ONE (17:54)
--- NOTE | 2023-10-22 18:01 | EDPHYS ---
Physician Documentation [facility] Name: Dixie Robertson Age: 77 yrs Sex: Female : 1945 Arrival Date: 10/22/2023 Time: 14:43 Bed 16 Private MD: ED Physician Cal Mayes HPI: 10/21 16:25 This 77 yrs old Black Female presents to ER via Wheelchair with complaints of Neck ms3 Pain, >24Hrs Old, Shoulder Pain, Headache > 24hrs Old. 16:25 77-year-old female with past medical history of DVT, hypertension, hyperlipidemia, ms3 coronary artery disease presents to the emergency department for bilateral neck pain and headache. Patient states the pain is radiating down her left shoulder. Patient rates pain 10/10. She denies any alleviating or inciting factors.. Historical: - Allergies: 14:59 Codeine; ld1 15:01 Demerol; ld1 - PMHx: 14:59 DVT; Hypertensive disorder; Hypercholesterolemia; Heart stent; ld1 - PSHx: 14:59 Stented artery; ld1 - Immunization history:: Adult Immunizations up to date. - Infectious Disease History:: Denies. - Social history:: Smoking status: Patient denies any tobacco usage or history of. ROS: 16:25 Constitutional: Negative for fever, and chills. Cardiovascular: Negative for chest ms3 pain, and palpitations. 16:25 Abdomen/GI: Negative for abdominal pain, nausea, vomiting, diarrhea, and constipation, MS/Extremity: Negative for injury and deformity, Skin: Negative for injury, rash, and discoloration, 16:25 Neck: Positive for Neck pain, 16:25 Neuro: Positive for headache, Exam: 16:25 Constitutional: This is a well developed, well nourished patient who is awake, alert, ms3 and in no acute distress. Head/Face: Normocephalic, atraumatic. Chest/axilla: Normal chest wall appearance and motion. Nontender with no deformity. Cardiovascular: Regular rate and rhythm with a normal S1 and S2. No gallops, murmurs, or rubs. Normal PMI, no JVD. No pulse deficits. Respiratory: Lungs have equal breath sounds bilaterally, clear to auscultation and percussion. No rales, rhonchi or wheezes noted. No increased work of breathing, no retractions or nasal flaring. Back: No spinal tenderness. No costovertebral tenderness. Full range of motion. Skin: Warm, dry with normal turgor. Normal color with no rashes, no lesions, and no evidence of cellulitis. 16:25 Neck: External neck: tenderness, that is moderate, Bilateral trapezius muscles, 19:10 ECG was reviewed by the Attending Physician. [facility] Vital Signs: 14:59 Pulse 76; Resp 18; Temp 97.4(TE); Pulse Ox 99% on R/A; Height 5 ft. 4 in. ; Pain 8/10; ld1 15:00 BP 178 / 64; ld1 17:30 BP 189 / 68; Pulse 80; Resp 18; Pulse Ox 100% on R/A; kj2 18:43 BP 178 / 61; Pulse 84; Resp 18; kj2 20:47 BP 198 / 74; Pulse 78; Resp 18; Temp 97.9; Pulse Ox 100% on R/A; kj2 14:59 Pain Scale: Adult ld1 MDM: 15:55 Patient medically screened. ms3 16:25 Differential diagnosis: cervical strain, Degenerative Disc Disease Vertebral artery ms3 dissection. 17:52 Transition of care: After a detail discussion of the patient's case, care is ms3 transferred to Cal Mayes MD. 18:02 Data reviewed: vital signs, nurses notes, lab test result(s), EKG, radiologic studies, [facility] CT scan, plain films. Consideration of Admission/Observation Escalation of care including admission/observation considered. I considered the following discharge prescriptions or medication management in the emergency department Medications were administered in the Emergency Department. See MAR. Independent interpretation of the following test(s) in the Emergency Department EKG: See my EKG interpretation above. Test considered but Not performed: MRI: NO MRI AVAILABLE. Historians other than the Patient: Family Member: FAMILY WELL INFORMED. Care significantly affected by the following chronic conditions: Hypertension, CAD , PVD , STENTS. 10/21 15:24 Order name: CBC with Diff; Complete Time: 16:51 ms3 10/21 15:24 Order name: BMP; Complete Time: 16:51 ms3 10/21 17:57 Order name: LFT's; Complete Time: 19:09 [facility] 10/21 17:57 Order name: Magnesium; Complete Time: 19:09 [facility] 10/21 17:57 Order name: NT PRO-BNP; Complete Time: 19:09 [facility] 10/21 17:57 Order name: PT-INR; Complete Time: 19:09 [facility] 10/21 17:57 Order name: Troponin HS; Complete Time: 19:09 [facility] 10/21 15:24 Order name: CT Head Brain wo Cont; Complete Time: 17:58 ms3 10/21 15:24 Order name: CXR XRAY; Complete Time: 16:51 ms3 10/21 17:01 Order name: Head angio; Complete Time: 19:09 EDMS 10/21 17:09 Order name: CT Neck Angio; Complete Time: 17:58 ms3 10/21 17:59 Order name: CT Stone Protocol [facility] 10/21 17:57 Order name: EKG; Complete Time: 17:57 [facility] 10/21 15:24 Order name: IV; Complete Time: 16:23 ms3 10/21 17:57 Order name: Cardiac monitoring; Complete Time: 18:26 [facility] 10/21 17:57 Order name: EKG - Nurse/Tech; Complete Time: 18:42 [facility] 10/21 17:57 Order name: Labs collected and sent; Complete Time: 18:42 [facility] 10/21 17:57 Order name: O2 Per Protocol; Complete Time: 18:42 [facility] 10/21 17:57 Order name: O2 Sat Monitoring; Complete Time: 18:42 arik EC:10 Rate is 76 beats/min. Rhythm is regular. QRS [place] is Normal. [place] interval is normal. QRS arik interval is normal. QT interval is normal. No Q waves. T waves are Normal. No ST changes noted. Clinical impression: NSR w/ Non-specific ST/T Changes and No evidence of ischemia. Interpreted by me. Reviewed by me. Administered Medications: 18:02 Drug: NS 0.9% IV 500 ml IV at bolus once Route: IV; Rate: bolus; Site: left antecubital;kj2 19:05 Follow up: IV Status: Completed infusion; IV Intake: 500ml kj2 18:02 Drug: Diazepam PO 5 mg PO once Route: PO; kj2 18:30 Follow up: Response: No adverse reaction kj2 18:35 Drug: morphine IVP or IV 2 mg IVP once over 4 mins Route: IVP; Infused Over: 4 mins; kj2 Site: left antecubital; 20:45 Follow up: Response: No adverse reaction kj2 18:43 Drug: NS 0.9% IV 1000 ml IV at 125 ml/hr continuous Route: IV; Rate: 125 ml/hr; Site: kj2 left antecubital; 21:15 Follow up: IV Status: Infusion continued upon transfer kj2 18:43 Drug: Ondansetron IVP 4 mg IVP once; over 2 minutes Route: IVP; Site: left antecubital; kj2 19:15 Follow up: Response: No adverse reaction kj2 19:02 Drug: Mucomyst - Acetylcysteine PO 600 mg PO once Route: PO; kj2 19:50 Follow up: Response: No adverse reaction kj2 19:02 Drug: Famotidine IVP 20 mg IVP once; dilute with 10 mL 0.9% NaCl; give over 2 minutes kj2 Route: IVP; Site: left antecubital; 19:50 Follow up: Response: No adverse reaction kj2 21:15 Not Given (Duplicate Order): ns 0.9% 500 ml IV at bolus once kj2 21:15 Not Given (Duplicate Order): morphineor iv 2 mg IVP once over 4 mins kj2 Disposition Summary: 10/22/23 18:01 Transfer Ordered Notes: Transfer Location: [facility] arik Reason: Higher level of care arik Condition: Fair arik Problem: new arik Symptoms: have improved arik Accepting Physician: TO [facility] , NEURO(10/22/23 21:16) kj2 Diagnosis - Other specified injuries of neck arik - Essential (primary) hypertension arik - Acute kidney failure, unspecified - ON CHRONIC(10/22/23 18:10) arik Forms: - Medication Reconciliation Form arik - SBAR form arik Signatures: Dispatcher [employer] EDCal Wheeler MD MD cha Sims, Marcus, DO DO ms3 Lizbet Oliva, RN RN ld1 Lucia Leung RN RN kj2 Corrections: (The following items were deleted from the chart) 16:52 15:24 Neck Angio+CT.RAD.BRZ ordered. EDMS EDMS 16:53 16:42 Head angio ordered. EDDC EDMS 18:10 18:01 TO [facility] , NEURO arik arik 18:10 18:01 Acute kidney failure, unspecified arik arik 21:16 18:10 TO [facility] , NEURO arik kj2
--- NOTE | 2023-10-22 18:01 | ER ---
Nurse's Notes [facility] Name: Dixie Robertson Age: 77 yrs Sex: Female : 1945 Arrival Date: 10/22/2023 Time: 14:43 Bed 16 Private MD: Diagnosis: Other specified injuries of neck;Essential (primary) hypertension;Acute kidney failure, unspecified-ON CHRONIC Presentation: 10/21 14:59 Chief complaint: Patient states: Neck pain with headache. Coronavirus screen: At this ld1 time, the client does not indicate any symptoms associated with coronavirus-19. Ebola Screen: No symptoms or risks identified at this time. Initial Sepsis Screen: Does the patient meet any 2 criteria? No. Patient's initial sepsis screen is negative. Does the patient have a suspected source of infection? No. Patient's initial sepsis screen is negative. Risk Assessment: Do you want to hurt yourself or someone else? Patient reports no desire to harm self or others. Onset of symptoms was October 22, 2023 at 14:59. 14:59 Method Of Arrival: Wheelchair ld1 14:59 Acuity: LEIDA 3 ld1 Triage Assessment: 15:00 General: Appears in no apparent distress. uncomfortable, Behavior is calm, cooperative, ld1 appropriate for age. Pain: Complains of pain in left scapular area, right scapular area and neck Pain does not radiate. Pain currently is 8 out of 10 on a pain scale. Quality of pain is described as throbbing, Pain began suddenly, Is continuous. EENT: No signs and/or symptoms were reported regarding the EENT system. Neuro: Level of Consciousness is awake, alert, obeys commands, Oriented to person, place, time, situation. Cardiovascular: Capillary refill < 3 seconds Patient's skin is warm and dry. Respiratory: Airway is patent Respiratory effort is even, unlabored. GI: Abdomen is round non-distended. : No signs and/or symptoms were reported regarding the genitourinary system. Derm: No signs and/or symptoms reported regarding the dermatologic system. Musculoskeletal: No signs and/or symptoms reported regarding the musculoskeletal system. Historical: - Allergies: 14:59 Codeine; ld1 15:01 Demerol; ld1 - PMHx: 14:59 DVT; Hypertensive disorder; Hypercholesterolemia; Heart stent; ld1 - PSHx: 14:59 Stented artery; ld1 - Immunization history:: Adult Immunizations up to date. - Infectious Disease History:: Denies. - Social history:: Smoking status: Patient denies any tobacco usage or history of. Screenin:19 [facility] ED Fall Risk Assessment (Adult) History of falling in the last 3 months, kj2 including since admission No falls in past 3 months (0 pts) Confusion or Disorientation No (0 pts) Intoxicated or Sedated No (0 pts) Impaired Gait No (0 pts) Mobility Assist Device Used No (0 pt) Altered Elimination No (0 pt) Score/Fall Risk Level 0 - 2 = Low Risk Maintained a safe environment, Educated pt \T\ family on fall prevention, incl call for assistance when getting out of bed, Hourly rounding (assess needs \T\ fall precautionary measures) done. Abuse screen: Denies threats or abuse. Denies injuries from another. Nutritional screening: No deficits noted. Tuberculosis screening: No symptoms or risk factors identified. Assessment: 16:30 General: Appears uncomfortable, Behavior is calm, cooperative. Pain: Complains of pain kj2 in neck and back and right scapular area and left scapular area Pain currently is 9 out of 10 on a pain scale. Neuro: Level of Consciousness is awake, alert, Oriented to person, place, time, situation. Cardiovascular: Patient's skin is warm and dry. Respiratory: Airway is patent Respiratory effort is even, unlabored. GI: No deficits noted. : No deficits noted. Vital Signs: 14:59 Pulse 76; Resp 18; Temp 97.4(TE); Pulse Ox 99% on R/A; Height 5 ft. 4 in. ; Pain 8/10; ld1 15:00 BP 178 / 64; ld1 17:30 BP 189 / 68; Pulse 80; Resp 18; Pulse Ox 100% on R/A; kj2 18:43 BP 178 / 61; Pulse 84; Resp 18; kj2 20:47 BP 198 / 74; Pulse 78; Resp 18; Temp 97.9; Pulse Ox 100% on R/A; kj2 14:59 Pain Scale: Adult ld1 ED Course: 14:48 Patient arrived in ED. sj2 14:55 Aj Oliva DO is Attending Physician. ms3 14:59 Triage completed. ld1 15:00 Arm band placed on right wrist. ld1 15:51 CXR XRAY In Process Unspecified. EDMS 16:23 Initial lab(s) drawn, by me, sent to lab. Inserted saline lock: 22 gauge in left zm antecubital area, using aseptic technique. Blood collected. Flushed with 10 mL NS. 16:23 BMP Sent. zm 16:23 CBC with Diff Sent. zm 17:21 Lucia Leung, RN is Primary Nurse. kj2 17:30 CT Head Brain wo Cont In Process Unspecified. EDMS 17:30 Head angio In Process Unspecified. EDMS 17:30 CT Neck Angio In Process Unspecified. EDMS 17:52 Attending Physician role handed off by Aj Oliva DO ms3 17:52 Cal Mayes MD is Attending Physician. ms3 18:19 Patient has correct armband on for positive identification. Placed in gown. Bed in low kj2 position. Call light in reach. Adult w/ patient. Provided Education on: call light. 18:20 No provider procedures requiring assistance completed. kj2 18:38 initiated transfer with [facility] spoke with Soniya Prasad. vk 18:41 EKG done, by ED staff, reviewed by Cal Mayes MD. hb 19:26 CT Stone Protocol In Process Unspecified. EDMS 19:44 Doc to doc initiated with Dr. Toledo. vk 19:54 patient was accepted to [facility] Rm [address] Toledo. vk 20:30 initiated transport with [facility] due to EMS transferring different patient. vk [facility] ETA 20 mins. 21:13 Patient transferred, IV remains in place. kj2 Administered Medications: 18:02 Drug: NS 0.9% IV 500 ml IV at bolus once Route: IV; Rate: bolus; Site: left antecubital;kj2 19:05 Follow up: IV Status: Completed infusion; IV Intake: 500ml kj2 18:02 Drug: Diazepam PO 5 mg PO once Route: PO; kj2 18:30 Follow up: Response: No adverse reaction kj2 18:35 Drug: morphine IVP or IV 2 mg IVP once over 4 mins Route: IVP; Infused Over: 4 mins; kj2 Site: left antecubital; 20:45 Follow up: Response: No adverse reaction kj2 18:43 Drug: NS 0.9% IV 1000 ml IV at 125 ml/hr continuous Route: IV; Rate: 125 ml/hr; Site: kj2 left antecubital; 21:15 Follow up: IV Status: Infusion continued upon transfer kj2 18:43 Drug: Ondansetron IVP 4 mg IVP once; over 2 minutes Route: IVP; Site: left antecubital; kj2 19:15 Follow up: Response: No adverse reaction kj2 19:02 Drug: Mucomyst - Acetylcysteine PO 600 mg PO once Route: PO; kj2 19:50 Follow up: Response: No adverse reaction kj2 19:02 Drug: Famotidine IVP 20 mg IVP once; dilute with 10 mL 0.9% NaCl; give over 2 minutes kj2 Route: IVP; Site: left antecubital; 19:50 Follow up: Response: No adverse reaction kj2 21:15 Not Given (Duplicate Order): ns 0.9% 500 ml IV at bolus once kj2 21:15 Not Given (Duplicate Order): morphineor iv 2 mg IVP once over 4 mins kj2 Medication: 18:19 VIS not applicable for this client. kj2 Intake: 19:05 IV: 500ml; Total: 500ml. kj2 Outcome: 18:01 ER care complete, transfer ordered by MD. elise 21:13 Transferred by ground EMS to [facility], [facility], kj2 21:13 Condition: unchanged 21:13 Instructed on the need for transfer, Demonstrated understanding of instructions, 21:16 Patient left the ED. kj2 Signatures: Dispatcher [employer] Cal Mayorga MD MD cha Baxter, Heather, RN RN hb Sims, Marcus, DO DO ms3 Lizbet Oliva RN RN ld1 Kat Christensen Vivian vk Jordan, Krystal, RN RN kj2 Zahraa Conner2
--- NOTE | 2023-10-22 18:04 | RAD REPORT ---
EXAM DESCRIPTION: CT - Head angio - 10/22/2023 5:28 pm CLINICAL HISTORY: HEADACHE, R/O Vertebral Artery dissection COMPARISON: Head Brain Wo Cont dated 10/22/2023; Neck Angio dated 10/22/2023 TECHNIQUE: Axial CT angiography images of the head was performed with multiplanar and maximum intens ity projection reconstructions. Images performed following intravenous administration of 70mL Isovue 370. All CT scans are performed using dose optimization technique as appropriate and may include automated exposure control or mA/KV adjustment according to patient size. 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 No evidence of large vessel occlusion. No evidence of aneurysm or dissection flap is detected. No vascular malformation identified. Antegrade flow is seen in the vertebral arteries. The vertebral arteries are codominant. The visualized dural venous sinuses are grossly patent. 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 No evidence of large vessel occlusion. The findings were communicated to Cal Mayes on 10/22/2023 at 17:54 hours.
[2023-10-22] MEDS ORDERED: ONDANSETRON 4 MG/2 ML VIAL ONE (18:23)
[2023-10-22] MEDS ORDERED: NA CHLORIDE 0.9% 1,000 ML ONE (18:24)
[2023-10-22] MEDS ORDERED: MORPHINE 2 MG/ML SYR ONE (18:24)
[2023-10-22 18:46] LABS: PT Prothrombin Time 15.1 SECONDS (9.4-12.5); Protime INR 1.36
[2023-10-22] MEDS ORDERED: ACETYLCYST 6,000 MG/30 ML VIAL ONE (18:50)
[2023-10-22] MEDS ORDERED: FAMOTIDINE 20 MG/2 ML VIAL IV ONE (18:50)
[2023-10-22 18:59] LABS: Albumin/Globulin Ratio 0.9 (1.1-1.8); Alkaline Phosphatase 54 U/L (45-117); Bilirubin Total 0.2 mg/dL (0.2-1.0); Globulin 3.5 g/dL (2.3-3.5); Magnesium 1.9 mg/dL (1.6-2.4); NT PRO-BNP 510 pg/mL (<450); Protein, Total 6.5 g/dL (6.4-8.2); Troponin High Sensitivity 10.5 pg/mL (<58.9)
[2023-10-22 19:00] LABS: ALT/SGPT < 14 U/L (13-56); AST/SGOT < 10 U/L (15-37); Bilirubin Direct < 0.2 mg/dL (0-0.2)
--- NOTE | 2023-10-22 19:44 | RAD REPORT ---
EXAM DESCRIPTION: CT - Stone Protocol - 10/22/2023 7:24 pm CLINICAL HISTORY: FLANK PAIN COMPARISON: Stone Protocol dated 08/08/2022; Stone Protocol dated 04/26/2022; Head angio dated 4; Neck Angio dated 10/22/2023 TECHNIQUE: Thin cut axial CT imaging of the abdomen and pelvis was performed without IV contrast. Mu ltiplanar reformats were generated and reviewed. All CT scans are performed using dose optimization technique as appropriate and may include automated exposure control or mA/KV adjustment according to patient size. FINDINGS: No suspicious findings in the lung bases. The liver, spleen, adrenal glands, and pancreas show no suspicious findings. Gallbladder is visualize d, and could be collapsed or surgically removed. Symmetric renal contour, without suspicious parenchymal findings within limits of noncontrast techniq ue. No evidence of hydroureteronephrosis. Excreted the renal collecting systems limits evaluation for calculi and may obscure bladder wall abnormalities. IVC filter in place. No dilated bowel loops or bowel wall thickening. No free air, free fluid or inflammatory stranding. N o hernia, mass or bulky lymphadenopathy. The urinary bladder is without significant finding. No suspicious bony findings. IMPRESSION: No acute intra-abdominal process. Incidental findings as above.
[2023-10-22 22:02] VITALS: O2SAT 100
[2023-10-22 22:04] VITALS: BP 198/74; TEMP 97.9
--- NOTE | 2023-10-25 17:07 | EKG ---
Test Date: 2023-10-22 Test Time: 18:41:59 Tobacco Curer: HB MEASUREMENT RESULTS: Intervals: Rate: 76 NC: 180 QRSD: 94 QT: 318 QTc: 357 [place]: P: 46 NC: 180 QRS: -23 T: -45 INTERPRETIVE STATEMENTS: Sinus rhythm with premature atrial complexes in a pattern of bigeminy Nonspecific ST and T wave abnormality Abnormal ECG No previous ECG available for comparison Electronically Signed On 10-25-23 17:00:43 CDT by Thierno Grant
== END 2023-10-22 21:16 | disposition short-term general hospital (02) ==
LOC: ER 14:43
DX: S19.80XA Other specified injuries of unspecified part of neck, initial encounter (principal); I12.9 Hypertensive chronic kidney disease with stage 1 through stage 4 chronic kidney disease, or unspecified chronic kidney disease; N18.9 Chronic kidney disease, unspecified; N17.9 Acute kidney failure, unspecified; Z95.818 Presence of other cardiac implants and grafts
CPT/HCPCS: 96361; 93005; 85025; 80048; 36415; 83735; 85610; 80076; 84484; 83880; 70450; 76377; 70496; 70498; 74176; 71045; 96375; 96374; 99285; Q9967; J7608; J2270; J2405; J7040; J7030

== ENCOUNTER 2024-01-23 19:17 | Emergency (ER) | payer MEDICAID ==
[2024-01-23] MEDS ORDERED: ONDANSETRON 4 MG/2 ML VIAL ONE (22:34)
[2024-01-23] MEDS ORDERED: MORPHINE 4 MG/ML SYR ONE ×2 (22:35→23:51)
[2024-01-23 23:24] LABS: Absolute Eosinophils 0.2 K/uL (0-0.5); Absolute Lymphocytes (CBC) 1.6 K/uL (0.7-4.9); Absolute Monocytes 0.5 K/uL (0.1-1.3); Absolute Neutrophil 4.5 K/uL (1.8-8.0); Basophils % 0.6 % (0-1.3); Eosinophils % 2.5 % (0-4.4); Hematocrit 35.6 % (36.0-45.0); Hemoglobin 11.8 g/dL (12.0-15.0); Lymphocytes % 23.8 % (15.3-44.8); MCH 31.3 pg (27.0-35.0); MCHC 33.1 g/dL (32.0-36.0); MCV 94.5 fL (80-100); MPV 7.8 fL (7.6-11.3); Monocytes % 7.6 % (3.3-12.3); Neutrophils % 65.5 % (41.7-73.7); Nucleated Red Blood Cells % 0.1 % (0-0); Platelets 270 thou/uL (152-406); RBC Red Blood Cell Count 3.77 M/uL (3.86-4.86); Red Cell Distribution Width 15.3 % (12.1-15.2)
[2024-01-23 23:27] LABS: Specific Gravity 1.016 (1.005-1.030); Sqamous Epithelial <5 /HPF (None Seen); Urine Bacteria None Seen /HPF (<20); Urine Bilirubin NEGATIVE (Negative); Urine Blood Negative (Negative); Urine Clarity Clear (Clear); Urine Color Light-Yellow (Yellow); Urine Culture Reflex Order NOT NEEDED; Urine Glucose NEGATIVE (Negative); Urine Ketones NEGATIVE (Negative); Urine Micro Reflex YN NO BILL MICROSCOPIC; Urine Mucus Slight /HPF (None Seen); Urine Nitrite NEGATIVE (Negative); Urine Protein 3+ (Negative); Urine RBC <5 /HPF (None Seen); Urine Urobilinogen Normal (Normal)
--- NOTE | 2024-01-23 23:51 | RAD REPORT ---
EXAM DESCRIPTION: CT ABDOMEN PELVIS WITHOUT IV CONTRAST CLINICAL HISTORY: Abdominal pain. COMPARISON: CT Abdomen pelvis without IV contrast 10/22/2023 TECHNIQUE: Contiguous axial images of the abdomen and pelvis were obtained without the administration of intrave nous contrast followed by reconstruction images.This exam was performed according to our departmental dose-optimization program, which includes automated exposure control, adjustment of the mA and/or kV according to patient size and/or use of iterative reconstruction technique. FINDINGS: There is atherosclerosis. There is an inferior vena cava filter. Calcifications within the pelvis com patible with phleboliths. The liver, spleen, pancreas and kidneys are within normal limits. There is no hydronephrosis or renal stones. The gallbladder is absent. There is no free fluid in the abdomen or pelvis. There is no stranding of the mesenteric fat to suggest an inflammatory response. There is no bowel obstruction. T he appendix was not visualized. There is no pericecal inflammation. IMPRESSION: No acute intra-abdominal abnormality. Electronically signed by: Leonel Francisco MD 01/23/2024 11:40 PM [facility] Due to temporary technical issues with the PACS/NN LABS reporting system, reports are being taniya d by the in-house radiologist without review as a courtesy to ensure prompt reporting the interpreting radiologist is fully responsible for the content of the report. Transcribed Date/Time: 01/23/2024 11:50 PM
[2024-01-23 23:53] LABS: Albumin/Globulin Ratio 0.9 (1.1-1.8); Bilirubin Total 0.3 mg/dL (0.2-1.0); Globulin 3.3 g/dL (2.3-3.5); Protein, Total 6.3 g/dL (6.4-8.2)
--- NOTE | 2024-01-24 00:56 | ER ---
Nurse's Notes [facility] Name: Dixie Robertson Age: 78 yrs Sex: Female : 1945 Arrival Date: 01/23/2024 Time: 19:17 Bed 15 Private MD: Diagnosis: Abdominal pain, Generalized Presentation: 01/22 20:19 Chief complaint: Patient states: been in pain for 4 days. Pain in RLQ to R lower back. tm6 Pain has been on and off for 2-3 months, but it has not been this bad. 20:20 Coronavirus screen: Client denies travel out of the [place] in the last 14 days. Ebola tm6 Screen: Patient negative for fever greater than or equal to 101.5 degrees Fahrenheit, and additional compatible Ebola Virus Disease symptoms Patient denies exposure to infectious person. Patient denies travel to an Ebola-affected area in the 21 days before illness onset. No symptoms or risks identified at this time. Initial Sepsis Screen: Does the patient meet any 2 criteria? No. Patient's initial sepsis screen is negative. Does the patient have a suspected source of infection? No. Patient's initial sepsis screen is negative. Risk Assessment: Do you want to hurt yourself or someone else? Patient reports no desire to harm self or others. Onset of symptoms was January 19, 2024. 20:20 Method Of Arrival: Wheelchair tm6 20:20 Acuity: LEIDA 3 tm6 Triage Assessment: 20:20 General: Appears in no apparent distress. uncomfortable, Behavior is calm, cooperative. tm6 Pain: Complains of pain in right low back, posterior aspect of right lateral abdomen and right lower quadrant Pain currently is 10 out of 10 on a pain scale. Pain began 2-3 months ago, worsening 4 days ago. EENT: No signs and/or symptoms were reported regarding the EENT system. Neuro: Level of Consciousness is awake, alert, obeys commands, Oriented to person, place, time, situation. Cardiovascular: Patient's skin is warm and dry. Respiratory: Airway is patent Respiratory effort is even, unlabored, Respiratory pattern is regular, symmetrical. GI: Abdomen is round non-distended, Reports lower abdominal pain. : No signs and/or symptoms were reported regarding the genitourinary system. Derm: No signs and/or symptoms reported regarding the dermatologic system. Musculoskeletal: Reports pain in right low back and right lower quadrant Pain is 10 out of 10 on a pain scale. Historical: - Allergies: 20:18 Codeine; tm6 20:18 Demerol; tm6 - PMHx: 20:18 DVT; HEART STENT; Hypercholesterolemia; Hypertensive disorder; tm6 20:20 Gout; tm6 - PSHx: 20:18 Stented artery; tm6 - Immunization history:: Flu vaccine is up to date. Pneumococcal vaccine is up to date. - Infectious Disease History:: Denies. - Social history:: Smoking status: Patient denies any tobacco usage or history of. Screenin:07 [facility] ED Fall Risk Assessment (Adult) History of falling in the last 3 months, bm8 including since admission Yes- physiologic fall (2 pts) Confusion or Disorientation No (0 pts) Intoxicated or Sedated No (0 pts) Impaired Gait Yes (1 pt) Mobility Assist Device Used No (0 pt) Altered Elimination No (0 pt) Score/Fall Risk Level 3 or more points = High Risk Oriented to surroundings, Maintained a safe environment, Educated pt \T\ family on fall prevention, incl call for assistance when getting out of bed, Assessed \T\ reinforced patient's understanding of fall precautions, Hourly rounding (assess needs \T\ fall precautionary measures) done, Used ambulatory aids as needed (educated on \T\ assisted with), Used gait belt as appropriate Implemented a Fall Risk Plan of Care. Abuse screen: Denies threats or abuse. Nutritional screening: No deficits noted. Tuberculosis screening: No symptoms or risk factors identified. Assessment: 23:06 Reassessment: Patient and/or family updated on plan of care and expected duration. Pain bm8 level reassessed. Patient is alert, oriented x 3, equal unlabored respirations, skin warm/dry/pink. General: Appears in no apparent distress. uncomfortable, Behavior is calm, cooperative, appropriate for age. 23:07 Pain: Complains of pain in abdomen and back and right lower quadrant and posterior bm8 aspect of right lateral abdomen and right low back Pain currently is 8 out of 10 on a pain scale. Neuro: No deficits noted. Level of Consciousness is awake, alert, obeys commands, Oriented to person, place, time, situation, Appropriate for age. Cardiovascular: Denies chest pain, Capillary refill < 3 seconds in bilateral fingers. Respiratory: Airway is patent Respiratory effort is even, unlabored, Respiratory pattern is regular, symmetrical. GI: Abdomen is round distended, Bowel sounds present X 4 quads. Abdomen is tender to palpation in umbilical area, suprapubic area, posterior aspect of right lateral abdomen, anterior aspect of right lateral abdomen, right lower quadrant and left lower quadrant Reports lower abdominal pain, cramping, Pain is 8 out of 10 on a pain scale. : No signs and/or symptoms were reported regarding the genitourinary system. EENT: No signs and/or symptoms were reported regarding the EENT system. Derm: No signs and/or symptoms reported regarding the dermatologic system. Musculoskeletal: Reports pain in right leg. 23:39 Reassessment: Patient appears in no apparent distress at this time. Patient and/or bm8 family updated on plan of care and expected duration. Pain level reassessed. Patient is alert, oriented x 3, equal unlabored respirations, skin warm/dry/pink. pt is requesting more pain medication due to continued pain. provider notified of pt's request. Patient states symptoms have not improved. 01/23 01:02 Reassessment: No changes from previously documented assessment. Patient and/or family bm8 updated on plan of care and expected duration. Pain level reassessed. Patient is alert, oriented x 3, equal unlabored respirations, skin warm/dry/pink. Patient states feeling better. Patient states symptoms have improved. Vital Signs: 01/22 20:17 Resp 19; Temp 98.7(O); Weight 81.19 kg; Height 5 ft. 0 in. ; Pain 10/10; tm6 20:19 BP 178 / 70; Pulse 63; Pulse Ox 99% on R/A; MAP 101 mmHg; tm6 23:07 BP 179 / 85; Pulse 79; Resp 18; Temp 98.7; Pulse Ox 99% ; Pain 8/10; bm8 23:39 BP 183 / 72; Pulse 64; Resp 17; Temp 98.7; Pulse Ox 97% ; Pain 8/10; bm8 01/23 01:02 BP 168 / 89; Pulse 72; Resp 18; Temp 98.7; Pulse Ox 99% ; Pain 3/10; bm8 01/22 20:17 Body Mass Index 34.96 (81.19 kg, 152.4 cm) tm6 01/22 20:17 Pain Scale: Adult tm6 23:07 Pain Scale: Adult bm8 23:39 Pain Scale: Adult bm8 01/23 01:02 Pain Scale: Adult bm8 [place] Coma Score: 01/22 23:07 Eye Response: spontaneous(4). Motor Response: obeys commands(6). Verbal Response: bm8 oriented(5). Total: 15. 23:39 Eye Response: spontaneous(4). Motor Response: obeys commands(6). Verbal Response: bm8 oriented(5). Total: 15. 12 01:02 Eye Response: spontaneous(4). Motor Response: obeys commands(6). Verbal Response: bm8 oriented(5). Total: 15. ED Course: 01/22 19:22 Patient arrived in ED. gm2 20:20 Arm band placed on left wrist. tm6 20:21 Triage completed. tm6 21:56 Jonny Guillory FNP-C is [facility]. dr5 21:56 Karsten Garner MD is Attending Physician. dr5 22:27 Madhu Singh RN is Primary Nurse. bm8 23:07 Patient has correct armband on for positive identification. Placed in gown. Bed in low bm8 position. Call light in reach. Side rails up X 1. Adult w/ patient. Client placed on continuous cardiac and pulse oximetry monitoring. NIBP monitoring applied. Pulse ox on. NIBP on. Door closed. Noise minimized. Warm blanket given. Pillow given. Verbal reassurance given. Head of bed elevated. 23:07 No provider procedures requiring assistance completed. Initial lab(s) drawn, by dez chang sent to lab. Urine collected: clean catch specimen, clear. Inserted saline lock: 20 gauge in left antecubital area, using aseptic technique. ,using aseptic technique. by ultrasound Blood collected. Flushed with 10 mL NS. Patient maintains SpO2 saturation greater than 95% on room air. 23:12 CT Abd/Pelvis - Without Contrast In Process Unspecified. EDMS 01/23 01:02 Provided Education on: post er care. bm8 01:02 IV discontinued, intact, bleeding controlled, No redness/swelling at site. Pressure bm8 dressing applied. Administered Medications: 01/22 23:12 Drug: Ondansetron IVP 4 mg IVP once; over 2 minutes Route: IVP; Site: left antecubital; bm8 23:41 Follow up: Response: No adverse reaction bm8 23:12 Drug: morphine IVP or IV 4 mg IVP once over 4 mins Route: IVP; Infused Over: 4 mins; bm8 Site: left antecubital; 23:41 Follow up: Response: No adverse reaction bm8 23:55 Drug: morphine IVP or IV 4 mg IVP once over 4 mins Route: IVP; Infused Over: 4 mins; bm8 Site: left antecubital; 01/23 01:03 Follow up: Response: No adverse reaction bm8 Medication: 01/22 23:07 VIS not applicable for this client. bm8 Outcome: 01/23 00:56 Discharge ordered by . dr5 01:02 Discharged to home via wheelchair, bm8 01:02 Condition: stable 01:02 Discharge instructions given to patient, family, Instructed on discharge instructions, follow up and referral plans. no drinking with medication, no driving heavy equipment, medication usage, safety practices, Demonstrated understanding of instructions, follow-up care, medications, Prescriptions given X 2, 01:17 Patient left the ED. bm8 Signatures: Dispatcher [employer] EDMS Brina Olguin gm2 Bianca Deluca RN RN tm6 Madhu Singh RN RN bm8 Jonny Guillory, FEED AND FARM MANAGEMENT ADVISER-C FEED AND FARM MANAGEMENT ADVISER-Cdr5 Corrections: (The following items were deleted from the chart) 01/22 20:21 20:19 Chief complaint: Patient states: been in pain for 4 days. Pain in RLQ to R lower tm6 back. tm6
--- NOTE | 2024-01-24 00:56 | EDPHYS ---
Physician Documentation [facility] Name: Dixie Robertson Age: 78 yrs Sex: Female : 1945 Arrival Date: 01/23/2024 Time: 19:17 Bed 15 Private MD: ED Physician Karsten Garner HPI: 01/22 21:57 This 78 yrs old Black Female presents to ER via Wheelchair with complaints of Abdominal dr5 Pain, Low Back Pain. 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 Pt currently being treated for gout. dr5 Pt is a 78 year old presenting with right lower abdominal pain. Pt has appendectomy and cholecystectomy. . Historical: - Allergies: 20:18 Codeine; tm6 20:18 Demerol; tm6 - PMHx: 20:18 DVT; HEART STENT; Hypercholesterolemia; Hypertensive disorder; tm6 20:20 Gout; tm6 - PSHx: 20:18 Stented artery; tm6 - Immunization history:: Flu vaccine is up to date. Pneumococcal vaccine is up to date. - Infectious Disease History:: Denies. - Social history:: Smoking status: Patient denies any tobacco usage or history of. ROS: 01/23 01:55 Constitutional: as per hpi dr5 Exam: 01:55 Constitutional: This is a well developed, well nourished patient who is awake, alert, dr5 and in no acute distress. Head/Face: Normocephalic, atraumatic. Eyes: Pupils equal round and reactive to light, extra-ocular motions intact. Lids and lashes normal. Conjunctiva and sclera are non-icteric and not injected. Cornea within normal limits. Periorbital areas with no swelling, redness, or edema. Chest/axilla: Normal chest wall appearance and motion. Nontender with no deformity. No lesions are appreciated. Cardiovascular: Regular rate and rhythm with a normal S1 and S2. Normal PMI, no JVD. No pulse deficits. Respiratory: Lungs have equal breath sounds bilaterally, clear to auscultation. No rales, rhonchi or wheezes noted. No increased work of breathing, no retractions or nasal flaring. 01:55 Skin: Warm, dry with normal turgor. Normal color with no rashes, no lesions, and no evidence of cellulitis. Neuro: Awake and alert, GCS 15, oriented to person, place, time, and situation. Cranial nerves II-XII grossly intact. Motor strength 5/5 in all extremities. Sensory grossly intact. Cerebellar exam normal. Normal gait. 01:55 Abdomen/GI: Inspection: abdomen appears normal, Bowel sounds: normal, Palpation: abdomen is soft and non-tender, in all quadrants, soft, in all quadrants, 01:55 Back: Exam negative for 01:55 Skin: Exam negative for Vital Signs: 01/22 20:17 Resp 19; Temp 98.7(O); Weight 81.19 kg; Height 5 ft. 0 in. ; Pain 10/10; tm6 20:19 BP 178 / 70; Pulse 63; Pulse Ox 99% on R/A; MAP 101 mmHg; tm6 23:07 BP 179 / 85; Pulse 79; Resp 18; Temp 98.7; Pulse Ox 99% ; Pain 8/10; bm8 23:39 BP 183 / 72; Pulse 64; Resp 17; Temp 98.7; Pulse Ox 97% ; Pain 8/10; bm8 01/23 01:02 BP 168 / 89; Pulse 72; Resp 18; Temp 98.7; Pulse Ox 99% ; Pain 3/10; bm8 12 20:17 Body Mass Index 34.96 (81.19 kg, 152.4 cm) tm6 12/ 20:17 Pain Scale: Adult tm6 23:07 Pain Scale: Adult bm8 23:39 Pain Scale: Adult bm8 01/23 01:02 Pain Scale: Adult bm8 Sukumar Coma Score: 01/22 23:07 Eye Response: spontaneous(4). Motor Response: obeys commands(6). Verbal Response: bm8 oriented(5). Total: 15. 23:39 Eye Response: spontaneous(4). Motor Response: obeys commands(6). Verbal Response: bm8 oriented(5). Total: 15. 01/23 01:02 Eye Response: spontaneous(4). Motor Response: obeys commands(6). Verbal Response: bm8 oriented(5). Total: 15. MDM: 01/22 22:16 Medical Screening Exam initiated dr5 01/23 01:55 Differential diagnosis: Herpes Zoster, non-specific abd pain, urinary tract infection. dr5 Data reviewed: vital signs, nurses notes, lab test result(s), radiologic studies, CT scan. Consideration of Admission/Observation Escalation of care including admission/observation considered. Patient presents patient considered admission versus collection outpatient had acute abnormalities noted on CT exam.. Care significantly affected by the following chronic conditions: DVT, heart stent, hyperlipidemia, hypertension, gout. Care significantly affected by the following Social Determinants of Health: Poor access to healthcare and/or lack of insurance, Poor access to transportation, Unemployment, Problems related to employment. Counseling: I had a detailed discussion with the patient and/or guardian regarding the historical points, exam findings, and any diagnostic results supporting the discharge/admit diagnosis, the presence of at least one elevated blood pressure reading (>120/80) during this emergency department visit, lab results, radiology results, the need for outpatient follow up, for definitive care, a family practitioner, to return to the emergency department if symptoms worsen or persist or if there are any questions or concerns that arise at home. ED course: Printed out blood work and CT scan for patient. Discussed all blood work and CT results with patient. Patient had mildly elevated lipase, but no nausea or vomiting or epigastric pain to palpation. Patient reports her abdominal pain has resolved initially much better. Patient will make appointment with primary care doctor and take results with her. All questions answered. Reassessment completed on abdomen with no acute findings.. 01/22 22:00 Order name: CBC with Diff; Complete Time: 23:30 dr5 01/22 22:00 Order name: CMP; Complete Time: 23:56 dr5 01/22 22:00 Order name: Lipase; Complete Time: 23:56 dr5 01/22 23:07 Order name: Urine W/Microscopic (UAM); Complete Time: 23:30 bm8 01/22 22:00 Order name: CT Abd/Pelvis - Without Contrast dr5 01/22 22:01 Order name: IV Saline Lock; Complete Time: 23:12 dr5 01/22 22:01 Order name: Labs collected and sent; Complete Time: 23:12 dr5 Administered Medications: 01/22 23:12 Drug: Ondansetron IVP 4 mg IVP once; over 2 minutes Route: IVP; Site: left antecubital; bm8 23:41 Follow up: Response: No adverse reaction bm8 23:12 Drug: morphine IVP or IV 4 mg IVP once over 4 mins Route: IVP; Infused Over: 4 mins; bm8 Site: left antecubital; 23:41 Follow up: Response: No adverse reaction bm8 23:55 Drug: morphine IVP or IV 4 mg IVP once over 4 mins Route: IVP; Infused Over: 4 mins; bm8 Site: left antecubital; 01/23 01:03 Follow up: Response: No adverse reaction bm8 Disposition Summary: 01/24/24 00:56 Discharge Ordered Notes: Location: Home dr5 Condition: Stable dr5 Diagnosis - Abdominal pain, Generalized dr5 Followup: dr5 - With: Emergency Department - When: As needed - Reason: Worsening of condition Followup: dr5 - With: Private Physician - When: 1 - 2 days - Reason: Recheck today's complaints, Continuance of care, Re-evaluation by your physician Discharge Instructions: - Discharge Summary Sheet dr5 - Abdominal Pain, Adult dr5 Forms: - Medication Reconciliation Form dr5 - Patient Portal Instructions dr5 - Leadership Thank You Letter dr5 Prescriptions: - Zofran 4 mg Oral Tablet - take 1 tablet ORAL route every 12 hours As needed; 20 tablet; Refills: 0, dr5 Product Selection Permitted - Tramadol 50 mg Oral Tablet - take 1 tablet ORAL route every 8 hours as needed; 12 tablet; Refills: 0, dr5 Product Selection Permitted Addendum: 01/26/2024 09:45 I was immediately available for consultation during this patient's visit. I did not e c2 personally see the patient or discuss the patient with the DELISA. . Signatures: Dispatcher [employer] Karsten Hernandez MD MD ec2 Bianca Deluca RN RN tm6 Madhu Singh RN RN bm8 Jonny Guillory, DANYA-C DELIVERY TECHNICIAN-Cdr5 Corrections: (The following items were deleted from the chart) 01/22 23:20 22:02 TEST, SERUM+[id number].LAB.BRZ ordered. [facility] EDMS
== END 2024-01-24 01:17 | disposition home or self-care (01) ==
LOC: ER 19:17
DX: R10.84 Generalized abdominal pain (principal); I10 Essential (primary) hypertension; E78.00 Pure hypercholesterolemia, unspecified; Z86.718 Personal history of other venous thrombosis and embolism; Z95.818 Presence of other cardiac implants and grafts
CPT/HCPCS: 85025; 81001; 36415; 83690; 80053; 74176; 96375; 96374; 99284; J2405